=== PATIENT | female | born 1970 | race Two or more races ===

== ENCOUNTER 2020-10-01 15:54 | Outpatient (REF) | payer OTHER, SELFPAY ==
--- NOTE | 2020-10-01 15:59 | MM_ITS ---
EXAMINATION: MM SCREENING DIGITAL BREAST TOMOSYNTHESIS, BILATERAL CLINICAL INFORMATION: Screening. Asymptomatic. The lifetime risk of breast cancer based on the Tyrer-Cuzick Model is 5.9%. COMPARISON: Mammography: September 26, 2019 and studies dating back to August 09, 2014 TECHNIQUE: Digital breast tomosynthesis is performed in both the craniocaudal and mediolateral oblique views along with computer-aided detection (CAD). Synthesized 2D images are generated from the tomosynthesis. FINDINGS: The breasts are heterogeneously dense, which may obscure small masses (ACR BI-RADS breast composition Category c). There are no significant masses, abnormal calcifications, or other abnormalities. MM/MM tomosynthesis screening BI IMPRESSION: There are no significant changes from prior study. ASSESSMENT: BI-RADS 1: Negative RECOMMENDATION: Routine annual mammography screening. This patient's information was entered into a reminder system with a target due date for their next mammogram.
== END 2020-10-01 15:55 | disposition home or self-care (01) ==
LOC: HO.MAMMO 15:54
PROVIDERS: PCP Internal Medicine; Visit Provider Internal Medicine
DX: Z12.31 Encounter for screening mammogram for malignant neoplasm of breast (principal)
CPT/HCPCS: 77063; 77067

== ENCOUNTER 2020-11-06 14:21 | Outpatient (REF) | payer OTHER, SELFPAY ==
--- NOTE | 2020-11-06 14:25 | XR_ITS ---
EXAMINATION: XR HIP, RIGHT CLINICAL INFORMATION: Pain right hip COMPARISON: Radiographs right hip 12/25/2018; CT abdomen and pelvis 12/15/2016 TECHNIQUE: Two views of the right hip. FINDINGS: There is no fracture dislocation or destructive process. No hip joint narrowing or erosive change. Soft tissue planes are unremarkable. There is small bridging ossification at the superior pubis again seen. Visualized SI joints unremarkable. There is incidental mesenteric node calcification again seen right lower quadrant abdomen overlying the iliac wing. XR/XR hip RT min 2V IMPRESSION: Unremarkable right hip.
== END 2020-11-06 14:22 | disposition home or self-care (01) ==
LOC: HO.XRAY 14:21
PROVIDERS: PCP Internal Medicine; Visit Provider Internal Medicine
DX: M25.551 Pain in right hip (principal)
CPT/HCPCS: 73502

== ENCOUNTER 2020-12-11 10:02 | Outpatient (REF) | payer OTHER, SELFPAY | END 2020-12-11 10:03 | disposition home or self-care (01) | LOC: HO.LAB 10:02 | PROVIDERS: Visit Provider Internal Medicine | DX: Z20.822 Contact with and (suspected) exposure to COVID-19 (principal) | CPT/HCPCS: 36415; C9803; U0003; U0005 ==

== ENCOUNTER 2020-12-26 15:42 | Outpatient (REF) | payer OTHER, SELFPAY ==
--- NOTE | ~2020-12-26 | XR_ITS ---
EXAMINATION: XR KNEE, LEFT CLINICAL INFORMATION: Pain left knee COMPARISON: None TECHNIQUE: Three views of the left knee. FINDINGS: There is no fracture or dislocation or suprapatellar effusion. Hoffa's fat pad appears normal. There is no joint narrowing or erosive change or chondrocalcinosis. Axial view patella may suggest mild lateral tilting. There is some spurring at the quadriceps insertion patella. XR/XR knee LT 3V IMPRESSION: 1. Probable mild lateral tilting patella. Small spur at quadriceps insertion. 2. No joint narrowing or erosive change.
== END 2020-12-26 15:43 | disposition home or self-care (01) ==
LOC: HO.XRAY 15:42
PROVIDERS: PCP Internal Medicine; Visit Provider Family Medicine
DX: M25.562 Pain in left knee (principal)
CPT/HCPCS: 73562

== ENCOUNTER 2021-01-13 07:33 | Outpatient (REF) | payer OTHER, SELFPAY ==
--- NOTE | ~2021-01-13 | XR_ITS ---
EXAMINATION: XR KNEE AP STANDING, BILATERAL CLINICAL INFORMATION: Right knee pain. COMPARISON: 12/26/2020 TECHNIQUE: AP bilateral standing view of the knees was obtained. FINDINGS: AP standing views of both knees demonstrate maintenance of the medial and lateral joint space compartments bilaterally. There is mild spurring about the right medial joint space. No destructive bony lesions identified. XR/XR knee standing BI IMPRESSION: No significant bony abnormality identified on AP standing views of both knees.
== END 2021-01-13 07:34 | disposition home or self-care (01) ==
LOC: HO.HOSX 07:33
PROVIDERS: Visit Provider Orthopaedic Surgery
DX: M25.561 Pain in right knee (principal); M25.562 Pain in left knee; M23.92 Unspecified internal derangement of left knee; S83.242A Other tear of medial meniscus, current injury, left knee, initial encounter
CPT/HCPCS: 73565; 99202

== ENCOUNTER 2021-01-20 09:03 | Outpatient (REF) | payer OTHER, SELFPAY ==
[2021-01-20 09:25] LABS: COVID-19 Test Negative (Negative); IDNOW Serial# 55D5AD1C
== END 2021-01-20 09:04 | disposition home or self-care (01) ==
LOC: HO.LAB 09:03
PROVIDERS: Visit Provider Internal Medicine
DX: Z20.822 Contact with and (suspected) exposure to COVID-19 (principal)
CPT/HCPCS: 36415; 87635; C9803

== ENCOUNTER 2021-02-11 08:05 | Emergency (ER) | payer OTHER, SELFPAY ==
--- NOTE | 2021-02-11 08:27 | ED_ITS ---
HPI - Extremity Problem General Chief complaint: Extremity Injury, Upper Stated complaint: rt arm pain Time Seen by Provider: 02/11/21 08:27 Source: patient Mode of arrival: ambulatory Limitations: no limitations History of Present Illness HPI Narrative: fell asleep on arm a few days ago and then pinched her arm in the car with the seat. now here with pain MD Complaint: extremity pain Onset (ago): day(s) Pain Consistency: constant Location: right and upper extremity Quality: stabbing Radiation: none Associated symptoms: denies other symptoms Context: recent travel Related Data Home Medications Medication Instructions Recorded Confirmed fluticasone propionate 50 1 spray INTRANASAL DAILY 08/12/20 02/09/21 mcg/actuation nasal spray,suspension gabapentin 300 mg capsule 600 mg PO BEDTIME 08/12/20 02/09/21 Previous Rx's Medication Instructions Recorded omeprazole 20 mg capsule,delayed 20 mg PO DAILY #90 cap 11/03/20 release cholecalciferol (vitamin D3) 25 25 mcg PO DAILY #30 tab 11/04/20 mcg (1,000 unit) tablet ibuprofen 800 mg tablet 800 mg PO TID PRN #90 tab 11/05/20 clotrimazole 1 % topical cream 1 appl TOPICAL BID 14 Days #30 g 12/26/20 leg brace #1 ea 01/05/21 doxycycline hyclate 100 mg tablet 100 mg PO BID 90 Days #180 tab 02/09/21 naproxen 500 mg tablet 500 mg PO BID 14 Days #28 tab 02/09/21 nitrofurantoin macrocrystal 100 mg 100 mg PO BEDTIME 30 Days #30 cap 02/09/21 capsule naproxen [Naprosyn] 500 mg PO BID #20 tab 02/11/21 Allergies Allergy/AdvReac Type Severity Reaction Status Date / Time metronidazole [Metrogel] Allergy Intermediate facial rash Verified 02/09/21 09:22 morphine [Morphine] Allergy Intermediate SEVERE Verified 02/09/21 09:22 VOMITING, nausea and vomiting hydromorphone [From Dilaudid] AdvReac Mild makes pt Verified 02/09/21 09:22 feel ill Review of Systems Constitutional: Constitutional: Reports no additional constitutional complaints Eyes: Eyes: Reports no additional eye complaints ENT: Denies dizziness Cardiovascular: Cardiovascular: Reports no additional cardiovascular complaints Respiratory: Respiratory: Reports as per HPI Gastrointestinal: Gastrointestinal: Reports no additional gastrointestinal complaints Genitourinary: Genitourinary: Reports no additional female genitourinary complaints Musculoskeletal: Musculoskeletal: Reports no additional musculoskeletal complaints Integumentary/Breasts: Skin/Breast: Denies rash Neurologic: Reports system reviewed and no additional complaints, except as documented, Denies dizziness and Denies Sensory deficit (Neuro) Psychiatric: Psychiatric: Denies anxiety [facility] Past Medical History Medical History Acne rosacea GERD (gastroesophageal reflux disease) Hypovitaminosis D Leg numbness Mixed hyperlipidemia Obesity Right hip pain Surgical History History of abdominoplasty History of total abdominal hysterectomy and bilateral salpingo-oophorectomy Perforation of colon Family History Family History Father Hypertension Cancer Mother Hypertension Diabetes Brother No problems noted. 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 Physical Exam Vital Signs: Vital Signs: Last Vital Signs Temp 98.7 F 02/11/21 08:29 Pulse 82 02/11/21 08:29 Resp 18 02/11/21 08:29 BP 155/72 H 02/11/21 08:29 Pulse Ox 98 02/11/21 08:29 Body Mass Index 29.2 Const: Other: patient with pain out of proportion to physical findings General: healthy appearing Nutritional Appearance: average body habitus Orientation/consciousness: oriented to person and patient oriented x3 Limitations: no limitations HENMT: Head: Yes normal to inspection Ears: external ears normal General nose exam: Normal external nose present Mouth: Normal oral and palatal mucosa present and oropharynx normal Throat: Yes posterior oropharynx normal Eyes: General: appearance normal, both eyes and all related structures Neck: Other: supple Neck: Yes normal visual inspection Chest: Chest palpation & inspection: normal inspection of the chest Resp: Auscultation: clear to auscultation bilaterally Cardio: Jugular venous distension: no JVD Rate: regular rate Rhythm: regular rhythm Heart sounds: S1 normal heart sound present and S2 normal heart sound present GI: Inspection: Yes normal to inspection Palpation (GI): Soft to palpation, nontender and No hepatosplenomegaly present Auscultation: normal bowel sounds : General: Yes no CVA tenderness Back/Spine/Pelvis: Back: no CVA tenderness Skin: General skin exam: no rashes or lesions noted Neuro: General: oriented to person and patient oriented x3 Cranial nerves: Yes CN's II-XII intact bilaterally Motor exam (neuro): 5/5 motor strength present throughout Sensory Exam: No Sensory deficit (Neuro) Extrem: Other: wrist and elbow with FROM, no swelling or erythema, shoulder with pain to palpation and decreased range of motion, consistent with bursitis of shoulder Psych: Appearance: grossly normal Course Course Course Narrative: will start NSAIDS for shoulder bursitis Discharge Plan Discharge Clinical Impression: Bursitis and tendinitis of shoulder region Patient Disposition: Home, Self-Care Instructions: Shoulder Bursitis (ED) Prescriptions: New naproxen [Naprosyn] 500 mg tablet 500 mg PO BID Qty: 20 RF: 0 No Action omeprazole 20 mg capsule,delayed release(DR/EC) 20 mg PO DAILY Qty: 90 RF: 6 cholecalciferol (vitamin D3) 25 mcg (1,000 unit) tablet 25 mcg PO DAILY Qty: 30 RF: 1 (DME) Knee Support Brace Misc See Rx Instructions .ROUTE .MEDSUPPLY Qty: 1 RF: 0 clotrimazole [Clotrimazole AF] 1 % cream 1 appl topical BID 14 Days Qty: 30 RF: 0 gabapentin 300 mg capsule 600 mg PO BEDTIME RF: 0 fluticasone propionate 50 mcg/actuation spray,suspension 1 spray intranasal DAILY RF: 0 ibuprofen 800 mg tablet 800 mg PO TID PRN (Reason: fever or pain) Qty: 90 RF: 1 naproxen 500 mg tablet 500 mg PO BID 14 Days Qty: 28 RF: 1 doxycycline hyclate 100 mg tablet 100 mg PO BID 90 Days Qty: 180 RF: 0 nitrofurantoin macrocrystal 100 mg capsule 100 mg PO BEDTIME 30 Days Qty: 30 RF: 1 Referrals: Shasha Lott MD [Primary Care Provider] - 2 days Stand Alone Forms: Work/School Release
[2021-02-11 08:29] VITALS: BP 155/72; PULSE 82; RESP 18; TEMP 37.1; O2SAT 98; BMI 29.2
[2021-02-11] MEDS: Ketorolac Tromethamine 60 MG/2 ML VIAL IM (08:53)
== END 2021-02-11 09:04 | disposition home or self-care (01) ==
PROVIDERS: Emergency Provider Emergency Medicine; PCP Internal Medicine
DX: M75.51 Bursitis of right shoulder (principal); Z79.899 Other long term (current) drug therapy
CPT/HCPCS: 96372; 99283; 99284; J1885

== ENCOUNTER 2021-02-12 12:49 | Outpatient (REF) | payer OTHER, SELFPAY ==
[2021-02-12 13:20] LABS: MANUAL DIFF FLAG NO
[2021-02-12 13:36] LABS: Basophils Percent Auto 0.5 % (0-2); Eosinophils Absolute Auto 0.1 X10*3/uL (0.0-0.4); Eosinophils Percent Auto 0.8 % (0-4); Hematocrit 40.5 % (37-47); Hemoglobin 12.5 g/dl (12.0-16.0); Imm Gran Abs Auto 0.04 X10*3/uL (0.00-0.03); Imm Gran Pct Auto 0.5 % (0.0-0.4); Lymphocytes Absolute Auto 2.4 X10*3/uL (1.2-4.9); Lymphocytes Percent Auto 31.4 % (20-40); Mean Corpuscular HGB Conc 30.9 g/dl (31.0-35.0); Mean Corpuscular Hemoglobin 27.7 pg (27.0-33.0); Mean Corpuscular Volume 89.6 fL (80-98); Mean Platelet Volume 9.3 fL (9.4-12.3); Monocytes Absolute Auto 0.7 X10*3/uL (0.1-1.2); Monocytes Percent Auto 8.6 % (2-11); Neutrophils Absolute Auto 4.4 X10*3/uL (2.0-8.3); Neutrophils Percent Auto 58.2 % (45-73); Platelet Count 282 X10*3/uL (160-400); Red Blood Count 4.52 X10*6/uL (4.20-5.50); Red Cell Distribution Width 13.2 % (11.0-16.0); White Blood Count 7.5 X10*3/uL (4.8-10.8)
[2021-02-12 14:01] LABS: Alanine Aminotransferase 15 U/L (0-31); Albumin Level 4.1 g/dL (3.5-5.0); Alkaline Phosphatase 89 U/L (39-117); Anion Gap 11 (12-20); Aspartate Amino Transferase 16 U/L (5-31); Bilirubin Total 0.8 mg/dL (0.0-1.0); Blood Urea Nitrogen 12 mg/dL (9-16); Calcium 9.5 mg/dL (8.4-10.2); Carbon Dioxide 30 mmol/L (22-29); Chloride 105 mmol/L (96-108); Cholesterol 203 mg/dL; Estimated Glomerular Filt Rate > 60; Glucose Fasting 89 mg/dL (60-99); HDL Cholesterol 45 mg/dL; LDL Cholesterol Calculated 108 mg/dl; Potassium 4.3 mmol/L (3.3-5.1); Sodium 142 mmol/L (135-145); Total Protein 6.9 g/dL (6.5-8.0); Triglycerides 254 mg/dL
[2021-02-12 14:23] LABS: Thyroid Stimulating Hormone 0.47 uIU/mL (0.32-4.0)
[2021-02-17 12:56] LABS: Vitamin D 25-OH, D2 <4 ng/mL; Vitamin D 25-OH, D3 49 ng/mL; Vitamin D 25-OH, Total 49 ng/mL (30-100)
== END 2021-02-12 12:50 | disposition home or self-care (01) ==
LOC: HO.LAB 12:49
PROVIDERS: PCP Internal Medicine; Visit Provider Internal Medicine
DX: E78.2 Mixed hyperlipidemia (principal); E66.09 Other obesity due to excess calories; E55.9 Vitamin D deficiency, unspecified; K21.9 Gastro-esophageal reflux disease without esophagitis; Z68.30 Body mass index [BMI] 30.0-30.9, adult
CPT/HCPCS: 36415; 80053; 80061; 82306; 84443; 85025

== ENCOUNTER 2021-02-27 09:06 | Outpatient (REF) | payer OTHER, SELFPAY ==
--- NOTE | ~2021-02-27 | MR_ITS ---
EXAMINATION: MR KNEE WITHOUT CONTRAST, LEFT CLINICAL INFORMATION: Left knee pain and swelling. Injury on 12/15/2020. COMPARISON: Bilateral knee radiographs dated 01/13/2021. TECHNIQUE: MRI of the knee without contrast was performed using routine sequences on a high-field scanner. FINDINGS: MENISCI: Medial Meniscus: Probable focal radial inner margin tear of the posterior horn (sagittal image 18/24). Lateral Meniscus: Intact LIGAMENTS: Cruciate: Intact Collateral: Thickening of the medial collateral ligament with mild adjacent edema, which could represent an acute on chronic grade 1 sprain. Intact fibular collateral ligament. EXTENSOR MECHANISM: Intact. ARTICULAR CARTILAGE/BONE: Patellofemoral Compartment: Normal. Medial Compartment: Normal. Lateral Compartment: Lateral tibial plateau articular cartilage fissuring with minimal underlying subchondral cystic change. JOINT FLUID AND BURSAE: Small joint effusion and trace Beavers's cyst. MR/MR knee LT wo con IMPRESSION: 1. Probable nondisplaced inner margin radial tear of the medial meniscus posterior horn. 2. Thickening of the medial collateral ligament with mild adjacent edema, which could represent an acute on chronic grade 1 sprain. 3. Minimal lateral compartment arthrosis. Small joint effusion and trace Beavers's cyst.
== END 2021-02-27 09:07 | disposition home or self-care (01) ==
LOC: HO.MRI 09:06
PROVIDERS: Visit Provider Orthopaedic Surgery
DX: S83.242A Other tear of medial meniscus, current injury, left knee, initial encounter (principal); M23.92 Unspecified internal derangement of left knee
CPT/HCPCS: 73721

== ENCOUNTER → 2021-03-17 09:03 | Outpatient (BNVA) | payer OTHER, SELFPAY | PROVIDERS: PCP Internal Medicine; Visit Provider Orthopaedic Surgery | DX: S83.412D Sprain of medial collateral ligament of left knee, subsequent encounter (principal) | CPT/HCPCS: 99212 ==

== ENCOUNTER → 2021-03-19 14:41 | Outpatient (BNVA) | payer OTHER, SELFPAY | PROVIDERS: PCP Internal Medicine; Visit Provider Surgery | DX: Z09 Encounter for follow-up examination after completed treatment for conditions other than malignant neoplasm (principal); Z87.2 Personal history of diseases of the skin and subcutaneous tissue | CPT/HCPCS: 99202 ==

== ENCOUNTER 2021-05-05 08:41 | Outpatient (REF) | payer OTHER, SELFPAY | END 2021-05-05 08:42 | disposition home or self-care (01) | LOC: HO.LAB 08:41 | PROVIDERS: PCP Internal Medicine; Visit Provider Internal Medicine | DX: Z20.822 Contact with and (suspected) exposure to COVID-19 (principal) | CPT/HCPCS: C9803; U0003; U0005 ==

== ENCOUNTER 2021-05-18 11:00 | Outpatient (RCR) | payer OTHER, SELFPAY ==
--- NOTE | 2021-04-16 15:33 | MHC.PT.EP ---
[facility] [place] Office [place] Office [place] Office [address] Alvin Davis [address] [phone] F: [phone] F: [phone] F: [phone] F: [phone] Physical Therapy Plan of Care Date of Evaluation: Date of Surgery: N/A Diagnosis: sprain of medial collateral ligament of left knee Assessment: 51 y/o F presents to PT with s/sx consistent with L medial collateral ligament sprain. Pt initially injured L knee on 12/15/20 at work while stepping into rear of bus with hip flexion/IR moment. Pt complains of pain and discomfort with prolonged walking, ascending/descending stairs, and sitting with L LE crossed over R. Examination shows minimal swelling of L medial knee along joint line, TTP medial joint line, (+) L valgus stress test, limited knee flexion ROM, decreased hip/knee strength L>R, and impaired gait mechanics with B Trendelenberg and L hip IR/in-toeing. Recommend PT 2x/week for 6 weeks to address impairments, implement HEP, and optimize functional mobility. Frequency and Duration: The patient will be seen 2x/week for 6 weeks Short Term Goals: 3 weeks: 1. I with HEP 2. Pt will increase knee flexion by >15 degrees Drawer Maker Goals: 6 weeks: 1. I with HEP and self-management of sx 2. Pt will ascend/descend 10 step with <3/10 pain 3. Pt will be able to squat to at least 90* with proper body mechanics with <3/10 pain Treatment Plan: Modalities to reduce pain, spasms and effusion. Manual therapy to restore motion and function. Therapeutic exercise to improve strength and flexibility. Neuromuscular re-education for posture and balance. Therapeutic activities to return to functional activities of daily living. Electronically signed by: Amy Schneider PT Please sign and return to therapist. Thank you for your referral.
--- NOTE | 2021-06-04 15:45 | MHC.PT.DC ---
[facility] [place] Office [place] Office [place] Office [address] Alvin Davis [address] [phone] F: [phone] F: [phone] F: [phone] F: [phone] Physical Therapy Discharge Report Diagnosis: sprain of medial collateral ligament of left knee Date of Surgery: N/A Date of Evaluation: 04/16/21 Date of Discharge: 06/04/21 Treatments to Date: 5 Cancellations to Date: 5 No Shows to Date: 2 Discharge Status: Visit Non-compliance Discharge Summary: pt requested early leave due to sick stomach. I had to cancel my last appt. Electronically signed by: Amy little PT Please sign and return to therapist. Thank you for your referral.
== END 2021-06-04 15:45 | disposition home or self-care (01) ==
LOC: HO.PT 11:00
PROVIDERS: PCP Internal Medicine; Visit Provider Orthopaedic Surgery
DX: S83.412D Sprain of medial collateral ligament of left knee, subsequent encounter (principal)
CPT/HCPCS: 97110; 97161; 97530

== ENCOUNTER 2021-06-10 06:19 | Outpatient (REF) | payer OTHER, SELFPAY ==
[2021-06-10 07:38] LABS: MANUAL DIFF FLAG NO
[2021-06-10 07:43] LABS: Basophils Percent Auto 0.5 % (0-2); Eosinophils Absolute Auto 0.1 X10*3/uL (0.0-0.4); Eosinophils Percent Auto 2.1 % (0-4); Hematocrit 40.3 % (37-47); Hemoglobin 12.8 g/dl (12.0-16.0); Imm Gran Abs Auto 0.03 X10*3/uL (0.00-0.03); Imm Gran Pct Auto 0.5 % (0.0-0.4); Lymphocytes Percent Auto 32.1 % (20-40); Mean Corpuscular HGB Conc 31.8 g/dl (31.0-35.0); Mean Corpuscular Hemoglobin 27.9 pg (27.0-33.0); Mean Corpuscular Volume 87.8 fL (80-98); Monocytes Absolute Auto 0.5 X10*3/uL (0.1-1.2); Monocytes Percent Auto 8.5 % (2-11); Neutrophils Absolute Auto 3.6 X10*3/uL (2.0-8.3); Neutrophils Percent Auto 56.3 % (45-73); Platelet Count 273 X10*3/uL (160-400); Red Blood Count 4.59 X10*6/uL (4.20-5.50); Red Cell Distribution Width 12.8 % (11.0-16.0); White Blood Count 6.3 X10*3/uL (4.8-10.8)
[2021-06-10 07:59] LABS: Alanine Aminotransferase 16 U/L (0-31); Albumin Level 4.2 g/dL (3.5-5.0); Alkaline Phosphatase 89 U/L (39-117); Anion Gap 11 (12-20); Aspartate Amino Transferase 19 U/L (5-31); Bilirubin Total 0.6 mg/dL (0.0-1.0); Blood Urea Nitrogen 12 mg/dL (9-16); Calcium 9.3 mg/dL (8.4-10.2); Carbon Dioxide 27 mmol/L (22-29); Chloride 107 mmol/L (96-108); Cholesterol 167 mg/dL; Estimated Glomerular Filt Rate > 60; Glucose Fasting 102 mg/dL (60-99); HDL Cholesterol 38 mg/dL; LDL Cholesterol Calculated 92 mg/dl; Sodium 141 mmol/L (135-145); Total Protein 6.8 g/dL (6.5-8.0); Triglycerides 188 mg/dL
[2021-06-18 14:07] LABS: Vitamin D 25-OH, D2 <4 ng/mL; Vitamin D 25-OH, D3 45 ng/mL; Vitamin D 25-OH, Total 45 ng/mL (30-100)
== END 2021-06-10 06:20 | disposition home or self-care (01) ==
LOC: HO.LAB 06:19
PROVIDERS: PCP Internal Medicine; Visit Provider Internal Medicine
DX: E78.5 Hyperlipidemia, unspecified (principal); E78.2 Mixed hyperlipidemia; E55.9 Vitamin D deficiency, unspecified; E66.09 Other obesity due to excess calories; Z68.30 Body mass index [BMI] 30.0-30.9, adult
CPT/HCPCS: 36415; 80053; 80061; 82306; 85025

== ENCOUNTER 2021-07-22 09:39 | Outpatient (REF) | payer OTHER, SELFPAY ==
--- NOTE | ~2021-07-22 | XR_ITS ---
EXAMINATION: CR X-RAY RIGHT HIP AND FEMUR CLINICAL INFORMATION: Right hip and leg pain. COMPARISON: Right hip radiographs dated 10/29/2020. TECHNIQUE: 2 views each of the right hip and femur were obtained. FINDINGS: There is no acute fracture or dislocation. The joint spaces are unremarkable. The soft tissues are unremarkable. XR/XR knee RT 3V IMPRESSION: Unremarkable right hip and femur.
--- NOTE | ~2021-07-22 | XR_ITS ---
EXAMINATION: CR X-RAY RIGHT HIP AND FEMUR CLINICAL INFORMATION: Right hip and leg pain. COMPARISON: Right hip radiographs dated 10/29/2020. TECHNIQUE: 2 views each of the right hip and femur were obtained. FINDINGS: There is no acute fracture or dislocation. The joint spaces are unremarkable. The soft tissues are unremarkable. XR/XR femur RT 2V IMPRESSION: Unremarkable right hip and femur.
== END 2021-07-22 09:40 | disposition home or self-care (01) ==
LOC: HO.XRAY 09:39
PROVIDERS: PCP Internal Medicine; Visit Provider Psychiatry & Neurology Neurology
DX: M12.9 Arthropathy, unspecified (principal)
CPT/HCPCS: 73552; 73562

== ENCOUNTER 2021-08-27 18:51 | Outpatient (REF) | payer OTHER, SELFPAY ==
--- NOTE | ~2021-08-27 | MR_ITS ---
EXAMINATION: MR KNEE WITHOUT CONTRAST, RIGHT CLINICAL INFORMATION: Pain in the right knee. Rule out torn meniscus and ACL tear. COMPARISON: 07/22/2021 TECHNIQUE: MRI of the knee without contrast was performed using routine sequences on a high-field scanner. FINDINGS: MENISCI: Medial Meniscus: A small focal tear of the posterior horn along the undersurface most likely corresponds to a horizontal tear. There is associated meniscal fraying at the free edge in this region. Lateral Meniscus: Intact. LIGAMENTS: Cruciate: ACL is thickened and expanded with increased intrasubstance signal and ligamentous laxity, consistent with marked mucoid degeneration. PCL is normal. Collateral: Intact. EXTENSOR MECHANISM: Intact. ARTICULAR CARTILAGE/BONE: Patellofemoral Compartment: Transverse chondral fissures are present at the lateral patellar facet and median ridge. Tiny marginal osteophytes. Additional mild chondral thinning and small chondral fissures are present in the central trochlea and medial trochlear facet. Medial Compartment: Tiny marginal osteophytes. Minimal chondral surface irregularity in the medial compartment. Lateral Compartment: There is partial-thickness cartilage loss and chondral delamination at the lateral tibial plateau posteriorly over an area measuring 1.2 x 0.9 cm. Full-thickness chondral fissuring is present in this region. There are tiny marginal osteophytes. Mild chondral thinning is present at the lateral femoral condyle. JOINT FLUID AND BURSAE: Moderate-sized joint effusion. No Beavers's cyst. MR/MR knee RT wo con IMPRESSION: 1. Marked mucoid degeneration of the ACL with associated ligamentous laxity. 2. Small focal horizontal tear at the posterior horn of the medial meniscus. 3. Mild patellofemoral and lateral compartment osteoarthritis. 4. Moderate-sized joint effusion.
== END 2021-08-27 18:52 | disposition home or self-care (01) ==
LOC: HO.MRI 18:51
PROVIDERS: Visit Provider Psychiatry & Neurology Neurology
DX: M25.561 Pain in right knee (principal)
CPT/HCPCS: 73721

== ENCOUNTER → 2021-09-14 13:07 | Outpatient (BNVA) | payer OTHER, SELFPAY | PROVIDERS: PCP Internal Medicine; Referring Provider Internal Medicine; Visit Provider Internal Medicine Gastroenterology | DX: R19.4 Change in bowel habit (principal); R15.9 Full incontinence of feces | CPT/HCPCS: 99212 ==

== ENCOUNTER 2021-09-30 12:03 | Outpatient (REF) | payer OTHER, SELFPAY | END 2021-09-30 12:04 | disposition home or self-care (01) | LOC: HO.LAB 12:03 | PROVIDERS: Visit Provider Internal Medicine | DX: Z20.822 Contact with and (suspected) exposure to COVID-19 (principal) | CPT/HCPCS: C9803; U0003; U0005 ==

== ENCOUNTER 2021-10-22 05:55 | Outpatient (REF) | payer OTHER, SELFPAY ==
--- NOTE | ~2021-10-22 | XR_ITS ---
EXAMINATION: XR KNEE AP STANDING CLINICAL INFORMATION: Right knee pain. COMPARISON: 08/27/2021 and 01/13/2021. TECHNIQUE: AP bilateral standing view of the knees was obtained. FINDINGS: AP standing view of both knees do not demonstrate acute fracture or dislocation on this single view. There is minimal spurring seen about the medial joint space compartment of the right knee. Visualized joint spaces appear maintained. No destructive bony lesions appreciated. XR/XR knee standing BI IMPRESSION: No significant abnormality of the knees on AP standing view appreciated.
== END 2021-10-22 05:56 | disposition home or self-care (01) ==
LOC: HO.HOSX 05:55
PROVIDERS: Visit Provider Physician Assistant
DX: M17.11 Unilateral primary osteoarthritis, right knee (principal); M25.562 Pain in left knee; M23.206 Derangement of unspecified meniscus due to old tear or injury, right knee
CPT/HCPCS: 20610; 73565; 99202; J1040

== ENCOUNTER 2022-07-14 10:13 | Outpatient (REF) | payer OTHER, SELFPAY ==
--- NOTE | ~2022-07-14 | MM_ITS ---
EXAMINATION: MM SCREENING DIGITAL BREAST TOMOSYNTHESIS, BILATERAL CLINICAL INFORMATION: Screening. Asymptomatic. The lifetime risk of breast cancer based on the Tyrer-Cuzick Model is 6%. COMPARISON: Mammography: 10/01/2020, 09/26/2019, 09/26/2018, 09/20/2018 TECHNIQUE: Digital breast tomosynthesis is performed in both the craniocaudal and mediolateral oblique views along with computer-aided detection (CAD). Synthesized 2D images are generated from the tomosynthesis. FINDINGS: There are scattered areas of fibroglandular density (ACR BI-RADS breast composition Category b). There are no significant masses, abnormal calcifications, or other abnormalities. Parenchymal pattern is similar to prior studies. There is no developing density or architectural abnormality. The axilla and skin contours are unremarkable. No significant changes. MM/MM tomosynthesis screening BI IMPRESSION: No mammographic evidence of malignancy. ASSESSMENT: BI-RADS 1: Negative RECOMMENDATION: Routine annual mammography screening. This patient's information was entered into a reminder system with a target due date for their next mammogram.
== END 2022-07-14 10:14 | disposition home or self-care (01) ==
LOC: HO.MAMMO 10:13
PROVIDERS: PCP Internal Medicine; Visit Provider Internal Medicine
DX: Z12.31 Encounter for screening mammogram for malignant neoplasm of breast (principal)
CPT/HCPCS: 77063; 77067

== ENCOUNTER → 2022-07-16 09:58 | Outpatient (BNVA) | payer OTHER, SELFPAY | PROVIDERS: PCP Internal Medicine; Referring Provider Internal Medicine; Visit Provider Internal Medicine Gastroenterology | DX: R15.9 Full incontinence of feces (principal); R32 Unspecified urinary incontinence; M79.18 Myalgia, other site | CPT/HCPCS: 99212 ==

== ENCOUNTER 2022-07-26 | Outpatient (REF) | payer OTHER, SELFPAY ==
--- NOTE | ~2022-07-26 | XR_ITS ---
EXAMINATION: XR knee standing BI, XR knee LT 2V CLINICAL INFORMATION: Reason for Exam M25.569 - Pain in unspecified knee COMPARISON: Pain TECHNIQUE: Standing AP view both knees and a lateral and sunrise view of the left knee FINDINGS: No acute fracture or dislocation. Bilateral medial lateral tibiofemoral compartment joint spaces are preserved on the standing view. Small marginal osteophytes about the right medial tibiofemoral compartment. Lateral view of the left knee shows no significant knee joint effusion. No erosive changes. Soft tissues unremarkable. XR/XR knee LT 2V IMPRESSION: No acute findings. No significant joint space narrowing. Small marginal osteophytes along the right medial tibiofemoral compartment.
--- NOTE | ~2022-07-26 | XR_ITS ---
EXAMINATION: XR knee standing BI, XR knee LT 2V CLINICAL INFORMATION: Reason for Exam M25.569 - Pain in unspecified knee COMPARISON: Pain TECHNIQUE: Standing AP view both knees and a lateral and sunrise view of the left knee FINDINGS: No acute fracture or dislocation. Bilateral medial lateral tibiofemoral compartment joint spaces are preserved on the standing view. Small marginal osteophytes about the right medial tibiofemoral compartment. Lateral view of the left knee shows no significant knee joint effusion. No erosive changes. Soft tissues unremarkable. XR/XR knee standing BI IMPRESSION: No acute findings. No significant joint space narrowing. Small marginal osteophytes along the right medial tibiofemoral compartment.
== END 2022-07-26 00:01 | disposition home or self-care (01) ==
LOC: HO.HOSX
PROVIDERS: Visit Provider Physician Assistant
DX: S83.412A Sprain of medial collateral ligament of left knee, initial encounter (principal)
CPT/HCPCS: 73560; 73565; 99212

== ENCOUNTER 2022-08-25 15:26 | Outpatient (REF) | payer OTHER, SELFPAY ==
[2022-08-25 15:41] LABS: MANUAL DIFF FLAG NO
[2022-08-25 17:27] LABS: Basophils Percent Auto 0.4 % (0-2); Eosinophils Absolute Auto 0.1 X10*3/uL (0.0-0.4); Eosinophils Percent Auto 0.7 % (0-4); Hemoglobin 12.5 g/dl (12.0-16.0); Imm Gran Abs Auto 0.02 X10*3/uL (0.00-0.03); Imm Gran Pct Auto 0.2 % (0.0-0.4); Lymphocytes Absolute Auto 2.5 X10*3/uL (1.2-4.9); Lymphocytes Percent Auto 25.7 % (20-40); Mean Corpuscular HGB Conc 31.3 g/dl (31.0-35.0); Mean Corpuscular Hemoglobin 27.8 pg (27.0-33.0); Mean Corpuscular Volume 89.1 fL (80.0-98.0); Mean Platelet Volume 10.6 fL (9.4-12.3); Monocytes Absolute Auto 0.8 X10*3/uL (0.1-1.2); Monocytes Percent Auto 8.5 % (2-11); Neutrophils Absolute Auto 6.2 x10*3/uL (2.0-8.3); Neutrophils Percent Auto 64.5 % (45-73); Platelet Count 289 X10*3/uL (160-400); Red Blood Count 4.49 X10*6/uL (4.20-5.50); Red Cell Distribution Width 12.9 % (11.0-16.0); White Blood Count 9.5 X10*3/uL (4.8-10.8)
[2022-08-25 18:00] LABS: Alanine Aminotransferase 7 U/L (0-31); Albumin Level 4.4 g/dL (3.5-5.0); Alkaline Phosphatase 87 U/L (39-117); Anion Gap 14 (12-20); Aspartate Amino Transferase 14 U/L (5-31); Bilirubin Total 0.4 mg/dL (0.0-1.0); Blood Urea Nitrogen 18 mg/dL (9-16); Calcium 9.4 mg/dL (8.4-10.2); Carbon Dioxide 27 mmol/L (22-29); Chloride 107 mmol/L (96-108); Estimated Glomerular Filt Rate > 60; Glucose Random 82 mg/dL (60-115); Potassium 4.1 mmol/L (3.3-5.1); Sodium 144 mmol/L (135-145); Total Protein 7.1 g/dL (6.5-8.0)
== END 2022-08-25 15:27 | disposition home or self-care (01) ==
LOC: HO.LAB 15:26
PROVIDERS: PCP Internal Medicine; Visit Provider Internal Medicine
DX: R10.9 Unspecified abdominal pain (principal); E55.9 Vitamin D deficiency, unspecified
CPT/HCPCS: 36415; 80053; 82306; 85025

== ENCOUNTER 2022-09-03 07:58 | Outpatient (REF) | payer OTHER, SELFPAY ==
--- NOTE | ~2022-09-03 | US_ITS ---
EXAMINATION: US ABDOMEN COMPLETE CLINICAL INFORMATION: Abdominal pain. COMPARISON: Abdomen ultrasound from 09/27/2019. Abdomen CT from 08/17/2017. TECHNIQUE: Real-time imaging of the abdominal viscera. FINDINGS: PANCREAS: Normal. ABDOMINAL AORTA: The proximal, mid, and distal segments are normal in caliber. INFERIOR VENA CAVA: Visualized portions are normal. LIVER: Liver has normal size and contour. The parenchyma remains diffusely hyperechoic, consistent with steatosis. No focal lesion or intrahepatic bile duct dilatation. GALLBLADDER: Normal. The gallbladder is physiologically distended without evidence of stones, sludge, polyps, wall thickening or pericholecystic fluid. COMMON DUCT: The visualized common duct is 0.2 cm in diameter. No dilated ducts. RIGHT KIDNEY: Normal. No hydronephrosis. No renal calculi or focal parenchymal lesions. The kidney measures 10.4 cm in maximum dimension. LEFT KIDNEY: The left kidney is 11.9 cm in length. No focal parenchymal lesion or hydronephrosis. A stone of the upper pole measures approximately 0.5 cm. The atrophy of the upper pole cortex is better depicted on the abdomen CT of 08/17/2017. SPLEEN: Normal. The spleen measures 11.1 cm in maximum dimension. FREE FLUID: None. US/US abdomen complete IMPRESSION: * No acute sonographic abnormalities in the visualized abdomen. * Diffuse hepatic steatosis. * A calyceal stone is present in the upper pole of the left kidney. No hydronephrosis.
[2022-09-03 10:03] LABS: Alanine Aminotransferase 13 U/L (0-31); Albumin Level 4.2 g/dL (3.5-5.0); Alkaline Phosphatase 96 U/L (39-117); Anion Gap 13 (12-20); Aspartate Amino Transferase 18 U/L (5-31); Bilirubin Total 0.5 mg/dL (0.0-1.0); Blood Urea Nitrogen 13 mg/dL (9-16); Calcium 9.6 mg/dL (8.4-10.2); Carbon Dioxide 27 mmol/L (22-29); Chloride 107 mmol/L (96-108); Cholesterol 188 mg/dL; Estimated Glomerular Filt Rate > 60; Glucose Fasting 99 mg/dL (60-99); HDL Cholesterol 39 mg/dL; LDL Cholesterol Calculated 100 mg/dl; Potassium 4.6 mmol/L (3.3-5.1); Sodium 142 mmol/L (135-145); Total Protein 6.7 g/dL (6.5-8.0); Triglycerides 246 mg/dL
[2022-09-03 10:26] LABS: Vitamin D 25-OH Total 29.5 ng/mL (>30)
== END 2022-09-03 07:59 | disposition home or self-care (01) ==
LOC: HO.US 07:58
PROVIDERS: PCP Internal Medicine; Visit Provider Internal Medicine
DX: Z00.00 Encounter for general adult medical examination without abnormal findings (principal); R10.9 Unspecified abdominal pain; E55.9 Vitamin D deficiency, unspecified
CPT/HCPCS: 36415; 76700; 80053; 80061; 82306

== ENCOUNTER 2022-09-04 06:27 | Emergency (ER) | payer OTHER, SELFPAY ==
--- NOTE | ~2022-09-04 | CT_ITS ---
EXAMINATION: CT ABDOMEN AND PELVIS WITHOUT CONTRAST CLINICAL INFORMATION: Right lower quadrant pain COMPARISON: Abdominal ultrasound September 03, [address] abdomen pelvis August 17, 2017 TECHNIQUE: Multidetector volumetric imaging was performed from the superior aspect of the liver through the pubic symphysis. Sagittal and coronal reformatted images were obtained on the technologist's workstation. Today's examination is mildly limited secondary to motion artifact. This CT examination was performed using dose optimization techniques as appropriate, variously including the following: *Automated exposure control *Adjustment of mA and/or kV according to patient size (this includes techniques or standardized protocols for targeted exams where dose is matched to indication/reason for exam; i.e. extremities or head) *Use of iterative reconstruction technique DLP: 586 mGy-cm FINDINGS: Visualized lung bases are well aerated. 4 mm nodular density abutting the left minor fissure is most suggestive of an intrafissural node. The liver demonstrates normal size, contour and attenuation. A punctate calcification is again noted along the wall the gallbladder. The gallbladder is otherwise unremarkable in appearance. The pancreas, spleen and adrenal glands are unremarkable. Symmetrically sized kidneys. No renal calculi or hydronephrosis of either kidney. Similar subtle scarring and calcifications involving the upper pole the left kidney. Normal caliber loops of small and large bowel. Normal appendix. Mild colonic stool burden. Mild colonic diverticulosis without CT evidence to suggest active diverticulitis. Small fat-containing umbilical hernia. Also noted is a subcentimeter fat-containing supraumbilical hernia. Suspected postoperative changes of the lower ventral abdominal wall. Normal caliber abdominal aorta demonstrating only mild atherosclerotic disease. No retroperitoneal lymphadenopathy. The bladder is decompressed and therefore not accurately evaluated. Uterus is surgically absent. No gross free pelvic fluid. No inguinal lymphadenopathy. Mild diffuse degenerative changes of the spine. CT/CT abdomen pelvis wo IV con IMPRESSION: 1. No CT evidence for acute abnormality within the abdomen or pelvis. 2. Mild colonic diverticulosis without CT evidence to suggest active diverticulitis. 3. Small fat-containing umbilical hernia. Also noted is a subcentimeter fat-containing supraumbilical hernia. Fleischner guidelines were followed.
[2022-09-04 06:44] VITALS: BMI 27.1
[2022-09-04 07:04] VITALS: BP 139/81; PULSE 75; RESP 16; TEMP 37.1; O2SAT 97
--- NOTE | 2022-09-04 07:17 | ED_ITS ---
HPI - Abdominal Pain General Chief Complaint: Abdominal Pain Stated Complaint: Abd pain Time Seen by Provider: 09/04/22 06:46 Source: patient Mode of arrival: ambulatory Limitations: no limitations History of Present Illness HPI narrative: 52-year-old female came in for evaluation of right lower quadrant abdominal pain. Patient's symptoms started a week ago as intermittent mild right lower quadrant abdominal pain then progressively pain becoming constant and more localized to the right lower quadrant area, no radiation, patient declined any dysuria or frequency urination, no vaginal discharge, no vomiting or diarrhea patient complaining of mild nausea, no anorexia or loss of appetite. Past surgical history significant for total hysterectomy due to endometriosis. Related Data Home Medications Medication Instructions Recorded Confirmed gabapentin 300 mg capsule 600 mg PO BEDTIME 08/12/20 08/25/22 cholecalciferol (vitamin D3) 25 25 mcg PO DAILY 07/16/22 08/25/22 mcg (1,000 unit) capsule (Vitamin D3) mirabegron 50 mg tablet,extended 50 mg PO DAILY 07/16/22 08/25/22 release 24 hr (Myrbetriq) Previous Rx's Medication Instructions Recorded leg brace (Knee Support Brace) #1 ea 01/05/21 ibuprofen 800 mg tablet 800 mg PO TID PRN for pain #90 tabs 02/06/22 omeprazole 20 mg capsule,delayed 20 mg PO DAILY #90 caps 07/21/22 release naproxen 500 mg tablet 500 mg PO BID 30 days #60 tabs 08/02/22 nitrofurantoin 100 mg PO BID #14 caps 09/04/22 monohydrate/macrocrystals 100 mg capsule (Macrobid) Allergies Allergy/AdvReac Type Severity Reaction Status Date / Time metronidazole [Metrogel] Allergy Intermediate facial rash Verified 08/25/22 15:06 morphine [Morphine] Allergy Intermediate SEVERE Verified 08/25/22 15:06 VOMITING, nausea and vomiting hydromorphone [From Dilaudid] AdvReac Mild makes pt Verified 08/25/22 15:06 feel ill Review of Systems Review of Systems All other systems are reviewed and are negative Constitutional: Reports as per HPI and Reports no additional constitutional complaints Eyes: Reports as per HPI and Reports no additional eye complaints Reports system reviewed and no additional complaints, except as documented Cardiovascular: Reports as per HPI and Reports no additional cardiovascular complaints Respiratory: Reports as per HPI and Reports no additional respiratory complaints Gastrointestinal: Reports as per HPI and Reports no additional gastrointestinal complaints Genitourinary: Reports no additional female genitourinary complaints Musculoskeletal: Reports no additional musculoskeletal complaints Skin/Breast: Reports system reviewed and no additional complaints, except as docu Psychiatric: Reports no additional psychiatric complaints Endocrine: Reports no additional endocrine complaints Hematologic/Lymphatic: Reports no additional hematologic/lymphatic complaints Allergic/Immunologic: Reports no additional allergic/immunologic complaints Reports system reviewed and no additional complaints, except as documented and Reports Abnormal speech present [facility] Past Medical History Medical History Acne rosacea Change in bowel habits Foreign body granuloma of skin GERD (gastroesophageal reflux disease) Hypovitaminosis D Leg numbness Mixed hyperlipidemia Obesity Right hip pain Urge urinary incontinence Surgical History History of abdominoplasty History of total abdominal hysterectomy and bilateral salpingo-oophorectomy Perforation of colon Family History Family History Father Hypertension Cancer Mother Hypertension Diabetes Brother No problems noted. 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 Blood pressure normal. Heart rate normal. Respiration rate normal. Temperature normal. Oxygen saturation normal. Appearance: Alert. Oriented X3. No acute distress. Head: Normal external exam. Normocephalic. Atraumatic. No Moses signs noted. No raccoon eyes noted Eyes: PERRLA. EOMI. Conjunctiva and sclera normal. Eyelids normal. ENT: TM's Normal. Pharynx normal. Uvula midline. Moist mucous membranes. No trismus noted. No drooling noted. No muffled voice noted. Neck: Normal inspection. Neck supple. FROM. No adenopathy. Thyroid Normal. No meningeal signs. No neck mass noted. CVS: Normal heart rate and rhythm. Heart sound normal. No murmurs noted. Pulses normal throughout. Respiratory: No respiratory distress. Painless inspiration. Breath sounds normal. No wheezes/rales/rhonchi noted. Chest nontender. No accessory muscle usage noted or decreased air movement noted. Abdomen: Soft, right lower quadrant tenderness, no rebound tenderness, no guarding.. Bowel sounds normal in all 4 quadrants. No distention noted. No organomegaly noted. No visible injury noted. Back: No CVA tenderness. Full range of motion noted. Skin: Skin warm and dry. Normal skin color. Normal skin turgor. No rashes/lesions/lacerations noted. Extremities: No lower extremity edema. Extremities exhibit normal range of motion. Extremities nontender. Neuro: Oriented X 3. Cranial nerve exam: II-XII are grossly intact No motor deficit. No sensory deficit. Reflexes normal. Course Course Course Narrative: [age] year female presented with right lower quadrant pain for 1 week pain started as intermittent becoming constant which is not likely to be appendicitis CT of the abdomen pelvis showed normal appendix patient has unremarkable labs, UA showing UTI will start the patient on Macrobid and encouraged to drink plenty of fluids. Medications Administered Discontinued Medications Generic Name Dose Route Start Last Admin Trade Name Freq PRN Reason Stop Dose Admin Sodium Chloride 1,000 mls @ 999 mls/hr 09/04/22 07:16 09/04/22 08:03 Ns IV 09/04/22 08:16 999 mls/hr .Q1H1M ONE Administration MDM - Abdominal Pain Medical Records Attestation: I reviewed the patient's medical records. Lab Data Attestation: I reviewed the patient's lab results. Result diagrams: 09/04/22 08:01 09/04/22 08:02 Labs: Lab Results 09/04/22 09/04/22 09/04/22 Range/Units 08:01 08:01 08:02 WBC 9.5 (4.8-10.8) X10*3/uL RBC 4.47 (4.20-5.50) X10*6/uL Hgb 12.3 (12.0-16.0) g/dl Hct 38.9 (37.0-47.0) % MCV 87.0 (80.0-98.0) fL MCH 27.5 (27.0-33.0) pg MCHC 31.6 (31.0-35.0) g/dl RDW 13.2 (11.0-16.0) % Plt Count 211 D (160-400) X10*3/uL MPV 9.2 L (9.4-12.3) fL Immature Gran % (Auto) 0.3 (0.0-0.4) % Neut % (Auto) 72.4 (45-73) % Lymph % (Auto) 17.5 L (20-40) % Travis % (Auto) 8.8 (2-11) % Eos % (Auto) 0.7 (0-4) % Baso % (Auto) 0.3 (0-2) % Lymph # (Auto) 1.7 (1.2-4.9) X10*3/uL Travis # (Auto) 0.8 (0.1-1.2) X10*3/uL Eos # (Auto) 0.1 (0.0-0.4) X10*3/uL Baso # (Auto) 0.0 (0.0-0.2) X10*3/uL Abs Immat Gran (auto) 0.03 (0.00-0.03) X10*3/uL Absolute Neuts (auto) 6.9 (2.0-8.3) x10*3/uL Absolute Nucleated RBC 0.000 (0.0-0.012) X10*3/uL Nucleated RBC % (auto) 0.0 (0.0-0.2) /100WBC Sodium 140 (135-145) mmol/L Potassium 4.1 (3.3-5.1) mmol/L Chloride 105 (96-108) mmol/L Carbon Dioxide 26 (22-29) mmol/L Anion Gap 13 (12-20) BUN 11 (9-16) mg/dL Creatinine 0.63 (0.5-1.4) mg/dL Estim Creat Clear Calc 94.9 Estimated GFR > 60 Random Glucose 97 (60-115) mg/dL Calcium 9.5 (8.4-10.2) mg/dL Total Bilirubin 0.7 (0.0-1.0) mg/dL Direct Bilirubin 0.2 (0.0-0.5) mg/dL AST 16 (5-31) U/L ALT 12 (0-31) U/L Alkaline Phosphatase 87 (39-117) U/L Total Protein 6.8 (6.5-8.0) g/dL Albumin 4.2 (3.5-5.0) g/dL Lipase 34 (8-78) U/L Urine Color Yellow Urine Appearance Clear Urine pH 5.5 (5.0-9.0) Ur Specific [place] 1.025 (1.005-1.025) Urine Protein Negative (Neg-Trace) mg/dL Urine Glucose (UA) Negative (Negative) mg/dL Urine Ketones Negative (Negative) mg/dL Urine Blood Negative (Negative) Urine Nitrite Negative (Negative) Ur Leukocyte Esterase Trace H (Negative) Urine RBC 0-2 (0-2) /HPF Urine WBC 6-10 H (0-5) /HPF Ur Squamous Epith Cells 3-5 (0-2) /HPF Urine Bacteria 2+ (None Seen) Hyaline Casts 0-2 (0-2) /LPF Imaging Data CT scan - abdomen: Attestation: I personally reviewed and interpreted this imaging study as follows: Radiologist's impression: 1.? No CT evidence for acute abnormality within the abdomen or pelvis. 2.? Mild colonic diverticulosis without CT evidence to suggest active diverticulitis. 3.? Small fat-containing umbilical hernia. Also noted is a subcentimeter fat-containing supraumbilical hernia. ? Discharge Plan Discharge Clinical Impression: Abdominal pain, UTI (urinary tract infection) Patient Disposition: Home, Self-Care Instructions: Urinary Tract Infection in Women (ED), Abdominal Pain (ED) Prescriptions: New nitrofurantoin monohyd/m-cryst [Macrobid] 100 mg capsule 100 mg PO BID Qty: 14 0RF Rx Instructions: must administer with a meal/food No Action (DME) Knee Support Brace Misc See Rx Instructions .ROUTE .MEDSUPPLY Qty: 1 0RF Rx Instructions: As directed x 6 weeks ibuprofen 800 mg tablet 800 mg PO TID PRN (Reason: for pain) Qty: 90 1RF naproxen 500 mg tablet 500 mg PO BID 30 Days Qty: 60 1RF gabapentin 300 mg capsule 600 mg PO BEDTIME omeprazole 20 mg capsule,delayed release(DR/EC) 20 mg PO DAILY Qty: 90 0RF Myrbetriq 50 mg tablet extended release 24 hr 50 mg PO DAILY cholecalciferol (vitamin D3) [Vitamin D3] 25 mcg (1,000 unit) capsule 25 mcg PO DAILY Referrals: Shasha Lott MD [Primary Care Provider] -
[2022-09-04] MEDS: 0.9 % Sodium Chloride 1,000 ML 999 ML IV (08:03)
[2022-09-04 08:08] LABS: MANUAL DIFF FLAG NO
[2022-09-04 08:09] LABS: Basophils Percent Auto 0.3 % (0-2); Eosinophils Absolute Auto 0.1 X10*3/uL (0.0-0.4); Eosinophils Percent Auto 0.7 % (0-4); Hematocrit 38.9 % (37.0-47.0); Hemoglobin 12.3 g/dl (12.0-16.0); Imm Gran Abs Auto 0.03 X10*3/uL (0.00-0.03); Imm Gran Pct Auto 0.3 % (0.0-0.4); Lymphocytes Absolute Auto 1.7 X10*3/uL (1.2-4.9); Lymphocytes Percent Auto 17.5 % (20-40); Mean Corpuscular HGB Conc 31.6 g/dl (31.0-35.0); Mean Corpuscular Hemoglobin 27.5 pg (27.0-33.0); Mean Platelet Volume 9.2 fL (9.4-12.3); Monocytes Absolute Auto 0.8 X10*3/uL (0.1-1.2); Monocytes Percent Auto 8.8 % (2-11); Neutrophils Absolute Auto 6.9 x10*3/uL (2.0-8.3); Neutrophils Percent Auto 72.4 % (45-73); Platelet Count 211 X10*3/uL (160-400); Red Blood Count 4.47 X10*6/uL (4.20-5.50); Red Cell Distribution Width 13.2 % (11.0-16.0); White Blood Count 9.5 X10*3/uL (4.8-10.8)
[2022-09-04 08:11] LABS: Appearance Urine Clear; Color Urine Yellow; Glucose Urine UA Negative (Negative); Leukocyte Esterase Urine Trace (Negative); Nitrite Urine Negative (Negative); PH 5.5 (5.0-9.0); Specific Gravity - Urine 1.025 (1.005-1.025); UMIC TRIGGER UACC YES; Urine Blood Negative (Negative); Urine Ketones Negative (Negative); Urine Protein Negative (Neg-Trace)
[2022-09-04 08:15] LABS: Bacteria Urine 2+ (None Seen); Hyaline Casts Urine 0-2 /LPF (0-2); RBC Urine 0-2 /HPF (0-2); UACC Culture Trigger YES
[2022-09-04 08:39] LABS: Alanine Aminotransferase 12 U/L (0-31); Albumin Level 4.2 g/dL (3.5-5.0); Alkaline Phosphatase 87 U/L (39-117); Anion Gap 13 (12-20); Aspartate Amino Transferase 16 U/L (5-31); Bilirubin Direct 0.2 mg/dL (0.0-0.5); Bilirubin Total 0.7 mg/dL (0.0-1.0); Blood Urea Nitrogen 11 mg/dL (9-16); Calcium 9.5 mg/dL (8.4-10.2); Carbon Dioxide 26 mmol/L (22-29); Chloride 105 mmol/L (96-108); Creatinine Clr Calc Pharmacy 94.9; Estimated Glomerular Filt Rate > 60; Glucose Random 97 mg/dL (60-115); Lipase 34 U/L (8-78); Potassium 4.1 mmol/L (3.3-5.1); Sodium 140 mmol/L (135-145); Total Protein 6.8 g/dL (6.5-8.0)
[2022-09-04 08:55] LABS: Troponin-I High Sensitivity < 3.5 ng/L (<3.5-17.0)
[2022-09-04] MEDS: Acetaminophen 325 MG TABLET 650 MG PO (09:21)
[2022-09-04] MEDS: ondansetron HCL 4 MG/2 ML VIAL IVPUSH (09:21)
[2022-09-04 09:22] VITALS: BP 129/70; PULSE 74; O2SAT 99
== END 2022-09-04 09:29 | disposition home or self-care (01) ==
PROVIDERS: Emergency Provider Emergency Medicine; PCP Internal Medicine
DX: N39.0 Urinary tract infection, site not specified (principal); B96.20 Unspecified Escherichia coli [E. coli] as the cause of diseases classified elsewhere; R10.31 Right lower quadrant pain
CPT/HCPCS: 36415; 74176; 80048; 80076; 81001; 83690; 84484; 85025; 87086; 87088; 87186; 96361; 96374; 99284; 99285; J2405

== ENCOUNTER 2022-09-20 12:04 | Outpatient (REF) | payer OTHER, SELFPAY ==
[2022-09-20 13:14] LABS: Influenza A PCR NEGATIVE (Negative); Influenza B PCR NEGATIVE (Negative); Resp Syncy Virus RNA Qual PCR POSITIVE (Negative); SARS COV2 PCR INHOUSE NEGATIVE (Negative)
== END 2022-09-20 12:05 | disposition home or self-care (01) ==
LOC: HO.LAB 12:04
PROVIDERS: Visit Provider Internal Medicine
DX: Z20.822 Contact with and (suspected) exposure to COVID-19 (principal); R09.89 Other specified symptoms and signs involving the circulatory and respiratory systems
CPT/HCPCS: 0241U

== ENCOUNTER → 2022-09-27 09:26 | Outpatient (BNVA) | payer OTHER, SELFPAY | PROVIDERS: PCP Internal Medicine; Visit Provider Surgery | DX: K42.9 Umbilical hernia without obstruction or gangrene (principal) | CPT/HCPCS: 99202 ==

== ENCOUNTER 2022-10-14 13:13 | Outpatient (REF) | payer OTHER, SELFPAY ==
[2022-10-14 13:58] LABS: COVID-19 Test Negative (Negative); IDNOW Serial# 16C4AD1C
== END 2022-10-14 13:14 | disposition home or self-care (01) ==
LOC: HO.LAB 13:13
PROVIDERS: Visit Provider Internal Medicine
DX: Z20.822 Contact with and (suspected) exposure to COVID-19 (principal)
CPT/HCPCS: 87635; C9803

== ENCOUNTER 2022-10-23 14:39 | Outpatient (REF) | payer OTHER, SELFPAY ==
--- NOTE | ~2022-10-23 | XR_ITS ---
EXAMINATION: XR CHEST CLINICAL INFORMATION: Cough. COMPARISON: None TECHNIQUE: 2 views of the chest were obtained. FINDINGS: The lungs are well-expanded and clear of acute process. The heart size and pulmonary vascularity is normal. There is mild dextroscoliosis with spondylosis of dorsal spine. XR/XR chest 2V IMPRESSION: Unremarkable chest examination.
== END 2022-10-23 14:40 | disposition home or self-care (01) ==
LOC: HO.HMGCX 14:39
PROVIDERS: PCP Internal Medicine; Visit Provider Physician Assistant Medical
DX: R05.9 Cough, unspecified (principal)
CPT/HCPCS: 71046

== ENCOUNTER 2022-10-25 10:56 | Outpatient (REF) | payer OTHER, SELFPAY | END 2022-10-25 10:57 | disposition home or self-care (01) | LOC: HO.LAB 10:56 | PROVIDERS: PCP Internal Medicine; Visit Provider Nurse Practitioner Family | DX: N39.0 Urinary tract infection, site not specified (principal); N39.46 Mixed incontinence; N20.0 Calculus of kidney | CPT/HCPCS: 51798; 87086; 87088; 87186; 99202 ==

== ENCOUNTER 2023-01-04 09:51 | Outpatient (REF) | payer OTHER, SELFPAY ==
--- NOTE | ~2023-01-04 | US_ITS ---
EXAMINATION: US RETROPERITONEAL LIMITED (RENAL ONLY) CLINICAL INFORMATION: Urinary tract infection, site not specified. COMPARISON: CT abdomen and pelvis 09/04/2022. Ultrasound abdomen complete 09/03/2022. Ultrasound abdomen limited 10/24/2019. X-ray KUB 05/30/2014. TECHNIQUE: Real-time imaging of the kidneys. FINDINGS: RIGHT KIDNEY: 10.2 x 5.8 x 4.6 cm (SAG x AP x TRV). The kidney is normal in size, contour, and echogenicity. Renal cortical thickness is normal. No calculi or focal parenchymal lesions. No hydronephrosis. LEFT KIDNEY: 11.2 x 5.4 x 5.4 cm (SAG x AP x TRV). The kidney is normal in size, contour, and echogenicity. Renal cortical thickness is normal. No focal parenchymal lesions or hydronephrosis. Nonobstructing stones measuring up to 3 mm. US/US renal BI IMPRESSION: Nonobstructing left renal nephrolithiasis. No hydronephrosis.
== END 2023-01-04 09:52 | disposition home or self-care (01) ==
LOC: HO.US 09:51
PROVIDERS: PCP Internal Medicine; Visit Provider Nurse Practitioner Family
DX: N39.0 Urinary tract infection, site not specified (principal); N39.46 Mixed incontinence
CPT/HCPCS: 76775

== ENCOUNTER 2023-01-13 16:15 | Outpatient (REF) | payer OTHER, SELFPAY ==
--- NOTE | ~2023-01-13 | US_ITS ---
EXAMINATION: US PELVIS LIMITED (BLADDER) CLINICAL INFORMATION: Poor urinary stream. COMPARISON: CT abdomen and pelvis 08/31/2022. TECHNIQUE: Real-time imaging of the bladder. FINDINGS: BLADDER: Well distended and normal. Bilateral ureteral jets are demonstrated. Prevoid bladder volume is 176 mL. Postvoid bladder volume is 10.4 mL. US/US bladder IMPRESSION: Small postvoid residual volume. There is no bladder wall thickening.
== END 2023-01-13 16:16 | disposition home or self-care (01) ==
LOC: HO.US 16:15
PROVIDERS: PCP Internal Medicine; Visit Provider Nurse Practitioner Family
DX: N39.0 Urinary tract infection, site not specified (principal); R39.12 Poor urinary stream; N39.46 Mixed incontinence
CPT/HCPCS: 76857

== ENCOUNTER 2023-02-01 15:17 | Outpatient (REF) | payer OTHER, SELFPAY ==
--- NOTE | ~2023-02-01 | XR_ITS ---
EXAMINATION: XR HIP, RIGHT CLINICAL INFORMATION: Pain in right hip COMPARISON: None available. TECHNIQUE: Two views of the right hip. FINDINGS: Bones and soft tissues are normal. No fracture. Alignment is anatomic. Hip joint space is maintained. XR/XR hip RT min 2V IMPRESSION: Unremarkable right hip.
== END 2023-02-01 15:18 | disposition home or self-care (01) ==
LOC: HO.US 15:17
PROVIDERS: Visit Provider Nurse Practitioner Family
DX: M25.551 Pain in right hip (principal)
CPT/HCPCS: 73502

== ENCOUNTER → 2023-02-02 09:20 | Outpatient (BNVA) | payer OTHER, SELFPAY | PROVIDERS: PCP Internal Medicine; Visit Provider Nurse Practitioner Family | DX: N39.46 Mixed incontinence (principal); N39.0 Urinary tract infection, site not specified; N20.0 Calculus of kidney; N81.10 Cystocele, unspecified; N81.6 Rectocele | CPT/HCPCS: 51798; 99212 ==

== ENCOUNTER 2023-05-02 09:17 | Outpatient (AMB) | payer OTHER, SELFPAY ==
--- NOTE | 2023-05-02 09:18 | A.OFFVIS_ITS ---
Intake Intake Visit Reasons: 3m/PVR Intake Note: Patient is present for follow up incontinence/recurrent uti/kidney stone Urology Medications: estrace, myrbetriq, vesicare Blood Thinner: none PVR: 0ml's Treasury Director Required: Yes Accompanied by: Self / Same As Patient Allergies metronidazole [Metrogel] Allergy (Intermediate, Verified 05/02/23 11:49) facial rash morphine [Morphine] Allergy (Intermediate, Verified 05/02/23 11:49) SEVERE VOMITING, nausea and vomiting hydromorphone [From Dilaudid] Adverse Reaction (Mild, Verified 05/02/23 11:49) makes pt feel ill Medication List - Last Reconciled 05/02/23 by CARIE Ferrara cholecalciferol (vitamin D3) (Vitamin D3) 25 mcg PO DAILY cyclobenzaprine 10 mg PO TID PRN 7 days doxycycline hyclate 100 mg PO BID 30 days estradiol 0.01%(0.1mg/gram) vaginally daily; pea sized amount to urethra daily 30 days gabapentin 300 mg PO BEDTIME 90 days ibuprofen 800 mg PO TID PRN leg brace (Knee Support Brace) As directed x 6 weeks mirabegron ER (Myrbetriq) 50 mg PO DAILY naproxen 500 mg PO BID 30 days nitrofurantoin macrocrystal 100 mg PO BID 14 days pantoprazole 40 mg PO DAILY 90 days solifenacin (Vesicare) 5 mg PO DAILY 90 days HPI HPI Comments History of Present Illness Details Malathi is a pleasant 53-year-old female patient of Dr. Berg. Patient presents to the office today for a follow up of her urinary issues. She has a past medical history of GERD, mixed hyperlipidemia, mixed incontinence urge and stress, recurrent UTIs, and right hip pain. Of note, patient was seen approximately 3 months ago. When asked patient reports to be doing and feeling well. She discusses her upcoming trip to [facility] next week. She reports having followed up with urogynocology last month at which time recommendations were made for surgical intervention however in discussion regarding procedure and postop instructions of not submerging in water patient deferred surgical intervention until the fall time. She reports being offered Botox in the meantime. However, has not received a call back to undergo this treatment option. Patient does report significant improvement in urinary urgency, frequency, and episodes of incontinence if not near a bathroom on Myrbetriq 50 mg daily and VESIcare 5 mg. Patient with previous MRI noting 3 compartment pelvic floor descent on evacuation images with large cystocele and notable inferior descent of the vaginal vault and and erectile junction. A small to moderate anterior rectocele suggested on evacuation images. Given results of MRI patient was referred to Urogynecolgy as noted above. Discussed at length potential causes/reasons for urinary issues. Discussed possible near future appointment with Dr. Charles if uro-gynocology unable to assist with cystocele interventions. In office urinalysis negative leukocytes positive nitrates. When asked patient does report noting foul-smelling urine. However, she denies yadira turia, dysuria, changes to urinary stream, flank pain, fever, and or chills. PVR 0ml's. [facility] Medical History Acne rosacea Change in bowel habits Foreign body granuloma of skin GERD (gastroesophageal reflux disease) Hypovitaminosis D Leg numbness Mixed hyperlipidemia Mixed incontinence urge and stress Obesity Recurrent UTI Right hip pain Urge urinary incontinence Surgical History History of abdominoplasty History of total abdominal hysterectomy and bilateral salpingo-oophorectomy Perforation of colon Family History Father Hypertension Cancer Mother Hypertension Diabetes Brother No problems noted. 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 Current occupational exposures/hazards: No Cognitive needs: No Hearing needs: No Vision needs: Yes Review of Systems Const Reports as per HPI Eyes Reports no additional complaints ENT Reports no additional complaints Card Reports no additional complaints Resp Reports no additional complaints GI Reports as per HPI Reports as per HPI Musc Reports as per HPI Neuro Reports no additional complaints Psych Reports no additional complaints Endo Reports no additional complaints Physical Exam Const General: cooperative, healthy appearing, comfortable, no acute distress, well developed, alert and awake Orientation/consciousness: patient oriented x3 Limitations: no limitations HEENT Head: Yes normal to inspection, Yes normocephalic and Yes atraumatic Ears: hearing grossly normal bilaterally Eyes General: appearance normal, both eyes and all related structures Neck Neck: Yes normal visual inspection and Yes trachea midline Chest Chest palpation & inspection: normal inspection of the chest Resp Effort & Inspection: normal respiratory effort and able to speak in complete sentences Cardio Rate: regular rate GI Inspection: Yes normal to inspection General: Yes no CVA tenderness Back/Spine/Pelvis Back: no CVA tenderness Cervical Spine: normal cervical lordosis Neuro General: patient oriented x3 Extrem General: Yes normal to inspection Psych Appearance: grossly normal and well kempt Mental Status: mental status grossly normal Speech and movement: Normal speech and movement present and Clear speech present Affect: normal affect Attitude: cooperative Thought process: Normal thought process present Thought content: Normal thought content present Insight: Fair insight present (Psych) Judgement: Fair judgement present (Psych) Office Procedures Post Void Residual Post Residual Void Post Void Residual (PVR): 0 34115-Ddbu Void Residual by ultrasound Results AMB Urinalysis, Automated UA Leukoctes 0 Suhail/uL Last Edit by [employer] on 05/02/23 09:34 UA Nitrite Last Edit by [employer] on 05/02/23 09:34 UA Urobilinogen 0.2 mg/dL Last Edit by [employer] on 05/02/23 09:34 UA Protein 0 mg/dL Last Edit by [employer] on 05/02/23 09:34 UA pH 7.0 Last Edit by [employer] on 05/02/23 09:34 UA Blood 0 Alejandro/uL Last Edit by [employer] on 05/02/23 09:34 UA Specific [place] 1.015 Last Edit by [employer] on 05/02/23 09:34 UA Ketone Last Edit by [employer] on 05/02/23 09:34 UA Bilirubin 0 mg/dL Last Edit by [employer] on 05/02/23 09:34 UA Glucose 0 mg/dL Last Edit by [employer] on 05/02/23 09:34 Results Reviewed Results Reviewed: Laboratory Last Values Urine pH (Auto) 7.0 05/02/23 09:25 Specific [place] (Auto) 1.015 05/02/23 09:25 Urine Protein (Auto) 0 mg/dL 05/02/23 09:25 Glucose (UA)(Auto) 0 mg/dL 05/02/23 09:25 Urine Blood (Auto) 0 Alejandro/uL 05/02/23 09:25 Urine Bilirubin (Auto) 0 mg/dL 05/02/23 09:25 Urine Urobilinogen (Auto) 0.2 mg/dL 05/02/23 09:25 Leukocyte Esterase (Auto) 0 Suhail/uL 05/02/23 09:25 Assessment & Plan Assessment & Plan (1) Foul smelling urine: Code(s): R82.90 - Unspecified abnormal findings in urine (2) Cystocele with rectocele: Code(s): N81.10 - Cystocele, unspecified; N81.6 - Rectocele (3) Mixed incontinence urge and stress: Code(s): N39.46 - Mixed incontinence (4) Recurrent UTI: Code(s): N39.0 - Urinary tract infection, site not specified Plan In office urinalysis results reviewed with the patient today; will send for microgen testing Continue to follow with urogynecology as planned in discussed. Continue Myrbetriq and VESIcare as patient reports significant improvement in urinary symptoms on these medications Discussed UTI prevention with D mannose supplement, vitamin-C, increasing fluid intake, behavioral therapy with timed voiding, perineal hygiene and postcoital voiding, and management of constipation with stool softeners and increased fiber intake. Start Macrobid as discussed and prescribed. Will attempt to obtain urogynecology office notes for continuity of care. Follow-up in 1 month if not sooner with any issues, concerns, and or questions. Orders: Orders AMB Urinalysis Automated Today Z13.9 - Encounter for screening, unspecified AMB Post Void Residual by ultrasound Today N39.0 - Urinary tract infection, site not specified Medications: Changed 2 From nitrofurantoin macrocrystal must administer with a meal/food 100 mg PO BEDTIME 90 days 90 caps 1RF To nitrofurantoin macrocrystal must administer with a meal/food 100 mg PO BID 14 days 28 caps 0RF Patient Instructions: The patient had an opportunity to ask questions regarding the treatment plan. All questions were answered. Physical exam, labs, and imaging were discussed and reviewed in detail. As well as risks, benefits, and discussion of treatment choices. No major barriers to understanding were identified. The patient expressed understanding and agreement with the above treatment plan. The patient was made aware they should contact our office by phone for worsening of their current condition, the appearance of new symptoms, or with any questions or concerns. Compliance is encouraged with any medications and follow up testing that is ordered. It is a privilege to be allowed the opportunity to participate in? your urological care.? Again, if you have any questions or concerns If you have any questions or concerns please do not hesitate to contact me. The office is [phone]. This note is constructed using voice recognition software. While every effort has been made to ensure accuracy claims auditor errors may have been included. Yours sincerely, CARIE Ferrara Coding Level of Care Code Est Pt Level 4 (87613) Diagnoses Foul smelling urine R82.90 Cystocele with rectocele N81.10; N81.6 Mixed incontinence urge and stress N39.46 Recurrent UTI N39.0 CPT Codes Post Residual Void - PVR CPT Code: 43645-Btyi Void Residual by ultrasound ([id number])
== END 2023-05-02 10:14 | disposition home or self-care (01) ==
PROVIDERS: Visit Provider Nurse Practitioner Family
DX: R82.90 Unspecified abnormal findings in urine (principal); N81.10 Cystocele, unspecified; N81.6 Rectocele; N39.46 Mixed incontinence; N39.0 Urinary tract infection, site not specified
CPT/HCPCS: 99214

== ENCOUNTER → 2023-05-02 09:17 | Outpatient (BNVA) | payer OTHER, SELFPAY | PROVIDERS: Visit Provider Nurse Practitioner Family | DX: N81.10 Cystocele, unspecified (principal); N81.6 Rectocele; N39.46 Mixed incontinence; N39.0 Urinary tract infection, site not specified; R82.90 Unspecified abnormal findings in urine | CPT/HCPCS: 51798; 99212 ==

== ENCOUNTER 2023-06-01 09:48 | Outpatient (AMB) | payer OTHER, SELFPAY ==
--- NOTE | 2023-06-01 10:08 | MHC.OFFVIS ---
Intake Intake Visit Reasons: 1m follow up Intake Note: Patient is present for follow up incontinence/recurrent uti/cystocele and rectocele Urology Medications: estrace, myrbetriq, vesicare, macrobid Blood Thinner: none PVR: 0ml's House Shorer Required: No Accompanied by: Self / Same As Patient Allergies metronidazole [Metrogel] Allergy (Intermediate, Verified 06/01/23 17:23) facial rash morphine [Morphine] Allergy (Intermediate, Verified 06/01/23 17:23) SEVERE VOMITING, nausea and vomiting hydromorphone [From Dilaudid] Adverse Reaction (Mild, Verified 06/01/23 17:23) makes pt feel ill Medication List - Last Reconciled 06/01/23 by ABIDA Ferrara- cholecalciferol (vitamin D3) (Vitamin D3) 25 mcg PO DAILY cyclobenzaprine 10 mg PO TID PRN 7 days doxycycline hyclate 100 mg PO BID 30 days estradiol 0.01%(0.1mg/gram) vaginally daily; pea sized amount to urethra daily 30 days gabapentin 300 mg PO BEDTIME 90 days ibuprofen 800 mg PO TID PRN leg brace (Knee Support Brace) As directed x 6 weeks mirabegron ER (Myrbetriq) 50 mg PO DAILY naproxen 500 mg PO BID 30 days nitrofurantoin macrocrystal 100 mg PO BID 14 days pantoprazole 40 mg PO DAILY 90 days solifenacin (Vesicare) 5 mg PO DAILY 90 days HPI HPI Comments History of Present Illness Details Malathi is a pleasant 53-year-old female patient of Dr. Berg. Patient presents to the office today for a follow up of her urinary issues. She has a past medical history of GERD, mixed hyperlipidemia, mixed incontinence urge and stress, recurrent UTIs, and right hip pain. Of note, patient was seen approximately 1 month ago at which time her urine was sent for Microgen testing as patient with recurrent UTI's. These results were reviewed with the patient and she is status post antibiotic therapy. She reports feeling urinary symptoms have improved however she does continue with urinary urge incontinence as well as fecal incontinence. She discusses having a follow-up with Dr. Aguiar and is planning to undergo bladder Botox 08/03. Call to Dr. Rodriguez to discuss plan of care as patient was reporting frustration at today's office visit regarding ongoing symptoms of urinary incontinence as well as fecal incontinence. Dr. Aguiar discusses patient has undergone urodynamic testing and recommendations were made for bladder Botox versus cystocele repair. She discusses at length today that although patient's MRI has noted 3 compartment pelvic floor descent on evacuation with large cystocele and notable inferior descent of the vaginal vault during physical assessment of the patient patient with no bladder/vaginal bulging and urodynamics noting detrusor overactivity thus plan is to trial bladder botox at this time given patient has failed multiple oral therapies. Patient does endorse mild/some improvement in urinary symptoms with Myrbetriq and VESIcare however continues with urinary incontinence. She otherwise denies nocturia, hematuria, dysuria, foul smelling urine, changes to urinary stream, flank pain, fever, and or chills. In office urinalysis results reviewed with the patient today. PVR 0 mL. After today's visit call back to patient to discuss discussion that was had with urogynecology. Discussed importance of following up with Gastroenterology regarding fecal incontinence as urogynecology does not believe this is related to patient urological/vaginal issues. Discussed following up with Dr. Lake for further evaluation and to discuss possible pessary placement if symptoms continue. Patient agreeable to plan of care. [facility] Medical History Acne rosacea Change in bowel habits Foreign body granuloma of skin GERD (gastroesophageal reflux disease) Hypovitaminosis D Leg numbness Mixed hyperlipidemia Mixed incontinence urge and stress Obesity Recurrent UTI Right hip pain Urge urinary incontinence Surgical History History of abdominoplasty History of total abdominal hysterectomy and bilateral salpingo-oophorectomy Perforation of colon Family History Father Hypertension Cancer Mother Hypertension Diabetes Brother No problems noted. 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 Current occupational exposures/hazards: No Cognitive needs: No Hearing needs: No Vision needs: Yes Review of Systems Const Reports as per HPI Eyes Reports no additional complaints ENT Reports no additional complaints Card Reports no additional complaints Resp Reports no additional complaints GI Reports as per HPI Reports as per HPI Musc Reports as per HPI Neuro Reports no additional complaints Psych Reports no additional complaints Endo Reports no additional complaints Physical Exam Const General: cooperative, healthy appearing, comfortable, no acute distress, well developed, alert and awake Orientation/consciousness: patient oriented x3 Limitations: no limitations HEENT Head: Yes normal to inspection, Yes normocephalic and Yes atraumatic Ears: hearing grossly normal bilaterally Eyes General: appearance normal, both eyes and all related structures Neck Neck: Yes normal visual inspection and Yes trachea midline Chest Chest palpation & inspection: normal inspection of the chest Resp Effort & Inspection: normal respiratory effort and able to speak in complete sentences Cardio Rate: regular rate GI Inspection: Yes normal to inspection General: Yes no CVA tenderness Back/Spine/Pelvis Back: no CVA tenderness Cervical Spine: normal cervical lordosis Neuro General: patient oriented x3 Extrem General: Yes normal to inspection Psych Appearance: grossly normal and well kempt Mental Status: mental status grossly normal Speech and movement: Normal speech and movement present and Clear speech present Affect: normal affect Attitude: cooperative Thought process: Normal thought process present Thought content: Normal thought content present Insight: Fair insight present (Psych) Judgement: Fair judgement present (Psych) Office Procedures Post Void Residual Post Residual Void Post Void Residual (PVR): 0 15011-Ohyy Void Residual by ultrasound Results AMB Urinalysis, Automated UA Leukoctes 0 Suhail/uL Last Edit by [facility] on 06/01/23 10:38 UA Nitrite Last Edit by [employer] on 06/01/23 10:38 UA Urobilinogen 0.2 mg/dL Last Edit by [employer] on 06/01/23 10:38 UA Protein 0 mg/dL Last Edit by [facility] on 06/01/23 10:38 UA pH 6.0 Last Edit by [employer] on 06/01/23 10:38 UA Blood 0 Alejandro/uL Last Edit by Raúl Maradiagahoney on 06/01/23 10:38 UA Specific [place] 1.025 Last Edit by Chavalucila Ashwinihoney on 06/01/23 10:38 UA Ketone Negative Last Edit by Raúl Maradiagahoney on 06/01/23 10:38 UA Bilirubin 0 mg/dL Last Edit by Chavajose armandosalud Maradiagahoney on 06/01/23 10:38 UA Glucose 0 mg/dL Last Edit by Raúl Ashwinihoney on 06/01/23 10:38 Results Reviewed Results Reviewed: Laboratory Last Values Urine pH (Auto) 6.0 06/01/23 10:09 Specific [place] (Auto) 1.025 06/01/23 10:09 Urine Protein (Auto) 0 mg/dL 06/01/23 10:09 Glucose (UA)(Auto) 0 mg/dL 06/01/23 10:09 Urine Ketones (Auto) Negative 06/01/23 10:09 Urine Blood (Auto) 0 Alejandro/uL 06/01/23 10:09 Urine Bilirubin (Auto) 0 mg/dL 06/01/23 10:09 Urine Urobilinogen (Auto) 0.2 mg/dL 06/01/23 10:09 Leukocyte Esterase (Auto) 0 Suhail/uL 06/01/23 10:09 Assessment & Plan Assessment & Plan (1) Cystocele with rectocele: Code(s): N81.10 - Cystocele, unspecified; N81.6 - Rectocele (2) Mixed incontinence urge and stress: Code(s): N39.46 - Mixed incontinence (3) Recurrent UTI: Code(s): N39.0 - Urinary tract infection, site not specified (4) Urge urinary incontinence: Code(s): N39.41 - Urge incontinence Plan In office urinalysis results reviewed with the patient today; as noted above. PVR-0ml Continue Myrbetriq and VESIcare. Call to Urogynecology to discuss plan of care; as noted above Patient denies any UTI like symptoms at this time. Discussed, educated, encouraged to continue drinking plenty of water daily. Follow-up with urogynecology as planned. Follow-up with Gastroenterology as discussed. Will obtain office notes from Urogynecology for continuity of care Follow-up in 4-[address] Lake as discussed; or sooner with any issues, concerns, or questions. Orders: Orders AMB Urinalysis Automated Today Z13.9 - Encounter for screening, unspecified AMB Post Void Residual by ultrasound Today N39.46 - Mixed incontinence Patient Instructions: The patient had an opportunity to ask questions regarding the treatment plan. All questions were answered. Physical exam, labs, and imaging were discussed and reviewed in detail. As well as risks, benefits, and discussion of treatment choices. No major barriers to understanding were identified. The patient expressed understanding and agreement with the above treatment plan. The patient was made aware they should contact our office by phone for worsening of their current condition, the appearance of new symptoms, or with any questions or concerns. Compliance is encouraged with any medications and follow up testing that is ordered. It is a privilege to be allowed the opportunity to participate in? your urological care.? Again, if you have any questions or concerns If you have any questions or concerns please do not hesitate to contact me. The office is [phone]. This note is constructed using voice recognition software. While every effort has been made to ensure accuracy youtuber errors may have been included. Yours sincerely, CARIE Ferrara Coding Level of Care Code Est Pt Level 4 (55642) Diagnoses Cystocele with rectocele N81.10; N81.6 Mixed incontinence urge and stress N39.46 Recurrent UTI N39.0 Urge urinary incontinence N39.41 CPT Codes Post Residual Void - PVR CPT Code: 24149-Ahwn Void Residual by ultrasound ([id number]) Time Spent (min) 45
== END 2023-06-01 11:29 | disposition home or self-care (01) ==
PROVIDERS: PCP Internal Medicine; Visit Provider Nurse Practitioner Family
DX: N81.10 Cystocele, unspecified (principal); N81.6 Rectocele; N39.46 Mixed incontinence; N39.0 Urinary tract infection, site not specified; N39.41 Urge incontinence
CPT/HCPCS: 99214

== ENCOUNTER → 2023-06-01 09:48 | Outpatient (BNVA) | payer OTHER, SELFPAY | PROVIDERS: PCP Internal Medicine; Visit Provider Nurse Practitioner Family | DX: N81.10 Cystocele, unspecified (principal); N81.6 Rectocele; N39.46 Mixed incontinence; Z79.899 Other long term (current) drug therapy | CPT/HCPCS: 51798; 81003 ==

== ENCOUNTER 2023-06-01 17:15 | Outpatient (AMB) | payer OTHER, SELFPAY ==
[2023-06-01 17:18] VITALS: BP 120/82; BMI 28.0
--- NOTE | 2023-06-01 17:18 | MHC.PC.OV ---
Vital Signs 06/01/23 17:18 Height 5 ft 2 in Weight 153 lb BMI 28.0 BP 120/82 Blood Pressure Location Lt brachial Position Sitting Intake Visit Reasons: side pain on left foot Intake Note: Patient here c/o left side foot pain [employer] Required: No Accompanied by: Self / Same As Patient Allergies metronidazole [Metrogel] Allergy (Intermediate, Verified 06/01/23 17:23) facial rash morphine [Morphine] Allergy (Intermediate, Verified 06/01/23 17:23) SEVERE VOMITING, nausea and vomiting hydromorphone [From Dilaudid] Adverse Reaction (Mild, Verified 06/01/23 17:23) makes pt feel ill Medication List - Last Reconciled 06/01/23 by Shasha Juarez MD cholecalciferol (vitamin D3) (Vitamin D3) 25 mcg PO DAILY cyclobenzaprine 10 mg PO TID PRN 7 days doxycycline hyclate 100 mg PO BID 30 days estradiol 0.01%(0.1mg/gram) vaginally daily; pea sized amount to urethra daily 30 days gabapentin 300 mg PO BEDTIME 90 days ibuprofen 800 mg PO TID PRN leg brace (Knee Support Brace) As directed x 6 weeks mirabegron ER (Myrbetriq) 50 mg PO DAILY naproxen 500 mg PO BID 30 days nitrofurantoin macrocrystal 100 mg PO BID 14 days pantoprazole 40 mg PO DAILY 90 days solifenacin (Vesicare) 5 mg PO DAILY 90 days Tobacco use date assessed: 12/02/22 Dental Screening Dental Screen Date: 06/01/23 Did you have a dental visit in the last 12 months?: Yes Did you have a dental problem in the last 6 months where you did not have access to dental care?: No Was dental information given to patient?: Patient has dentist HPI HPI Comments History of Present Illness Details This is a 53-year-old female that complains left foot pain that started about few weeks ago. The pain is aggravated by walking. It is on the lateral side of left foot and tender to palpation. I can feel a lump were is tender. [facility] Medical History Acne rosacea Change in bowel habits Foreign body granuloma of skin GERD (gastroesophageal reflux disease) Hypovitaminosis D Leg numbness Mixed hyperlipidemia Mixed incontinence urge and stress Obesity Recurrent UTI Right hip pain Urge urinary incontinence Surgical History History of abdominoplasty History of total abdominal hysterectomy and bilateral salpingo-oophorectomy Perforation of colon Family History Father Hypertension Cancer Mother Hypertension Diabetes Brother No problems noted. 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 Jhoan Humphries, Karla Garcia, Guicho Rodriges and colleagues, with an educational marla from [employer]. Review of Systems Const All systems reviewed & are unremarkable except as noted in HPI and below Eyes Reports no additional complaints, Denies change in vision and Denies other visual disturbances Card Denies chest pain at rest, Denies chest pain with activity, Denies edema, Denies irregular heart rhythm, Denies claudication, Denies dyspnea, Denies dyspnea on exertion, Denies orthopnea, Denies paroxysmal nocturnal dyspnea and Denies slow heart rate Resp Denies cough, Denies dyspnea and Denies dyspnea on exertion GI Denies abdominal pain, Denies change in bowel habits, Denies excessive flatus, Denies nausea and Denies vomiting Denies urinary incontinence, Denies urinary hesitancy and Denies urinary urgency Musc Denies abnormal gait, Denies atrophy, Denies deformity and Denies limited range of motion Skin/Breast Denies bleeding lesions, Denies changing lesions and Denies rash Neuro Denies abnormal gait and Denies lack of coordination Physical exam (Primary Care) Vital Signs: Last Vital Signs BP 120/82 06/01/23 17:18 BMI result Body Mass Index 28.0 Tobacco/Smoking Status: Tobacco use Status Tobacco use date assessed 12/02/22 06/01/23 17:21 Patient Tobacco Use Status Never used Tobacco 06/01/23 17:21 e-Cigarette/Vaping Use Never Used 06/01/23 17:21 Thrive Assessment: Date of Thrive Assessment Date Thrive assessed 12/02/22 06/01/23 17:21 Eyes General: appearance normal, both eyes and all related structures Eyelids: Yes eyelids normal Conjunctivae: conjunctivae normal Neck Neck: Yes normal visual inspection and Yes supple Resp Effort & Inspection: normal respiratory effort Auscultation: clear to auscultation bilaterally Cardio Jugular venous distension: no JVD Rate: regular rate Rhythm: regular rhythm Heart sounds: S1 normal heart sound present and S2 normal heart sound present Extrem General: Yes full ROM Results AMB Urinalysis, Automated UA Leukoctes 0 Suhail/uL Last Edit by [employer] on 06/01/23 10:38 UA Nitrite Last Edit by [employer] on 06/01/23 10:38 UA Urobilinogen 0.2 mg/dL Last Edit by [employer] on 06/01/23 10:38 UA Protein 0 mg/dL Last Edit by [employer] on 06/01/23 10:38 UA pH 6.0 Last Edit by [employer] on 06/01/23 10:38 UA Blood 0 Alejandro/uL Last Edit by [employer] on 06/01/23 10:38 UA Specific [place] 1.025 Last Edit by [employer] on 06/01/23 10:38 UA Ketone Negative Last Edit by [employer] on 06/01/23 10:38 UA Bilirubin 0 mg/dL Last Edit by [employer] on 06/01/23 10:38 UA Glucose 0 mg/dL Last Edit by [employer] on 06/01/23 10:38 Assessment and Plan Assessment & Plan (1) Left foot pain: Code(s): M79.672 - Pain in left foot Plan: X-ray ordered. Referred to Podiatry. Orders: Orders XR foot LT 2V Today M79.672 - Pain in left foot Referrals Podiatry Referral M79.672 - Pain in left foot Coding Level of Care Code Est Pt Level 3 (67272) Diagnoses Left foot pain M79.672 Time Spent (min) 19
== END 2023-06-01 17:30 | disposition home or self-care (01) ==
PROVIDERS: PCP Internal Medicine; Visit Provider Internal Medicine
DX: M79.672 Pain in left foot (principal)
CPT/HCPCS: 99213

== ENCOUNTER 2023-06-02 11:33 | Outpatient (REF) | payer OTHER, SELFPAY ==
--- NOTE | ~2023-06-02 | XR_ITS ---
EXAMINATION: XR FOOT, LEFT CLINICAL INFORMATION: Pain left foot lateral aspect COMPARISON: None available. TECHNIQUE: AP, lateral, and oblique views of the left foot. FINDINGS: Mild dorsal and plantar calcaneal spurring. Alignment preserved. No displaced fracture. Minimal degenerative changes first metatarsophalangeal joint. XR/XR foot LT 2V IMPRESSION: Mild dorsal and plantar calcaneal spurring. No displaced fracture. Recommend follow-up imaging in 10-14 days if fracture is suspected.
== END 2023-06-02 11:34 | disposition home or self-care (01) ==
LOC: HO.XRAY 11:33
PROVIDERS: PCP Internal Medicine; Visit Provider Internal Medicine
DX: M79.672 Pain in left foot (principal)
CPT/HCPCS: 73620

== ENCOUNTER 2023-07-20 09:13 | Outpatient (REF) | payer OTHER, SELFPAY ==
--- NOTE | ~2023-07-20 | MM_ITS ---
EXAMINATION: MM SCREENING DIGITAL BREAST TOMOSYNTHESIS, BILATERAL CLINICAL INFORMATION: Screening. Asymptomatic. COMPARISON: Mammography: This study is compared with prior exams dating back to 2018. TECHNIQUE: Digital breast tomosynthesis is performed in both the craniocaudal and mediolateral oblique views along with computer-aided detection (CAD). Synthesized 2D images are generated from the tomosynthesis. FINDINGS: There are scattered areas of fibroglandular density (ACR BI-RADS breast composition Category b). In the lower outer quadrant of the left breast, there is an asymmetry which warrants additional mammographic evaluation. Sonography is at the discretion of the diagnostic radiologist. In the right breast, there are no significant masses, abnormal calcifications, or other abnormalities. MM/MM tomosynthesis screening BI IMPRESSION: Left breast asymmetry warrants additional mammographic imaging. Sonography is the discretion of the diagnostic radiologist. No mammographic signs of malignancy right breast. ASSESSMENT: BI-RADS BI-RADS 0 - Incomplete: Needs additional Imaging. RECOMMENDATION: 1. Additional views of the left breast 2. Targeted ultrasound if warranted after review of the additional views. 3. Radiology department staff will contact the patient for additional imaging. Additional Imaging required This examination should not preclude the clinical evaluation of a suspicious palpable abnormality. This patient's information was entered into a reminder system with a target due date for their next mammogram.
== END 2023-07-20 09:14 | disposition home or self-care (01) ==
LOC: HO.MAMMO 09:13
PROVIDERS: Visit Provider Internal Medicine
DX: Z12.31 Encounter for screening mammogram for malignant neoplasm of breast (principal)
CPT/HCPCS: 77063; 77067

== ENCOUNTER → 2023-07-20 09:30 | Outpatient (BNV) | payer OTHER, SELFPAY | PROVIDERS: Visit Provider Radiology Diagnostic Radiology | DX: Z12.31 Encounter for screening mammogram for malignant neoplasm of breast (principal) | CPT/HCPCS: 77063; 77067 ==

== ENCOUNTER 2023-07-23 09:13 | Outpatient (AMB) | payer OTHER, SELFPAY ==
[2023-07-23 09:54] VITALS: BP 122/70; PULSE 77; O2SAT 97; BMI 28.2
--- NOTE | 2023-07-23 09:54 | AM.OFFWIN_ITS ---
Intake Vital Signs 07/23/23 09:54 Height 5 ft 2 in Weight 154 lb 4 oz BMI 28.2 BP 122/70 Blood Pressure Location Lt brachial Pulse 77 Pulse Source Pulse Oximeter Pulse Oximetry (%) 97 Oxygen Delivery Method Room Air Intake Visit Reasons: EP-Back of Rt knee pain Intake Note: Patient is here with right knee and back of right knee pain for about a week, has tried Naprosen with no relief. Patient Tobacco Use Status: Never used Tobacco Allergies metronidazole [Metrogel] Allergy (Intermediate, Verified 07/23/23 09:56) facial rash morphine [Morphine] Allergy (Intermediate, Verified 07/23/23 09:56) SEVERE VOMITING, nausea and vomiting hydromorphone [From Dilaudid] Adverse Reaction (Mild, Verified 07/23/23 09:56) makes pt feel ill Do you need a note to return to daycare/school/sports/work: No HPI HPI Comments History of Present Illness Details This is a 53-year-old female who presents to the office today for sick visit. Patient complaining of right posterior knee pain x1 week. Patient states she twisted her knee and felt a crack about 1 week ago. She has been having pain since in difficulty with knee flexion. She denies any numbness/weaknes s/paresthesias into her right lower extremity. She has been utilizing naproxen without much relief. [facility] Medical History (Reviewed 06/01/23 @ 20:25 by Daxa Castanon [facility]) Acne rosacea Change in bowel habits Foreign body granuloma of skin GERD (gastroesophageal reflux disease) Hypovitaminosis D Leg numbness Mixed hyperlipidemia Mixed incontinence urge and stress Obesity Recurrent UTI Right hip pain Urge urinary incontinence Surgical History History of abdominoplasty History of total abdominal hysterectomy and bilateral salpingo-oophorectomy Perforation of colon Family History Father Hypertension Cancer Mother Hypertension Diabetes Brother No problems noted. 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 Current occupational exposures/hazards: No Cognitive needs: No Hearing needs: No Vision needs: Yes Review of Systems Const All systems reviewed & are unremarkable except as noted in HPI and below Reports no additional complaints Eyes Reports no additional complaints ENT Reports no additional complaints Card Reports no additional complaints Resp Reports no additional complaints GI Reports no additional complaints Reports no additional complaints Musc Reports no additional complaints Skin/Breast Reports system reviewed and no additional complaints, except as documented Neuro Reports no additional complaints Psych Reports no additional complaints Endo Reports no additional complaints Orlin/Lymph Reports no additional complaints Aller/Immun Reports no additional complaints Physical Exam Vital Signs: Last Vital Signs Pulse 77 07/23/23 09:54 BP 122/70 07/23/23 09:54 Pulse Ox 97 07/23/23 09:54 Oxygen Delivery Method Room Air 07/23/23 09:54 BMI result Body Mass Index 28.2 Const Other: Vital signs reviewed. Constitutional: Non-toxic appearing. No acute distress. Well-developed and well-nourished. HEENT: Normocephalic and atraumatic. Skin: Warm and dry. No rashes or lesions noted. Neck: Full and painless range of motion. No cervical lymphadenopathy. Cardio: Regular rate. No lower extremity edema. No JVD. Pulmonary: No respiratory distress. No accessory muscle usage. Gastrointestinal: Soft, nontender, and nondistended in all 4 quadrants. Musculoskeletal: Tenderness to palpation of the posterior right knee as well as the distal tendon of the biceps femoris. Decreased flexion of the right knee. No erythema or warmth or swelling of the right knee. No tenderness to palpation of the medial or lateral joint line. No calf swelling or tenderness to palpation. Neuro: Alert and oriented x4. Cranial nerves 2-12 grossly intact. No focal deficits appreciated. Psych: Normal mood and affect. Assessment & Plan Assessment & Plan (1) Posterior right knee pain: Code(s): M25.561 - Pain in right knee Plan: This is a 53-year-old female presenting to the office complaining of right knee pain x1 week following a twisting motion of the right knee. On physical examination, there is tenderness to palpation of the posterior right knee as well as the distal biceps femoris tendon. Differential diagnosis includes tendinitis versus sprain/strain versus avulsion fracture versus meniscal injury. Check an x-ray of the right knee in the office today. Offered orthopedic surgery referral but patient would like to wait until the x-ray results returned prior to orthopedic surgery evaluation. Recommend rest/activity modification, ice to the area, elevation of the extremity, and continue with acetaminophen/ibuprofen for pain management as long as patient has no medical contraindications. Patient sent home on 5% lidocaine patches. Patient advised to follow-up here or proceed directly to the emergency room if he were to devel op persistent/worsening symptoms. Orders: Orders XR knee RT 2V Today M25.561 - Pain in right knee Medications: New lidocaine 5% leave on most painful area for up to 12 hrs 1 patch topical DAILY 30 ea 0RF Coding Level of Care Code Est Pt Level 3 (79963) Diagnoses Posterior right knee pain M25.561
== END 2023-07-23 10:14 | disposition home or self-care (01) ==
PROVIDERS: PCP Internal Medicine; Visit Provider Physician Assistant Medical
DX: M25.561 Pain in right knee (principal)
CPT/HCPCS: 99051; 99213

== ENCOUNTER 2023-07-23 10:08 | Outpatient (REF) | payer OTHER, SELFPAY ==
--- NOTE | ~2023-07-23 | XR_ITS ---
EXAMINATION: XR knee RT 2V CLINICAL INFORMATION: Reason for Exam M25.561 - Pain in right knee COMPARISON: None available at the time of this dictation. TECHNIQUE: frontal, lateral, tunnel and patella sunrise views 4 views. FINDINGS: BONES: No fracture or dislocation is present. JOINTS: Narrowing of joint spaces and developed osteophytes from the edges of articular surfaces suggest degenerative osteoarthritis. SOFT TISSUE: Normal XR/XR knee RT 2V IMPRESSION: Mild tricompartment degenerative osteoarthritis. Especially involving medial compartments.
== END 2023-07-23 10:09 | disposition home or self-care (01) ==
LOC: HO.HMGCX 10:08
PROVIDERS: PCP Internal Medicine; Visit Provider Physician Assistant Medical
DX: M25.561 Pain in right knee (principal)
CPT/HCPCS: 73560

== ENCOUNTER 2023-07-27 16:09 | Outpatient (REF) | payer OTHER, SELFPAY ==
[2023-07-27 18:15] LABS: Appearance Urine Clear; Color Urine Yellow; Glucose Urine UA Negative (Negative); Leukocyte Esterase Urine Small (1+) (Negative); Nitrite Urine Negative (Negative); UMIC TRIGGER UA YES; Urine Blood Negative (Negative); Urine Ketones Negative (Negative); Urine Protein Negative (Neg-Trace)
[2023-07-27 18:21] LABS: Bacteria Urine 4+ (None Seen); Hyaline Casts Urine 0-2 /LPF (0-2); RBC Urine 0-2 /HPF (0-2); WBC Urine 21-50 /HPF (0-5)
== END 2023-07-27 16:10 | disposition home or self-care (01) ==
LOC: HO.LAB 16:09
PROVIDERS: PCP Internal Medicine; Visit Provider Nurse Practitioner Family
DX: N39.0 Urinary tract infection, site not specified (principal)
CPT/HCPCS: 81001; 87086; 87088; 87186

== ENCOUNTER 2023-08-09 09:11 | Outpatient (AMB) | payer OTHER, SELFPAY ==
[2023-08-09 09:13] VITALS: BMI 28.2
--- NOTE | 2023-08-09 09:13 | MHC.OFFVIS ---
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 Patient reports that she twisted her knee and felt a crack about a week prior to [facility] walk-in visit on 07/23/23. Currently she has constant pain and is unable to bend her knee. Hx of right knee injection on 10/22/21 which provided her relief until recently. States pain is getting worse by day. Finds minimal relief with ibuprofen. She states that she has had cortisone injections in the past. She 1st injured her knee approximately 3 years ago. She twisted her knee and had acute onset of pain. Since that time her symptoms have gotten worse in spite of continued non operative treatments. She has done physical therapy for 12 weeks over the last 6 months which aggravated her pain. She has also tried Tylenol and ibuprofen which gave her minimal relief. The patient states that her right knee will give out several times per day. Allergies metronidazole [Metrogel] Allergy (Intermediate, Verified 08/09/23 09:23) facial rash morphine [Morphine] Allergy (Intermediate, Verified 08/09/23 09:23) SEVERE VOMITING, nausea and vomiting hydromorphone [From Dilaudid] Adverse Reaction (Mild, Verified 08/09/23 09:23) makes pt feel ill Medication List - Last Reconciled 08/09/23 by Cholo Tsang MD cholecalciferol (vitamin D3) (Vitamin D3) 25 mcg PO DAILY cyclobenzaprine 10 mg PO TID PRN 7 days doxycycline hyclate 100 mg PO BID 30 days estradiol 0.01%(0.1mg/gram) vaginally daily; pea sized amount to urethra daily 30 days fosfomycin tromethamine 1 packet PO Q3D 9 days gabapentin 300 mg PO BEDTIME 90 days ibuprofen 800 mg PO TID PRN leg brace (Knee Support Brace) As directed x 6 weeks lidocaine 5% 1 patch topical DAILY mirabegron ER (Myrbetriq) 50 mg PO DAILY naproxen 500 mg PO BID 30 days nitrofurantoin macrocrystal 100 mg PO BID 14 days pantoprazole 40 mg PO DAILY 90 days solifenacin (Vesicare) 5 mg PO DAILY 90 days [facility] Medical History Acne rosacea Change in bowel habits Foreign body granuloma of skin GERD (gastroesophageal reflux disease) Hypovitaminosis D Leg numbness Mixed hyperlipidemia Mixed incontinence urge and stress Obesity Recurrent UTI Right hip pain Urge urinary incontinence Surgical History History of abdominoplasty Perforation of colon History of total abdominal hysterectomy and bilateral salpingo-oophorectomy Family History Father Hypertension Cancer Mother Hypertension Diabetes Brother No problems noted. 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 Current occupational exposures/hazards: No Cognitive needs: No Hearing needs: No Vision needs: Yes Physical Exam Vital Signs: BMI result Body Mass Index 28.2 Const Other: Well-nourished well-developed very friendly female awake alert and oriented x3 in no acute distress Extrem Other: Bilateral lower extremity examination shows good capillary refill, no skin lesions noted, normal sensation light touch Right knee examination shows a minimal effusion, minimal crepitus with range of motion, tenderness along her medial joint line, positive Camden's test, no instability Office Procedures Joint Injection/Drain Joint Injection/Drain Primary Site: right knee Prep: site was prepped using aseptic technique Injected: 40 mg of, Kenalog and 1% plain lidocaine Procedure: The patient tolerated the procedure well Coding 65415 - Large joint Procedure code (CPT) selection complete Results Reviewed Results Reviewed: 08/09/23 09:24 Lidocaine HCl 2 % MPF [Xylocaine 2 % MPF] 5 ml .ROUTE .STK-MED ONE 08/09/23 09:25 Triamcinolone Acetonide [Kenalog-40] 40 mg .ROUTE .STK-MED ONE Standing full weight-bearing x-rays of the patient's right knee show minimal grade 1 diffuse joint space narrowing, no acute bony abnormalities Assessment & Plan Assessment & Plan (1) Right knee pain: Code(s): M25.561 - Pain in right knee Plan: Ms. Townsend presents with progressively worsening right knee pain and mechanical symptoms most likely due to a tear of her medial meniscus. I had a lengthy discussion with the patient regarding the treatment options. The risks and benefits of a cortisone injection were discussed at length with the patient. The patient wished to proceed. She tolerated the injection well. I will also send her for an MRI of her right knee for further evaluation of her medial meniscus. I will see her back once the MRI is completed to discuss the findings and treatment options. Feel free to call me at any time should questions regarding her orthopedic management arise. Very much for asking me to see this very friendly patient. I spent 22 minutes in reviewing the patient's records and imaging studies, seeing the patient and documenting in the medical record. Orders: Orders AMB Joint Injection/Aspiration Today M25.561 - Pain in right knee Coding Level of Care Code Est Pt Level 2 (82316) Diagnoses Right knee pain M25.561 CPT Codes Coding - 43295 Large joint: 20203 - Large joint ([id number])
== END 2023-08-09 09:40 | disposition home or self-care (01) ==
PROVIDERS: PCP Internal Medicine; Visit Provider Orthopaedic Surgery
DX: M25.561 Pain in right knee (principal)
CPT/HCPCS: 20610; 99214

== ENCOUNTER → 2023-08-09 09:11 | Outpatient (BNVA) | payer OTHER, SELFPAY | PROVIDERS: PCP Internal Medicine; Visit Provider Orthopaedic Surgery | DX: M25.561 Pain in right knee (principal) | CPT/HCPCS: 20610; 99212; J3301 ==

== ENCOUNTER 2023-08-23 09:51 | Outpatient (REF) | payer OTHER, SELFPAY ==
--- NOTE | ~2023-08-23 | MM_ITS ---
EXAMINATION: MM DIAGNOSTIC DIGITAL BREAST TOMOSYNTHESIS, LEFT CLINICAL INFORMATION: Patient presents for further evaluation of a laterally located left breast asymmetry is noted on screening mammography from 07/20/2023. COMPARISON: Mammography: The patient presents for further evaluation of an asymmetry of the left breast is noted on screening mammography from 07/20/2023. TECHNIQUE: Digital breast tomosynthesis is performed. 2D images are generated from the tomosynthesis. The following views are obtained: CC spot compression of the left breast at a full lateral view of the left breast. FINDINGS: There are scattered areas of fibroglandular density (ACR BI-RADS breast composition Category b). Additional views of the laterally located asymmetry reveal no underlying abnormality. There are no mammographic signs of malignancy in the left breast. MM/MM tomosynthesis added views L IMPRESSION: No mammographic evidence of malignancy. ASSESSMENT: BI-RADS BI-RADS 1 - Negative RECOMMENDATION: 1 year F/U Results were provided to the patient at time of visit by the technologist. This patient's information was entered into a reminder system with a target due date for their next mammogram.
== END 2023-08-23 09:52 | disposition home or self-care (01) ==
LOC: HO.MAMMO 09:51
PROVIDERS: PCP Internal Medicine; Visit Provider Internal Medicine
DX: N64.89 Other specified disorders of breast (principal)
CPT/HCPCS: 77061; 77065

== ENCOUNTER → 2023-08-23 10:00 | Outpatient (BNV) | payer OTHER, SELFPAY | PROVIDERS: PCP Internal Medicine; Visit Provider Radiology Diagnostic Radiology | DX: R92.322 Mammographic fibroglandular density, left breast (principal) | CPT/HCPCS: 77061; 77065 ==

== ENCOUNTER 2023-08-28 02:34 | Emergency (ER) | payer OTHER, SELFPAY ==
--- NOTE | ~2023-08-28 | CT_ITS ---
EXAMINATION: CT ABDOMEN AND PELVIS WITH CONTRAST CLINICAL INFORMATION: Right lower quadrant pain. COMPARISON: 09/04/2022 TECHNIQUE: Multidetector volumetric images were obtained from the superior aspect of the liver through the pubic symphysis following administration 85 mL of Omnipaque 350 intravenous contrast. Sagittal and coronal reformatted images were obtained on the technologist's workstation. Oral contrast: No This CT examination was performed using dose optimization techniques as appropriate, variously including the following: *Automated exposure control *Adjustment of mA and/or kV according to patient size (this includes techniques or standardized protocols for targeted exams where dose is matched to indication/reason for exam; i.e. extremities or head) *Use of iterative reconstruction technique DLP: 580 mGy-cm FINDINGS: LUNG BASES: The visualized lung bases are unremarkable. LIVER, GALLBLADDER, AND BILIARY TREE: The liver is normal in size, shape, and attenuation. No focal hepatic lesion or biliary ductal dilatation is present. The gallbladder is unremarkable with no evidence of radiopaque gallstones, gallbladder wall thickening, or obvious pericholecystic inflammatory changes. PANCREAS: Unremarkable. SPLEEN: Unremarkable. ADRENAL GLANDS: Unremarkable. KIDNEYS AND URETERS: The kidneys are normal in size, and attenuation. There is left upper pole scarring. There is a 3.5 mm calculus upper pole right kidney. There is no hydronephrosis. BLADDER: Unremarkable. GASTROINTESTINAL TRACT: There are diverticula of the transverse descending and sigmoid colon without diverticulitis. The appendix is visualized and is within normal limits. ABDOMINAL WALL: There are small umbilical and supraumbilical hernias containing fat. LYMPH NODES: Normal. VASCULAR: Unremarkable. PELVIC VISCERA: Unremarkable. OSSEOUS STRUCTURES: Unremarkable. CT/CT abdomen pelvis w IV con IMPRESSION: Nonobstructing renal calculi. The appendix is visualized and is within normal limits. Diverticula of the transverse, descending and the sigmoid colon without diverticulitis. Small umbilical and supraumbilical hernias containing fat. Fleischner guidelines were followed.
[2023-08-28 02:38] VITALS: BP 127/73; PULSE 81; RESP 18; TEMP 36.5; O2SAT 98; BMI 27.4
[2023-08-28 04:09] LABS: MANUAL DIFF FLAG NO
[2023-08-28 04:17] LABS: Basophils Absolute Auto 0.1 X10*3/uL (0.0-0.2); Basophils Percent Auto 0.7 % (0-2); Eosinophils Absolute Auto 0.1 X10*3/uL (0.0-0.4); Hematocrit 39.6 % (37.0-47.0); Hemoglobin 12.1 g/dl (12.0-16.0); Imm Gran Abs Auto 0.01 X10*3/uL (0.00-0.03); Imm Gran Pct Auto 0.1 % (0.0-0.4); Lymphocytes Absolute Auto 2.4 X10*3/uL (1.2-4.9); Lymphocytes Percent Auto 34.9 % (20-40); Mean Corpuscular HGB Conc 30.6 g/dl (31.0-35.0); Mean Corpuscular Hemoglobin 26.9 pg (27.0-33.0); Mean Platelet Volume 9.1 fL (9.4-12.3); Monocytes Absolute Auto 0.7 X10*3/uL (0.1-1.2); Monocytes Percent Auto 10.5 % (2-11); Neutrophils Absolute Auto 3.6 x10*3/uL (2.0-8.3); Neutrophils Percent Auto 52.8 % (45-73); Platelet Count 239 X10*3/uL (160-400); Red Cell Distribution Width 13.2 % (11.0-16.0); White Blood Count 6.9 X10*3/uL (4.8-10.8)
[2023-08-28 04:27] LABS: Alanine Aminotransferase 15 U/L (0-31); Albumin Level 3.9 g/dL (3.5-5.0); Alkaline Phosphatase 67 U/L (39-117); Anion Gap 11 (12-20); Aspartate Amino Transferase 22 U/L (5-31); Bilirubin Total 0.4 mg/dL (0.0-1.0); Blood Urea Nitrogen 17 mg/dL (9-16); Calcium 9.5 mg/dL (8.4-10.2); Carbon Dioxide 27 mmol/L (22-29); Chloride 109 mmol/L (96-108); Creatinine Clr Calc Pharmacy 90.1; Estimated Glomerular Filt Rate > 60; Glucose Random 100 mg/dL (60-115); Potassium 4.3 mmol/L (3.3-5.1); Sodium 143 mmol/L (135-145); Total Protein 6.8 g/dL (6.5-8.0)
--- NOTE | 2023-08-28 04:38 | PC.NURSE ---
Assumed care of pt. Pt lying on stretcher, watching television, no acute distress noted at this time. Pending repeat urine sample.
[2023-08-28 04:44] VITALS: BP 148/84; PULSE 69; RESP 18; TEMP 36.6; O2SAT 98
--- NOTE | 2023-08-28 04:45 | ED_ITS ---
HPI - Abdominal Pain General Chief Complaint: Abdominal Pain Stated Complaint: right sided pain, nausea Time Seen by Provider: 08/28/23 04:34 Source: patient Mode of arrival: ambulatory Limitations: no limitations History of Present Illness HPI narrative: Patient comes to the emergency room complaining of 3 days of nausea, no vomiting or diarrhea, mild dysuria, foul-smelling urine and right-sided flank pain. Patient states that she is prone to having UTIs. About a month ago she started treatment with Botox injections in the bladder for urge incontinence. About a month ago, patient had another UTI. Patient denies fever chills. Patient denies vomiting, denies diarrhea. Related Data Home Medications Medication Instructions Recorded Confirmed cholecalciferol (vitamin D3) 25 25 mcg PO DAILY 07/16/22 08/09/23 mcg (1,000 unit) capsule (Vitamin D3) mirabegron 50 mg tablet,extended 50 mg PO DAILY 07/16/22 08/09/23 release 24 hr (Myrbetriq) Previous Rx's Medication Instructions Recorded leg brace (Knee Support Brace) #1 ea 01/05/21 naproxen 500 mg tablet 500 mg PO BID 30 days #60 tabs 09/30/22 cyclobenzaprine 10 mg tablet 10 mg PO TID PRN muscle spasm 7 10/23/22 days #14 tabs estradiol 0.01% (0.1 mg/gram) See Rx Instructions vaginal DAILY 10/25/22 vaginal cream 30 days #42.5 grams gabapentin 300 mg capsule 300 mg PO BEDTIME 90 days #90 caps 01/12/23 pantoprazole 40 mg tablet,delayed 40 mg PO DAILY 90 days #90 tabs 03/31/23 release solifenacin 5 mg tablet (Vesicare) 5 mg PO DAILY 90 days #90 tabs 04/01/23 nitrofurantoin macrocrystal 100 mg 100 mg PO BID 14 days #28 caps 05/02/23 capsule doxycycline hyclate 100 mg tablet 100 mg PO BID 30 days #60 tabs 06/22/23 lidocaine 5 % topical patch 1 patch topical DAILY #30 ea 07/23/23 fosfomycin tromethamine 3 gram 1 packet PO Q3D 9 days #3 ea 08/01/23 oral packet ibuprofen 800 mg tablet 800 mg PO TID PRN for pain #90 tabs 08/08/23 cyclobenzaprine 10 mg tablet 10 mg PO BEDTIME PRN muscle spasm 08/28/23 #10 tabs ibuprofen 600 mg tablet 600 mg PO TID PRN fever or pain 08/28/23 #20 tabs Allergies Allergy/AdvReac Type Severity Reaction Status Date / Time metronidazole [Metrogel] Allergy Intermediate facial rash Verified 08/09/23 09:23 morphine [Morphine] Allergy Intermediate SEVERE Verified 08/09/23 09:23 VOMITING, nausea and vomiting hydromorphone [From Dilaudid] AdvReac Mild makes pt Verified 08/09/23 09:23 feel ill Review of Systems Review of Systems Constitutional : No Weight loss, No Fever, No Chills, No Night Sweats, No Fatigue, No Malaise ENT/Mouth : No Hearing loss, No Ear Pain, No Nasal Congestion, No Sinus Pain, No Hoarseness, No sore throat, No Rhinorrhea, No Swallowing Difficulty Eyes: No Eye Pain, No Swelling, No Redness, No Foreign Body, No Discharge, No Vision Changes Cardiovascular : No Chest Pain, No SOB, No Dyspnea on Exertion, No Orthopnea, No Edema, No Palpitations Respiratory : No Cough, No Sputum, No Wheezing, No Smoke Exposure, No Dyspnea Gastrointestinal : Complaining of Nausea, No Vomiting, No Diarrhea, No Constipation, No abdominal Pain, No Hematochezia, No Melena Genitourinary : no irregular bleeding, complaining of Dysuria and foul-smelling urine, complaining of Urinary Frequency, No Hematuria, No Urinary Incontinence, No Urgency, complaining of right-sided Flank Pain, No Urinary Flow Changes, No Hesitancy Musculoskeletal : No joint pain, No Myalgias, No Joint Swelling Skin : No Skin Lesions, No rash Neuro : No Weakness, No Numbness, No Paresthesias, No Loss of Consciousness, No Dizziness, No Headache Psych : No Anxiety/Panic, No Depression, No SI/HI/AH/VH, No Social Issues, Heme/Lymph: No Bruising, No Bleeding,No Lymphadenopathy Endocrine : No Polyuria, No Polydipsia, No Temperature Intolerance [facility] Past Medical History Medical History Mixed incontinence urge and stress Recurrent UTI Urge urinary incontinence Change in bowel habits Foreign body granuloma of skin Acne rosacea Right hip pain Leg numbness Obesity Mixed hyperlipidemia GERD (gastroesophageal reflux disease) Hypovitaminosis D Surgical History History of abdominoplasty Perforation of colon History of total abdominal hysterectomy and bilateral salpingo-oophorectomy Family History Family History Father Hypertension Cancer Mother Hypertension Diabetes Brother No problems noted. 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 Oriented X3. No acute distress. Eyes: Pupils equal, round and reactive to light. ENT: Pharynx normal. Neck: Normal inspection. Neck supple. No lymph nodes noted. No crepitus CVS: Normal heart rate and rhythm. Pulses normal. Normal S1 and S2 Respiratory: No respiratory distress. Breath sounds normal. No Wheezing. No rales Abdomen: Soft and nontender. No rigidity. No distention. No significant CVA tenderness Skin: Skin warm and dry. Normal skin color. Normal skin turgor. Extremities: No lower extremity edema. No Lacerations. No Rash Neuro: Oriented X 3. No motor deficit. No sensory deficit. Moving all extremities. No slurred speech. CN 2 through 12 grossly intact Psych: calm, cooperative, normal affect Medical Decision Making Medical Decision Making MDM Narrative: -my interpretation of labs: White blood cell count within normal limits, chemistry within normal limits -urinalysis negative. -patient complaining of right lower quadrant pain, we will go ahead and order a CT scan to rule out appendicitis -mentor petitioned CT scan obvious abnormality. -radiology report of CT scan: No appendicitis -patient's urinalysis negative, white blood cell count normal. No fever chills. Patient does not have a UTI, patient does not have pyelonephritis. CT scan negative for appendicitis or obvious pelvic abnormality is. Source of pain likely musculoskeletal Differential Diagnosis Differential Diagnoses: The differential diagnosis associated with the presentation includes (Appendicitis, ovarian cyst, pyelonephritis, UTI, musculoskeletal pain) Admission/Observation Consideration of admission/observation: Escalation of care including admission/observation considered (Given patient's presentation, admission was considered) Lab Data MDM Lab Attestation statement: I reviewed the patient's lab results. 08/28/23 04:03 08/28/23 04:03 Labs: Lab Results 08/28/23 08/28/23 Range/Units 04:03 04:44 WBC 6.9 (4.8-10.8) X10*3/uL RBC 4.50 (4.20-5.50) X10*6/uL Hgb 12.1 (12.0-16.0) g/dl Hct 39.6 (37.0-47.0) % MCV 88.0 (80.0-98.0) fL MCH 26.9 L (27.0-33.0) pg MCHC 30.6 L (31.0-35.0) g/dl RDW 13.2 (11.0-16.0) % Plt Count 239 (160-400) X10*3/uL MPV 9.1 L (9.4-12.3) fL Immature Gran % (Auto) 0.1 (0.0-0.4) % Neut % (Auto) 52.8 (45-73) % Lymph % (Auto) 34.9 (20-40) % [place] % (Auto) 10.5 (2-11) % Eos % (Auto) 1.0 (0-4) % Baso % (Auto) 0.7 (0-2) % Lymph # (Auto) 2.4 (1.2-4.9) X10*3/uL [place] # (Auto) 0.7 (0.1-1.2) X10*3/uL Eos # (Auto) 0.1 (0.0-0.4) X10*3/uL Baso # (Auto) 0.1 (0.0-0.2) X10*3/uL Abs Immat Gran (auto) 0.01 (0.00-0.03) X10*3/uL Absolute Neuts (auto) 3.6 (2.0-8.3) x10*3/uL Absolute Nucleated RBC 0.000 (0.0-0.012) X10*3/uL Nucleated RBC % (auto) 0.0 (0.0-0.2) /100WBC Sodium 143 (135-145) mmol/L Potassium 4.3 (3.3-5.1) mmol/L Chloride 109 H (96-108) mmol/L Carbon Dioxide 27 (22-29) mmol/L Anion Gap 11 L (12-20) BUN 17 H (9-16) mg/dL Creatinine 0.66 (0.5-1.4) mg/dL Estim Creat Clear Calc 90.1 Estimated GFR > 60 Random Glucose 100 (60-115) mg/dL Calcium 9.5 (8.4-10.2) mg/dL Total Bilirubin 0.4 (0.0-1.0) mg/dL AST 22 (5-31) U/L ALT 15 (0-31) U/L Alkaline Phosphatase 67 (39-117) U/L Total Protein 6.8 (6.5-8.0) g/dL Albumin 3.9 (3.5-5.0) g/dL Urine Color Yellow Urine Appearance Clear Urine pH 6.5 (5.0-9.0) Ur Specific [place] 1.020 (1.005-1.025) Urine Protein Negative (Neg-Trace) mg/dL Urine Glucose (UA) Negative (Negative) mg/dL Urine Ketones Negative (Negative) mg/dL Urine Blood Negative (Negative) Urine Nitrite Negative (Negative) Ur Leukocyte Esterase Negative (Negative) Independent Interpretation I performed an independent interpretation of an: CT Scan Radiology Impression Discussion of test interpretation with radiology: I have reviewed the radiologist's reading. Radiologist Impression: FINDINGS: LUNG BASES: The visualized lung bases are unremarkable. LIVER, GALLBLADDER, AND BILIARY TREE: The liver is normal in size, shape, and attenuation. No focal hepatic lesion or biliary ductal dilatation is present. The gallbladder is unremarkable with no evidence of radiopaque gallstones, gallbladder wall thickening, or obvious pericholecystic inflammatory changes. PANCREAS: Unremarkable. SPLEEN: Unremarkable. ADRENAL GLANDS: Unremarkable. KIDNEYS AND URETERS: The kidneys are normal in size, and attenuation. There is left upper pole scarring. There is a 3.5 mm calculus upper pole right kidney. There is no hydronephrosis. BLADDER: Unremarkable. GASTROINTESTINAL TRACT: There are diverticula of the transverse descending and sigmoid colon without diverticulitis. The appendix is visualized and is within normal limits. ABDOMINAL WALL: There are small umbilical and supraumbilical hernias containing fat. LYMPH NODES: Normal. VASCULAR: Unremarkable. PELVIC VISCERA: Unremarkable. OSSEOUS STRUCTURES: Unremarkable. CT/CT abdomen pelvis w IV con IMPRESSION: Nonobstructing renal calculi. The appendix is visualized and is within normal limits. Diverticula of the transverse, descending and the sigmoid colon without diverticulitis. Small umbilical and supraumbilical hernias containing fat. Fleischner guidelines were followed. Medications Administered Discontinued Medications Generic Name Dose Route Start Last Admin Trade Name Freq PRN Reason Stop Dose Admin Iohexol 85 ml 08/28/23 05:27 08/28/23 05:29 Iohexol 350 Mg/Ml 100 Ml Infus..Btl IV 08/28/23 05:28 85 ml ONCE ONE Administration Critical Care Time Critical Care Time Critical Care Time: Yes Total Critical Care Time: 60 Attestation: I have personally provided critical care time. Time includes review of lab data, radiology results, discussion with consultants, and monitoring for potential decompensation. Intervention performed as documented. Discharge Plan Discharge Clinical Impression: Acute flank pain Patient Disposition: Home, Self-Care Instructions: Flank Pain (ED) Additional Instructions: Please follow-up with your primary care physician tomorrow. If you have any worsening or new symptoms, please return to the emergency room or call 911 Prescriptions: New ibuprofen 600 mg tablet 600 mg PO TID PRN (Reason: fever or pain) Qty: 20 0RF cyclobenzaprine 10 mg tablet 10 mg PO BEDTIME PRN (Reason: muscle spasm) Qty: 10 0RF No Action (DME) Knee Support Brace Misc See Rx Instructions .ROUTE .MEDSUPPLY Qty: 1 0RF Rx Instructions: As directed x 6 weeks naproxen 500 mg tablet 500 mg PO BID 30 Days Qty: 60 1RF pantoprazole 40 mg tablet,delayed release (DR/EC) 40 mg PO DAILY 90 Days Qty: 90 3RF solifenacin [Vesicare] 5 mg tablet 5 mg PO DAILY 90 Days Qty: 90 1RF doxycycline hyclate 100 mg tablet 100 mg PO BID 30 Days Qty: 60 0RF fosfomycin tromethamine 3 gram packet 1 packet PO Q3D 9 Days Qty: 3 0RF ibuprofen 800 mg tablet 800 mg PO TID PRN (Reason: for pain) Qty: 90 1RF cyclobenzaprine 10 mg tablet 10 mg PO TID PRN (Reason: muscle spasm) 7 Days Qty: 14 0RF gabapentin 300 mg capsule 300 mg PO BEDTIME 90 Days Qty: 90 1RF lidocaine 5 % adhesive patch,medicated 1 patch topical DAILY Qty: 30 0RF Rx Instructions: leave on most painful area for up to 12 hrs Myrbetriq 50 mg tablet extended release 24 hr 50 mg PO DAILY cholecalciferol (vitamin D3) [Vitamin D3] 25 mcg (1,000 unit) capsule 25 mcg PO DAILY estradiol 0.01 % (0.1 mg/gram) cream See Rx Instructions vaginal DAILY 30 Days Qty: 42.5 0RF Rx Instructions: vaginally daily; pea sized amount to urethra daily nitrofurantoin macrocrystal 100 mg capsule 100 mg PO BID 14 Days Qty: 28 0RF Rx Instructions: must administer with a meal/food
--- NOTE | 2023-08-28 04:48 | MHC.EDTECH ---
Hourly rounds and vitals completed, Urine collected and sent to lab
[2023-08-28 04:53] LABS: Appearance Urine Clear; Color Urine Yellow; Glucose Urine UA Negative (Negative); Leukocyte Esterase Urine Negative (Negative); Nitrite Urine Negative (Negative); PH 6.5 (5.0-9.0); Urine Blood Negative (Negative); Urine Ketones Negative (Negative); Urine Protein Negative (Neg-Trace)
[2023-08-28] MEDS: iohexoL 350 MG/ML 100 ML INFUS..BTL 85 ML IV (05:29)
[2023-08-28 06:18] VITALS: BP 150/85; PULSE 73; RESP 18; TEMP 36.5; O2SAT 99
--- NOTE | 2023-08-28 06:35 | MHC.EDTECH ---
Hourly rounds and vitals completed.
== END 2023-08-28 06:56 | disposition home or self-care (01) ==
PROVIDERS: Emergency Provider Emergency Medicine; PCP Internal Medicine
DX: R11.2 Nausea with vomiting, unspecified (principal); R10.9 Unspecified abdominal pain; R19.7 Diarrhea, unspecified; R30.0 Dysuria; Z79.899 Other long term (current) drug therapy
CPT/HCPCS: 36415; 74177; 80053; 81003; 85025; 99283; Q9967

== ENCOUNTER 2023-09-16 09:04 | Outpatient (AMB) | payer OTHER, SELFPAY ==
--- NOTE | 2023-09-16 09:08 | MHC.OFFVIS ---
Intake Vital Signs 09/16/23 09:26 Height 5 ft 2 in Weight 152 lb 1.903 oz BMI 27.8 BP 179/81 H Blood Pressure Location Lt brachial Position Sitting Pulse 98 Intake Visit Reasons: follow up MRI Intake Note: Malathi presents in the office as a follow up mri. CC: She states she is having concerns. The past 2 months she is unable to hold her bowels in. She is having incontinence and she would like to know if she can have Rx for depends. 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 Sometime she feels like she gets the urge but other times it just happens. The feeling comes out of nowhere. She has been trying to watch what she eats. 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 from index visit: ?she had 4 weeks of constipation ? she had to do manual? disimpaction ? she feels a problem is in rectum ? she gives a? good strong push but still has issues, was crying as well ? she noted? some blood on wiping ? she did have LLQ pain, can be helped with? passing stool ? she also has nausea for few weeks ? appetite? has been fair ? weight up and down ? she had reflux and takes? ppi which helps ? no dysphagia ? she does have overactive? blaader and takes oxybutynin ? she is not taking narcotics ? she has beent aking nsaids reg for last several days for kidney? stones ? not had colonoscopy. ? I then arranged colonoscopy? 01/2018: morgan diverticular disease, hemerrhoids ?normal anal tone, no? paradoxical anal contraction on push ?normal random bx ?labs? were unremarkable ? Since colonoscopy her bowel were moving well, may? too well ?she had post prandial urgency 15 mins after? eating ?she also gets bloating, no abdominal pain ?no nausea? or vomiting ?overall she had felt better, not required any laxatives?she had d/c and pain around site of prior colostomy, given bactrim? and had u with blind ending sinus seen ?INTERIM: she has been having ongoing incontinence some times?for urine and stool urine incont has been better with botox but still having fecal issues and leakage, urogyn said they cant fix her rectocele taking fiber but no thelping EXAM: GENERAL: The patient is well developed and nontoxic. VITAL SIGNS:see workflow HEENT: Nonicteric sclerae, PERRLA, EOMI. Oropharynx clear. Moist mucous membranes. Conjunctivae appear well perfused. No thyroid mass. CHEST: Chest wall is nontender. HEART: Regular rate and rhythm without murmurs. LUNGS: Clear to auscultation bilaterally. ABDOMEN: Soft, positive bowel sounds, tender AROUND THE colostomy scar, no organomegaly.no flank tenderness SKIN: No rash, no excessive bruising, petechiae, or purpura. NEUROLOGIC: Cranial nerves II-XII intact without motor/sensory deficit. a/P: 1/ urine and fecal incontinence possibly from pelvic floor weakness or prolapse, weak sphincter, equivocal anal rectal manometry, Mr defecography with lax pelvix muscles and cystocele, rectocele PLAN: 1/ get urogyn notes, refer Dr Luna she might beneift from inter stim trial 2/ increase fiber 3/ letter for work and script for briefs FOR[facility] Medical History Mixed incontinence urge and stress Recurrent UTI Urge urinary incontinence Change in bowel habits Foreign body granuloma of skin Acne rosacea Right hip pain Leg numbness Obesity Mixed hyperlipidemia GERD (gastroesophageal reflux disease) Hypovitaminosis D Surgical History History of abdominoplasty Perforation of colon History of total abdominal hysterectomy and bilateral salpingo-oophorectomy Family History Father Hypertension Cancer Mother Hypertension Diabetes Brother No problems noted. 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 Current occupational exposures/hazards: No Cognitive needs: No Hearing needs: No Vision needs: Yes Physical Exam Vital Signs: Last Vital Signs Pulse 98 09/16/23 09:26 BP 179/81 H 09/16/23 09:26 BMI result Body Mass Index 27.8 Assessment & Plan Assessment & Plan (1) Urge urinary incontinence: Code(s): N39.41 - Urge incontinence Plan: PLAN: 1/ get urogyn notes, refer Dr Luna she might beneift from inter stim trial 2/ increase fiber 3/ letter for work and script for brief (2) Change in bowel habits: Code(s): R19.4 - Change in bowel habit Plan: PLAN: 1/ get urogyn notes, refer Dr Luna she might beneift from inter stim trial 2/ increase fiber 3/ letter for work and script for brief Orders: Referrals Urology Referral N39.41 - Urge incontinence, R19.4 - Change in bowel habit Medications: New diaper,brief,adult,disposable (Day and Night Brief,Medium) As directed 22 ea 3RF Coding Level of Care Code Est Pt Level 4 (31129) Diagnoses Urge urinary incontinence N39.41 Change in bowel habits R19.4
[2023-09-16 09:26] VITALS: BP 179/81; PULSE 98; BMI 27.8
== END 2023-09-16 10:42 | disposition home or self-care (01) ==
PROVIDERS: PCP Internal Medicine; Visit Provider Internal Medicine Gastroenterology
DX: N39.41 Urge incontinence (principal); R19.4 Change in bowel habit
CPT/HCPCS: 99214

== ENCOUNTER → 2023-09-16 09:04 | Outpatient (BNVA) | payer OTHER, SELFPAY | PROVIDERS: PCP Internal Medicine; Visit Provider Internal Medicine Gastroenterology ==

== ENCOUNTER 2023-09-16 11:24 | Outpatient (AMB) | payer OTHER, SELFPAY ==
[2023-09-16 11:26] VITALS: BP 120/82; PULSE 85; O2SAT 98; BMI 28.2
--- NOTE | 2023-09-16 11:26 | A.OFFPC_ITS ---
Vital Signs 09/16/23 11:26 Height 5 ft 2 in Weight 154 lb BMI 28.2 BP 120/82 Blood Pressure Location Lt brachial Position Sitting Pulse 85 Pulse Source Pulse Oximeter Pulse Oximetry (%) 98 Oxygen Delivery Method Room Air Intake Visit Reasons: physical exam Intake Note: pt is here for physical Editor Trade Journal Required: No Accompanied by: Self / Same As Patient Allergies metronidazole [Metrogel] Allergy (Intermediate, Verified 09/16/23 11:40) facial rash morphine [Morphine] Allergy (Intermediate, Verified 09/16/23 11:40) SEVERE VOMITING, nausea and vomiting hydromorphone [From Dilaudid] Adverse Reaction (Mild, Verified 09/16/23 11:40) makes pt feel ill Medication List - Last Reconciled 09/16/23 by ABIDA Ta cholecalciferol (vitamin D3) 25 mcg PO DAILY cyclobenzaprine 10 mg PO BEDTIME PRN diaper,brief,adult,disposable (Day and Night Brief,Medium) As directed doxycycline hyclate 100 mg PO BID 30 days estradiol 0.01%(0.1mg/gram) vaginally daily; pea sized amount to urethra daily 30 days fosfomycin tromethamine 1 packet PO Q3D gabapentin 300 mg PO BEDTIME 90 days ibuprofen 600 mg PO TID PRN leg brace (Knee Support Brace) As directed x 6 weeks mirabegron ER (Myrbetriq) 50 mg PO DAILY naproxen 500 mg PO BID 30 days nitrofurantoin monohyd/m-cryst 100 mg 100 mg PO BID pantoprazole 40 mg PO DAILY 90 days solifenacin (Vesicare) 5 mg PO DAILY 90 days Tobacco use date assessed: 12/02/22 Dental Screening Dental Screen Date: 09/16/23 Did you have a dental visit in the last 12 months?: Yes Did you have a dental problem in the last 6 months where you did not have access to dental care?: No Was dental information given to patient?: Patient has dentist HPI HPI Comments History of Present Illness Details 53-year-old female past medical history significant for mixed urinary incontinence, cystocele with rectocele, urinary and fecal incontinence, mixed hyperlipidemia, GERD, vitamin-D. Patient of Dr. Berg presents today for physical exam. Eye exam:last year Mammogram completed August 2023 Pap smear:Complete hysterectomy Colonoscopy completed 2018; showed morgan diverticulitis. Patient currently following with gastroenterology for fecal incontinence last seen today, referred to Dr. Luna for inter stim trial. Encouraged increase fiber intake, briefs sent by GI. Estrella current. Flu shot declined [facility] Medical History Mixed incontinence urge and stress Recurrent UTI Urge urinary incontinence Change in bowel habits Foreign body granuloma of skin Acne rosacea Right hip pain Leg numbness Obesity Mixed hyperlipidemia GERD (gastroesophageal reflux disease) Hypovitaminosis D Surgical History History of abdominoplasty Perforation of colon History of total abdominal hysterectomy and bilateral salpingo-oophorectomy Family History Father Hypertension Cancer Mother Hypertension Diabetes Brother No problems noted. 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 Jhoan Humphries, Karla Garcia, Guicho Rodriges and colleagues, with an educational marla from [employer]. Review of Systems Const Denies chills, Denies fatigue, Denies fever(s) and Denies poor appetite Eyes Denies no additional complaints ENT Reports Normal hearing present Card Denies chest pain, Denies syncope, Denies rapid heart rate and Denies dyspnea Resp Denies cough and Denies dyspnea GI Denies change in stool character, Denies constipation, Denies diarrhea, Denies nausea and Denies vomiting Denies urinary frequency, Denies dysuria and Denies urinary urgency Neuro Reports Normal hearing present, Denies confusion and Denies syncope Psych Denies confusion Endo Denies fatigue Physical exam (Primary Care) Vital Signs: Last Vital Signs Pulse 85 09/16/23 11:26 BP 120/82 09/16/23 11:26 Pulse Ox 98 09/16/23 11:26 Oxygen Delivery Method Room Air 09/16/23 11:26 BMI result Body Mass Index 28.2 Tobacco/Smoking Status: Tobacco use Status Tobacco use date assessed 12/02/22 09/16/23 11:35 Patient Tobacco Use Status Never used Tobacco 09/16/23 11:35 e-Cigarette/Vaping Use Never Used 09/16/23 11:35 Thrive Assessment: Date of Thrive Assessment Date Thrive assessed 12/02/22 09/16/23 11:35 Const General: No confusion Orientation/consciousness: No confusion HENMT Head: Yes normocephalic and Yes atraumatic Ears: external ears normal and TM's normal bilaterally General nose exam: Normal external nose present and Normal nasal mucous me mbranes and turbinates present Face and sinus: Yes normal facial exam and Yes sinuses nontender Mouth: moist mucous membranes Throat: Yes tonsils normal Eyes Conjunctivae: conjunctivae normal Sclerae: sclerae normal Pupils: Equal, round and reactive pupils present and Pupils normal by confrontation EOM: EOMs intact bilaterally Direct Ophthalmoscopy: normal light reflex Neck Neck: Yes no lymphadenopathy and Yes supple Thyroid: Thyroid normal Chest Chest palpation & inspection: normal inspection of the chest Resp Effort & Inspection: normal respiratory effort Auscultation: clear to auscultation bilaterally, no crackles, no rhonchi and no wheezes Cardio Rate: regular rate Rhythm: regular rhythm Peripheral pulses: radial pulses present and dorsalis pedis present GI Inspection: Yes normal to inspection Palpation (GI): Soft to palpation, nontender and No hepatosplenomegaly present Auscultation: normoactive bowel sounds Skin General skin exam: no rashes or lesions noted Neuro General: No confusion Cranial nerves: Yes Equal, round and reactive pupils present and Yes Normal hearing present Cognition (Neuro): normal cognition Gait exam (Neuro): Normal gait present Motor exam (neuro): 5/5 motor strength present throughout Deep tendon reflexes (DTR's): Right brachioradialis reflex intensity grade: 2+, Left brachioradialis reflex intensity grade: 2+, Right patellar reflex intensity grade: 2+ and Left patellar reflex intensity grade: 2+ Extrem General: No edema Assessment and Plan Assessment & Plan (1) Mixed hyperlipidemia: Code(s): E78.2 - Mixed hyperlipidemia Plan: Fasting labs ordered. Follow low-cholesterol diet. (2) Mixed incontinence urge and stress: Code(s): N39.46 - Mixed incontinence Plan: Patient currently following with urogynecology receiving Botox in her bladder. Patient also reports was referred to Dr. Luna by masking machine operator. (3) Right knee pain: Code(s): M25.561 - Pain in right knee Plan: Patient states has upcoming MRI to further evaluate. Her knee pain (4) Physical exam, annual: Code(s): Z00.00 - Encounter for general adult medical examination without abnormal findings Plan: Follow-up in 1 year for physical exam Plan Follow-up in 4 months or sooner if needed. Orders: Orders Complete Blood Count Auto Diff Today Z13.0 - Encounter for screening for diseases of the blood and blood-forming organs and certain disorders involving the immune mechanism TSH reflex Free T4 Today Z13.29 - Encounter for screening for other suspected endocrine disorder Comprehensive [place]. Panel Fast Today E78.2 - Mixed hyperlipidemia Lipid Panel Today Z13.220 - Encounter for screening for lipoid disorders Coding Level of Care Code Est Pt Prev Care 40-64y(11717) Diagnoses Mixed hyperlipidemia E78.2 Mixed incontinence urge and stress N39.46 Right knee pain M25.561 Physical exam, annual Z00.00
== END 2023-09-16 12:02 | disposition home or self-care (01) ==
PROVIDERS: PCP Internal Medicine; Visit Provider Nurse Practitioner Family
DX: E78.2 Mixed hyperlipidemia (principal); N39.46 Mixed incontinence; M25.561 Pain in right knee; Z00.00 Encounter for general adult medical examination without abnormal findings
CPT/HCPCS: 99396

== ENCOUNTER 2023-09-26 18:53 | Outpatient (REF) | payer OTHER, SELFPAY ==
--- NOTE | ~2023-09-26 | MR_ITS ---
EXAMINATION: MR KNEE WITHOUT CONTRAST, RIGHT CLINICAL INFORMATION: Right knee pain. Locking. COMPARISON: Right knee radiographs dated 07/23/2023 and MRI dated 08/27/2021. TECHNIQUE: MRI of the knee without contrast was performed using routine sequences on a high-field scanner. FINDINGS: MENISCI: Medial Meniscus: Redemonstration of a horizontal tibial articular surface tear at the inner third of the posterior horn with adjacent inner margin fraying extending to the posterior root, unchanged when compared to the prior examination. No new medial meniscal tear. Lateral Meniscus: Intact LIGAMENTS: Cruciate: Redemonstration of increased T2 signal throughout the anterior cruciate ligament which appears slightly less prominent when compared to the prior examination, consistent with mucoid degeneration. Intact posterior cruciate ligament. Collateral: Intact EXTENSOR MECHANISM: Superior patellar enthesophytes. Intact quadriceps and patellar tendons. Normal patellofemoral alignment. ARTICULAR CARTILAGE/BONE: Patellofemoral Compartment: Mild lateral patellar facet and patellar median ridge articular cartilage signal heterogeneity with resolution of previously seen underlying subchondral cystic change. Central and medial trochlea signal heterogeneity and surface irregularity. Tiny marginal osteophytes. Overall, no significant progression when compared to the prior examination. Medial Compartment: Mild articular cartilage signal heterogeneity and surface irregularity with tiny marginal osteophytes, slightly progressed. Lateral Compartment: Posterior lateral tibial plateau articular cartilage fissuring with tiny marginal osteophytes, slightly progressed. JOINT FLUID AND BURSAE: Small joint effusion. MUSCLES/TENDONS: Increased T2 signal associated with the soleus and lateral gastrocnemius muscles, consistent with mild strains. MR/MR knee RT wo con IMPRESSION: 1. Redemonstration of a horizontal tibial articular surface tear at the anterior third of the medial meniscus posterior horn with adjacent inner margin fraying extending to the posterior root, unchanged when compared to the prior examination. No new meniscal tear. 2. Mucoid degeneration of the anterior cruciate ligament, slightly less prominent when compared to the prior examination. No evidence of acute ligament injury. 3. Mild tricompartmental osteoarthritis, slightly progressed. Small joint effusion. 4. Mild strains of the soleus and lateral gastrocnemius muscles.
== END 2023-09-26 18:54 | disposition home or self-care (01) ==
LOC: HO.MRI 18:53
PROVIDERS: PCP Internal Medicine; Visit Provider Orthopaedic Surgery
DX: M25.561 Pain in right knee (principal)
CPT/HCPCS: 73721

== ENCOUNTER 2023-10-13 10:04 | Outpatient (AMB) | payer OTHER, SELFPAY ==
--- NOTE | 2023-10-13 10:34 | A.OFFVIS_ITS ---
Intake Intake Visit Reasons: Pessary versus other alternative therapies Intake Note: Patient is present for to discuss Pessary versus other alternative therapies, Patient of [place]: Urology Medications: estrace, myrbetriq, vesicare, macrobid Blood Thinner: none Civil Engineering Specialist Required: No Accompanied by: Self / Same As Patient Allergies metronidazole [Metrogel] Allergy (Intermediate, Verified 11/15/23 09:52) facial rash morphine [Morphine] Allergy (Intermediate, Verified 11/15/23 09:52) SEVERE VOMITING, nausea and vomiting hydromorphone [From Dilaudid] Adverse Reaction (Mild, Verified 11/15/23 09:52) makes pt feel ill Medication List - Last Reconciled 10/13/23 by Leandra Lake MD cholecalciferol (vitamin D3) 25 mcg PO DAILY ciprofloxacin HCl 500 mg PO BID cyclobenzaprine 10 mg PO BEDTIME PRN diaper,brief,adult,disposable (Day and Night Brief,Medium) As directed estradiol 0.01%(0.1mg/gram) vaginally daily; pea sized amount to urethra daily 30 days gabapentin 300 mg PO BEDTIME 90 days ibuprofen 600 mg PO TID PRN leg brace (Knee Support Brace) As directed x 6 weeks mirabegron ER (Myrbetriq) 50 mg PO DAILY naproxen 500 mg PO BID 30 days nitrofurantoin monohyd/m-cryst 100 mg 100 mg PO BID pantoprazole 40 mg PO DAILY 90 days HPI HPI Comments History of Present Illness Details 53-year-old female past medical history significant for hyperlipidemia, GERD, and symptoms of fecal incontinence. History of Complete hysterectomy. She has had history of kidney stones, recurrent UTIs and symptoms of urinary incontinence. She has complains of urinary urgency and fecal incontinence. She feels that she has a vaginal bulge. She states that she had Botox done by a provider at [facility]. Since the Botox procedure, she has less urinary leakage but still has urgency every hour. I have discussed further evaluation with pelvic exam, the patient wants to reschedule visit for exam as she is running late for work. I discussed UA is nitrite positive and I will empiracally start Cipro pending uine c/s results. [facility] Medical History Mixed incontinence urge and stress Recurrent UTI Urge urinary incontinence Change in bowel habits Foreign body granuloma of skin Acne rosacea Right hip pain Leg numbness Obesity Mixed hyperlipidemia GERD (gastroesophageal reflux disease) Hypovitaminosis D Surgical History History of abdominoplasty Perforation of colon History of total abdominal hysterectomy and bilateral salpingo-oophorectomy Family History Father Hypertension Cancer Mother Hypertension Diabetes Brother No problems noted. 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 Current occupational exposures/hazards: No Cognitive needs: No Hearing needs: No Vision needs: Yes Review of Systems Const All systems reviewed & are unremarkable except as noted in HPI and below Reports no additional complaints Eyes Reports no additional complaints ENT Reports no additional complaints Card Denies dyspnea Resp Denies cough and Denies dyspnea GI Reports no additional complaints Reports no additional complaints Musc Reports no additional complaints Skin/Breast Denies rash and Denies unusual bruising Neuro Reports no additional complaints Psych Reports no additional complaints Endo Reports no additional complaints Orlin/Lymph Reports no additional complaints Aller/Immun Reports no additional complaints Results AMB Urinalysis, Automated UA Leukoctes 70 Suhail/uL Last Edit by MATIAS Abebe on 10/13/23 10:50 UA Nitrite Positive Last Edit by MATIAS Abebe on 10/13/23 10:50 UA Urobilinogen 0.2 mg/dL Last Edit by MATIAS Abebe on 10/13/23 10:5 0 UA Protein 15 mg/dL Last Edit by ORLANDO AbebeA on 10/13/23 10:50 UA pH 6.0 Last Edit by Carrie Olivo, ORLANDOA on 10/13/23 10:50 UA Blood 25 Alejandro/uL Last Edit by Carrie Olivo, OR[place]OA on 10/13/23 10:50 UA Specific [place] 1.030 Last Edit by ORLANDO AbebeA on 10/13/23 10: 50 UA Ketone Negative Last Edit by ORLANDO AbebeA on 10/13/23 10:50 UA Bilirubin 0 mg/dL Last Edit by ORLANDO AbebeA on 10/13/23 10:50 UA Glucose 0 mg/dL Last Edit by MATIAS Abebe on 10/13/23 10:50 Results Reviewed Results Reviewed: Laboratory Last Values Urine pH (Auto) 6.0 10/13/23 10:44 Specific [place] (Auto) 1.030 10/13/23 10:44 Urine Protein (Auto) 15 mg/dL 10/13/23 10:44 Glucose (UA)(Auto) 0 mg/dL 10/13/23 10:44 Urine Ketones (Auto) Negative 10/13/23 10:44 Urine Blood (Auto) 25 Alejandro/uL 10/13/23 10:44 Urine Nitrite (Auto) Positive 10/13/23 10:44 Urine Bilirubin (Auto) 0 mg/dL 10/13/23 10:44 Urine Urobilinogen (Auto) 0.2 mg/dL 10/13/23 10:44 Leukocyte Esterase (Auto) 70 Suhail/uL 10/13/23 10:44 Assessment & Plan Assessment & Plan (1) Acute UTI: Code(s): N39.0 - Urinary tract infection, site not specified (2) Urinary incontinence: Code(s): R32 - Unspecified urinary incontinence (3) Urinary urgency: Code(s): R39.15 - Urgency of urination Plan Cipro 500mg bid x 10 days, pending urine c/s Orders: Orders AMB Urinalysis Automated 10/13/23 Z13.9 - Encounter for screening, unspecified Medications: New ciprofloxacin HCl 500 mg PO BID 20 tabs 0RF Patient Instructions: The patient had an opportunity to ask questions regarding treatment plan. All questions were answered. Laboratory results were discussed and reviewed in detail. No major barriers to understanding were identified. The patient expressed understanding and agreement with the above treatment plan. The patient is aware they should contact our office by phone for worsening of their current condition or the appearance of new symptoms. Compliance is encouraged with any medications and followup testing that is ordered. It is a privilege to be allowed the opportunity to participate in the urologic care of your patient. If you have any questions or concerns regarding treatment for the above conditions please do not hesitate to contact me. The office telephone contact is [phone]. This note is constructed in part using voice recognition software. While every effort has been made to ensure accuracy legal transcriptionist errors may have been included. Yours sincerely, Leandra Lake MD Coding Level of Care Code Est Pt Level 3 (92357) Diagnoses Acute UTI N39.0 Urinary incontinence R32 Urinary urgency R39.15
== END 2023-10-13 11:09 | disposition home or self-care (01) ==
PROVIDERS: PCP Internal Medicine; Visit Provider Urology
DX: N39.0 Urinary tract infection, site not specified (principal); R32 Unspecified urinary incontinence; R39.15 Urgency of urination
CPT/HCPCS: 99213

== ENCOUNTER → 2023-10-13 10:04 | Outpatient (BNVA) | payer OTHER, SELFPAY | PROVIDERS: PCP Internal Medicine; Visit Provider Urology | DX: N39.0 Urinary tract infection, site not specified (principal); R32 Unspecified urinary incontinence; R39.15 Urgency of urination | CPT/HCPCS: 81003 ==

== ENCOUNTER 2023-10-19 15:45 | Outpatient (AMB) | payer OTHER, SELFPAY ==
--- NOTE | 2023-10-19 15:52 | A.OFFVIS_ITS ---
Intake Intake Visit Reasons: 1 week follow-up, pelvic exam. 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 Operator Required: No Accompanied by: Self / Same As Patient Allergies metronidazole [Metrogel] Allergy (Intermediate, Verified 10/19/23 15:53) facial rash morphine [Morphine] Allergy (Intermediate, Verified 10/19/23 15:53) SEVERE VOMITING, nausea and vomiting hydromorphone [From Dilaudid] Adverse Reaction (Mild, Verified 10/19/23 15:53) makes pt feel ill Medication List - Last Reconciled 10/19/23 by Leandra Lake MD cholecalciferol (vitamin D3) 25 mcg PO DAILY ciprofloxacin HCl 500 mg PO BID cyclobenzaprine 10 mg PO BEDTIME PRN diaper,brief,adult,disposable (Day and Night Brief,Medium) As directed estradiol 0.01%(0.1mg/gram) vaginally daily; pea sized amount to urethra daily 30 days gabapentin 300 mg PO BEDTIME 90 days ibuprofen 600 mg PO TID PRN leg brace (Knee Support Brace) As directed x 6 weeks mirabegron ER (Myrbetriq) 50 mg PO DAILY naproxen 500 mg PO BID 30 days nitrofurantoin monohyd/m-cryst 100 mg 100 mg PO BID pantoprazole 40 mg PO DAILY 90 days HPI HPI Comments History of Present Illness Details Malathi is here for follow-up. She has had history of kidney stones, recurrent UTIs and symptoms of urinary incontinence. She has complains of urinary urgency and fecal incontinence. She states that she had Botox done by a provider at [facility] Since the Botox procedure, she has less urinary leakage but still has urgency every hour. Pelvic exam: Grade 2 3 cystocele, no significant posterior floor relaxation noted. Pessary fitting: Size 3 w/o support Plan: Neuromodulation. stage I lead testing as an outpatient, for symptoms of urinary urgency and fecal incontinence. [facility] Medical History Mixed incontinence urge and stress Recurrent UTI Urge urinary incontinence Change in bowel habits Foreign body granuloma of skin Acne rosacea Right hip pain Leg numbness Obesity Mixed hyperlipidemia GERD (gastroesophageal reflux disease) Hypovitaminosis D Surgical History History of abdominoplasty Perforation of colon History of total abdominal hysterectomy and bilateral salpingo-oophorectomy Family History Father Hypertension Cancer Mother Hypertension Diabetes Brother No problems noted. 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 Current occupational exposures/hazards: No Cognitive needs: No Hearing needs: No Vision needs: Yes Review of Systems Const All systems reviewed & are unremarkable except as noted in HPI and below Reports no additional complaints Eyes Reports no additional complaints ENT Reports no additional complaints Card Denies dyspnea Resp Denies cough and Denies dyspnea GI Reports no additional complaints Reports no additional complaints Musc Reports no additional complaints Skin/Breast Denies rash and Denies unusual bruising Neuro Reports no additional complaints Psych Reports no additional complaints Endo Reports no additional complaints Orlin/Lymph Reports no additional complaints Aller/Immun Reports no additional complaints Physical Exam Const General: cooperative, healthy appearing and no acute distress Orientation/consciousness: patient oriented x3 HEENT Head: Yes normal to inspection, Yes normocephalic and Yes atraumatic Eyes Conjunctivae: conjunctivae normal Neck Neck: Yes normal visual inspection and Yes trachea midline Chest Chest palpation & inspection: normal inspection of the chest Resp Effort & Inspection: normal respiratory effort Cardio Rate: regular rate GI Inspection: Yes normal to inspection Palpation (GI): Soft to palpation Other: Grade 2 3 cystocele, no significant posterior floor relaxation noted. General: No no CVA tenderness External Female Exam: normal external appearance Back/Spine/Pelvis Back: No no CVA tenderness Skin General skin exam: no rashes or lesions noted Neuro General: patient oriented x3 Extrem General: No edema Psych Appearance: grossly normal Assessment & Plan Assessment & Plan (1) Female cystocele: Code(s): N81.10 - Cystocele, unspecified (2) Pelvic floor weakness: Code(s): N81.89 - Other female genital prolapse (3) Fecal incontinence: Code(s): R15.9 - Full incontinence of feces (4) Recurrent UTI: Code(s): N39.0 - Urinary tract infection, site not specified (5) Renal calculi: Code(s): N20.0 - Calculus of kidney Plan Plan: Neuromodulation. stage I lead testing as an outpatient, for symptoms of urinary urgency and fecal incontinence. Patient Instructions: The patient had an opportunity to ask questions regarding treatment plan. All questions were answered. Laboratory studies and physical exam results were discussed and reviewed in detail. No major barriers to understanding were identified. The patient expressed understanding and agreement with the above silvia atment plan. The patient is aware they should contact our office by phone for worsening of their current condition or the appearance of new symptoms. Compliance is encouraged with any medications and followup testing that is ordered. It is a privilege to be allowed the opportunity to participate in the urologic care of your patient. If you have any questions or concerns regarding treatment for the above conditions please do not hesitate to contact me. The office telephone contact is [phone]. This note is constructed in part using voice recognition software. While every effort has been made to ensure accuracy superintendent of generation errors may have been included. Yours sincerely, Leandra Lake MD Coding Level of Care Code Est Pt Level 4 (72498) Diagnoses Female cystocele N81.10 Pelvic floor weakness N81.89 Fecal incontinence R15.9 Recurrent UTI N39.0 Renal calculi N20.0 Comment Please add pessary code
== END 2023-10-19 17:03 | disposition home or self-care (01) ==
PROVIDERS: PCP Internal Medicine; Visit Provider Urology
DX: N81.10 Cystocele, unspecified (principal); N81.89 Other female genital prolapse; R15.9 Full incontinence of feces; N39.0 Urinary tract infection, site not specified; N20.0 Calculus of kidney
CPT/HCPCS: 99214

== ENCOUNTER → 2023-10-19 15:45 | Outpatient (BNVA) | payer OTHER, SELFPAY | PROVIDERS: PCP Internal Medicine; Visit Provider Urology ==

== ENCOUNTER 2023-10-20 13:09 | Outpatient (AMB) | payer OTHER, SELFPAY ==
--- NOTE | 2023-10-20 14:01 | A.OFFVIS_ITS ---
Intake Intake Visit Reasons: Pessary Removal Intake Note: Patient presents today, a pessary was placed yesterday, patient has some discomfort and request to remove the pessary: Urology Medications: estrace, myrbetriq, vesicare, macrobid Blood Thinner: none Furniture Associate Required: No Accompanied by: Self / Same As Patient Allergies metronidazole [Metrogel] Allergy (Intermediate, Verified 10/19/23 15:53) facial rash morphine [Morphine] Allergy (Intermediate, Verified 10/19/23 15:53) SEVERE VOMITING, nausea and vomiting hydromorphone [From Dilaudid] Adverse Reaction (Mild, Verified 10/19/23 15:53) makes pt feel ill Medication List - Last Reconciled 10/20/23 by Leandra Lake MD cholecalciferol (vitamin D3) 25 mcg PO DAILY cyclobenzaprine 10 mg PO BEDTIME PRN diaper,brief,adult,disposable (Day and Night Brief,Medium) As directed estradiol 0.01%(0.1mg/gram) vaginally daily; pea sized amount to urethra daily 30 days fosfomycin tromethamine 3 grams PO Q OTHER DAY 3 doses gabapentin 300 mg PO BEDTIME 90 days ibuprofen 600 mg PO TID PRN leg brace (Knee Support Brace) As directed x 6 weeks mirabegron ER (Myrbetriq) 50 mg PO DAILY naproxen 500 mg PO BID 30 days pantoprazole 40 mg PO DAILY 90 days HPI HPI Comments History of Present Illness Details Malathi was present yesterday and had a pessary size 3 w/o support inserted for cystocele. She called today with complaints of pelvic pain. UA checked today is nitrite positive Exam- pessary in good position - no vaginal bleeding. The pessary was removed Plan - Fosfomycin Pending scheding for Neuromodulation for LUTS of urgency and symptoms of fecal incontinence [facility] Medical History Mixed incontinence urge and stress Recurrent UTI Urge urinary incontinence Change in bowel habits Foreign body granuloma of skin Acne rosacea Right hip pain Leg numbness Obesity Mixed hyperlipidemia GERD (gastroesophageal reflux disease) Hypovitaminosis D Surgical History History of abdominoplasty Perforation of colon History of total abdominal hysterectomy and bilateral salpingo-oophorectomy Family History Father Hypertension Cancer Mother Hypertension Diabetes Brother No problems noted. 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 Current occupational exposures/hazards: No Cognitive needs: No Hearing needs: No Vision needs: Yes Review of Systems Const All systems reviewed & are unremarkable except as noted in HPI and below Reports no additional complaints Eyes Reports no additional complaints ENT Reports no additional complaints Card Denies dyspnea Resp Denies cough and Denies dyspnea GI Reports no additional complaints Reports no additional complaints Musc Reports no additional complaints Skin/Breast Denies rash and Denies unusual bruising Neuro Reports no additional complaints Psych Reports no additional complaints Endo Reports no additional complaints Orlin/Lymph Reports no additional complaints Aller/Immun Reports no additional complaints Physical Exam Const General: cooperative, healthy appearing and no acute distress Orientation/consciousness: patient oriented x3 HEENT Head: Yes normal to inspection, Yes normocephalic and Yes atraumatic Eyes Conjunctivae: conjunctivae normal Neck Neck: Yes normal visual inspection and Yes trachea midline Chest Chest palpation & inspection: normal inspection of the chest Resp Effort & Inspection: normal respiratory effort Cardio Rate: regular rate GI Inspection: Yes normal to inspection Palpation (GI): Soft to palpation Other: pessary removed General: No no CVA tenderness External Female Exam: normal external appearance Speculum Exam - Vagina: vagina atrophic Back/Spine/Pelvis Back: No no CVA tenderness Skin General skin exam: no rashes or lesions noted Neuro General: patient oriented x3 Extrem General: No edema Psych Appearance: grossly normal Results AMB Urinalysis, Automated UA Leukoctes 15 Suhail/uL Last Edit by MATIAS Abebe on 10/20/23 14:04 UA Nitrite Positive Last Edit by MATIAS Abebe on 10/20/23 14:04 UA Urobilinogen 0.2 mg/dL Last Edit by MATIAS Abebe on 10/20/23 14:0 4 UA Protein 0 mg/dL Last Edit by MATIAS Abebe on 10/20/23 14:04 UA pH 6.0 Last Edit by MATIAS Abebe on 10/20/23 14:04 UA Blood 0 Alejandro/uL Last Edit by MATIAS Abebe on 10/20/23 14:04 UA Specific [place] 1.020 Last Edit by MATIAS Abebe on 10/20/23 14: 04 UA Ketone Negative Last Edit by MATIAS Abebe on 10/20/23 14:04 UA Bilirubin 0 mg/dL Last Edit by MATIAS Abebe on 10/20/23 14:04 UA Glucose 0 mg/dL Last Edit by MATIAS Abebe on 10/20/23 14:04 Results Reviewed Results Reviewed: Laboratory Last Values Urine pH (Auto) 6.0 10/20/23 14:03 Specific [place] (Auto) 1.020 10/20/23 14:03 Urine Protein (Auto) 0 mg/dL 10/20/23 14:03 Glucose (UA)(Auto) 0 mg/dL 10/20/23 14:03 Urine Ketones (Auto) Negative 10/20/23 14:03 Urine Blood (Auto) 0 Alejandro/uL 10/20/23 14:03 Urine Nitrite (Auto) Positive 10/20/23 14:03 Urine Bilirubin (Auto) 0 mg/dL 10/20/23 14:03 Urine Urobilinogen (Auto) 0.2 mg/dL 10/20/23 14:03 Leukocyte Esterase (Auto) 15 Suhail/uL 10/20/23 14:03 Assessment & Plan Assessment & Plan (1) Female cystocele: Code(s): N81.10 - Cystocele, unspecified (2) Pelvic floor weakness: Code(s): N81.89 - Other female genital prolapse (3) Fecal incontinence: Code(s): R15.9 - Full incontinence of feces (4) Renal calculi: Code(s): N20.0 - Calculus of kidney (5) Acute UTI: Code(s): N39.0 - Urinary tract infection, site not specified Plan Fosfomycin Pending scheding for Neuromodulation for LUTS of urgency and symptoms of fecal incontinence Orders: Orders Urine Culture Today N39.0 - Urinary tract infection, site not specified AMB Urinalysis Automated Today Z13.9 - Encounter for screening, unspecified Medications: New fosfomycin tromethamine 3 grams PO Q OTHER DAY 1 ea 0RF Discontinued ciprofloxacin HCl Discontinued Reason: Doctor's Order 500 mg PO BID 20 tabs 0RF Coding Level of Care Code Est Pt Level 4 (42879) Diagnoses Female cystocele N81.10 Pelvic floor weakness N81.89 Fecal incontinence R15.9 Renal calculi N20.0 Acute UTI N39.0
== END 2023-10-20 13:29 | disposition home or self-care (01) ==
PROVIDERS: PCP Internal Medicine; Visit Provider Urology
DX: N81.10 Cystocele, unspecified (principal); N81.89 Other female genital prolapse; R15.9 Full incontinence of feces; N20.0 Calculus of kidney; N39.0 Urinary tract infection, site not specified; Z13.9 Encounter for screening, unspecified
CPT/HCPCS: 99214

== ENCOUNTER 2023-10-20 13:09 | Outpatient (REF) | payer OTHER, SELFPAY | END 2023-10-20 13:10 | disposition home or self-care (01) | LOC: HO.LAB 13:09 | PROVIDERS: PCP Internal Medicine; Visit Provider Urology | DX: N39.0 Urinary tract infection, site not specified (principal); R10.2 Pelvic and perineal pain; N81.10 Cystocele, unspecified; N81.89 Other female genital prolapse; R15.9 Full incontinence of feces; N20.0 Calculus of kidney; Z79.899 Other long term (current) drug therapy | CPT/HCPCS: 81003; 87086; 87088; 87186 ==

== ENCOUNTER 2023-11-01 08:56 | Inpatient (IN) | payer OTHER, SELFPAY ==
--- NOTE | ~2023-11-01 | CT_ITS ---
EXAMINATION: CT ABDOMEN AND PELVIS WITH CONTRAST CLINICAL INFORMATION: Left flank and lower abdominal pain. COMPARISON: CT abdomen pelvis August 28, 2023 TECHNIQUE: Multidetector volumetric images were obtained from the superior aspect of the liver through the pubic symphysis following administration 85 mL of Omnipaque 350 intravenous contrast. Sagittal and coronal reformatted images were obtained on the technologist's workstation. This CT examination was performed using dose optimization techniques as appropriate, variously including the following: *Automated exposure control *Adjustment of mA and/or kV according to patient size (this includes techniques or standardized protocols for targeted exams where dose is matched to indication/reason for exam; i.e. extremities or head) *Use of iterative reconstruction technique DLP: 471 mGy-cm FINDINGS: Visualized lung bases demonstrate mild dependent atelectasis. The liver is normal in size. The gallbladder is normal in appearance. Similar punctate calcification along the gallbladder wall. The pancreas, spleen and adrenal glands are unremarkable. Symmetrically enhancing kidneys. There are a few tiny nonobstructing renal calculi bilaterally, largest is located within the midpole the right kidney measures 4 mm. There is no hydronephrosis of either kidney. A few subcentimeter hypodense foci are again noted in both kidneys which are too small to accurately characterize but statistically cysts. Normal caliber loops of small and large bowel. Normal appendix. Colonic diverticulosis. Localized area of circumferential mucosal thickening of the proximal sigmoid colon with adjacent pericolonic stranding. No well organized collection identified. Normal caliber abdominal aorta. No retroperitoneal lymphadenopathy. Small fat-containing umbilical and supraumbilical hernia are stable. The bladder is normal in appearance. The uterus is surgically absent. No gross free pelvic fluid. No inguinal lymphadenopathy. Mild diffuse degenerative changes of the spine. CT/CT abdomen pelvis w IV con IMPRESSION: 1. Acute diverticulitis of the sigmoid colon. No complicating abscess. 2. Tiny bilateral nonobstructing renal calculi. No hydronephrosis. Fleischner guidelines were followed.
[2023-11-01 08:59] VITALS: BP 140/85; PULSE 104; RESP 17; TEMP 36.6; O2SAT 97; BMI 27.8
[2023-11-01 09:19] LABS: Basophils Absolute Auto 0.1 X10*3/uL (0.0-0.2); Basophils Percent Auto 0.4 % (0-2); Eosinophils Percent Auto 0.3 % (0-4); Hematocrit 40.3 % (37.0-47.0); Hemoglobin 12.6 g/dl (12.0-16.0); Imm Gran Abs Auto 0.06 X10*3/uL (0.00-0.03); Imm Gran Pct Auto 0.5 % (0.0-0.4); Lymphocytes Absolute Auto 1.7 X10*3/uL (1.2-4.9); Lymphocytes Percent Auto 14.5 % (20-40); MANUAL DIFF FLAG NO; Mean Corpuscular HGB Conc 31.3 g/dl (31.0-35.0); Mean Corpuscular Hemoglobin 28.1 pg (27.0-33.0); Mean Corpuscular Volume 89.8 fL (80.0-98.0); Mean Platelet Volume 9.4 fL (9.4-12.3); Monocytes Absolute Auto 0.9 X10*3/uL (0.1-1.2); Monocytes Percent Auto 7.5 % (2-11); Neutrophils Absolute Auto 8.8 x10*3/uL (2.0-8.3); Neutrophils Percent Auto 76.8 % (45-73); Platelet Count 266 X10*3/uL (160-400); Red Blood Count 4.49 X10*6/uL (4.20-5.50); Red Cell Distribution Width 12.7 % (11.0-16.0); White Blood Count 11.4 X10*3/uL (4.8-10.8)
[2023-11-01 09:34] LABS: Alanine Aminotransferase 9 U/L (0-31); Albumin Level 4.3 g/dL (3.5-5.0); Alkaline Phosphatase 73 U/L (39-117); Anion Gap 9 (12-20); Aspartate Amino Transferase 15 U/L (5-31); Bilirubin Direct 0.2 mg/dL (0.0-0.5); Bilirubin Total 0.8 mg/dL (0.0-1.0); Blood Urea Nitrogen 11 mg/dL (9-16); Calcium 9.7 mg/dL (8.4-10.2); Carbon Dioxide 30 mmol/L (22-29); Chloride 109 mmol/L (96-108); Estimated Glomerular Filt Rate > 60; Glucose Random 106 mg/dL (60-115); Lipase 28 U/L (8-78); Sodium 144 mmol/L (135-145); Total Protein 7.4 g/dL (6.5-8.0)
[2023-11-01 10:12] VITALS: BP 121/74; PULSE 92; RESP 19; TEMP 37.1; O2SAT 98
--- NOTE | 2023-11-01 10:17 | PC.NURSE ---
Pt awake, alert and oriented. Airway patent, breathing even and unlabored. Skin warm and dry. Pt reports LLQ ABD pain since 3AM this morning, worsens with movement. Pt describes pain as tightness and squeezing, rates it 10/10. Pt reports diarrhea Tuesday, none since. Pt also reports chills and nausea, no vomiting. Last PO intake this morning. Pt reports recent UTI 1 week ago, finished the ABX tuesday (took full course). Pt reports no issues with urination. ABD soft, non-distended but tender to the touch.
--- NOTE | 2023-11-01 10:41 | ED_ITS ---
HPI - Abdominal Pain General Chief Complaint: Abdominal Pain Stated Complaint: Abdominal Pain Time Seen by Provider: 11/01/23 10:25 Source: patient Mode of arrival: ambulatory Limitations: no limitations History of Present Illness HPI narrative: 53-year-old female with a history of GERD, diverticulitis who presents emergency department for evaluation of abdominal pain. She states the pain began suddenly at 03:00 hours. She points to her left lower abdomen when asked to localize the pain. She describes the pain is a constant, pressure-like pain. The pain is 10/10 at its worst. Patient states that she has a history of right-sided diverticulitis. She also had a perforated rectum in 2003 requiring colostomy and then takedown. She states the perforation was caused by a procedure by their trying to remove a cyst. She denied fever but has had shaking chills. She had nausea with no vomiting. She states that on Tuesday (2 days prior) she had 5-6 loose brown stools. She states her stools have been black but not bloody. Related Data Previous Rx's Medication Instructions Recorded leg brace (Knee Support Brace) #1 ea 01/05/21 pantoprazole 40 mg tablet,delayed 40 mg PO DAILY 90 days #90 tabs 03/31/23 release ibuprofen 600 mg tablet 600 mg PO TID PRN fever or pain 08/28/23 #20 tabs diaper,brief,adult,disposable (Day #22 ea 09/16/23 and Night Brief,Medium) Allergies Allergy/AdvReac Type Severity Reaction Status Date / Time metronidazole [Metrogel] Allergy Intermediate facial rash Verified 11/01/23 08:59 morphine [Morphine] Allergy Intermediate SEVERE Verified 11/01/23 08:59 VOMITING, nausea and vomiting hydromorphone [From Dilaudid] AdvReac Mild makes pt Verified 11/01/23 08:59 feel ill Review of Systems Review of Systems Yes all other systems are reviewed and are negative [facility] Past Medical History [facility] Narrative: Social history: Patient denies tobacco use. She occasionally drinks alcohol. She denies drug use. Medical History Mixed incontinence urge and stress Recurrent UTI Urge urinary incontinence Change in bowel habits Foreign body granuloma of skin Acne rosacea Right hip pain Leg numbness Obesity Mixed hyperlipidemia GERD (gastroesophageal reflux disease) Hypovitaminosis D Surgical History History of abdominoplasty Perforation of colon History of total abdominal hysterectomy and bilateral salpingo-oophorectomy Family History Family History Father Hypertension Cancer Mother Hypertension Diabetes Brother No problems noted. 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 Current occupational exposures/hazards: No Cognitive needs: No Hearing needs: No Vision needs: Yes Physical Exam ED Vital Signs: Vital Signs - 24 hr 11/01/23 08:59 11/01/23 10:12 Temperature 98 F 98.8 F Pulse Rate 104 H 92 Respiratory Rate 17 19 Blood Pressure 140/85 H 121/74 Pulse Oximetry 97 98 Oxygen Delivery Method Room Air Room Air BMI result Body Mass Index 27.8 Vital signs revealed an elevated heart rate of 104 Exam: General: Awake, alert in no distress Head: Normocephalic, atraumatic EENT: PERRL, Lids normal, sclera normal, conjunctiva normal, nose normal , ears normal, throat without erythema or exudates Neck: Supple, no adenopathy, no trachea midline or C-spine tenderness Lung: breath sounds symmetric, no wheezing, rales or rhonchi Chest: symmetric movement, nontender Heart: regular rate and rhythm, normal S1, S2 no murmurs or rubs Abdomen: soft, moderate left lower quadrant tenderness with no rebound, no voluntary or involuntary guarding, normoactive bowel sounds Back: no vertebral tenderness, no CVAT Extremities: no deformities, moves all extremities symmetrically Neuro: Awake, alert, oriented, normal speech, cranial nerves intact, moves all extremities symmetrically Psych: Pleasant, cooperative Medical Decision Making Medical Decision Making MDM Narrative: 53-year-old female with a history of GERD, diverticulitis who presents emergency department for evaluation of abdominal pain which came on suddenly at 03:00 hours, pain is located in the left lower quadrant abdomen, constant is 10/10, she would associated nausea, chills but no fever. She did have diarrhea 2 days prior but this resolved. Vital signs revealed an elevated heart rate otherwise unremarkable. Examination did reveal left lower quadrant tenderness. 14:30 My independent interpretation patient's laboratory evaluation is as follows WBC elevated 11,400. LFTs normal. Lipase normal. Bicarb elevated 30. CT scan of the abdomen pelvis with IV contrast is consistent with acute diverticulitis of the sigmoid colon. Differential Diagnosis Differential Diagnoses: The differential diagnosis associated with the presentation includes Differential diagnosis includes was not limited to diverticulitis, pancreatitis, renal colic, ureteral colic Admission/Observation Consideration of admission/observation: Escalation of care including admission/observation considered Lab Data 11/01/23 09:13 11/01/23 09:13 Labs: Lab Results 11/01/23 11/01/23 11/01/23 Range/Units 09:13 11:01 15:20 WBC 11.4 H (4.8-10.8) X10*3/uL RBC 4.49 (4.20-5.50) X10*6/uL Hgb 12.6 (12.0-16.0) g/dl Hct 40.3 (37.0-47.0) % MCV 89.8 (80.0-98.0) fL MCH 28.1 (27.0-33.0) pg MCHC 31.3 (31.0-35.0) g/dl RDW 12.7 (11.0-16.0) % Plt Count 266 (160-400) X10*3/uL MPV 9.4 (9.4-12.3) fL Immature Gran % (Auto) 0.5 H (0.0-0.4) % Neut % (Auto) 76.8 H (45-73) % Lymph % (Auto) 14.5 L (20-40) % [place] % (Auto) 7.5 (2-11) % Eos % (Auto) 0.3 (0-4) % Baso % (Auto) 0.4 (0-2) % Lymph # (Auto) 1.7 (1.2-4.9) X10*3/uL [place] # (Auto) 0.9 (0.1-1.2) X10*3/uL Eos # (Auto) 0.0 (0.0-0.4) X10*3/uL Baso # (Auto) 0.1 (0.0-0.2) X10*3/uL Abs Immat Gran (auto) 0.06 H (0.00-0.03) X10*3/uL Absolute Neuts (auto) 8.8 H (2.0-8.3) x10*3/uL Absolute Nucleated RBC 0.000 (0.0-0.012) X10*3/uL Nucleated RBC % (auto) 0.0 (0.0-0.2) /100WBC Sodium 144 (135-145) mmol/L Potassium 4.0 (3.3-5.1) mmol/L Chloride 109 H (96-108) mmol/L Carbon Dioxide 30 H (22-29) mmol/L Anion Gap 9 L (12-20) BUN 11 (9-16) mg/dL Creatinine 0.63 (0.5-1.4) mg/dL Estim Creat Clear Calc 95.0 Estimated GFR > 60 Random Glucose 106 (60-115) mg/dL Lactic Acid 0.9 (0.5-2.0) mmol/L Calcium 9.7 (8.4-10.2) mg/dL Total Bilirubin 0.8 (0.0-1.0) mg/dL Direct Bilirubin 0.2 (0.0-0.5) mg/dL AST 15 (5-31) U/L ALT 9 (0-31) U/L Alkaline Phosphatase 73 (39-117) U/L Total Protein 7.4 (6.5-8.0) g/dL Albumin 4.3 (3.5-5.0) g/dL Lipase 28 (8-78) U/L Urine Color Yellow Urine Appearance Clear Urine pH 6.0 (5.0-9.0) Ur Specific [place] 1.020 (1.005-1.025) Urine Protein Negative (Neg-Trace) mg/dL Urine Glucose (UA) Negative (Negative) mg/dL Urine Ketones Negative (Negative) mg/dL Urine Blood Negative (Negative) Urine Nitrite Negative (Negative) Ur Leukocyte Esterase Negative (Negative) Urine Test NEGATIVE (NEGATIVE) Radiology Impression Discussion of test interpretation with radiology: I have reviewed the radiologist's reading. Radiologist Impression: CT abdomen pelvis w IV con IMPRESSION: 1. Acute diverticulitis of the sigmoid colon. No complicating abscess. 2. Tiny bilateral nonobstructing renal calculi. No hydronephrosis. Fleischner guidelines were followed. Dictated By: Demetri Rinaldi MD Medications Administered Generic Name Dose Route Start Last Admin Trade Name Freq PRN Reason Stop Dose Admin Enoxaparin Sodium 40 mg 11/02/23 09:00 11/02/23 08:28 Enoxaparin Sodium 40 Mg/0.4 Ml Syringe SUBCUT 40 mg DAILY PALOMO Administration Dextrose/Sodium Chloride 1,000 mls @ 80 mls/hr 11/01/23 17:30 11/02/23 17:30 D5ns IVCONT 80 mls/hr .[id number] PALOMO Administration Piperacillin Sod/Tazobactam 50 mls @ 100 mls/hr 11/01/23 22:00 11/02/23 22:44 Sod 3.375 gm/ Sodium Chloride IV Infused Q6H PALOMO Infusion Ketorolac Tromethamine 15 mg 11/01/23 17:28 11/02/23 22:02 Ketorolac Tromethamine 15 Mg/Ml Vial IVPUSH 15 mg Q6H PRN Administration Pain, Mild (Pain Scale 1-3) Pantoprazole Sodium 40 mg 11/01/23 17:30 11/02/23 08:28 Pantoprazole Sodium 40 Mg/10 Ml Vial IVPUSH 40 mg DAILY PALOMO Administration Sodium Chloride 3 ml 11/02/23 00:00 11/03/23 00:01 0.9 % Sodium Chloride Flush 3 Ml Syringe IVFLUSH Not Given QSHIFT PALOMO Discontinued Medications Generic Name Dose Route Start Last Admin Trade Name Freq PRN Reason Stop Dose Admin Fentanyl 50 mcg 11/01/23 14:37 11/01/23 15:02 Fentanyl Citrate/Pf 100 Mcg/2 Ml Vial IVPUSH 11/01/23 14:38 50 mcg ONCE ONE Administration Protocol Sodium Chloride 1,000 mls @ 999 mls/hr 11/01/23 11:04 11/01/23 15:05 Ns IV 11/01/23 12:04 Infused .Q1H1M STA Infusion Piperacillin Sod/Tazobactam 100 mls @ 200 mls/hr 11/01/23 14:36 11/01/23 17:04 Sod 4.5 gm/ Sodium Chloride IV 11/01/23 15:05 Infused ONCE ONE Infusion Promethazine HCl 12.5 mg/ 50.5 mls @ 202 mls/hr 11/01/23 14:36 11/01/23 17:04 Sodium Chloride IV 11/01/23 14:37 Infused ONCE ONE Infusion Iohexol 100 ml 11/01/23 13:23 11/01/23 13:24 Iohexol 350 Mg/Ml 100 Ml Infus..Btl IV 11/01/23 13:24 85 ml ONCE ONE Administration Ketorolac Tromethamine 15 mg 11/01/23 11:04 11/01/23 11:42 Ketorolac Tromethamine 15 Mg/Ml Vial IVPUSH 11/01/23 11:05 15 mg ONCE STA Administration Ondansetron HCl 4 mg 11/01/23 11:04 11/01/23 11:43 Ondansetron Hcl 4 Mg/2 Ml Vial IVPUSH 11/01/23 11:05 4 mg ONCE ONE Administration Discharge Plan Discharge Clinical Impression: Diverticulitis Patient Disposition: Admitted As Inpatient Interventions: Admission Worksheet (ED) Last Done: 11/01/23 20:10 Discharge Date/Time: 11/01/23 22:13
[2023-11-01 11:13] LABS: Appearance Urine Clear; Color Urine Yellow; Glucose Urine UA Negative (Negative); Leukocyte Esterase Urine Negative (Negative); Nitrite Urine Negative (Negative); UPreg QC Valid YES; Urine Blood Negative (Negative); Urine Ketones Negative (Negative); Urine Pregnancy NEGATIVE (NEGATIVE); Urine Protein Negative (Neg-Trace)
[2023-11-01] MEDS: Ketorolac Tromethamine 15 MG/ML VIAL IVPUSH ×2 (11:42→22:33)
[2023-11-01] MEDS: ondansetron HCL 4 MG/2 ML VIAL IVPUSH (11:43)
[2023-11-01] MEDS: 0.9 % Sodium Chloride 1,000 ML 999 ML IV (11:47)
[2023-11-01] MEDS: iohexoL 350 MG/ML 100 ML INFUS..BTL IV (13:24)
[2023-11-01 15:02] VITALS: RESP 18
[2023-11-01] MEDS: fentaNYL citrate/PF 100 MCG/2 ML VIAL 50 MCG IVPUSH (15:02)
[2023-11-01 15:07] VITALS: BP 128/72; PULSE 86; RESP 18; O2SAT 95
[2023-11-01 15:39] LABS: Lactic Acid 0.9 mmol/L (0.5-2.0)
[2023-11-01] MEDS: Piperacillin Sodium/Tazobactam 4.5 GM in 0.9 % Sodium Chloride 100 ML IV (15:53)
[2023-11-01 17:04] VITALS: BP 123/63; PULSE 84; RESP 16; TEMP 36.9; O2SAT 98
--- NOTE | 2023-11-01 17:32 | P.HPHOSP_ITS ---
History of Present Illness Date of Service: 11/01/23 Attending physician on admission: Mohini Jacobo Chief Complaint: abd pain 53-year-old female with a history of GERD, History of total abdominal hysterectomy and bilateral salpingo-oophorectomy,diverticulitis came for abdominal pain 1 day duration ,sharp ,constant ,llq , intailly nonradiating ,unable to eat due to pain/nausea ,also had yellowish stool 3-4 times,nonbloody, no fever . Patient states that she has a history of right-sided diverticulitis. She also had a perforated rectum in 2003 requiring colostomy and then takedown. She states the perforation was caused by a procedure by their trying to remove a cyst. Lab imaging reviewed: WBC: 11.4 BMP and LFTs seems fine. CT abdomen showed: Acute diverticulitis of sigmoid colon. In ED: Received antiemetics, IV pain medication, IV Zosyn and requested admission for acute diverticulitis. Review of Systems 2 Review of Systems: Yes all other systems are reviewed and are negative [facility] Medical History Mixed incontinence urge and stress Recurrent UTI Urge urinary incontinence Change in bowel habits Foreign body granuloma of skin Acne rosacea Right hip pain Leg numbness Obesity Mixed hyperlipidemia GERD (gastroesophageal reflux disease) Hypovitaminosis D Family History Father Hypertension Cancer Mother Hypertension Diabetes Brother No problems noted. 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 Current occupational exposures/hazards: No Cognitive needs: No Hearing needs: No Vision needs: Yes Meds Allergies Allergy/AdvReac Type Severity Reaction Status Date / Time metronidazole [Metrogel] Allergy Intermediate facial rash Verified 11/01/23 08:59 morphine [Morphine] Allergy Intermediate SEVERE Verified 11/01/23 08:59 VOMITING, nausea and vomiting hydromorphone [From Dilaudid] AdvReac Mild makes pt Verified 11/01/23 08:59 feel ill Active Medications: Current Medications Dextrose/Sodium Chloride (D5ns) 1,000 mls @ 80 mls/hr IVCONT .[id number] [facility] Piperacillin Sod/Tazobactam (Sod 3.375 gm/ Sodium Chloride) 50 mls @ 100 mls/hr IV Q6H PALOMO Promethazine HCl 6.25 mg/ (Sodium Chloride) 50.25 mls @ 201 mls/hr IV Q6H PRN PRN Reason: Nausea and Vomiting Ketorolac Tromethamine (Ketorolac Tromethamine 15 Mg/Ml Vial) 15 mg IVPUSH Q6H PRN PRN Reason: Pain, Mild (Pain Scale 1-3) Pantoprazole Sodium (Pantoprazole Sodium 40 Mg/10 Ml Vial) 40 mg IVPUSH DAILY [facility] Sodium Chloride (0.9 % Sodium Chloride Flush 3 Ml Syringe) 3 ml IVFLUSH QSHIFT [facility] Physical Exam 2 Vital Signs and Narrative: Vital Signs: Last Vital Signs Temp 98.5 F 11/01/23 17:04 Pulse 84 11/01/23 17:04 Resp 16 11/01/23 17:04 BP 123/63 11/01/23 17:04 Pulse Ox 98 11/01/23 17:04 O2 Del Method Room Air 11/01/23 17:04 BMI result Body Mass Index 27.8 Appearance: Alert.? Oriented X3.? not in distress.? Eyes: Pupils equal, round and reactive to light.? Sclera nonicteric.? ENT: Pharynx normal.? Moist mucous membranes. cvs: rrr, [id number] , no murmur res: clear to auscultation ,no rhonchii or wheezing abd: no rebound or guarding ,nt, bs present. ext pulses present , no cyanosis ,Gait well balanced well coordinated. neuro: axo3 , nonfocal. Results Labs 11/01/23 09:13 11/01/23 09:13 Labs: Laboratory Results - last 24 hr 11/01/23 11/01/23 11/01/23 09:13 11:01 15:20 MCV 89.8 MCH 28.1 MCHC 31.3 RDW 12.7 Plt Count 266 MPV 9.4 Immature Gran % (Auto) 0.5 H Neut % (Auto) 76.8 H Lymph % (Auto) 14.5 L [place] % (Auto) 7.5 Eos % (Auto) 0.3 Baso % (Auto) 0.4 Lymph # (Auto) 1.7 [place] # (Auto) 0.9 Eos # (Auto) 0.0 Baso # (Auto) 0.1 Abs Immat Gran (auto) 0.06 H Absolute Neuts (auto) 8.8 H Absolute Nucleated RBC 0.000 Nucleated RBC % (auto) 0.0 Anion Gap 9 L Estim Creat Clear Calc 95.0 Estimated GFR > 60 Random Glucose 106 Lactic Acid 0.9 Calcium 9.7 Total Bilirubin 0.8 Direct Bilirubin 0.2 AST 15 ALT 9 Alkaline Phosphatase 73 Total Protein 7.4 Albumin 4.3 Lipase 28 Urine Color Yellow Urine Appearance Clear Urine pH 6.0 Ur Specific [place] 1.020 Urine Protein Negative Urine Glucose (UA) Negative Urine Ketones Negative Urine Blood Negative Urine Nitrite Negative Ur Leukocyte Esterase Negative Urine Test NEGATIVE Imaging Radiologist's Impressions: Impressions Abdomen/Pelvis CT 11/01/23 13:22 IMPRESSION: 1. Acute diverticulitis of the sigmoid colon. No complicating abscess. 2. Tiny bilateral nonobstructing renal calculi. No hydronephrosis. Fleischner guidelines were followed. Assessment and Plan (1) Diverticulitis: Status: Acute Plan 53-year-old female with a history of GERD, History of total abdominal hysterectomy and bilateral salpingo-oophorectomy,diverticulitis: acute diverticulitis: mild leukocytosis, no fever Normal lactic acid Blood cultures sent Bowel rest, antiemetics, IV fluid, IV pain medication ketrolac, IV Zosyn. GERD: Switched to Protonix while NPO. Ongoing hospitalization need: Patient has recurrent diverticulitis-need IV antibiotics, pain management and unable to eat yet so need IV hydration also, expert surgical eval for recurrent diverticulitis. Quality Stroke Does the patient have a stroke diagnosis?: No VTE Prior VTE?: No VTE Risk Level:: Medical - moderate - high VTE Device Contraindication: N/A - Device Ordered VTE Drug Contraindication: N/A - Med Ordered
--- NOTE | 2023-11-01 17:40 | PHA.MEDREC ---
Pharmacy Consult ? Medication Reconciliation Pharmacy has completed the medication reconciliation. Confirmed medication with patient. States she is ONLY taking Pantoprazole 40mg daily (but hasn't taken since 10/28/2023 and Ibupprofen 600mg prn. Iman Toro CPhT
[2023-11-01] MEDS: Pantoprazole Sodium 40 MG/10 ML VIAL IVPUSH (18:29)
[2023-11-01] MEDS: Dextrose 5 % and 0.9 % NaCl 1,000 ML 80 ML IVCONT (18:30)
--- NOTE | 2023-11-01 21:49 | PM.CNGS ---
History of Present Illness Consult details Consult date: 11/01/23 Reason for consult: abdominal pain Narrative: The patient is a 53-year-old female who is coming in with left-sided lower abdominal pain consistent with diverticulitis. Her white count is slightly elevated and CT scan shows some thickening of the colon in the distal sigmoid colon consistent with diverticulitis. She has had issues with combination of constipation and incontinence for a long time. She has IBS issues. She has had complications in the past where she said she had a colostomy due to rectal perforation when she was going in for some laparoscopic ovarian cyst surgery and there was a complication which was treated with colostomy for awhile and then reversed. She is seen GI and other docs in the past for her IBS issues and incontinence. But this is different from that. She said she once had a similar issue with right-sided diverticulitis and she last had a colonoscopy with Dr. Donald in 2018 without any worrisome findings. [facility] Past Medical History Medical History Mixed incontinence urge and stress Recurrent UTI Urge urinary incontinence Change in bowel habits Foreign body granuloma of skin Acne rosacea Right hip pain Leg numbness Obesity Mixed hyperlipidemia GERD (gastroesophageal reflux disease) Hypovitaminosis D Family History Family History Father Hypertension Cancer Mother Hypertension Diabetes Brother No problems noted. Sister In good health Daughter In good health Surgical History Surgical History History of abdominoplasty Perforation of colon History of total abdominal hysterectomy and bilateral salpingo-oophorectomy Social History Social History Housing: Apartment Alcohol intake: current Alcohol intake frequency: holidays/special occasions only Patient Tobacco Use Status: Never used Tobacco Smoked in Last 30 Days: No e-Cigarette/Vaping Use: Never Used Second Hand Smoke Exposure: No Use of substances other than those prescribed or required for medical reasons: No Advance Directives: No Advance Directives Information Provided: No service: No Current occupational status: employed 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 Current occupational exposures/hazards: No Cognitive needs: No Hearing needs: No Vision needs: Yes Meds Allergies Allergy/AdvReac Type Severity Reaction Status Date / Time metronidazole [Metrogel] Allergy Intermediate facial rash Verified 11/01/23 08:59 morphine [Morphine] Allergy Intermediate SEVERE Verified 11/01/23 08:59 VOMITING, nausea and vomiting hydromorphone [From Dilaudid] AdvReac Mild makes pt Verified 11/01/23 08:59 feel ill Active Medications: Current Medications Enoxaparin Sodium (Enoxaparin Sodium 40 Mg/0.4 Ml Syringe) 40 mg SUBCUT DAILY [facility] Dextrose/Sodium Chloride (D5ns) 1,000 mls @ 80 mls/hr IVCONT .[id number] [facility] Last Admin: 11/01/23 18:30 Dose: 80 mls/hr Piperacillin Sod/Tazobactam (Sod 3.375 gm/ Sodium Chloride) 50 mls @ 100 mls/hr IV Q6H [facility] Promethazine HCl 6.25 mg/ (Sodium Chloride) 50.25 mls @ 201 mls/hr IV Q6H PRN PRN Reason: Nausea and Vomiting Ketorolac Tromethamine (Ketorolac Tromethamine 15 Mg/Ml Vial) 15 mg IVPUSH Q6H PRN PRN Reason: Pain, Mild (Pain Scale 1-3) Pantoprazole Sodium (Pantoprazole Sodium 40 Mg/10 Ml Vial) 40 mg IVPUSH DAILY [facility] Last Admin: 11/01/23 18:29 Dose: 40 mg Sodium Chloride (0.9 % Sodium Chloride Flush 3 Ml Syringe) 3 ml IVFLUSH QSHIFT [facility] Physical Exam Vital Signs: Vital Signs: Last Vital Signs Temp 98.5 F 11/01/23 17:04 Pulse 84 11/01/23 17:04 Resp 16 11/01/23 17:04 BP 123/63 11/01/23 17:04 Pulse Ox 98 11/01/23 17:04 O2 Del Method Room Air 11/01/23 17:04 BMI result Body Mass Index 27.8 Const: General: cooperative, healthy appearing, comfortable and no acute distress Orientation/consciousness: patient oriented x3 Eyes: General: appearance normal, both eyes and all related structures Resp: Effort & Inspection: normal respiratory effort and able to speak in complete sentences Auscultation: clear to auscultation bilaterally Cardio: Rate: regular rate Rhythm: regular rhythm GI: Other: Her abdomen is soft nondistended she is tender in the left lower quadrant with some localized guarding Neuro: General: patient oriented x3 Extrem: General: Yes normal to inspection Psych: Appearance: grossly normal Mental Status: mental status grossly normal Speech and movement: Normal speech and movement present Affect: normal affect Results Labs 11/01/23 09:13 11/01/23 09:13 Labs: Abnormal lab results 11/01/23 Range/Units 09:13 WBC 11.4 H (4.8-10.8) X10*3/uL Immature Gran % (Auto) 0.5 H (0.0-0.4) % Neut % (Auto) 76.8 H (45-73) % Lymph % (Auto) 14.5 L (20-40) % Abs Immat Gran (auto) 0.06 H (0.00-0.03) X10*3/uL Absolute Neuts (auto) 8.8 H (2.0-8.3) x10*3/uL Chloride 109 H (96-108) mmol/L Carbon Dioxide 30 H (22-29) mmol/L Anion Gap 9 L (12-20) Short CBC 11/01/23 Range/Units 09:13 WBC 11.4 H (4.8-10.8) X10*3/uL Hgb 12.6 (12.0-16.0) g/dl Hct 40.3 (37.0-47.0) % Plt Count 266 (160-400) X10*3/uL BMP 11/01/23 09:13 Sodium 144 Potassium 4.0 Chloride 109 H Carbon Dioxide 30 H BUN 11 Creatinine 0.63 Calcium 9.7 Liver Function 11/01/23 Range/Units 09:13 Total Bilirubin 0.8 (0.0-1.0) mg/dL Direct Bilirubin 0.2 (0.0-0.5) mg/dL AST 15 (5-31) U/L ALT 9 (0-31) U/L Alkaline Phosphatase 73 (39-117) U/L Albumin 4.3 (3.5-5.0) g/dL Urine 11/01/23 Range/Units 11:01 Urine Color Yellow Urine Appearance Clear Urine pH 6.0 (5.0-9.0) Ur Specific [place] 1.020 (1.005-1.025) Urine Protein Negative (Neg-Trace) mg/dL Urine Glucose (UA) Negative (Negative) mg/dL Urine Test NEGATIVE (NEGATIVE) All other labs normal. Imaging Abdomen CT scan report/results: report reviewed and image reviewed CT scan - pelvis: report reviewed and image reviewed Assessment and Plan (1) Diverticulitis: Status: Acute Plan 53-year-old female with left lower quadrant pain consistent with diverticulitis. Diverticulitis is uncomplicated and should do well with some bowel rest IV antibiotics converted to p.o. antibiotics. Even though this is her 2nd attack she says that the other attack was on her right side. I think at this point she does have issues with IBS and working on her bowel habits and dietary controls would be the best way to treat her diverticulitis for now. Most likely she will get better from this episode without requiring any surgery. We can get nutrition to see her while she is here at the hospital recommending a low residue diet Procedures Date of Service Date of Service: 11/01/23
[2023-11-01 22:22] VITALS: BP 145/70; PULSE 86; RESP 18; TEMP 37.2; O2SAT 98
[2023-11-01] MEDS: Piperacillin Sodium/Tazobactam 3.375 GM in 0.9 % Sodium Chloride 50 ML IV (22:32)
[2023-11-02 03:14] VITALS: BP 105/59; PULSE 80; RESP 16; TEMP 36.4; O2SAT 95
[2023-11-02] MEDS: Dextrose 5 % and 0.9 % NaCl 1,000 ML 80 ML IVCONT ×2 (04:36→17:30)
[2023-11-02] MEDS: Piperacillin Sodium/Tazobactam 3.375 GM in 0.9 % Sodium Chloride 50 ML IV ×4 (04:37→22:12)
[2023-11-02] MEDS: Ketorolac Tromethamine 15 MG/ML VIAL IVPUSH ×3 (06:45→22:02)
[2023-11-02 07:13] VITALS: BP 116/69; PULSE 86; RESP 18; TEMP 36.6; O2SAT 98
[2023-11-02] MEDS: Enoxaparin Sodium 40 MG/0.4 ML SYRINGE SUBCUT (08:28)
[2023-11-02] MEDS: 0.9 % Sodium Chloride Flush 3 ML SYRINGE IVFLUSH (08:28)
[2023-11-02] MEDS: Pantoprazole Sodium 40 MG/10 ML VIAL IVPUSH (08:28)
--- NOTE | 2023-11-02 10:34 | P.PNGS_ITS ---
Subjective Subjective Date of Service: 11/02/23 Interval history: Patient reports some flatus this morning. Continues to have left lower quadrant abdominal pain. Denies fever. Physical Exam 2 Vital Signs: Vital Signs: Last Vital Signs Temp 97.8 F 11/02/23 07:13 Pulse 86 11/02/23 07:13 Resp 18 11/02/23 07:13 BP 116/69 11/02/23 07:13 Pulse Ox 98 11/02/23 07:13 O2 Del Method Room Air 11/02/23 07:13 BMI result Body Mass Index 27.8 Const: General: no acute distress Nutritional Appearance: well nourished Orientation/consciousness: patient oriented x3 Limitations: no limitations Resp: Effort & Inspection: normal respiratory effort GI: Other: Tender to light palpation in the left lower quadrant. No palpable mass. Skin: General skin exam: no rashes or lesions noted Neuro: General: patient oriented x3 Objective Data Active Medications Enoxaparin Sodium (Enoxaparin Sodium 40 Mg/0.4 Ml Syringe) 40 mg SUBCUT DAILY [facility] Last Admin: 11/02/23 08:28 Dose: 40 mg Documented By: DANE Hydromorphone HCl (Hydromorphone Hcl 0.5 Mg/0.5 Ml Syringe) 0.5 mg IVPUSH Q4H PRN; Protocol PRN Reason: Pain, Mild (Pain Scale 1-3) Dextrose/Sodium Chloride (D5ns) 1,000 mls @ 80 mls/hr IVCONT .[id number] [facility] Last Admin: 11/02/23 04:36 Dose: 80 mls/hr Documented By: DAMIAN Piperacillin Sod/Tazobactam (Sod 3.375 gm/ Sodium Chloride) 50 mls @ 100 mls/hr IV Q6H [facility] Last Infusion: 11/02/23 05:10 Dose: Infused Documented By: DAMIAN Promethazine HCl 6.25 mg/ (Sodium Chloride) 50.25 mls @ 201 mls/hr IV Q6H PRN PRN Reason: Nausea and Vomiting Ketorolac Tromethamine (Ketorolac Tromethamine 15 Mg/Ml Vial) 15 mg IVPUSH Q6H PRN PRN Reason: Pain, Mild (Pain Scale 1-3) Last Admin: 11/02/23 06:45 Dose: 15 mg Documented By: DAMIAN Ondansetron HCl (Ondansetron Hcl 4 Mg/2 Ml Vial) 4 mg IVPUSH Q6H PRN PRN Reason: Nausea and Vomiting Pantoprazole Sodium (Pantoprazole Sodium 40 Mg/10 Ml Vial) 40 mg IVPUSH DAILY [facility] Last Admin: 11/02/23 08:28 Dose: 40 mg Documented By: DANE Sodium Chloride (0.9 % Sodium Chloride Flush 3 Ml Syringe) 3 ml IVFLUSH QSHIFT [facility] Last Admin: 11/02/23 08:28 Dose: 3 ml Documented By: DANE Labs 11/01/23 09:13 11/01/23 09:13 Labs: Laboratory Results - last 24 hr 11/01/23 11/01/23 11:01 15:20 Lactic Acid 0.9 Urine Color Yellow Urine Appearance Clear Urine pH 6.0 Ur Specific [place] 1.020 Urine Protein Negative Urine Glucose (UA) Negative Urine Ketones Negative Urine Blood Negative Urine Nitrite Negative Ur Leukocyte Esterase Negative Urine Test NEGATIVE Procedures Date of Service Date of Service: 11/02/23 Progress Note: A&P Assessment and plan (1) Diverticulitis: Status: Acute Plan 53-year-old female patient with new onset sigmoid colon diverticulitis without perforation or abscess. I reviewed the CT findings and indications for surgery. No surgical intervention is recommended at this time. Will continue to follow during his hospitalization and as an outpatient upon discharge. Time Spent With Patient Time: Total time managing care of this patient today ____ minutes. Quality Stroke Does the patient have a stroke diagnosis?: No VTE Prior VTE?: No VTE Risk Level:: Medical - moderate - high VTE Device Contraindication: N/A - Device Ordered VTE Drug Contraindication: N/A - Med Ordered
--- NOTE | 2023-11-02 12:52 | MHC.CM.PN ---
Female 53 DX Diverticulitis She lives with family members. She is independent with all functional mobility. A new HCP has been documented and scanned into EMR. DP home self care. Patients dtr will provide transportation home.
[2023-11-02 14:58] VITALS: BP 131/63; PULSE 80; RESP 16; TEMP 36.9; O2SAT 95
--- NOTE | 2023-11-02 16:04 | P.PNIM_ITS ---
Subjective Subjective Date of Service: 11/02/23 Interval History: Acute diverticulitis Review of Systems Patient still has significant abdominal pain, also hesitant to eat due to pain. Feel nauseated Physical Exam 2 Vital Signs: Vital Signs: Last Vital Signs Temp 98.5 F 11/02/23 14:58 Pulse 80 11/02/23 14:58 Resp 16 11/02/23 14:58 BP 131/63 11/02/23 14:58 Pulse Ox 95 11/02/23 14:58 O2 Del Method Room Air 11/02/23 14:58 BMI result Body Mass Index 27.8 Appearance: Alert.? Oriented X3.? . cvs: [id number], [id number] , no murmur res: clear to auscultation ,no rhonchii or wheezing abd: no rebound or guarding ,LLQ pain, bs present. ext pulses present , no cyanosis . neuro: axo3 , nonfocal. Objective Data Active Medications Enoxaparin Sodium (Enoxaparin Sodium 40 Mg/0.4 Ml Syringe) 40 mg SUBCUT DAILY [facility] Last Admin: 11/02/23 08:28 Dose: 40 mg Documented By: DANE Hydromorphone HCl (Hydromorphone Hcl 0.5 Mg/0.5 Ml Syringe) 0.5 mg IVPUSH Q4H PRN; Protocol PRN Reason: Pain, Mild (Pain Scale 1-3) Dextrose/Sodium Chloride (D5ns) 1,000 mls @ 80 mls/hr IVCONT .[id number] [facility] Last Admin: 11/02/23 04:36 Dose: 80 mls/hr Documented By: DAMIAN Piperacillin Sod/Tazobactam (Sod 3.375 gm/ Sodium Chloride) 50 mls @ 100 mls/hr IV Q6H [facility] Last Admin: 11/02/23 15:52 Dose: 100 mls/hr Documented By: TRAM Promethazine HCl 6.25 mg/ (Sodium Chloride) 50.25 mls @ 201 mls/hr IV Q6H PRN PRN Reason: Nausea and Vomiting Ketorolac Tromethamine (Ketorolac Tromethamine 15 Mg/Ml Vial) 15 mg IVPUSH Q6H PRN PRN Reason: Pain, Mild (Pain Scale 1-3) Last Admin: 11/02/23 15:52 Dose: 15 mg Documented By: TRAM Ondansetron HCl (Ondansetron Hcl 4 Mg/2 Ml Vial) 4 mg IVPUSH Q6H PRN PRN Reason: Nausea and Vomiting Pantoprazole Sodium (Pantoprazole Sodium 40 Mg/10 Ml Vial) 40 mg IVPUSH DAILY [facility] Last Admin: 11/02/23 08:28 Dose: 40 mg Documented By: DANE Sodium Chloride (0.9 % Sodium Chloride Flush 3 Ml Syringe) 3 ml IVFLUSH QSHIFT [facility] Last Admin: 11/02/23 15:36 Dose: Not Given Documented By: TRAM Non-Admin Reason: IV Running Labs 11/01/23 09:13 11/01/23 09:13 Assessment and Plan (1) Diverticulitis: Status: Acute Plan 53-year-old female with a history of GERD, History of total abdominal hysterectomy and bilateral salpingo-oophorectomy,diverticulitis: acute diverticulitis: mild leukocytosis, no fever Normal lactic acid Blood cultures sent Bowel rest, antiemetics, IV fluid, IV pain medication ketrolac, IV Zosyn. GERD: Switched to Protonix while NPO. Ongoing hospitalization need: Patient has recurrent diverticulitis-need IV antibiotics, pain management and unable to eat yet so need IV hydration also, expert surgical eval for recurrent diverticulitis. Quality Stroke Does the patient have a stroke diagnosis?: No VTE Prior VTE?: No VTE Risk Level:: Medical - moderate - high VTE Device Contraindication: N/A - Device Ordered VTE Drug Contraindication: N/A - Med Ordered
[2023-11-02 19:21] VITALS: BP 131/71; PULSE 78; RESP 18; TEMP 36.8; O2SAT 98
[2023-11-03 03:25] VITALS: BP 116/65; PULSE 73; RESP 18; TEMP 36.4; O2SAT 98
[2023-11-03] MEDS: Ketorolac Tromethamine 15 MG/ML VIAL IVPUSH ×3 (04:01→22:18)
[2023-11-03] MEDS: Piperacillin Sodium/Tazobactam 3.375 GM in 0.9 % Sodium Chloride 50 ML IV ×4 (04:06→22:25)
[2023-11-03] MEDS: Dextrose 5 % and 0.9 % NaCl 1,000 ML 80 ML IVCONT ×2 (05:55→17:47)
--- NOTE | 2023-11-03 07:33 | PM.PNGS ---
Subjective Subjective Date of Service: 11/03/23 Interval history: Reports having a bad night with upper abdominal gas pain; left lower quadrant abdominal pain still present. Passing some flatus but no BM Physical Exam Vital Signs: Vital Signs: Last Vital Signs Temp 97.6 F 11/03/23 03:25 Pulse 73 11/03/23 03:25 Resp 18 11/03/23 03:25 BP 116/65 11/03/23 03:25 Pulse Ox 98 11/03/23 03:25 O2 Del Method Room Air 11/03/23 03:25 BMI result Body Mass Index 27.8 Const: General: no acute distress Nutritional Appearance: well nourished Orientation/consciousness: patient oriented x3 Limitations: no limitations Resp: Effort & Inspection: normal respiratory effort GI: Other: Tender to light palpation in the left lower quadrant. No palpable mass. Skin: General skin exam: no rashes or lesions noted Neuro: General: patient oriented x3 Objective Data Active Medications Enoxaparin Sodium (Enoxaparin Sodium 40 Mg/0.4 Ml Syringe) 40 mg SUBCUT DAILY [facility] Last Admin: 11/02/23 08:28 Dose: 40 mg Documented By: DANE Hydromorphone HCl (Hydromorphone Hcl 0.5 Mg/0.5 Ml Syringe) 0.5 mg IVPUSH Q4H PRN; Protocol PRN Reason: Pain, Mild (Pain Scale 1-3) Dextrose/Sodium Chloride (D5ns) 1,000 mls @ 80 mls/hr IVCONT .[id number] [facility] Last Admin: 11/03/23 07:26 Dose: Not Given Documented By: COTEMA Non-Admin Reason: IV Running Piperacillin Sod/Tazobactam (Sod 3.375 gm/ Sodium Chloride) 50 mls @ 100 mls/hr IV Q6H [facility] Last Infusion: 11/03/23 04:42 Dose: Infused Documented By: MILDRED Promethazine HCl 6.25 mg/ (Sodium Chloride) 50.25 mls @ 201 mls/hr IV Q6H PRN PRN Reason: Nausea and Vomiting Ketorolac Tromethamine (Ketorolac Tromethamine 15 Mg/Ml Vial) 15 mg IVPUSH Q6H PRN PRN Reason: Pain, Mild (Pain Scale 1-3) Last Admin: 11/03/23 04:01 Dose: 15 mg Documented By: MILDRED Ondansetron HCl (Ondansetron Hcl 4 Mg/2 Ml Vial) 4 mg IVPUSH Q6H PRN PRN Reason: Nausea and Vomiting Pantoprazole Sodium (Pantoprazole Sodium 40 Mg/10 Ml Vial) 40 mg IVPUSH DAILY [facility] Last Admin: 11/02/23 08:28 Dose: 40 mg Documented By: DANE Sodium Chloride (0.9 % Sodium Chloride Flush 3 Ml Syringe) 3 ml IVFLUSH QSHIFT [facility] Last Admin: 11/03/23 07:26 Dose: Not Given Documented By: COTEMA Non-Admin Reason: IV Running Labs 11/01/23 09:13 11/01/23 09:13 Microbiology Microbiology Results: Microbiology 11/01/23 15:40 Blood Culture - Preliminary Blood - Venous No growth after 24 hours. 11/01/23 15:20 Blood Culture - Preliminary Blood - Venous No growth after 24 hours. Procedures Date of Service Date of Service: 11/03/23 Progress Note: A&P Assessment and plan (1) Diverticulitis: Status: Acute Plan 53-year-old female patient with new onset sigmoid colon diverticulitis without perforation or abscess. She reports colicky gas pain today; passing some flatus. Continue IV antibiotics Clear liquid diet Check CBC today Time Spent With Patient Time: Total time managing care of this patient today ____ minutes. Quality Stroke Does the patient have a stroke diagnosis?: No VTE Prior VTE?: No VTE Risk Level:: Medical - moderate - high VTE Device Contraindication: N/A - Device Ordered VTE Drug Contraindication: N/A - Med Ordered
[2023-11-03 07:36] VITALS: BP 119/56; PULSE 71; RESP 16; TEMP 36.5; O2SAT 97
--- NOTE | 2023-11-03 08:17 | P.PNIM_ITS ---
Subjective Subjective Date of Service: 11/03/23 Interval History: diverticulitis Review of Systems has abd pain ,could able to take some clear liquid today Physical Exam 2 Vital Signs: Vital Signs: Last Vital Signs Temp 97.7 F 11/03/23 07:36 Pulse 71 11/03/23 07:36 Resp 16 11/03/23 07:36 BP 119/56 L 11/03/23 07:36 Pulse Ox 97 11/03/23 07:36 O2 Del Method Room Air 11/03/23 07:36 BMI result Body Mass Index 27.8 Appearance: Alert.? Oriented X3.? . cvs: rrr, [id number] , no murmur res: clear to auscultation ,no rhonchii or wheezing abd: no rebound or guarding ,LLQ pain, bs present. ext pulses present , no cyanosis . neuro: axo3 , nonfocal. Objective Data Active Medications Enoxaparin Sodium (Enoxaparin Sodium 40 Mg/0.4 Ml Syringe) 40 mg SUBCUT DAILY [facility] Last Admin: 11/02/23 08:28 Dose: 40 mg Documented By: DANE Hydromorphone HCl (Hydromorphone Hcl 0.5 Mg/0.5 Ml Syringe) 0.5 mg IVPUSH Q4H PRN; Protocol PRN Reason: Pain, Mild (Pain Scale 1-3) Dextrose/Sodium Chloride (D5ns) 1,000 mls @ 80 mls/hr IVCONT .[id number] [facility] Last Admin: 11/03/23 07:26 Dose: Not Given Documented By: COTEMA Non-Admin Reason: IV Running Piperacillin Sod/Tazobactam (Sod 3.375 gm/ Sodium Chloride) 50 mls @ 100 mls/hr IV Q6H [facility] Last Infusion: 11/03/23 04:42 Dose: Infused Documented By: MILDRED Promethazine HCl 6.25 mg/ (Sodium Chloride) 50.25 mls @ 201 mls/hr IV Q6H PRN PRN Reason: Nausea and Vomiting Ketorolac Tromethamine (Ketorolac Tromethamine 15 Mg/Ml Vial) 15 mg IVPUSH Q6H PRN PRN Reason: Pain, Mild (Pain Scale 1-3) Last Admin: 11/03/23 04:01 Dose: 15 mg Documented By: MILDRED Ondansetron HCl (Ondansetron Hcl 4 Mg/2 Ml Vial) 4 mg IVPUSH Q6H PRN PRN Reason: Nausea and Vomiting Pantoprazole Sodium (Pantoprazole Sodium 40 Mg/10 Ml Vial) 40 mg IVPUSH DAILY [facility] Last Admin: 11/02/23 08:28 Dose: 40 mg Documented By: DANE Sodium Chloride (0.9 % Sodium Chloride Flush 3 Ml Syringe) 3 ml IVFLUSH QSHIFT [facility] Last Admin: 11/03/23 07:26 Dose: Not Given Documented By: COTEMA Non-Admin Reason: IV Running Labs 11/03/23 08:51 11/01/23 09:13 Microbiology Microbiology Results: Microbiology 11/01/23 15:40 Blood Culture - Preliminary Blood - Venous No growth after 24 hours. 11/01/23 15:20 Blood Culture - Preliminary Blood - Venous No growth after 24 hours. Assessment and Plan (1) Diverticulitis: Status: Acute Plan 53-year-old female with a history of GERD, History of total abdominal hysterectomy and bilateral salpingo-oophorectomy,diverticulitis: acute diverticulitis: mild leukocytosis, no fever Normal lactic acid Blood cultures sent Bowel rest, antiemetics, IV fluid, IV pain medication ketrolac, IV Zosyn. GERD: Switched to Protonix while NPO. Ongoing hospitalization need: Patient has recurrent diverticulitis-need IV antibiotics, pain management and unable to eat yet so need IV hydration also, expert surgical eval for recurrent diverticulitis. Quality Stroke Does the patient have a stroke diagnosis?: No VTE Prior VTE?: No VTE Risk Level:: Medical - moderate - high VTE Device Contraindication: N/A - Device Ordered VTE Drug Contraindication: N/A - Med Ordered
[2023-11-03 09:02] LABS: MANUAL DIFF FLAG NO
[2023-11-03 09:10] LABS: Basophils Percent Auto 0.5 % (0-2); Eosinophils Absolute Auto 0.1 X10*3/uL (0.0-0.4); Eosinophils Percent Auto 1.6 % (0-4); Hematocrit 30.3 % (37.0-47.0); Hemoglobin 9.5 g/dl (12.0-16.0); Imm Gran Abs Auto 0.02 X10*3/uL (0.00-0.03); Imm Gran Pct Auto 0.3 % (0.0-0.4); Lymphocytes Absolute Auto 1.5 X10*3/uL (1.2-4.9); Lymphocytes Percent Auto 23.8 % (20-40); Mean Corpuscular HGB Conc 31.4 g/dl (31.0-35.0); Mean Corpuscular Hemoglobin 27.5 pg (27.0-33.0); Mean Corpuscular Volume 87.8 fL (80.0-98.0); Mean Platelet Volume 9.5 fL (9.4-12.3); Monocytes Absolute Auto 0.6 X10*3/uL (0.1-1.2); Monocytes Percent Auto 8.9 % (2-11); Neutrophils Absolute Auto 4.2 x10*3/uL (2.0-8.3); Neutrophils Percent Auto 64.9 % (45-73); Platelet Count 210 X10*3/uL (160-400); Red Blood Count 3.45 X10*6/uL (4.20-5.50); Red Cell Distribution Width 12.3 % (11.0-16.0); White Blood Count 6.4 X10*3/uL (4.8-10.8)
[2023-11-03] MEDS: Enoxaparin Sodium 40 MG/0.4 ML SYRINGE SUBCUT (09:12)
[2023-11-03] MEDS: Pantoprazole Sodium 40 MG/10 ML VIAL IVPUSH (09:12)
--- NOTE | 2023-11-03 13:50 | P.CDIM_ITS ---
PROVIDER RESPONSE TEXT: To clarify, the appropriate diagnosis supported by the clinical indicators: Other (explain): anemia,no acute blood loss ,unclear etiology QUERY TEXT: PHYSICIAN'S DOCUMENTATION REQUEST Date of Query: 11/03/2023 11:37 AM EST Patient Name: Malathi Townsend Admit Date: 11/01/2023 Dear Mohini Jacobo, A review of the medical record indicates additional documentation may be needed. Please review below and update the documentation accordingly. Clinical Indicators: H&H on 11/01/23: 12.6/40.3 H&H on 11/03/23: 39.5/30.3 Admitted with Acute Diverticulitis/abdominal pain Based on the above, could you clarify which of the following is the most likely type of anemia you ar e evaluating, treating, and/or monitoring? Acute blood loss anemia Anemia of chronic disease indicate if neoplastic disease, CKD, or other Chronic iron deficiency anemia due to blood loss Vitamin B12 deficiency anemia indicate etiology, such as intrinsic factor deficiency, malabsorption, transcobalamin II deficiency, dietary, etc Folate deficiency anemia indicate etiology, such as dietary, drug-induced, etc Protein deficiency anemia Other (explain) Clinically unable to determine (explain) Thank you, Jailyn Portillo RN Use of terms such as suspected, likely, concern for, or probable (associated with a specific diagnosi s that is being evaluated, monitored, or treated as if it exists) are acceptable and can be coded in the inpatient se tting, when documented at the time of discharge. Please use your independent medical judgment in providing your response. THIS QUERY IS PART OF THE PERMANENT MEDICAL RECORD
[2023-11-03 15:19] VITALS: BP 131/88; PULSE 73; RESP 18; TEMP 36.4; O2SAT 99
[2023-11-03] MEDS: 0.9 % Sodium Chloride Flush 3 ML SYRINGE IVFLUSH (16:11)
[2023-11-03 19:20] VITALS: BP 162/79; PULSE 69; RESP 18; TEMP 36.7; O2SAT 98
[2023-11-04 03:21] VITALS: BP 111/56; PULSE 67; RESP 18; TEMP 36.9; O2SAT 97
[2023-11-04] MEDS: Piperacillin Sodium/Tazobactam 3.375 GM in 0.9 % Sodium Chloride 50 ML IV ×2 (04:19→09:47)
[2023-11-04 07:30] VITALS: BP 130/58; PULSE 72; RESP 16; TEMP 36.3; O2SAT 98
[2023-11-04] MEDS: Ketorolac Tromethamine 15 MG/ML VIAL IVPUSH (08:01)
[2023-11-04] MEDS: 0.9 % Sodium Chloride Flush 3 ML SYRINGE IVFLUSH (08:34)
--- NOTE | 2023-11-04 08:56 | PM.PNGS ---
Subjective Subjective Date of Service: 11/04/23 Interval history: Patient feels much improved today with decreased abdominal pain in the right lower quadrant. She is passing a small amount of stool and flatus. WBC yesterday is improved although H&Hs lower as well. Physical Exam Vital Signs: Vital Signs: Last Vital Signs Temp 97.3 F 11/04/23 07:30 Pulse 72 11/04/23 07:30 Resp 16 11/04/23 07:30 BP 130/58 L 11/04/23 07:30 Pulse Ox 98 11/04/23 07:30 O2 Del Method Room Air 11/04/23 07:30 BMI result Body Mass Index 27.8 Const: General: no acute distress Nutritional Appearance: well nourished Orientation/consciousness: patient oriented x3 Limitations: no limitations Resp: Effort & Inspection: normal respiratory effort GI: Inspection: Yes normal to inspection Palpation (GI): Soft to palpation, Tenderness to palpation present (GI) in the LLQ, no guarding and not rigid Skin: General skin exam: no rashes or lesions noted Neuro: General: patient oriented x3 Objective Data Active Medications Enoxaparin Sodium (Enoxaparin Sodium 40 Mg/0.4 Ml Syringe) 40 mg SUBCUT DAILY [facility] Last Admin: 11/03/23 09:12 Dose: 40 mg Documented By: COTEMA Hydromorphone HCl (Hydromorphone Hcl 0.5 Mg/0.5 Ml Syringe) 1 mg IVPUSH Q4H PRN; Protocol PRN Reason: Pain, Mild (Pain Scale 1-3) Dextrose/Sodium Chloride (D5ns) 1,000 mls @ 80 mls/hr IVCONT .[id number] [facility] Last Infusion: 11/04/23 08:35 Dose: Infused Documented By: MIGUELITO Piperacillin Sod/Tazobactam (Sod 3.375 gm/ Sodium Chloride) 50 mls @ 100 mls/hr IV Q6H [facility] Last Infusion: 11/04/23 04:57 Dose: Infused Documented By: MILDRED Promethazine HCl 6.25 mg/ (Sodium Chloride) 50.25 mls @ 201 mls/hr IV Q6H PRN PRN Reason: Nausea and Vomiting Ketorolac Tromethamine (Ketorolac Tromethamine 15 Mg/Ml Vial) 15 mg IVPUSH Q6H PRN PRN Reason: Pain, Mild (Pain Scale 1-3) Last Admin: 11/04/23 08:01 Dose: 15 mg Documented By: MIGUELITO Ondansetron HCl (Ondansetron Hcl 4 Mg/2 Ml Vial) 4 mg IVPUSH Q6H PRN PRN Reason: Nausea and Vomiting Pantoprazole Sodium (Pantoprazole Sodium 40 Mg/10 Ml Vial) 40 mg IVPUSH DAILY [facility] Last Admin: 11/03/23 09:12 Dose: 40 mg Documented By: COTEMA Sodium Chloride (0.9 % Sodium Chloride Flush 3 Ml Syringe) 3 ml IVFLUSH QSHIFT [facility] Last Admin: 11/04/23 08:34 Dose: 3 ml Documented By: MIGUELITO Labs 11/03/23 08:51 11/01/23 09:13 Labs: Laboratory Results - last 24 hr 11/03/23 08:51 MCV 87.8 MCH 27.5 MCHC 31.4 RDW 12.3 Plt Count 210 MPV 9.5 Immature Gran % (Auto) 0.3 Neut % (Auto) 64.9 Lymph % (Auto) 23.8 [place] % (Auto) 8.9 Eos % (Auto) 1.6 Baso % (Auto) 0.5 Lymph # (Auto) 1.5 [place] # (Auto) 0.6 Eos # (Auto) 0.1 Baso # (Auto) 0.0 Abs Immat Gran (auto) 0.02 Absolute Neuts (auto) 4.2 Absolute Nucleated RBC 0.000 Nucleated RBC % (auto) 0.0 Hold Yellow Top See Note Microbiology Microbiology Results: Microbiology 11/01/23 15:40 Blood Culture - Preliminary Blood - Venous No growth after 48 hours. 11/01/23 15:20 Blood Culture - Preliminary Blood - Venous No growth after 48 hours. Procedures Date of Service Date of Service: 11/04/23 Progress Note: A&P Assessment and plan (1) Diverticulitis: Status: Acute Plan 53-year-old female patient with new onset sigmoid colon diverticulitis without perforation or abscess. Pain improved today; positive BM and flatus. Continue IV antibiotics Advance diet as tolerated Time Spent With Patient Time: Total time managing care of this patient today ____ minutes. Quality Stroke Does the patient have a stroke diagnosis?: No VTE Prior VTE?: No VTE Risk Level:: Medical - moderate - high VTE Device Contraindication: N/A - Device Ordered VTE Drug Contraindication: N/A - Med Ordered
[2023-11-04] MEDS: Enoxaparin Sodium 40 MG/0.4 ML SYRINGE SUBCUT (09:46)
--- NOTE | 2023-11-04 11:26 | MHC.CM.PN ---
Per Lakhwinder no discharge today. The plan is to advance diet. DP home self care. Patients dtr will provide transport home.
--- NOTE | 2023-11-04 12:48 | PM.DS ---
DS: Providers Provider Date of Service: 11/04/23 Date of admission: 11/01/23 17:24 Date of discharge: 11/04/23 Primary care physician: Shasha Juarez MD Consults: 11/01/23 17:59 Consult to General Surgery Routine Consulting Provider: [facility] [place] General Surgeons Reason for consultation: acute diverticulitis Has provider been notified: No Attending physician on discharge: Mohini Jacobo Discharging clinician: Mohini Jacobo DS: Diagnosis Discharge Diagnosis (1) Diverticulitis: Status: Acute DS: Summary Hospital Course Hospital Course: 53-year-old female with a history of GERD, History of total abdominal hysterectomy and bilateral salpingo-oophorectomy,diverticulitis came for abdominal pain 1 day duration ,sharp ,constant ,llq , intailly nonradiating ,unable to eat due to pain/nausea ,also had yellowish stool 3-4 times,nonbloody, no fever . Patient states that she has a history of right-sided diverticulitis. She also had a perforated rectum in 2003 requiring colostomy and then takedown. She states the perforation was caused by a procedure by their trying to remove a cyst. Lab imaging reviewed: WBC: 11.4 BMP and LFTs seems fine. CT abdomen showed: Acute diverticulitis of sigmoid colon. In ED: Received antiemetics, IV pain medication, IV Zosyn and requested admission for acute diverticulitis. hopsital course: Patient came to the hospital because of left-sided abdominal pain,, leukocytosis, CT scan showed sigmoid diverticulitis: Patient was started on IV antibiotic, bowel rest, IV fluid, blood cultures sent. Patient seems to be improved with supportive care, tolerating diet, leukocytosis resolved, no fever, blood culture negative at 48 hours. Patient was seen by surgery: No acute intervention. Patient will be going home with p.o. antibiotics-Augmentin 875 mg p.o. b.i.d. for 7 days. Follow-up with PCP out patiently. Consider outpatient surgery evaluation if needed. plan: continue Augmentin 875 mg p.o. b.i.d. for 7 days. Assessment and plan coordination time spent 50 minute. Time Attestation Discharge coordination time: Greater than 30 minutes Quality: Safe Use of Opioids Does Pt have an Active Cancer Diagnosis on the Problem List?: No Quality: Stroke Does the patient have a stroke diagnosis?: No Physical Exam Vital Signs: Vital Signs: Last Vital Signs Temp 97.3 F 11/04/23 07:30 Pulse 72 11/04/23 07:30 Resp 16 11/04/23 07:30 BP 130/58 L 11/04/23 07:30 Pulse Ox 98 11/04/23 07:30 O2 Del Method Room Air 11/04/23 07:30 BMI result Body Mass Index 27.8 Appearance: Alert.? Oriented X3.? . cvs: rrr, [id number] , no murmur res: clear to auscultation ,no rhonchii or wheezing abd: no rebound or guarding ,nt, bs present. ext pulses present , no cyanosis . neuro: axo3 , nonfocal. DS: Data Data Completed and Pending Labs on day of discharge: Preliminary micro results at discharge 11/01/23 15:40 Blood Culture - Preliminary Blood - Venous No growth after 48 hours. 11/01/23 15:20 Blood Culture - Preliminary Blood - Venous No growth after 48 hours. Imaging Chest x-ray: Radiologist's impression: ITS Impressions Abdomen/Pelvis CT 11/01/23 13:22 IMPRESSION: 1. Acute diverticulitis of the sigmoid colon. No complicating abscess. 2. Tiny bilateral nonobstructing renal calculi. No hydronephrosis. Fleischner guidelines were followed. Discharge Plan Discharge Anticipated Discharge Date/Time: 11/04/23 12:43 Patient Disposition: Home, Self-Care Discharge Diagnosis: Acute sigmoid diverticulitis. Referrals: Shasha Lott MD [Primary Care Provider] - 1 Week Discharge Medications: New amoxicillin-pot clavulanate 875-125 mg tablet 1 tab PO Q12H Qty: 14 0RF Continued (DME) Knee Support Brace Misc See Rx Instructions .ROUTE .MEDSUPPLY Qty: 1 0RF Rx Instructions: As directed x 6 weeks pantoprazole 40 mg tablet,delayed release (DR/EC) 40 mg PO DAILY 90 Days Qty: 90 3RF ibuprofen 600 mg tablet 600 mg PO TID PRN (Reason: fever or pain) Qty: 20 0RF (DME) Day and Night Brief,Medium Misc See Rx Instructions .Route Qty: 22 3RF Rx Instructions: As directed Discharge Orders: Discharge Order (Routine); Ordered 11/04/23 Ordered By: Mohini Jacobo Diet: Advance to usual diet Activity on Discharge: As tolerated Stand Alone Forms: Patient Portal Discharge page Care Plan Goals: Patient came to the hospital because of left-sided abdominal pain,, leukocytosis, CT scan showed sigmoid diverticulitis: Patient was started on IV antibiotic, bowel rest, IV fluid, blood cultures sent. Patient seems to be improved with supportive care, tolerating diet, leukocytosis resolved, no fever, blood culture negative at 48 hours. Patient was seen by surgery: No acute intervention. Patient will be going home with p.o. antibiotics-Augmentin 875 mg p.o. b.i.d. for 7 days. Follow-up with PCP out patiently. Consider outpatient surgery evaluation if needed. Health Concerns: As above. Plan of Treatment: As above. Assessment: As above.
[2023-11-04] MEDS: Amoxicillin/Potassium Clav 875 MG TABLET PO (13:18)
== END 2023-11-04 13:57 | disposition home or self-care (01) | DRG 244 ==
LOC: HO.ED 10:25 → HO.EDOVER 19:17 → HO.S3 19:26
PROVIDERS: Surgery; Admitting Provider Internal Medicine; Emergency Provider Emergency Medicine Emergency Medical Services; PCP Internal Medicine; Visit Provider Internal Medicine
DX: K57.32 Diverticulitis of large intestine without perforation or abscess without bleeding (principal); D64.9 Anemia, unspecified; E78.2 Mixed hyperlipidemia; K21.9 Gastro-esophageal reflux disease without esophagitis
CPT/HCPCS: 36415; 74177; 80048; 80076; 81003; 81025; 83605; 83690; 85025; 87040; 99285; C9113; J1650; J1885; J2405; J2543; J2550; J3010; Q9967

== ENCOUNTER → 2023-11-01 09:55 | Outpatient (BNV) | payer OTHER, SELFPAY | PROVIDERS: Emergency Provider Emergency Medicine Emergency Medical Services; PCP Internal Medicine; Visit Provider Internal Medicine | DX: K57.92 Diverticulitis of intestine, part unspecified, without perforation or abscess without bleeding (principal) | CPT/HCPCS: 99222; 99232; 99239 ==

== ENCOUNTER → 2023-11-01 17:24 | Outpatient (BNV) | payer OTHER, SELFPAY | PROVIDERS: Admitting Provider Internal Medicine; Emergency Provider Emergency Medicine Emergency Medical Services; PCP Internal Medicine; Visit Provider Surgery | DX: K57.92 Diverticulitis of intestine, part unspecified, without perforation or abscess without bleeding (principal) | CPT/HCPCS: 99222; 99232 ==

== ENCOUNTER 2023-11-07 15:08 | Outpatient (REF) | payer OTHER, SELFPAY ==
[2023-11-07 16:13] LABS: MANUAL DIFF FLAG NO
[2023-11-07 16:46] LABS: Basophils Absolute Auto 0.1 X10*3/uL (0.0-0.2); Basophils Percent Auto 0.7 % (0-2); Eosinophils Absolute Auto 0.1 X10*3/uL (0.0-0.4); Eosinophils Percent Auto 1.8 % (0-4); Hematocrit 37.2 % (37.0-47.0); Hemoglobin 11.6 g/dl (12.0-16.0); Imm Gran Abs Auto 0.02 X10*3/uL (0.00-0.03); Imm Gran Pct Auto 0.3 % (0.0-0.4); Lymphocytes Absolute Auto 2.2 X10*3/uL (1.2-4.9); Lymphocytes Percent Auto 29.7 % (20-40); Mean Corpuscular HGB Conc 31.2 g/dl (31.0-35.0); Mean Corpuscular Hemoglobin 27.8 pg (27.0-33.0); Mean Platelet Volume 9.7 fL (9.4-12.3); Monocytes Absolute Auto 0.6 X10*3/uL (0.1-1.2); Monocytes Percent Auto 8.8 % (2-11); Neutrophils Absolute Auto 4.3 x10*3/uL (2.0-8.3); Neutrophils Percent Auto 58.7 % (45-73); Platelet Count 292 X10*3/uL (160-400); Red Blood Count 4.18 X10*6/uL (4.20-5.50); Red Cell Distribution Width 12.4 % (11.0-16.0); White Blood Count 7.3 X10*3/uL (4.8-10.8)
[2023-11-07 18:07] LABS: Alanine Aminotransferase 25 U/L (0-31); Albumin Level 4.2 g/dL (3.5-5.0); Alkaline Phosphatase 64 U/L (39-117); Anion Gap 12 (12-20); Aspartate Amino Transferase 26 U/L (5-31); Bilirubin Total 0.2 mg/dL (0.0-1.0); Blood Urea Nitrogen 11 mg/dL (9-16); Calcium 9.6 mg/dL (8.4-10.2); Carbon Dioxide 29 mmol/L (22-29); Chloride 108 mmol/L (96-108); Estimated Glomerular Filt Rate > 60; Glucose Random 95 mg/dL (60-115); Sodium 146 mmol/L (135-145); Total Protein 7.3 g/dL (6.5-8.0)
== END 2023-11-07 15:09 | disposition home or self-care (01) ==
LOC: HO.LAB 15:08
PROVIDERS: PCP Internal Medicine; Visit Provider Internal Medicine Gastroenterology
DX: K57.92 Diverticulitis of intestine, part unspecified, without perforation or abscess without bleeding (principal); K75.81 Nonalcoholic steatohepatitis (NASH); R10.32 Left lower quadrant pain
CPT/HCPCS: 36415; 80053; 85025; 99212

== ENCOUNTER 2023-11-07 15:08 | Outpatient (AMB) | payer OTHER, SELFPAY ==
--- NOTE | 2023-11-07 15:20 | A.OFFVIS_ITS ---
Intake Vital Signs 11/07/23 15:22 Height 5 ft 2 in Weight 152 lb 1.903 oz BMI 27.8 BP 158/100 H Blood Pressure Location Lt brachial Position Sitting Pulse 91 Intake Visit Reasons: Seen in ED Intake Note: Malathi presents in the office as a follow up for being in the ED. CC: as having pain in the left side and she was told that she has an infection and she was there for 4 days and was given antibiotics. LLQ pains when she coughs or goes to the bathroom. Shes weak and has to have soft stools all the time. She states that she is having pain in her rectum when she has a BM. Insurance denied her for the pampers Rx. She went through [facility] and that would have to talk to the insurance. She wants to know where and what kind of infection. She states she has pains even when she bends down. The pain in the LLQ is what bothers her the most all the time. Cyber Security Administrator Required: No Allergies metronidazole [Metrogel] Allergy (Intermediate, Verified 11/07/23 15:23) facial rash morphine [Morphine] Allergy (Intermediate, Verified 11/07/23 15:23) SEVERE VOMITING, nausea and vomiting hydromorphone [From Dilaudid] Adverse Reaction (Mild, Verified 11/07/23 15:23) makes pt feel ill HPI Seen in ED HPI Details 53 yr old f here for f/u from index visit: ?she had 4 weeks of constipation ? she had to do manual? disimpaction ? she feels a problem is in rectum ? she gives a? good strong push but still has issues, was crying as well ? she noted? some blood on wiping ? she did have LLQ pain, can be helped with? passing stool ? she also has nausea for few weeks ? appetite? has been fair ? weight up and down ? she had reflux and takes? ppi which helps ? no dysphagia ? she does have overactive? blaader and takes oxybutynin ? she is not taking narcotics ? she has beent aking nsaids reg for last several days for kidney? stones ? not had colonoscopy. ? I then arranged colonoscopy? 01/2018: morgan diverticular disease, hemerrhoids ?normal anal tone, no? paradoxical anal contraction on push ?normal random bx ?labs? were unremarkable ? Since colonoscopy her bowel were moving well, may? too well ?she had post prandial urgency 15 mins after? eating ?she also gets bloating, no abdominal pain ?no nausea? or vomiting ?overall she had felt better, not required any laxatives?she had d/c and pain around site of prior colostomy, given bactrim? 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 VITAL SIGNS:see workflow HEENT: Nonicteric sclerae, PERRLA, EOMI. Oropharynx clear. Moist mucous membranes. Conjunctivae appear well perfused. No thyroid mass. CHEST: Chest wall is nontender. HEART: Regular rate and rhythm without murmurs. LUNGS: Clear to auscultation bilaterally. ABDOMEN: Soft, positive bowel sounds, tender LLQ, no organomegaly.no flank tenderness--no rigidity or guarding SKIN: No rash, no excessive bruising, petechiae, or purpura. NEUROLOGIC: Cranial nerves II-XII intact without motor/sensory deficit. a/P: 1/ acute diverticulitis, still symptomat ic, but better than admission PLAN: 1/ add levoflox for 7 d 2/ celebrex for pain--refuses short cour se opiates 3/ will call end of week to see how savi lei, advised to go to ED if worsening pain MP, might need reimaging --check labs today [facility] Medical History Mixed incontinence urge and stress Recurrent UTI Urge urinary incontinence Change in bowel habits Foreign body granuloma of skin Acne rosacea Right hip pain Leg numbness Obesity Mixed hyperlipidemia GERD (gastroesophageal reflux disease) Hypovitaminosis D Surgical History History of abdominoplasty Perforation of colon History of total abdominal hysterectomy and bilateral salpingo-oophorectomy Family History Father Hypertension Cancer Mother Hypertension Diabetes Brother No problems noted. 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 Current occupational exposures/hazards: No Cognitive needs: No Hearing needs: No Vision needs: Yes Physical Exam Vital Signs: Last Vital Signs Pulse 91 11/07/23 15:22 BP 158/100 H 11/07/23 15:22 BMI result Body Mass Index 27.8 Assessment & Plan Assessment & Plan (1) Diverticulitis: Code(s): K57.92 - Diverticulitis of intestine, part unspecified, without perforation or abscess without bleeding Plan: a/P: 1/ acute diverticulitis, still symptomatic, but better than admission PLAN: 1/ add levoflox for 7 d 2/ celebrex for pain--refuses short course opiates 3/ will call end of week to see how doing, advised to go to ED if worsening pain MP, might need reimaging --check labs today Orders: Orders Complete Blood Count Auto Diff Today K57.92 - Diverticulitis of intestine, part unspecified, without perforation or abscess without bleeding Comprehensive Met. Panel Today K57.92 - Diverticulitis of intestine, part unspecified, without perforation or abscess without bleeding, K75.81 - Nonalcoholic steatohepatitis (JOSEPH) Medications: New celecoxib (Celebrex) 100 mg PO BID 30 caps 0RF levofloxacin 500 mg PO DAILY 7 tabs 0RF Coding Level of Care Code Est Pt Level 3 (13793) Diagnoses Diverticulitis K57.92
[2023-11-07 15:22] VITALS: BP 158/100; PULSE 91; BMI 27.8
== END 2023-11-07 15:52 | disposition home or self-care (01) ==
PROVIDERS: PCP Internal Medicine; Visit Provider Internal Medicine Gastroenterology
DX: K57.92 Diverticulitis of intestine, part unspecified, without perforation or abscess without bleeding (principal)
CPT/HCPCS: 99213

== ENCOUNTER 2023-11-15 09:26 | Outpatient (AMB) | payer OTHER, SELFPAY ==
[2023-11-15 09:39] VITALS: BMI 27.8
--- NOTE | 2023-11-15 09:39 | A.OFFVIS_ITS ---
Intake Vital Signs 11/15/23 09:39 Height 5 ft 2 in Weight 152 lb BMI 27.8 Intake Visit Reasons: ov- MRI Knee RT review Intake Note: Malathi is a 53 year old female who presents for a MRI review of her Right knee. Patient reports she is still having pain in the Right knee and states that when walking it locks up and using the stairs is painful. She denies any fevers or chills. She has done physical therapy exercises which aggravated her pain. She would like to hold off on surgery for as long as possible. Allergies metronidazole [Metrogel] Allergy (Intermediate, Verified 11/15/23 09:52) facial rash morphine [Morphine] Allergy (Intermediate, Verified 11/15/23 09:52) SEVERE VOMITING, nausea and vomiting hydromorphone [From Dilaudid] Adverse Reaction (Mild, Verified 11/15/23 09:52) makes pt feel ill Medication List - Last Reconciled 11/16/23 by Cholo Tsang MD amoxicillin-pot clavulanate 875-125 mg 1 tab PO Q12H celecoxib (Celebrex) 100 mg PO BID diaper,brief,adult,disposable (Day and Night Brief,Medium) As directed ibuprofen 600 mg PO TID PRN leg brace (Knee Support Brace) As directed x 6 weeks levofloxacin 500 mg PO DAILY pantoprazole 40 mg PO DAILY 90 days [facility] Medical History Mixed incontinence urge and stress Recurrent UTI Urge urinary incontinence Change in bowel habits Foreign body granuloma of skin Acne rosacea Right hip pain Leg numbness Obesity Mixed hyperlipidemia GERD (gastroesophageal reflux disease) Hypovitaminosis D Surgical History History of abdominoplasty Perforation of colon History of total abdominal hysterectomy and bilateral salpingo-oophorectomy Family History Father Hypertension Cancer Mother Hypertension Diabetes Brother No problems noted. 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 Current occupational exposures/hazards: No Cognitive needs: No Hearing needs: No Vision needs: Yes Physical Exam Vital Signs: BMI result Body Mass Index 27.8 Const Other: Well-nourished well-developed very friendly female awake alert and oriented x3 in no acute distress Extrem Other: Bilateral lower extremity examination shows good capillary refill, no skin lesions noted, normal sensation light touch Right knee examination shows a minimal effusion, minimal crepitus with range of motion, negative Camden's test, slightly positive anterior drawer test Assessment & Plan Assessment & Plan (1) Right knee pain: Code(s): M25.561 - Pain in right knee Plan Ms. Townsend presents with intermittent right knee pain due to sprain of her anterior cruciate ligament as well as early degenerative disease. I had a lengthy discussion with the patient regarding the treatment. This point the patient's symptoms are tolerable to her. We did discuss the possibility of anterior cruciate ligament reconstructive surgery in the future. She wishes to hold off on surgery if at all possible. I agree with this plan. She will follow up with Dr. Quinn if she wishes to further discuss her possible surgical treatment options. Otherwise she will follow up on an as-needed basis. Feel free to call me at any time should questions regarding her orthopedic management arise. I spent 22 minutes in reviewing the patient's records and imaging studies, seeing the patient and documenting in the medical record. Coding Level of Care Code Est Pt Level 2 (59050) Diagnoses Right knee pain M25.561
== END 2023-11-15 10:24 | disposition home or self-care (01) ==
PROVIDERS: PCP Internal Medicine; Visit Provider Orthopaedic Surgery
DX: S83.511A Sprain of anterior cruciate ligament of right knee, initial encounter (principal); M17.11 Unilateral primary osteoarthritis, right knee
CPT/HCPCS: 99213

== ENCOUNTER → 2023-11-15 09:26 | Outpatient (BNVA) | payer OTHER, SELFPAY | PROVIDERS: PCP Internal Medicine; Visit Provider Orthopaedic Surgery ==

== ENCOUNTER 2023-11-24 11:03 | Outpatient (AMB) | payer OTHER, SELFPAY ==
--- NOTE | 2023-11-24 11:08 | A.OFFVIS_ITS ---
Intake Intake Visit Reasons: 1m follow up Intake Note: Patient is present for a 1 month follow up incontinence/recurrent uti/cystocele and rectocele Urology Medications: estrace, myrbetriq, vesicare, macrobid Blood Thinner: none National Accounts Sales Required: No Accompanied by: Self / Same As Patient Allergies metronidazole [Metrogel] Allergy (Intermediate, Verified 01/09/24 09:15) facial rash morphine [Morphine] Allergy (Intermediate, Verified 01/09/24 09:15) SEVERE VOMITING, nausea and vomiting hydromorphone [From Dilaudid] Adverse Reaction (Mild, Verified 01/09/24 09:15) makes pt feel ill Medication List - Last Reconciled 11/24/23 by Leandra Lake MD amoxicillin-pot clavulanate 875-125 mg 1 tab PO Q12H celecoxib (Celebrex) 100 mg PO BID diaper,brief,adult,disposable (Day and Night Brief,Medium) As directed ibuprofen 600 mg PO TID PRN leg brace (Knee Support Brace) As directed x 6 weeks levofloxacin 500 mg PO DAILY nitrofurantoin monohyd/m-cryst 100 mg (Macrobid) 100 mg orally take post sexual activity as directed; must administer with a meal/food pantoprazole 40 mg PO DAILY 90 days HPI HPI Comments History of Present Illness Details Malathi is here for follow recurrent UTI's. 11/24/23- She is afraid of trying the int erstim Plan--Nitrofurantoin post intercourse. FU 3 months Review of chart: 10/20/23--Malathi was present yesterday and had a pessary size 3 w/o support inserted for cystocele. She called today with complaints of pelvic pain. UA checked today is nitrite positive Exam- pessary in good position - no vaginal bleeding. The pessary was removed. Plan - Fosfomycin Pending scheding for Neuromodulation for LUTS of urgency and symptoms of fecal incontinence 11/24/23--Nitrofurantoin post intercourse . FU 3 months PFSH Medical History Mixed incontinence urge and stress Recurrent UTI Urge urinary incontinence Change in bowel habits Foreign body granuloma of skin Acne rosacea Right hip pain Leg numbness Obesity Mixed hyperlipidemia GERD (gastroesophageal reflux disease) Hypovitaminosis D Surgical History History of colostomy reversal History of abdominoplasty Perforation of colon History of total abdominal hysterectomy and bilateral salpingo-oophorectomy Family History Father Hypertension Cancer Mother Hypertension Diabetes Brother No problems noted. 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 Current occupational exposures/hazards: No Cognitive needs: No Hearing needs: No Vision needs: Yes Review of Systems Const All systems reviewed & are unremarkable except as noted in HPI and below Reports no additional complaints Eyes Reports no additional complaints ENT Reports no additional complaints Card Denies dyspnea Resp Denies cough and Denies dyspnea GI Reports no additional complaints Reports no additional complaints Musc Reports no additional complaints Skin/Breast Denies rash and Denies unusual bruising Neuro Reports no additional complaints Psych Reports no additional complaints Endo Reports no additional complaints Orlin/Lymph Reports no additional complaints Aller/Immun Reports no additional complaints Results AMB Urinalysis, Automated UA Leukoctes 0 Suhail/uL Last Edit by MATIAS Abebe on 11/24/23 11:31 UA Nitrite Negative Last Edit by MATIAS Abebe on 11/24/23 11:31 UA Urobilinogen 0.2 mg/dL Last Edit by MATIAS Abebe on 11/24/23 11:3 1 UA Protein 15 mg/dL Last Edit by MATIAS Abebe on 11/24/23 11:31 UA pH 6.0 Last Edit by MATIAS Abebe on 11/24/23 11:31 UA Blood 0 Alejandro/uL Last Edit by MATIAS Abebe on 11/24/23 11:31 UA Specific [place] 1.030 Last Edit by MATIAS Abebe on 11/24/23 11: 31 UA Ketone Negative Last Edit by MATIAS Abebe on 11/24/23 11:31 UA Bilirubin 0 mg/dL Last Edit by MATIAS Abebe on 11/24/23 11:31 UA Glucose 0 mg/dL Last Edit by MATIAS Abebe on 11/24/23 11:31 Results Reviewed Results Reviewed: Laboratory Last Values Urine pH (Auto) 6.0 11/24/23 11:29 Specific [place] (Auto) 1.030 11/24/23 11:29 Urine Protein (Auto) 15 mg/dL 11/24/23 11:29 Glucose (UA)(Auto) 0 mg/dL 11/24/23 11:29 Urine Ketones (Auto) Negative 11/24/23 11:29 Urine Blood (Auto) 0 Alejandro/uL 11/24/23 11:29 Urine Nitrite (Auto) Negative 11/24/23 11:29 Urine Bilirubin (Auto) 0 mg/dL 11/24/23 11:29 Urine Urobilinogen (Auto) 0.2 mg/dL 11/24/23 11:29 Leukocyte Esterase (Auto) 0 Suhail/uL 11/24/23 11:29 Assessment & Plan Assessment & Plan (1) Female cystocele: Code(s): N81.10 - Cystocele, unspecified (2) Pelvic floor weakness: Code(s): N81.89 - Other female genital prolapse (3) Fecal incontinence: Code(s): R15.9 - Full incontinence of feces (4) Renal calculi: Code(s): N20.0 - Calculus of kidney (5) Acute UTI: Code(s): N39.0 - Urinary tract infection, site not specified Plan Nitrofurantoin post intercourse. FU 3 months Orders: Orders AMB Urinalysis Automated 11/24/23 Z13.9 - Encounter for screening, unspecified Urine Culture 11/24/23 N39.0 - Urinary tract infection, site not specified Medications: New nitrofurantoin monohyd/m-cryst 100 mg (Macrobid) 100 mg orally take post sexual activity as directed; must administer with a meal/food 30 caps 5RF Patient Instructions: The patient had an opportunity to ask questions regarding treatment plan. All questions were answered. The patient expressed understanding and agreement with the above treatment plan. The patient is aware they should contact our office by phone for worsening of their current condition or the appearance of new symptoms. Compliance is encouraged with any medications and followup testing that is ordered. It is a privilege to be allowed the opportunity to participate in the urologic care of your patient. If you have any questions or concerns regarding treatment for the above conditions please do not hesitate to contact me. The office telephone contact is [phone]. This note is constructed in part using voice recognition software. While every effort has been made to ensure accuracy visitor services representative errors may have been included. Yours sincerely, Leandra Lake MD Coding Level of Care Code Est Pt Level 3 (92446) Diagnoses Female cystocele N81.10 Pelvic floor weakness N81.89 Fecal incontinence R15.9 Renal calculi N20.0 Acute UTI N39.0
== END 2023-11-24 12:13 | disposition home or self-care (01) ==
PROVIDERS: PCP Internal Medicine; Visit Provider Urology
DX: N81.10 Cystocele, unspecified (principal); N81.89 Other female genital prolapse; R15.9 Full incontinence of feces; N20.0 Calculus of kidney; N39.0 Urinary tract infection, site not specified
CPT/HCPCS: 99213

== ENCOUNTER 2023-11-24 11:03 | Outpatient (REF) | payer OTHER, SELFPAY | END 2023-11-24 11:04 | disposition home or self-care (01) | LOC: HO.LAB 11:03 | PROVIDERS: PCP Internal Medicine; Visit Provider Urology | DX: N39.0 Urinary tract infection, site not specified (principal) | CPT/HCPCS: 81003; 87086 ==

== ENCOUNTER 2023-12-09 11:04 | Outpatient (AMB) | payer OTHER, SELFPAY ==
--- NOTE | 2023-12-09 11:05 | MHC.OFFVIS ---
Intake Vital Signs 12/09/23 11:07 Height 5 ft 2 in Weight 152 lb BMI 27.8 BP 170/84 H Blood Pressure Location Lt brachial Position Sitting Pulse 91 Intake Visit Reasons: 4 week follow up Intake Note: Malathi presents in the office as a 4 week follow up. CC: She states that she has been having pains in her stomach but it went away - she has a pain in her groin that feels weird. Almost like a pulled muscle and she is scared to eat and she is scared to have constipation. She is having accidents with her bowels. She wants to do an MRI - she is scared she does not want to have a colostomy bag again. She is having lots of anxiety about it. 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 She eats bland foods and it not sure if she should try to do a gluten free diet and see if that helps her. She is not sure what causes her to e constipation and severe diarrhea. Irrigation System Operator Required: No Allergies metronidazole [Metrogel] Allergy (Intermediate, Verified 12/09/23 11:07) facial rash morphine [Morphine] Allergy (Intermediate, Verified 12/09/23 11:07) SEVERE VOMITING, nausea and vomiting hydromorphone [From Dilaudid] Adverse Reaction (Mild, Verified 12/09/23 11:07) makes pt feel ill HPI 4 week follow up HPI Details 53 yr old f here for f/u \ from index visit: ?she had 4 weeks of constipation ? she had to do manual? disimpaction ? she feels a problem is in rectum ? she gives a? good strong push but still has issues, was crying as well ? she noted? some blood on wiping ? she did have LLQ pain, can be helped with? passing stool ? she also has nausea for few weeks ? appetite? has been fair ? weight up and down ? she had reflux and takes? ppi which helps ? no dysphagia ? she does have overactive? blaader and takes oxybutynin ? she is not taking narcotics ? she has beent aking nsaids reg for last several days for kidney? stones ? not had colonoscopy. ? I then arranged colonoscopy? 01/2018: morgan diverticular disease, hemerrhoids ?normal anal tone, no? paradoxical anal contraction on push ?normal random bx ?labs? were unremarkable ? Since colonoscopy her bowel were moving well, may? too well ?she had post prandial urgency 15 mins after? eating ?she also gets bloating, no abdominal pain ?no nausea? or vomiting ?overall she had felt better, not required any laxatives?she had d/c and pain around site of prior colostomy, given bactrim? 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 VITAL SIGNS:see workflow HEENT: Nonicteric sclerae, PERRLA, EOMI. Oropharynx clear. Moist mucous membranes. Conjunctivae appear well perfused. No thyroid mass. CHEST: Chest wall is nontender. HEART: Regular rate and rhythm without murmurs. LUNGS: Clear to auscultation bilaterally. ABDOMEN: Soft, positive bowel sounds, tender LLQ but no guarding, no organomegaly.no flank tenderness--no rigidity or guarding SKIN: No rash, no excessive bruising, petechiae, or purpura. NEUROLOGIC: Cranial nerves II-XII intact without motor/sensory deficit. a/P: 1/ acute diverticulitis, seems to have recovered , may have post infectious IBS or colonic spasm, PLAN: 1/ trial of bentyl 2/ miralax and colace 3/ has colonoscopy next week. 4/ was sent rectiv [facility] Medical History Mixed incontinence urge and stress Recurrent UTI Urge urinary incontinence Change in bowel habits Foreign body granuloma of skin Acne rosacea Right hip pain Leg numbness Obesity Mixed hyperlipidemia GERD (gastroesophageal reflux disease) Hypovitaminosis D Surgical History History of abdominoplasty Perforation of colon History of total abdominal hysterectomy and bilateral salpingo-oophorectomy Family History Father Hypertension Cancer Mother Hypertension Diabetes Brother No problems noted. 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 Current occupational exposures/hazards: No Cognitive needs: No Hearing needs: No Vision needs: Yes Physical Exam Vital Signs: Last Vital Signs Pulse 91 12/09/23 11:07 BP 170/84 H 12/09/23 11:07 BMI result Body Mass Index 27.8 Assessment & Plan Assessment & Plan (1) Diverticulitis: Code(s): K57.92 - Diverticulitis of intestine, part unspecified, without perforation or abscess without bleeding Plan: see above Medications: New docusate sodium (Colace) 100 mg PO BID 60 caps 0RF dicyclomine 10 mg PO TID 30 caps 0RF polyethylene glycol 3350 (Miralax) 17 grams PO DAILY 510 grams 0RF Coding Level of Care Code Est Pt Level 4 (69365) Diagnoses Diverticulitis K57.92
[2023-12-09 11:07] VITALS: BP 170/84; PULSE 91; BMI 27.8
== END 2023-12-09 11:43 | disposition home or self-care (01) ==
PROVIDERS: PCP Internal Medicine; Visit Provider Internal Medicine Gastroenterology
DX: K57.92 Diverticulitis of intestine, part unspecified, without perforation or abscess without bleeding (principal)
CPT/HCPCS: 99214

== ENCOUNTER → 2023-12-09 11:04 | Outpatient (BNVA) | payer OTHER, SELFPAY | PROVIDERS: PCP Internal Medicine; Visit Provider Internal Medicine Gastroenterology | DX: K57.92 Diverticulitis of intestine, part unspecified, without perforation or abscess without bleeding (principal) | CPT/HCPCS: 99212 ==

== ENCOUNTER 2023-12-14 08:10 | Day surgery (SDC) | payer OTHER, SELFPAY ==
--- NOTE | 2023-12-13 10:36 | P.CONAN_ITS ---
Documented by User: Natali Richards NP 12/13/23 10:40 HPI - Anesthesia Eval Consult details Narrative: 53yo F for Colonoscopy PMFSH Active Problems Active Problems: All Active Problems (Updated 11/16/23 @ 13:17 by Leandra Lake MD) Urinary urgency (Acute) Urinary incontinence (Acute) Diverticulitis (Acute) Acute UTI (Acute) Pelvic floor weakness (Acute) Female cystocele (Acute) Right knee pain (Acute) Bone spur of foot (Acute) Left foot pain (Acute) Foul smelling urine (Acute) Cystocele with rectocele (Acute) Mixed incontinence urge and stress (Acute) Recurrent UTI (Acute) URI (upper respiratory infection) (Acute) Renal calculi (Acute) Umbilical hernia (Acute) Abdominal pain (Acute) MCL sprain of left knee (Acute) Physical exam (Acute) Urge urinary incontinence (Acute) Old tear of meniscus of right knee (Acute) Osteoarthritis of right knee (Acute) Fecal incontinence (Acute) Change in bowel habits (Acute) Foreign body granuloma of skin (Acute) Grade 2 sprain of medial collateral ligament of left knee (Acute) Acne rosacea (Acute) Tear of medial meniscus of left knee (Acute) Locked knee (Acute) Yeast infection of the skin (Acute) Left knee pain (Acute) Strain of left knee (Acute) Right hip pain (Acute) Leg numbness (Acute) Obesity (Acute) Mixed hyperlipidemia (Acute) GERD (gastroesophageal reflux disease) (Acute) Hypovitaminosis D (Acute) Abdominal wall sinus (Acute) Meralgia paraesthetica (Acute) Skin candidiasis (Acute) Past Medical History Medical History Mixed incontinence urge and stress Recurrent UTI Urge urinary incontinence Change in bowel habits Foreign body granuloma of skin Acne rosacea Right hip pain Leg numbness Obesity Mixed hyperlipidemia GERD (gastroesophageal reflux disease) Hypovitaminosis D Family History Family History Father Hypertension Cancer Mother Hypertension Diabetes Brother No problems noted. Sister In good health Daughter In good health Surgical History Surgical History (Updated 12/14/23 @ 09:04 by Lien Padilla RN) History of colostomy reversal History of abdominoplasty Perforation of colon History of total abdominal hysterectomy and bilateral salpingo-oophorectomy Social History Social History Household Members: Children Housing: House Do you presently have visiting nurse or other home services: No Alcohol intake: current Alcohol intake frequency: holidays/special occasions only Patient Tobacco Use Status: Never used Tobacco e-Cigarette/Vaping Use: Never Used Second Hand Smoke Exposure: No Use of substances other than those prescribed or required for medical reasons: No Are you DNR?: No Advance Directives: No Advance Directives Information Provided: Yes service: No Current occupational status: employed 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 Current occupational exposures/hazards: No Cognitive needs: No Hearing needs: No Vision needs: Yes Meds Allergies Allergy/AdvReac Type Severity Reaction Status Date / Time metronidazole [Metrogel] Allergy Intermediate facial rash Verified 12/09/23 11:07 morphine [Morphine] Allergy Intermediate SEVERE Verified 12/09/23 11:07 VOMITING, nausea and vomiting hydromorphone [From Dilaudid] AdvReac Mild makes pt Verified 12/09/23 11:07 feel ill Assessment and Plan Assessment Anesthesia Assessment: Chart Reviewed Documented by User: Charito Braga MD 12/14/23 09:39 [facility] Past Medical History Medical History Mixed incontinence urge and stress Recurrent UTI Urge urinary incontinence Change in bowel habits Foreign body granuloma of skin Acne rosacea Right hip pain Leg numbness Obesity Mixed hyperlipidemia GERD (gastroesophageal reflux disease) Hypovitaminosis D Family History Family History Father Hypertension Cancer Mother Hypertension Diabetes Brother No problems noted. Sister In good health Daughter In good health Family history of problems with anesthesia: No Surgical History Surgical History (Updated 12/14/23 @ 09:04 by Lien Valerie, RN) History of colostomy reversal History of abdominoplasty Perforation of colon History of total abdominal hysterectomy and bilateral salpingo-oophorectomy History of Problems with Anesthesia: No Social History Social History Household Members: Children Housing: House Do you presently have visiting nurse or other home services: No Alcohol intake: current Alcohol intake frequency: holidays/special occasions only Patient Tobacco Use Status: Never used Tobacco e-Cigarette/Vaping Use: Never Used Second Hand Smoke Exposure: No Use of substances other than those prescribed or required for medical reasons: No Are you DNR?: No Advance Directives: No Advance Directives Information Provided: Yes service: No Current occupational status: employed 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 Current occupational exposures/hazards: No Cognitive needs: No Hearing needs: No Vision needs: Yes Meds Allergies Allergy/AdvReac Type Severity Reaction Status Date / Time metronidazole [Metrogel] Allergy Intermediate facial rash Verified 12/09/23 11:07 morphine [Morphine] Allergy Intermediate SEVERE Verified 12/09/23 11:07 VOMITING, nausea and vomiting hydromorphone [From Dilaudid] AdvReac Mild makes pt Verified 12/09/23 11:07 feel ill Exam Airway Mallampati Class: II TM Dist: >3cm Neck ROM: Full Heart: rrr Lungs: cta Assessment and Plan Assessment Anesthesia Assessment: Anesthesia Plan Discussed Final Anesthetic Review Family History of Problems with Anesthesia: No History of Problems with Anesthesia: No NPO: Yes ASA Class: II Final Preanesthetic Review: No Changes in Pt Med Stat, Meds/Allgs Chart Reviewed and Consent Obtained/Reviewed Patient Risk: Low Procedure Risk: Low Anesthetic Plan Anesthetic Plan: MAC: Disposition: Standard PACU
[2023-12-14 08:46] VITALS: BMI 27.6
[2023-12-14 08:51] VITALS: BP 135/83; PULSE 79; RESP 16; TEMP 37.5; O2SAT 97
[2023-12-14] MEDS: Lactated Ringers 1,000 ML 100 ML IVCONT (09:02)
--- NOTE | 2023-12-14 09:35 | MHC.SHP ---
Pre-Procedural Eval Section A - 24 Hr Update-Section A only Date of Service: 12/14/23 The patient is an INPATIENT: No The patient has been examined within 24 hours of the surgical procedure. The History & Physical has been completed within 30 days and I have reviewed it.: Yes Section B - Complete if H&P > 30 days Chief Complaint: Diverticulitis of intestine, part unspecified, wit Allergies: Allergies Allergy/AdvReac Type Severity Reaction Status Date / Time metronidazole [Metrogel] Allergy Intermediate facial rash Verified 12/09/23 11:07 morphine [Morphine] Allergy Intermediate SEVERE Verified 12/09/23 11:07 VOMITING, nausea and vomiting hydromorphone [From Dilaudid] AdvReac Mild makes pt Verified 12/09/23 11:07 feel ill Plan Diagnosis/Plan: Unchanged I have reviewed the history and physical and performed a pertinent physical examination on my patient. No changes have occurred unless specified. Time Spent With Patient Time: Total time managing care of this patient today ____ minutes.
--- NOTE | 2023-12-14 10:29 | W.PM.OPN ---
Operative Note Operative Note Date of Service: 12/14/23 Narrative: Operative Information Procedure Description: Colonoscopy Indication: LLQ pain and hx of diverticulitis Anesthesia: MAC COLONOSCOPY Instrument: Olympus variable stiffness pediatric scope 190L Colonoscopy Monitoring: Vital signs and clinical assessment, continuous EKG monitoring, Pulse oximetry, Carbon Dioxide monitoring and blood pressure monitoring were done throughout the procedure. Colon withdrawal time was 8 minutes. Procedure: The patient was placed in the left lateral decubitis position and pre-procedure medications were administered. After a digital rectal examination of the ano-rectum, the video colonoscope was inserted into the rectum and advanced through the colon to the cecum/TI. The colonoscope was slowly withdrawn in a retrograde panoramic fashion and the colon mucosa was carefully examined including a retroflexed view of the rectum. Findings and interventions are described below. Procedure Difficulty: easy Findings: bx taken from TI, right , left colon and rectum. One area in rectum was bleeding persistently so clip applied Terminal Ileum-normal Cecum: several diverticula noted Ascending Colon: scattered diverticulosis Transverse Colon -normal Descending Colon: moderate diverticulosis Sigmoid Colon: moderate severe diverticulosis Rectum: Retroflexion with medium sized internal hemorrhoids seen, grade I, Anorectum - normal Colon preparation: [place] Bowel Preparation Scale Right colon; 2 Transverse colon: 3 Left colon; 3 (0 = Unprepared colon segment with mucosa not seen due to solid stool that cannot be cleared. 1 = Portion of mucosa of the colon segment seen, but other areas of the colon segment not well seen due to staining, residual stool and/or opaque liquid. 2 = Minor amount of residual staining, small fragments of stool and/or opaque liquid, but mucosa of colon segment seen well. 3 = Entire mucosa of colon segment seen well with no residual staining, small fragments of stool or opaque liquid) Impression and Post Procedure Diagnosis: morgan diverticulosis internal hemorrhoids Plan: High fiber diet leaflet Avoid straining at stool, epsom salts and sitz bath, anusol supps or cream Repeat Colonoscopy in 10 years or earlier if clinically indicated Above findings were reviewed with the patient and relevant handouts were provided if indicated.
[2023-12-14 11:01] VITALS: BP 110/67; PULSE 76; RESP 16; TEMP 36.4; O2SAT 94
[2023-12-14 11:16] VITALS: BP 124/81; PULSE 75; RESP 16; O2SAT 96
[2023-12-14 11:34] VITALS: BP 130/75; PULSE 74; RESP 16; TEMP 36.4; O2SAT 98
== END 2023-12-14 12:00 | disposition home or self-care (01) ==
PROVIDERS: PCP Internal Medicine; Visit Provider Internal Medicine Gastroenterology
PROC: 0DJD8ZZ Inspection of Lower Intestinal Tract, Via Natural or Artificial Opening Endoscopic (ICD-10-PCS; CPT 45378; principal; 2023-12-14 10:10)
DX: K57.30 Diverticulosis of large intestine without perforation or abscess without bleeding (principal); Z87.19 Personal history of other diseases of the digestive system; K64.0 First degree hemorrhoids; R19.4 Change in bowel habit; L71.9 Rosacea, unspecified; E55.9 Vitamin D deficiency, unspecified; E78.2 Mixed hyperlipidemia; E66.9 Obesity, unspecified; Z68.27 Body mass index [BMI] 27.0-27.9, adult; Z88.5 Allergy status to narcotic agent; Z88.8 Allergy status to other drugs, medicaments and biological substances
CPT/HCPCS: 45380; 88305; J2704

== ENCOUNTER → 2023-12-14 08:10 | Outpatient (BNV) | payer OTHER, SELFPAY | PROVIDERS: PCP Internal Medicine; Visit Provider Internal Medicine Gastroenterology | DX: K57.90 Diverticulosis of intestine, part unspecified, without perforation or abscess without bleeding (principal); K64.0 First degree hemorrhoids | CPT/HCPCS: 45380 ==

== ENCOUNTER 2024-01-06 10:00 | Outpatient (AMB) | payer OTHER, SELFPAY ==
--- NOTE | 2024-01-06 10:07 | A.OFFVIS_ITS ---
Intake Vital Signs 01/06/24 10:09 Height 5 ft 2 in Weight 147 lb 11.355 oz BMI 27.0 Blood Pressure Location Lt brachial Position Sitting Intake Visit Reasons: 4 month follow up Intake Note: Malathi presents in the office as a 4 month follow up. CC: She states that she has the same concerns - now she is over constipated - she takes miralax when that happens but when that comes out she has diarrhea. Allergies metronidazole [Metrogel] Allergy (Intermediate, Verified 01/06/24 10:07) facial rash morphine [Morphine] Allergy (Intermediate, Verified 01/06/24 10:07) SEVERE VOMITING, nausea and vomiting hydromorphone [From Dilaudid] Adverse Reaction (Mild, Verified 01/06/24 10:07) makes pt feel ill HPI 4 month follow up HPI Details 53 yr old f here for f/u \ from index visit: she had 4 weeks of constipation she had to do manual disimpaction she feels a problem is in rectum she gives a good strong push but still has issues, was crying as well she noted some blood on wiping she did have LLQ pain, can be helped with passing stool she also has nausea for few weeks appetite has been fair weight up and down she had reflux and takes ppi which helps no dysphagia she does have overactive blaader and takes oxybutynin she is not taking narcotics she has beent aking nsaids reg for last several days for kidney stones not had colonoscopy. 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 VITAL SIGNS:see workflow HEENT: Nonicteric sclerae, PERRLA, EOMI. Oropharynx clear. Moist mucous membranes. Conjunctivae appear well perfused. No thyroid mass. CHEST: Chest wall is nontender. HEART: Regular rate and rhythm without murmurs. LUNGS: Clear to auscultation bilaterally. ABDOMEN: Soft, positive bowel sounds, non tender no organomegaly.no flank tenderness--no rigidity or guarding SKIN: No rash, no excessive bruising, petechiae, or purpura. NEUROLOGIC: Cranial nerves II-XII intact without motor/sensory deficit. a/P: 1/ Diverticulosis, severe, constipation- -might have small anal fissure PLAN: 1/ advised on miralax BID, cont with sto ol softener, add probiotic and fiber, 2/ still not keen on stim for her incont inence, buying her own pads 3/ resent rectiv, but advised that above measures maybe sufficient and more important in the long run [facility] Medical History Mixed incontinence urge and stress Recurrent UTI Urge urinary incontinence Change in bowel habits Foreign body granuloma of skin Acne rosacea Right hip pain Leg numbness Obesity Mixed hyperlipidemia GERD (gastroesophageal reflux disease) Hypovitaminosis D Surgical History (Updated 12/14/23 @ 09:04 by Lien Padilla RN) History of colostomy reversal History of abdominoplasty Perforation of colon History of total abdominal hysterectomy and bilateral salpingo-oophorectomy Family History Father Hypertension Cancer Mother Hypertension Diabetes Brother No problems noted. 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
[2024-01-06 10:09] VITALS: BMI 27.0
== END 2024-01-06 11:42 | disposition home or self-care (01) ==
PROVIDERS: PCP Internal Medicine; Visit Provider Internal Medicine Gastroenterology
DX: K57.92 Diverticulitis of intestine, part unspecified, without perforation or abscess without bleeding (principal)
CPT/HCPCS: 99213

== ENCOUNTER → 2024-01-06 10:00 | Outpatient (BNVA) | payer OTHER, SELFPAY | PROVIDERS: PCP Internal Medicine; Visit Provider Internal Medicine Gastroenterology ==

== ENCOUNTER 2024-01-09 09:04 | Outpatient (AMB) | payer OTHER, SELFPAY ==
[2024-01-09 09:11] VITALS: BP 118/70; PULSE 85; TEMP 36.5; O2SAT 96; BMI 28.2
--- NOTE | 2024-01-09 09:11 | AM.OFFWIN_ITS ---
Intake Vital Signs 01/09/24 09:11 Height 5 ft 2 in Weight 154 lb BMI 28.2 BP 118/70 Blood Pressure Location Lt brachial Position Sitting Pulse 85 Pulse Source Pulse Oximeter Temp 97.7 F Temp Source Temporal Artery Scan Pulse Oximetry (%) 96 Oxygen Delivery Method Room Air Intake Visit Reasons: EP LT Shoulder pain Intake Note: pt is here today for lft shoulder pain started 3 weeks ago Patient Tobacco Use Status: Never used Tobacco Allergies metronidazole [Metrogel] Allergy (Intermediate, Verified 01/09/24 09:15) facial rash morphine [Morphine] Allergy (Intermediate, Verified 01/09/24 09:15) SEVERE VOMITING, nausea and vomiting hydromorphone [From Dilaudid] Adverse Reaction (Mild, Verified 01/09/24 09:15) makes pt feel ill Do you need a note to return to daycare/school/sports/work: No HPI HPI Comments History of Present Illness Details 53 y/o female patient who presents to [facility] in clinic with c/o left shoulder pain x 2-3 weeks now. Denies any injury or trauma to the shoulder. [facility] Medical History Mixed incontinence urge and stress Recurrent UTI Urge urinary incontinence Change in bowel habits Foreign body granuloma of skin Acne rosacea Right hip pain Leg numbness Obesity Mixed hyperlipidemia GERD (gastroesophageal reflux disease) Hypovitaminosis D Surgical History History of colostomy reversal History of abdominoplasty Perforation of colon History of total abdominal hysterectomy and bilateral salpingo-oophorectomy Family History Father Hypertension Cancer Mother Hypertension Diabetes Brother No problems noted. 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 Current occupational exposures/hazards: No Cognitive needs: No Hearing needs: No Vision needs: Yes Review of Systems Const All systems reviewed & are unremarkable except as noted in HPI and below Physical Exam Vital Signs: Last Vital Signs Temp 97.7 F 01/09/24 09:11 Pulse 85 01/09/24 09:11 BP 118/70 01/09/24 09:11 Pulse Ox 96 01/09/24 09:11 Oxygen Delivery Method Room Air 01/09/24 09:11 BMI result Body Mass Index 28.2 Const General: comfortable and no acute distress Orientation/consciousness: patient oriented x3 Neuro General: patient oriented x3, gait normal and moves all extremities Extrem Right upper extremity: shoulder/upper arm Details: normal to inspection, tenderness Location: of the proximal humerus and abnormal ROM Details: pain with active ROM and pain with passive ROM; no swelling, no lacerations, no ecchymosis and no crepitus Left upper extremity: normal to inspection and full ROM Psych Speech and movement: Normal speech and movement present Assessment & Plan Assessment & Plan (1) Osteoarthritis of left shoulder: Code(s): M19.012 - Primary osteoarthritis, left shoulder Qualifiers: Osteoarthritis type: unspecified Qualified Code(s): M19.012 - Primary osteoarthritis, left shoulder Plan: - Acetaminophen or Ibuprofen for pain relief. - Rest joint. - Take medicines as directed. Orders: Referrals Physical Medicine and Rehabilitation Referral M19.012 - Primary osteoarthritis, left shoulder Medications: New lidocaine 5% leave on most painful area for up to 12 hrs 1 patch topical Q24H 15 ea 0RF M19.012 - Primary osteoarthritis, left shoulder Refilled ibuprofen 600 mg PO TID PRN 30 tabs 0RF fever or pain M19.012 - Primary osteoarthritis, left shoulder Coding Level of Care Code Est Pt Level 3 (47482) Diagnoses Osteoarthritis of left shoulder, unspecified osteoarthritis type M19.012 Osteoarthritis type: unspecified Time Spent (min) 15
== END 2024-01-09 10:00 | disposition home or self-care (01) ==
PROVIDERS: PCP Internal Medicine; Visit Provider Nurse Practitioner Family
DX: M19.012 Primary osteoarthritis, left shoulder (principal)
CPT/HCPCS: 99213

== ENCOUNTER 2024-01-13 08:56 | Outpatient (REF) | payer OTHER, SELFPAY ==
[2024-01-13 11:43] LABS: Appearance Urine Clear; Color Urine Yellow; Glucose Urine UA Negative (Negative); Leukocyte Esterase Urine Negative (Negative); Nitrite Urine Negative (Negative); Urine Blood Negative (Negative); Urine Ketones Negative (Negative); Urine Protein Negative (Neg-Trace)
[2024-01-13 11:46] LABS: Bacteria Urine None Seen (None Seen); Hyaline Casts Urine 0-2 /LPF (0-2); RBC Urine 0-2 /HPF (0-2); WBC Urine 0-5 /HPF (0-5)
== END 2024-01-13 08:57 | disposition home or self-care (01) ==
LOC: HO.LAB 08:56
PROVIDERS: PCP Internal Medicine; Visit Provider Urology
DX: R39.15 Urgency of urination (principal); N39.0 Urinary tract infection, site not specified; R32 Unspecified urinary incontinence
CPT/HCPCS: 81001; 87086

== ENCOUNTER 2024-01-31 10:46 | Outpatient (AMB) | payer OTHER, SELFPAY ==
[2024-01-31 10:47] VITALS: BP 120/84; PULSE 83; O2SAT 97; BMI 28.2
--- NOTE | 2024-01-31 10:47 | MHC.PC.OV ---
Vital Signs 01/31/24 10:47 Height 5 ft 2 in Weight 154 lb BMI 28.2 BP 120/84 Blood Pressure Location Lt brachial Position Sitting Pulse 83 Pulse Source Pulse Oximeter Pulse Oximetry (%) 97 Oxygen Delivery Method Room Air Intake Visit Reasons: 4mth f/u Intake Note: Patient is here to follow up on 4 months Cardiology Consultants Required: No Accompanied by: Self / Same As Patient Allergies metronidazole [Metrogel] Allergy (Intermediate, Verified 01/31/24 11:00) facial rash morphine [Morphine] Allergy (Intermediate, Verified 01/31/24 11:00) SEVERE VOMITING, nausea and vomiting hydromorphone [From Dilaudid] Adverse Reaction (Mild, Verified 01/31/24 11:00) makes pt feel ill Medication List - Last Reconciled 01/31/24 by Shasha Juarez MD diaper,brief,adult,disposable (Day and Night Brief,Medium) As directed docusate sodium (Colace) 100 mg PO BID ibuprofen 600 mg PO TID PRN leg brace (Knee Support Brace) As directed x 6 weeks lidocaine 5% 1 patch topical Q24H pantoprazole 40 mg PO DAILY 90 days polyethylene glycol 3350 (Miralax) 17 grams PO DAILY Tobacco use date assessed: 01/31/24 Dental Screening Dental Screen Date: 01/31/24 Did you have a dental visit in the last 12 months?: No Did you have a dental problem in the last 6 months where you did not have access to dental care?: No Was dental information given to patient?: Patient has dentist HPI HPI Comments History of Present Illness Details This is a 53-year-old female with GERD, chronic idiopathic constipation, mixed stress and urge urinary incontinence and venous insufficiency that comes today complaining of diffuse joint pain but she is already being follow by arthritis treatment center which has place recently local steroid injections in few joints. She also complains of meralgia paresthetica of right leg with pain in lateral thigh described as crampy and burning like in quality and has tried gabapentin with no significant relieved. She also has venous insufficiency and will be referred to vascular surgery. GERD stable with medications. Constipation well control with MiraLax. She needs diapers for her urinary incontinence. [facility] Medical History (Updated 01/31/24 @ 11:37 by Shasha Juarez MD) Mixed incontinence urge and stress Recurrent UTI Urge urinary incontinence Change in bowel habits Foreign body granuloma of skin Acne rosacea Right hip pain Leg numbness Obesity Mixed hyperlipidemia GERD (gastroesophageal reflux disease) Hypovitaminosis D Surgical History History of colostomy reversal History of abdominoplasty Perforation of colon History of total abdominal hysterectomy and bilateral salpingo-oophorectomy Family History Father Hypertension Cancer Mother Hypertension Diabetes Brother No problems noted. 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 1. Little interest or pleasure in doing things: not at all 2. Feeling down, depressed, or hopeless: not at all 3. Trouble falling or staying asleep, or sleeping too much: not at all 4. Feeling tired or having little energy: not at all 5. Poor appetite or overeating: not at all 6. Feeling bad about yourself - or that you are a failure or have let yourself or your family down: not at all 7. Trouble concentrating on things, such as reading the newspaper or watching television: not at all 8. Moving or speaking so slowly that other people could have noticed. Or the opposite - being so fidgety or restless that you have been moving around a lot more than usual: not at all 9. Thoughts that you would be better off or of hurting yourself in some way: not at all Total score: 0 Depression Screening Interpretation: Negative Depression Screening Done: Yes 73245 - PHQ-9 Billing: Yes Source: Developed by Drs. Jhoan Humphries, Karla Garcia, Guicho Rodriges and colleagues, with an educational marla from [employer]. Thrive Questionnaire Date Thrive assessed: 11/02/23 I am a: Patient What is your living situation today?: I have a steady place to live Within the past 12 months, did the food you bought not last and you didn't have the money to get more?: Never true Within the past 12 months, did you worry whether your food would run out before you got money to buy more?: Never true Do you have trouble paying for medicines?: No Do you have trouble getting transportation to medical appointments?: No Do you have trouble paying your heating and electricity bill?: No Do you have trouble taking care of your child, family member or friend?: No Do you have trouble with day-to-day activities such as bathing, preparing meals, shopping, managing finances, etc.?: No Are you currently unemployed and looking for a job?: No Are you interested in more education?: No Please select the resources that you would like help with: None Currently or been in a relationship where the following occur: no concerns reported THRIVE Score: 0 AUDIT C Alcohol Use Questionnaire (AUDIT-C) 1. How often do you have a drink containing alcohol?: Monthly or less 2. How many drinks containing alcohol do you have on a typical day when you are drinking?: 1 or 2 3. How often do you have six or more drinks on one occasion?: Never Total Score: 1 TYREE-7 AMB Questionnaire TYREE-7 Date TYREE - 7 assessed: 01/31/24 Source: Developed by Drs. Jhoan Humphries, Karla Garcia, Guicho Rodriges and colleagues, with an educational marla from [employer]. Review of Systems Const All systems reviewed & are unremarkable except as noted in HPI and below Eyes Reports no additional complaints, Denies change in vision and Denies other visual disturbances Card Denies chest pain at rest, Denies chest pain with activity, Denies edema, Denies irregular heart rhythm, Denies claudication, Denies dyspnea, Denies dyspnea on exertion, Denies orthopnea, Denies paroxysmal nocturnal dyspnea and Denies slow heart rate Resp Denies cough, Denies dyspnea and Denies dyspnea on exertion GI Denies abdominal pain, Denies change in bowel habits, Denies excessive flatus, Denies nausea and Denies vomiting Physical exam (Primary Care) Vital Signs: Last Vital Signs Pulse 83 01/31/24 10:47 BP 120/84 01/31/24 10:47 Pulse Ox 97 01/31/24 10:47 Oxygen Delivery Method Room Air 01/31/24 10:47 BMI result Body Mass Index 28.2 Tobacco/Smoking Status: Tobacco use Status Tobacco use date assessed 01/31/24 01/31/24 10:49 Patient Tobacco Use Status Never used Tobacco 01/31/24 10:49 e-Cigarette/Vaping Use Never Used 01/31/24 10:49 PHQ-9: PHQ-9 Score PHQ-9: Total score 0 01/31/24 10:49 Depression Screening Interpretation: Negative Thrive Assessment: Date of Thrive Assessment Date Thrive assessed 11/02/23 01/31/24 10:49 Currently or been in a relationship where the following occur: no concerns reported Resp Effort & Inspection: normal respiratory effort Auscultation: clear to auscultation bilaterally Cardio Jugular venous distension: no JVD Rate: regular rate Rhythm: regular rhythm Heart sounds: S1 normal heart sound present and S2 normal heart sound present Extrem General: Yes full ROM Assessment and Plan Assessment & Plan (1) Mixed incontinence urge and stress: Code(s): N39.46 - Mixed incontinence Plan: Use diapers as needed. Practice time bathroom visits. Practice Kegel exercise. (2) GERD (gastroesophageal reflux disease): Code(s): K21.9 - Gastro-esophageal reflux disease without esophagitis Qualifiers: Esophagitis presence: esophagitis presence not specified Qualified Code(s): K21.9 - Gastro-esophageal reflux disease without esophagitis Plan: Continue PPIs. (3) Venous insufficiency: Code(s): I87.2 - Venous insufficiency (chronic) (peripheral) Plan: Referred to vascular surgery. (4) Chronic idiopathic constipation: Code(s): K59.04 - Chronic idiopathic constipation Plan: Continue MiraLax and docusate. Orders: Orders Complete Blood Count Auto Diff Today D64.9 - Anemia, unspecified IRON PROFILE Today D64.9 - Anemia, unspecified XR DEXA axial skeleton Today N95.9 - Unspecified menopausal and perimenopausal disorder Potassium Today E87.6 - Hypokalemia Referrals Vascular Surgery Referral I87.2 - Venous insufficiency (chronic) (peripheral) Coding Level of Care Code Est Pt Level 4 (52312) Diagnoses Mixed incontinence urge and stress N39.46 Gastroesophageal reflux disease, unspecified whether esophagitis present K21.9 Esophagitis presence: esophagitis presence not specified Venous insufficiency I87.2 Chronic idiopathic constipation K59.04 Time Spent (min) 23
== END 2024-01-31 11:11 | disposition home or self-care (01) ==
PROVIDERS: PCP Internal Medicine; Visit Provider Internal Medicine
DX: N39.46 Mixed incontinence (principal); K21.9 Gastro-esophageal reflux disease without esophagitis; I87.2 Venous insufficiency (chronic) (peripheral); K59.04 Chronic idiopathic constipation
CPT/HCPCS: 99214

== ENCOUNTER 2024-01-31 11:16 | Outpatient (REF) | payer OTHER, SELFPAY ==
[2024-01-31 11:30] LABS: MANUAL DIFF FLAG NO
[2024-01-31 12:46] LABS: Basophils Percent Auto 0.5 % (0-2); Eosinophils Absolute Auto 0.1 X10*3/uL (0.0-0.4); Eosinophils Percent Auto 0.7 % (0-4); Hematocrit 42.1 % (37.0-47.0); Imm Gran Abs Auto 0.04 X10*3/uL (0.00-0.03); Imm Gran Pct Auto 0.5 % (0.0-0.4); Lymphocytes Absolute Auto 1.9 X10*3/uL (1.2-4.9); Lymphocytes Percent Auto 22.5 % (20-40); Mean Corpuscular HGB Conc 30.9 g/dl (31.0-35.0); Mean Corpuscular Hemoglobin 27.7 pg (27.0-33.0); Mean Corpuscular Volume 89.6 fL (80.0-98.0); Mean Platelet Volume 9.5 fL (9.4-12.3); Monocytes Absolute Auto 0.7 X10*3/uL (0.1-1.2); Monocytes Percent Auto 7.9 % (2-11); Neutrophils Absolute Auto 5.7 x10*3/uL (2.0-8.3); Neutrophils Percent Auto 67.9 % (45-73); Platelet Count 253 X10*3/uL (160-400); Red Cell Distribution Width 14.6 % (11.0-16.0); White Blood Count 8.5 X10*3/uL (4.8-10.8)
[2024-01-31 13:11] LABS: Iron 54 mcg/dL (30-160); Percent Iron Saturation 15 % (15-50); Potassium 3.6 mmol/L (3.3-5.1); Total Iron Binding Capacity 349 mcg/dL (228-428); Unsaturated Iron Binding 295 ug/dL
== END 2024-01-31 11:17 | disposition home or self-care (01) ==
LOC: HO.LAB 11:16
PROVIDERS: PCP Internal Medicine; Visit Provider Internal Medicine
DX: D64.9 Anemia, unspecified (principal); E87.6 Hypokalemia
CPT/HCPCS: 36415; 83540; 84132; 85025

== ENCOUNTER 2024-02-23 09:00 | Outpatient (AMB) | payer OTHER, SELFPAY ==
--- NOTE | 2024-02-23 09:06 | A.OFFVIS_ITS ---
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 Accompanied by: Self / Same As Patient Allergies metronidazole [Metrogel] Allergy (Intermediate, Verified 02/23/24 09:06) facial rash morphine [Morphine] Allergy (Intermediate, Verified 02/23/24 09:06) SEVERE VOMITING, nausea and vomiting hydromorphone [From Dilaudid] Adverse Reaction (Mild, Verified 02/23/24 09:06) makes pt feel ill Medication List - Last Reconciled 02/23/24 by Leandra Lake MD diaper,brief,adult,disposable (Day and Night Brief,Medium) As directed docusate sodium 100 mg PO BID ibuprofen 600 mg PO TID PRN leg brace (Knee Support Brace) As directed x 6 weeks lidocaine 5% 1 patch topical Q24H nitrofurantoin monohyd/m-cryst 100 mg (Macrobid) 100 mg orally take post sexual activity as directed; must administer with a meal/food pantoprazole 40 mg PO DAILY 90 days polyethylene glycol 3350 (Miralax) 17 grams PO DAILY HPI Comments Details: 02/23/2024--Malathi is a 54-year-old female who has had recurrent UTIs and lower urinary tract symptoms of urgency. She also has complaints of intermittent episodes fecal incontinence. The patient is prescribed nitrofurantoin to use post intercourse. The patient had Botox bladder injection in July,. by [facility] urology. I discussed sacral neuromodulation previously due to her symptoms of urgency and fecal incontinence. The patient initially was interested in then declined. The patient states she feels the Botox was effective. She would like to continue with that therapy for urinary symptoms of urgency frequency. Urinalysis leukocytes 15 Suhail/uL, blood negative. Bladder scan PVR 37 mL. Review of chart: Malathi is here for follow recurrent UTI's. 11/24/23- She is afraid of trying the interstim Plan--Nitrofurantoin post intercourse. FU 3 months 10/20/23--Malathi was present yesterday and had a pessary size 3 w/o support inserted for cystocele. She called today with complaints of pelvic pain. UA checked today is nitrite positive Exam- pessary in good position - no vaginal bleeding. The pessary was removed. Plan - Fosfomycin Pending scheding for Neuromodulation for LUTS of urgency and symptoms of fecal incontinence [facility] Medical History Mixed incontinence urge and stress Recurrent UTI Urge urinary incontinence Change in bowel habits Foreign body granuloma of skin Acne rosacea Right hip pain Leg numbness Obesity Mixed hyperlipidemia GERD (gastroesophageal reflux disease) Hypovitaminosis D Surgical History History of colostomy reversal History of abdominoplasty Perforation of colon History of total abdominal hysterectomy and bilateral salpingo-oophorectomy Family History Father Hypertension Cancer Mother Hypertension Diabetes Brother No problems noted. 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 Current occupational exposures/hazards: No Cognitive needs: No Hearing needs: No Vision needs: Yes Review of Systems Const All systems reviewed & are unremarkable except as noted in HPI and below Reports no additional complaints Eyes Reports no additional complaints ENT Reports no additional complaints Card Reports no additional complaints Resp Reports no additional complaints GI Reports no additional complaints Reports as per HPI Musc Reports no additional complaints Skin/Breast Reports system reviewed and no additional complaints, except as documented Neuro Reports no additional complaints Psych Reports no additional complaints Endo Reports no additional complaints Orlin/Lymph Reports no additional complaints Aller/Immun Reports no additional complaints Office Procedures Post Void Residual Post Residual Void Post Void Residual (PVR): 37 [id number] Void Residual by ultrasound Results AMB Urinalysis, Automated UA Leukoctes 15 Suhail/uL Last Edit by MATIAS Abebe on 02/23/24 09:25 UA Nitrite Negative Last Edit by MATIAS Abebe on 02/23/24 09:25 UA Urobilinogen 0.2 mg/dL Last Edit by MATIAS Abebe on 02/23/24 09:2 5 UA Protein 0 mg/dL Last Edit by MATIAS Abebe on 02/23/24 09:25 UA pH 6.0 Last Edit by MATIAS Abebe on 02/23/24 09:25 UA Blood 0 Alejandro/uL Last Edit by MATIAS Abebe on 02/23/24 09:25 UA Specific Bonita 1.020 Last Edit by MATIAS Abebe on 02/23/24 09: 25 UA Ketone Negative Last Edit by MATIAS Abebe on 02/23/24 09:25 UA Bilirubin 0 mg/dL Last Edit by MATIAS Abebe on 02/23/24 09:25 UA Glucose 0 mg/dL Last Edit by MATIAS Abebe on 02/23/24 09:25 Results Reviewed Results Reviewed: Laboratory Last Values Urine pH (Auto) 6.0 02/23/24 09:11 Specific Bonita (Auto) 1.020 02/23/24 09:11 Urine Protein (Auto) 0 mg/dL 02/23/24 09:11 Glucose (UA)(Auto) 0 mg/dL 02/23/24 09:11 Urine Ketones (Auto) Negative 02/23/24 09:11 Urine Blood (Auto) 0 Alejandro/uL 02/23/24 09:11 Urine Nitrite (Auto) Negative 02/23/24 09:11 Urine Bilirubin (Auto) 0 mg/dL 02/23/24 09:11 Urine Urobilinogen (Auto) 0.2 mg/dL 02/23/24 09:11 Leukocyte Esterase (Auto) 15 Suhail/uL 02/23/24 09:11 Assessment & Plan Assessment & Plan (1) Female cystocele: Code(s): N81.10 - Cystocele, unspecified Category: Medical (2) Pelvic floor weakness: Code(s): N81.89 - Other female genital prolapse Category: Medical (3) Fecal incontinence: Code(s): R15.9 - Full incontinence of feces Category: Medical (4) Renal calculi: Code(s): N20.0 - Calculus of kidney Category: Medical (5) OAB (overactive bladder): Code(s): N32.81 - Overactive bladder Category: Medical Plan Nitrofurantoin post intercourse. Repeat Botox in 3 months Will obtain progress notes from [facility] urology to confirm dose of Botox used. Orders: Orders AMB Urinalysis Automated Today Z13.9 - Encounter for screening, unspecified AMB Post Void Residual by ultrasound Today N39.8 - Other specified disorders of urinary system Medications: Refilled nitrofurantoin monohyd/m-cryst 100 mg (Macrobid) 100 mg orally take post sexual activity as directed; must administer with a meal/food 30 caps 5RF Patient Instructions: The patient had an opportunity to ask questions regarding treatment plan. The patient expressed understanding and agreement with the above treatment plan. The patient is aware they should contact our office by phone for worsening of their current condition or the appearance of new symptoms. Compliance is encouraged with any medications and followup testing that is ordered. It is a privilege to be allowed the opportunity to participate in the urologic care of your patient. If you have any questions or concerns regarding treatment for the above conditions please do not hesitate to contact me. The office telephone contact is [phone]. This note is constructed in part using voice recognition software. While every effort has been made to ensure accuracy early childhood education worker errors may have been included. Yours sincerely, Leandra Lake MD Coding Level of Care Code Est Pt Level 4 (45894) Diagnoses Female cystocele N81.10 Pelvic floor weakness N81.89 Fecal incontinence R15.9 Renal calculi N20.0 OAB (overactive bladder) N32.81 CPT Codes Post Residual Void - PVR CPT Code: 80007-Qrfp Void Residual by ultrasound ([id number])
== END 2024-02-23 09:48 | disposition home or self-care (01) ==
PROVIDERS: PCP Internal Medicine; Visit Provider Urology
DX: N81.10 Cystocele, unspecified (principal); N81.89 Other female genital prolapse; R15.9 Full incontinence of feces; N20.0 Calculus of kidney; N32.81 Overactive bladder; Z13.9 Encounter for screening, unspecified
CPT/HCPCS: 99214

== ENCOUNTER 2024-02-23 10:53 | Outpatient (REF) | payer OTHER, SELFPAY ==
--- NOTE | ~2024-02-23 | MM_ITS ---
EXAMINATION: BONE DENSITOMETRY CLINICAL INDICATION: Menopause. COMPARISON: This is the patient's baseline examination. TECHNIQUE: Using a Kerecis DXA System (software version: 13.1) manufactured by [employer], dual-energy x-ray absorptiometry was performed of the lumbar spine and left hip. The images are of good technical quality. Summary results are attached. FINDINGS: LEFT FEMUR, NECK: BMD 0.822 g/cm2, Z-score -0.7, T-score -1.6, osteopenia. LEFT FEMUR, TOTAL: BMD 0.868 g/cm2, Z-score -0.7, T-score -1.1, osteopenia. AP SPINE L1-L4: BMD 0.981 g/cm2, Z-score -1.2, T-score -1.7, osteopenia. IDENTIFIED RISK FACTORS: Early menopause, hysterectomy, recurrent falls, bilateral oophorectomy, secondary osteoporosis. HISTORY OF FRACTURE: None listed. MEDICATIONS: Calcium, vitamin D. MM/XR DEXA axial skeleton IMPRESSION: 1. DIAGNOSIS: Osteopenia based on the lowest T-score value of -1.7 in the lumbar spine applying World Health Organization criteria. 2. 10-YEAR FRACTURE RISK PREDICTION, FRAX: Major osteoporotic fracture (clinical spine, forearm, hip or shoulder) 3.2%. Hip fracture 0.3%. 3. Treatment Recommendations: NOF guidelines recommend consideration for treatment in postmenopausal women and men age 50 and older presenting with the following: -A hip or vertebral (clinical or morphometric) fracture. -T-score less than or equal to -2.5 at the femoral neck or spine after appropriate evaluation to exclude secondary causes. -Low bone mass at the hip or spine and a 10-year fracture probability by FRAX of greater than or equal to 3% for hip fracture or greater than or equal to 20% for major osteoporotic fracture based on the [place] adapted WHO algorithm. 4. Other Recommendations: All treatment decisions require clinical judgment and consideration of individual patient factors, including patient preferences, comorbidities, previous drug use, risk factors not captured in the FRAX model (e.g. frailty, falls, vitamin D deficiency, increased bone turnover, interval significant decline in bone density) and possible under or overestimation of fracture risk by FRAX. Additional medical evaluation for secondary cause of low bone mineral density may be appropriate. FUTURE SCAN RECOMMENDATION: People with diagnosed cases of osteoporosis or at high risk for fracture should have regular bone mineral density tests. For patients eligible for Medicare, routine testing is allowed once every 2 years. The testing frequency can be increased to one year for patients who have rapidly progressing disease, those who are receiving or discontinuing medical therapy to restore bone mass, or have additional risk factors.
== END 2024-02-23 10:54 | disposition home or self-care (01) ==
LOC: HO.MAMMO 10:53
PROVIDERS: PCP Internal Medicine; Visit Provider Internal Medicine
DX: Z13.820 Encounter for screening for osteoporosis (principal); Z78.0 Asymptomatic menopausal state; N81.10 Cystocele, unspecified; N81.89 Other female genital prolapse; R15.9 Full incontinence of feces; N20.0 Calculus of kidney; N32.81 Overactive bladder
CPT/HCPCS: 51798; 77080; 81003

== ENCOUNTER 2024-03-06 09:19 | Outpatient (AMB) | payer OTHER, SELFPAY ==
--- NOTE | 2024-03-06 09:25 | MHC.OFFVIS ---
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 Patient is not sure why she is here. I asked if she has varicose veins and she states she does not know . I asked if her Doctor mentioned being referred for her legs to which she states she might have one on her right leg. 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 Complaints include pain over varicosities, swelling of lower extremities, cramping, fatigue, and heaviness of the lower extremities. 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 It is noted more so in right leg. Interestingly as a child she had some sort abdominal surgery and she reports that they cut the femoral vein and had episodes of phlebitis after that. Patient no other venous procedures aside from that questionable cut femoral vein which was as a child. Patient denies any history of DVT/ PE. Patient denies any history of phlebitis. Trial of compression includes - [id number] They now present for vascular evaluation regarding their varicose veins. [facility] Medical History Mixed incontinence urge and stress Recurrent UTI Urge urinary incontinence Change in bowel habits Foreign body granuloma of skin Acne rosacea Right hip pain Leg numbness Obesity Mixed hyperlipidemia GERD (gastroesophageal reflux disease) Hypovitaminosis D Surgical History History of colostomy reversal History of abdominoplasty Perforation of colon History of total abdominal hysterectomy and bilateral salpingo-oophorectomy Family History Father Hypertension Cancer Mother Hypertension Diabetes Brother No problems noted. 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 Current occupational exposures/hazards: No Cognitive needs: No Hearing needs: No Vision needs: Yes Review of Systems Const Reports as per HPI ENT Reports no additional complaints Card Denies chest pain, Denies chest pain at rest and Denies chest pain with activity Resp Denies chest congestion and Denies cough GI Reports no additional complaints Musc Details: pain over varicosities, aching of lower extremities, swelling, cramping, heaviness and tiredness, itching Denies abnormal gait Skin/Breast Reports pruritus and Denies wounds Neuro Reports no additional complaints and Denies abnormal gait Psych Denies no additional complaints Physical Exam Const General: cooperative, healthy appearing and comfortable Orientation/consciousness: oriented to person, oriented to place and oriented to time Neck Carotids: no bruits Chest Chest palpation & inspection: normal inspection of the chest and normal palpation of entire chest wall Resp Effort & Inspection: normal respiratory effort and able to speak in complete sentences Cardio Rate: regular rate Heart sounds: S1 normal heart sound present and S2 normal heart sound present Peripheral pulses: Peripheral pulses 2+ throughout GI Inspection: Yes normal to inspection Skin Other: +1 edema, spider telangiectasias General skin exam: dry skin Neuro General: oriented to person, oriented to place and oriented to time Extrem Other: Do note pinpoint musculoskeletal pain Right lower extremity: full ROM, normal capillary refill and edema Left lower extremity: full ROM, normal capillary refill and edema Psych Mental Status: mental status grossly normal Assessment & Plan Assessment & Plan (1) Varicose veins of right lower extremity with inflammation: Code(s): I83.11 - Varicose veins of right lower extremity with inflammation Category: Medical Plan: Unclear etiology of lower extremity pain. She does have palpable pulses. I have taken the liberty of ordering venous insufficiency testing to rule out venous cause as she did have some sort of injury to her venous structures as a child. She will follow up with us after testing. We did discuss routine conservative measures as well including compression, elevation, exercise. She will follow up with us on an as-needed basis. Thank you for allowing us to assist in her care. Orders: Orders US venous duplex LE BI 1 Week I83.11 - Varicose veins of right lower extremity with inflammation Coding Level of Care Code New Pt Level 4 (32649) Diagnoses Varicose veins of right lower extremity with inflammation I83.11
== END 2024-03-06 10:10 | disposition home or self-care (01) ==
PROVIDERS: PCP Internal Medicine; Visit Provider Surgery Vascular Surgery
DX: I83.11 Varicose veins of right lower extremity with inflammation (principal)
CPT/HCPCS: 99203

== ENCOUNTER → 2024-03-06 09:19 | Outpatient (BNVA) | payer OTHER, SELFPAY | PROVIDERS: PCP Internal Medicine; Visit Provider Surgery Vascular Surgery ==

== ENCOUNTER 2024-03-13 10:25 | Outpatient (REF) | payer OTHER, SELFPAY ==
--- NOTE | ~2024-03-13 | US_ITS ---
EXAMINATION: US LOWER EXTREMITY VENOUS (REFLUX EXAM), BILATERAL CLINICAL INDICATION: Chronic venous insufficiency with lower extremity of varicose veins with inflammation COMPARISON: None. TECHNIQUE: Color flow triplex imaging and compression Doppler was performed to evaluate both the deep and the superficial systems bilaterally. To evaluate the superficial system, the examination was performed in the upright position. Color-flow Doppler ultrasound and compression ultrasound were utilized. In addition, maneuvers were utilized to demonstrate reflux. FINDINGS: 1. DEEP VENOUS ULTRASOUND OF THE RIGHT LOWER EXTREMITY: Common Femoral Vein: Compressible, normal respiratory variation and augmented flow. Femoral Vein: Compressible, normal color flow and augmentation. Chronic synechiae seen within the mid to superficial femoral vein Popliteal Vein: Compressible, normal augmentation. Chronic synechiae is seen within the popliteal vein. Deep Reflux: There is no evidence of reflux in the deep system in either the common femoral vein, superficial femoral or the popliteal vein. There is no evidence of a Beavers's cyst. 2. SUPERFICIAL ULTRASOUND WITH DOPPLER OF RIGHT LOWER EXTREMITY: GREAT SAPHENOUS VEIN: Saphenofemoral Junction: 0.5 cm; Reflux: 0 ms Proximal Thigh: 0.3 cm; Reflux: 0 ms Mid Thigh: 0.3 cm; Reflux: 0 ms Above Knee: 0.3 cm; Reflux: 0 ms At Knee: 0.4 cm; Reflux: 0 ms Below Knee: 0.3 cm; Reflux: 0 ms Mid Calf: 0.2 cm; Reflux: 0 ms Ankle: 0.2 cm; Reflux: 0 ms DUPLICATED MEDIAL GREAT SAPHENOUS VEIN: Diameter: None imaged Reflux: NA DUPLICATED LATERAL GREAT SAPHENOUS VEIN: Diameter: 0.3 cm Reflux: None SMALL SAPHENOUS VEIN: Saphenopopliteal Junction: 0.1 cm; Reflux: 0 ms Proximal: 0.1 cm; Reflux: 0 ms Distal: 0.1 cm; Reflux: 0 ms VEIN OF GIACOMINI: Size: NA Reflux: NA PERFORATORS: Location: None significant Size: NA Reflux: NA VARICOSITIES: Location: None significant Size: NA Reflux: NA 3. DEEP VENOUS ULTRASOUND OF THE LEFT LOWER EXTREMITY: Common Femoral Vein: Compressible, normal respiratory variation and augmented flow. Femoral Vein: Compressible, normal color flow and augmentation. Popliteal Vein: Compressible, normal augmentation. Deep Reflux: There is no evidence of reflux in the deep system in either the common femoral vein, superficial femoral or the popliteal vein. There is no evidence of a Beavers's cyst. 4. SUPERFICIAL ULTRASOUND WITH DOPPLER OF LEFT LOWER EXTREMITY: GREAT SAPHENOUS VEIN: Saphenofemoral Junction: 0.6 cm; Reflux: 0 ms Proximal Thigh: 0.3 cm; Reflux: 0 ms Mid Thigh: 0.2 cm; Reflux: 0 ms Above Knee: 0.3 cm; Reflux: 0 ms At Knee: 0.2 cm; Reflux: 0 ms Below Knee: 0.1 cm; Reflux: 0 ms Mid Calf: 0.1 cm; Reflux: 0 ms Ankle: 0.1 cm; Reflux: 0 ms DUPLICATED MEDIAL GREAT SAPHENOUS VEIN: Diameter: None imaged Reflux: NA DUPLICATED LATERAL GREAT SAPHENOUS VEIN: Diameter: 0.4 cm Reflux: None SMALL SAPHENOUS VEIN: Saphenopopliteal Junction: 0.2 cm; Reflux: 0 ms Proximal: 0.1 cm; Reflux: 0 ms Distal: 0.2 cm; Reflux: 0 ms VEIN OF GIACOMINI: Size: NA Reflux: NA PERFORATORS: Location: Mid calf extending into small varicosities Size: 0.4 cm Reflux: None VARICOSITIES: Location: None significant Size: NA Reflux: NA US/US venous duplex LE BI IMPRESSION: Right: No significant venous insufficiency or reflux in the great saphenous vein or small saphenous vein. No significant varicose veins. Chronic synechiae seen in the right superficial femoral vein and popliteal vein consistent with old deep venous thrombosis with recanalized flow Left: No significant venous insufficiency or reflux in the great saphenous vein or small saphenous vein
== END 2024-03-13 10:26 | disposition home or self-care (01) ==
LOC: HO.US 10:25
PROVIDERS: PCP Internal Medicine; Visit Provider Surgery Vascular Surgery
DX: I83.11 Varicose veins of right lower extremity with inflammation (principal)
CPT/HCPCS: 93970

== ENCOUNTER 2024-04-24 07:49 | Day surgery (SDC) | payer OTHER, SELFPAY ==
[2024-04-20 13:39] VITALS: BMI 28.2
--- NOTE | 2024-04-23 09:33 | P.CONAN_ITS ---
HPI - Anesthesia Eval Consult details Narrative: 54yo F for Cystoscopy Botox Injection s/p colo 12/2023 with MAC PMFSH Active Problems Active Problems: All Active Problems Varicose veins of right lower extremity with inflammation (Acute) OAB (overactive bladder) (Acute) Chronic idiopathic constipation (Acute) Venous insufficiency (Acute) Hypokalemia (Acute) Urinary urgency (Acute) Urinary incontinence (Acute) Diverticulitis (Acute) Acute UTI (Acute) Pelvic floor weakness (Acute) Female cystocele (Acute) Right knee pain (Acute) Bone spur of foot (Acute) Left foot pain (Acute) Foul smelling urine (Acute) Cystocele with rectocele (Acute) URI (upper respiratory infection) (Acute) Renal calculi (Acute) Umbilical hernia (Acute) Abdominal pain (Acute) MCL sprain of left knee (Acute) Physical exam (Acute) Old tear of meniscus of right knee (Acute) Osteoarthritis of right knee (Acute) Fecal incontinence (Acute) Grade 2 sprain of medial collateral ligament of left knee (Acute) Tear of medial meniscus of left knee (Acute) Locked knee (Acute) Yeast infection of the skin (Acute) Left knee pain (Acute) Strain of left knee (Acute) Abdominal wall sinus (Acute) Meralgia paraesthetica (Acute) Skin candidiasis (Acute) Mixed incontinence urge and stress (Acute) Recurrent UTI (Acute) Urge urinary incontinence (Acute) Change in bowel habits (Acute) Foreign body granuloma of skin (Acute) Acne rosacea (Acute) Right hip pain (Acute) Leg numbness (Acute) Obesity (Acute) Mixed hyperlipidemia (Acute) GERD (gastroesophageal reflux disease) (Acute) Hypovitaminosis D (Acute) Past Medical History Medical History Mixed incontinence urge and stress Recurrent UTI Urge urinary incontinence Change in bowel habits Foreign body granuloma of skin Acne rosacea Right hip pain Leg numbness Obesity Mixed hyperlipidemia GERD (gastroesophageal reflux disease) Hypovitaminosis D Family History Family History Father Hypertension Cancer Mother Hypertension Diabetes Brother No problems noted. Sister In good health Daughter In good health Family history of problems with anesthesia: No Surgical History Surgical History History of colostomy reversal History of abdominoplasty Perforation of colon History of total abdominal hysterectomy and bilateral salpingo-oophorectomy History of Problems with Anesthesia: No Social History Social History Household Members: Children Housing: House Do you presently have visiting nurse or other home services: No Alcohol intake: current Alcohol intake frequency: holidays/special occasions only Patient Tobacco Use Status: Never used Tobacco e-Cigarette/Vaping Use: Never Used Second Hand Smoke Exposure: No service: No Current occupational status: employed 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 Current occupational exposures/hazards: No Cognitive needs: No Hearing needs: No Vision needs: Yes Meds Allergies Allergy/AdvReac Type Severity Reaction Status Date / Time metronidazole [Metrogel] Allergy Intermediate facial rash Verified 04/26/24 10:27 morphine [Morphine] Allergy Intermediate SEVERE Verified 04/26/24 10:27 VOMITING, nausea and vomiting hydromorphone [From Dilaudid] AdvReac Mild makes pt Verified 04/26/24 10:27 feel ill Exam Height,Weight and Vital Signs: Height 5 ft 2 in Weight 69.853 kg Assessment and Plan Assessment Anesthesia Assessment: Chart Reviewed Final Anesthetic Review Family History of Problems with Anesthesia: No History of Problems with Anesthesia: No
[2024-04-24] VITALS (7 sets, daily range): BP systolic 95–149; BP diastolic 54–76; PULSE 73–84; RESP 12–16; TEMP 36.4–36.7; O2SAT 94–99; BMI 28.3
--- NOTE | 2024-04-24 08:17 | P.CONAN_ITS ---
HPI - Anesthesia Eval Consult details Narrative: for cysto botox PMFSH Active Problems Active Problems: All Active Problems Varicose veins of right lower extremity with inflammation (Acute) OAB (overactive bladder) (Acute) Chronic idiopathic constipation (Acute) Venous insufficiency (Acute) Hypokalemia (Acute) Urinary urgency (Acute) Urinary incontinence (Acute) Diverticulitis (Acute) Acute UTI (Acute) Pelvic floor weakness (Acute) Female cystocele (Acute) Right knee pain (Acute) Bone spur of foot (Acute) Left foot pain (Acute) Foul smelling urine (Acute) Cystocele with rectocele (Acute) URI (upper respiratory infection) (Acute) Renal calculi (Acute) Umbilical hernia (Acute) Abdominal pain (Acute) MCL sprain of left knee (Acute) Physical exam (Acute) Old tear of meniscus of right knee (Acute) Osteoarthritis of right knee (Acute) Fecal incontinence (Acute) Grade 2 sprain of medial collateral ligament of left knee (Acute) Tear of medial meniscus of left knee (Acute) Locked knee (Acute) Yeast infection of the skin (Acute) Left knee pain (Acute) Strain of left knee (Acute) Abdominal wall sinus (Acute) Meralgia paraesthetica (Acute) Skin candidiasis (Acute) Mixed incontinence urge and stress (Acute) Recurrent UTI (Acute) Urge urinary incontinence (Acute) Change in bowel habits (Acute) Foreign body granuloma of skin (Acute) Acne rosacea (Acute) Right hip pain (Acute) Leg numbness (Acute) Obesity (Acute) Mixed hyperlipidemia (Acute) GERD (gastroesophageal reflux disease) (Acute) Hypovitaminosis D (Acute) Past Medical History Medical History Mixed incontinence urge and stress Recurrent UTI Urge urinary incontinence Change in bowel habits Foreign body granuloma of skin Acne rosacea Right hip pain Leg numbness Obesity Mixed hyperlipidemia GERD (gastroesophageal reflux disease) Hypovitaminosis D Family History Family History Father Hypertension Cancer Mother Hypertension Diabetes Brother No problems noted. Sister In good health Daughter In good health Family history of problems with anesthesia: No Surgical History Surgical History History of colostomy reversal History of abdominoplasty Perforation of colon History of total abdominal hysterectomy and bilateral salpingo-oophorectomy History of Problems with Anesthesia: No Social History Social History Household Members: Children Housing: House Do you presently have visiting nurse or other home services: No Alcohol intake: current Alcohol intake frequency: holidays/special occasions only Patient Tobacco Use Status: Never used Tobacco e-Cigarette/Vaping Use: Never Used Second Hand Smoke Exposure: No Advance Directives: No Advance Directives Information Provided: Yes service: No Current occupational status: employed 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 Current occupational exposures/hazards: No Cognitive needs: No Hearing needs: No Vision needs: Yes Meds Allergies Allergy/AdvReac Type Severity Reaction Status Date / Time metronidazole [Metrogel] Allergy Intermediate facial rash Verified 04/24/24 08:02 morphine [Morphine] Allergy Intermediate SEVERE Verified 04/24/24 08:02 VOMITING, nausea and vomiting hydromorphone [From Dilaudid] AdvReac Mild makes pt Verified 04/24/24 08:02 feel ill Active Medications: Current Medications Lactated Ringer's (Lr) 1,000 mls @ 100 mls/hr IVCONT .Q10H PALOMO Exam Height,Weight and Vital Signs: Height 5 ft 2 in Weight 69.853 kg Airway Mallampati Class: II TM Dist: >3cm Neck ROM: Full Heart: rrr Lungs: cta Assessment and Plan Assessment Anesthesia Assessment: Anesthesia Plan Discussed and Chart Reviewed Final Anesthetic Review Family History of Problems with Anesthesia: No History of Problems with Anesthesia: No NPO: Yes ASA Class: II Final Preanesthetic Review: No Changes in Pt Med Stat, Meds/Allgs Chart Reviewed, Consent Obtained/Reviewed and Anes Risks/Benef Reviewed Patient Risk: Low Procedure Risk: Low Anesthetic Plan Anesthetic Plan: GA Disposition: Standard PACU
[2024-04-24] MEDS: Lactated Ringers 1,000 ML 100 ML IVCONT (08:32)
--- NOTE | 2024-04-24 08:32 | MHC.SHP ---
Pre-Procedural Eval Section A - 24 Hr Update-Section A only Date of Service: 04/24/24 The patient is an INPATIENT: No The patient has been examined within 24 hours of the surgical procedure. The History & Physical has been completed within 30 days and I have reviewed it.: Yes Section B - Complete if H&P > 30 days Chief Complaint: Overactive bladder Allergies: Allergies Allergy/AdvReac Type Severity Reaction Status Date / Time metronidazole [Metrogel] Allergy Intermediate facial rash Verified 04/24/24 08:02 morphine [Morphine] Allergy Intermediate SEVERE Verified 04/24/24 08:02 VOMITING, nausea and vomiting hydromorphone [From Dilaudid] AdvReac Mild makes pt Verified 04/24/24 08:02 feel ill Plan Diagnosis/Plan: Unchanged I have reviewed the history and physical and performed a pertinent physical examination on my patient. No changes have occurred unless specified. Cystoscopy, Botox bladder injection. Time Spent With Patient Time: Total time managing care of this patient today ____ minutes.
--- NOTE | 2024-04-24 09:10 | W.PM.OPN ---
Operative Note Operative Note Date of Service: 04/24/24 Narrative: PREOP DIAGNOSIS: OAB POSTOP DIAGNOSIS: OAB PROCEDURE: CYSTOSCOPY, BLADDER BOTOX INJECTION 100 UNITS SURGEON: Leandra Lake MD ANESTHESIA: General Details of procedure: The patient was brought into the operating room placed on the OR table in supine position. Levaquin 500 mg IV. General anesthesia was administered. The patient was repositioned into lithotomy position, prepped and draped in the usual sterile fashion. Time-out was done per protocol. A 22 fr cystoscope was placed transurethrally into the bladder. Urine was sent for culture. The right and left ureteral orifices were visualized. There were mild trabeculations noted. There were no suspicious bladder lesions seen. The Botox 100 units was mixed with 10 cc of normal saline and injected transurethrally 1/2 cc to 1 cc per injection into the posterior bladder wall. The cystoscope was removed. 2% lidocaine urojet was passed transurethrally into the bladder. The patient was brought out of anesthesia and taken to recovery in stable condition. Complications: None Drains: none
[2024-04-24] MEDS: Phenazopyridine HCL 200 MG TABLET PO (09:48)
[2024-04-24] MEDS: ondansetron HCL 4 MG/2 ML VIAL IVPUSH (09:55)
== END 2024-04-24 10:57 | disposition home or self-care (01) ==
PROVIDERS: PCP Internal Medicine; Visit Provider Urology
PROC: 3E0K8GC Introduction of Other Therapeutic Substance into Genitourinary Tract, Via Natural or Artificial Opening Endoscopic (ICD-10-PCS; CPT 52287; principal; 2024-04-24 09:30)
DX: N32.81 Overactive bladder (principal); N39.0 Urinary tract infection, site not specified; N81.10 Cystocele, unspecified; N81.89 Other female genital prolapse; N20.0 Calculus of kidney; R15.9 Full incontinence of feces; E78.2 Mixed hyperlipidemia; Z79.899 Other long term (current) drug therapy; Z88.5 Allergy status to narcotic agent; Z98.890 Other specified postprocedural states
CPT/HCPCS: 52287; 87086; J0585; J1956; J2250; J2405; J2704

== ENCOUNTER → 2024-04-24 07:49 | Outpatient (BNV) | payer OTHER, SELFPAY | PROVIDERS: PCP Internal Medicine; Visit Provider Urology | DX: N32.81 Overactive bladder (principal) | CPT/HCPCS: 52287 ==

== ENCOUNTER 2024-04-26 10:22 | Outpatient (AMB) | payer OTHER, SELFPAY ==
--- NOTE | 2024-04-26 10:25 | A.OFFVIS_ITS ---
Intake Visit Reasons: follow up s/p US 03/13/24 Intake Note: Patient presents for follow up s/p US. States she has pain in her right thigh but does not believe it is due to her veins. She gets cramping but only at night . Allergies metronidazole [Metrogel] Allergy (Intermediate, Verified 04/26/24 10:27) facial rash morphine [Morphine] Allergy (Intermediate, Verified 04/26/24 10:27) SEVERE VOMITING, nausea and vomiting hydromorphone [From Dilaudid] Adverse Reaction (Mild, Verified 04/26/24 10:27) makes pt feel ill HPI HPI follow up s/p US 03/13/24: Details: Very pleasant 54-year-old female presents for routine follow-up regarding venous insufficiency. Upon further discussion with her she describes that the pain is more on the lateral aspect of the right thigh radiating up into the back. It is more of a persistent pain. He does not notice any pain on ambulation. She now presents for follow-up with venous insufficiency testing. 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 [facility] Medical History Mixed incontinence urge and stress Recurrent UTI Urge urinary incontinence Change in bowel habits Foreign body granuloma of skin Acne rosacea Right hip pain Leg numbness Obesity Mixed hyperlipidemia GERD (gastroesophageal reflux disease) Hypovitaminosis D Surgical History History of colostomy reversal History of abdominoplasty Perforation of colon History of total abdominal hysterectomy and bilateral salpingo-oophorectomy Family History Father Hypertension Cancer Mother Hypertension Diabetes Brother No problems noted. 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 Current occupational exposures/hazards: No Cognitive needs: No Hearing needs: No Vision needs: Yes Review of Systems Const All systems reviewed & are unremarkable except as noted in HPI and below Reports no additional complaints ENT Reports Normal hearing present Card Denies chest pain, Denies chest pain at rest, Denies chest pain with activity and Denies pedal edema Resp Denies cough GI Denies abdominal pain Musc Denies abnormal gait, Denies muscle cramps and Denies radiating pain into limb Skin/Breast Denies skin ulcer and Denies wounds Neuro Reports Normal hearing present and Denies abnormal gait Psych Reports no additional complaints Physical Exam Const General: cooperative, healthy appearing and comfortable Orientation/consciousness: oriented to person, oriented to place and oriented to time HEENT Head: Yes normal to inspection Neck Neck: Yes normal visual inspection Carotids: no bruits Chest Chest palpation & inspection: normal inspection of the chest Resp Effort & Inspection: normal respiratory effort and able to speak in complete sentences Auscultation: clear to auscultation bilaterally, no crackles, no rales, no rhonchi and no wheezes Cardio Rate: regular rate Rhythm: regular rhythm Heart sounds: S1 normal heart sound present and S2 normal heart sound present Bruits: no carotid bruits Peripheral pulses: Peripheral pulses 2+ throughout GI Inspection: Yes normal to inspection Skin Wounds: no wounds Hair: normal Neuro General: oriented to person, oriented to place and oriented to time Cranial nerves: Yes CN's II-XII intact bilaterally and Yes Normal hearing present Cognition (Neuro): normal cognition Motor exam (neuro): 5/5 motor strength present throughout Extrem Other: venous exam: No significant superficial varicosities or spider telangiectasias, minimal edema General: No clubbing, No cyanosis and No edema Psych Appearance: grossly normal Mental Status: mental status grossly normal Speech and movement: Normal speech and movement present Results Reviewed Results Reviewed: Brief summary of venous insufficiency testing is as follows: right great saphenous vein: negative right small saphenous vein: negative right accessory vein: none present left great saphenous vein: negative left small saphenous vein: negative left accessory vein: none present Please note there is no evidence of any venous aneurysms or significant tortuosity Assessment & Plan Assessment & Plan (1) Right leg pain: Code(s): M79.604 - Pain in right leg Category: Medical Plan: In short patient has right lower extremity pain. I do believe this may be neurogenic in nature and in addition may be musculoskeletal as she does have hip pain issues as well. From a vascular standpoint she did have palpable arterial pulses and venous insufficiency testing was shown to be negative. She does not appear to have any vascular issues at the current time. She will follow up with us on an as-needed basis. Thank you for allowing us to assist in her care. If there are any questions or concerns please do not hesitate to contact us. Coding Level of Care Code Est Pt Level 3 (29855) Diagnoses Right leg pain M79.604
== END 2024-04-26 10:37 | disposition home or self-care (01) ==
PROVIDERS: PCP Internal Medicine; Visit Provider Surgery Vascular Surgery
DX: M79.604 Pain in right leg (principal)
CPT/HCPCS: 99213

== ENCOUNTER → 2024-04-26 10:22 | Outpatient (BNVA) | payer OTHER, SELFPAY | PROVIDERS: PCP Internal Medicine; Visit Provider Surgery Vascular Surgery ==

== ENCOUNTER 2024-05-09 10:55 | Outpatient (AMB) | payer OTHER, SELFPAY ==
--- NOTE | 2024-05-09 10:56 | AM.OFFVISNUR ---
Intake Visit Reasons: PVR (Botox) Allergies metronidazole [Metrogel] Allergy (Intermediate, Verified 04/26/24 10:27) facial rash morphine [Morphine] Allergy (Intermediate, Verified 04/26/24 10:27) SEVERE VOMITING, nausea and vomiting hydromorphone [From Dilaudid] Adverse Reaction (Mild, Verified 04/26/24 10:27) makes pt feel ill Office Procedures Post Void Residual Post Residual Void Details: patienr presents to office for PVR s/p botox procedure. Patient reporting urgency to use the bathroom has gotten worse since botox injection as well as discomfort when using the bathroom. Patient provided clean catch sample, UA run. UA showed no infection. Patient bladder scanned for 0mls. Patient advised to continue drinking fluids, monitor symptoms and if they change or persist to call office. Patient to keep follow up as scheduled with Dr. Charles. Patient agreeable with plan at this time. Post Void Residual (PVR): 0 [id number] Void Residual by ultrasound Results AMB Urinalysis, Automated UA Leukoctes 0 Suhail/uL Last Edit by Martín Rashid LPN on 05/09/24 11:17 UA Nitrite Negative Last Edit by Martín Rashid LPN on 05/09/24 11:17 UA Urobilinogen 0 mg/dL Last Edit by Martín Rashid LPN on 05/09/24 11:17 UA Protein 0.2 mg/dL Last Edit by Martín Rashid LPN on 05/09/24 11:17 UA pH 6.0 Last Edit by Martín Rashid LPN on 05/09/24 11:17 UA Blood 0 Alejandro/uL Last Edit by Martín Rashid LPN on 05/09/24 11:17 UA Specific [place] 1.020 Last Edit by Martín Rashid LPN on 05/09/24 11:17 UA Ketone Negative Last Edit by Martín Rashid LPN on 05/09/24 11:17 UA Bilirubin 0 mg/dL Last Edit by Martín Rashid LPN on 05/09/24 11:17 UA Glucose 0 mg/dL Last Edit by Martín Rashid LPN on 05/09/24 11:17 Assessment & Plan Assessment & Plan Orders: Orders AMB Post Void Residual by ultrasound Today N32.81 - Overactive bladder AMB Urinalysis Automated Today N32.81 - Overactive bladder, R32 - Unspecified urinary incontinence, R39.15 - Urgency of urination
== END 2024-05-09 11:42 | disposition home or self-care (01) ==
PROVIDERS: PCP Internal Medicine; Visit Provider Urology
DX: N32.81 Overactive bladder (principal); R39.15 Urgency of urination; R32 Unspecified urinary incontinence

== ENCOUNTER → 2024-05-09 10:55 | Outpatient (BNVA) | payer OTHER, SELFPAY | PROVIDERS: PCP Internal Medicine; Visit Provider Urology | DX: N32.81 Overactive bladder (principal); R39.15 Urgency of urination | CPT/HCPCS: 51798; 81003 ==

== ENCOUNTER 2024-07-25 10:25 | Outpatient (REF) | payer OTHER, SELFPAY ==
--- NOTE | ~2024-07-25 | MM_ITS ---
EXAMINATION: MM SCREENING DIGITAL BREAST TOMOSYNTHESIS, BILATERAL CLINICAL INFORMATION: Screening. Asymptomatic. COMPARISON: Mammography: Comparison is made with available priors TECHNIQUE: Digital breast mammography with tomosynthesis is performed in both the craniocaudal and mediolateral oblique views along with computer-aided detection (CAD). FINDINGS: The breasts are heterogeneously dense, which may obscure small masses (ACR BI-RADS breast composition Category c). There are no significant masses, abnormal calcifications, or other abnormalities. MM/MM tomosynthesis screening BI IMPRESSION: No mammographic evidence of malignancy. ASSESSMENT: BI-RADS BI-RADS 1 - Negative RECOMMENDATION: Routine annual mammography screening. 1 year F/U This examination should not preclude the clinical evaluation of a suspicious palpable abnormality. This patient's information was entered into a reminder system with a target due date for their next mammogram. Electronically signed by: Candida Trejo DO 08/06/2024 05:28 PM EDT
== END 2024-07-25 10:26 | disposition home or self-care (01) ==
LOC: HO.MAMMO 10:25
PROVIDERS: PCP Internal Medicine; Visit Provider Internal Medicine
DX: Z12.31 Encounter for screening mammogram for malignant neoplasm of breast (principal)
CPT/HCPCS: 77063; 77067

== ENCOUNTER → 2024-07-25 10:30 | Outpatient (BNV) | payer OTHER, SELFPAY | PROVIDERS: PCP Internal Medicine; Visit Provider Internal Medicine | DX: Z12.31 Encounter for screening mammogram for malignant neoplasm of breast (principal) | CPT/HCPCS: 77063; 77067 ==

== ENCOUNTER 2024-07-26 09:29 | Outpatient (AMB) | payer OTHER, SELFPAY ==
--- NOTE | 2024-07-26 09:31 | A.OFFVIS_ITS ---
Intake Visit Reasons: OAB- 3m follow up (Botox) Intake Note: Patient is present for OBA-3M F/U (BOTOX) Urology Medication:PYRIDIUM, CEFUROXINE Antibiotic Allergy:NONE Blood Thinner:NONE TODAY'S PVR: 0ML'S National Sales Consultant Required: No Allergies metronidazole [Metrogel] Allergy (Intermediate, Verified 07/26/24 09:33) facial rash morphine [Morphine] Allergy (Intermediate, Verified 07/26/24 09:33) SEVERE VOMITING, nausea and vomiting hydromorphone [From Dilaudid] Adverse Reaction (Mild, Verified 07/26/24 09:33) makes pt feel ill HPI Comments Details: 07/26/24--Malathi is a 54-year-old female who has had recurrent UTIs and lower urinary tract symptoms of urgency. She also has complaints of intermittent episodes fecal incontinence. The patient is prescribed nitrofurantoin to use po st intercourse. s/p botox 100 units on 04/24/24. She states she had improvement in the urgency symptoms. Plan will continue management of OAB and urgency LUTS with repeat botox bladder injection. Review of chart: 02/23/2024--Malathi is a 54-year-old female who has had recurrent UTIs and lower urinary tract symptoms of urgency. She also has complaints of intermittent episodes fecal incontinence. The patient is prescribed nitrofurantoin to use post intercourse. The patient had Botox bladder injection in July,. by [facility] urology. I discussed sacral neuromodulation previously due to her symptoms of urgency and fecal incontinence. The patient initially was interested in then declined. The patient states she feels the Botox was effective. She would like to continue with that therapy for urinary symptoms of urgency frequency. Urinalysis leukocytes 15 Suhail/uL, blood negative. Bladder scan PVR 37 mL. 11/24/23- Malathi is here for follow recurrent UTI's. She is afraid of trying the interstim. Plan--Nitrofurantoin post intercourse. FU 3 months 10/20/23--Malathi was present yesterday and had a pessary size 3 w/o support inserted for cystocele. She called today with complaints of pelvic pain. UA checked today is nitrite positive Exam- pessary in good position - no vaginal bleeding. The pessary was removed. Plan - Fosfomycin Pending scheding for Neuromodulation for LUTS of urgency and symptoms of fecal incontinence PFSH Medical History Mixed incontinence urge and stress Recurrent UTI Urge urinary incontinence Change in bowel habits Foreign body granuloma of skin Acne rosacea Right hip pain Leg numbness Obesity Mixed hyperlipidemia GERD (gastroesophageal reflux disease) Hypovitaminosis D Surgical History History of colostomy reversal History of abdominoplasty Perforation of colon History of total abdominal hysterectomy and bilateral salpingo-oophorectomy Family History Father Hypertension Cancer Mother Hypertension Diabetes Brother No problems noted. 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 Current occupational exposures/hazards: No Cognitive needs: No Hearing needs: No Vision needs: Yes Review of Systems Const All systems reviewed & are unremarkable except as noted in HPI and below Reports no additional complaints Eyes Reports no additional complaints ENT Reports no additional complaints Card Reports no additional complaints Resp Reports no additional complaints GI Reports no additional complaints Reports as per HPI Musc Reports no additional complaints Skin/Breast Reports system reviewed and no additional complaints, except as documented Neuro Reports no additional complaints Psych Reports no additional complaints Endo Reports no additional complaints Orlin/Lymph Reports no additional complaints Aller/Immun Reports no additional complaints Office Procedures Post Void Residual Post Residual Void Post Void Residual (PVR): 0 [id number] Void Residual by ultrasound Results AMB Urinalysis, Automated UA Leukoctes 0 Suhail/uL Last Edit by RUSSELL Carter on 07/26/24 09:49 UA Nitrite Negative Last Edit by RUSSELL Carter on 07/26/24 09:49 UA Urobilinogen 0.2 mg/dL Last Edit by RUSSELL Carter on 07/26/24 09:4 9 UA Protein 15 mg/dL Last Edit by RUSSELL Carter on 07/26/24 09:49 UA pH 6.0 Last Edit by RUSSELL Carter on 07/26/24 09:49 UA Blood 0 Alejandro/uL Last Edit by RUSSELL Carter on 07/26/24 09:49 UA Specific [place] 1.025 Last Edit by RUSSELL Carter on 07/26/24 09: 49 UA Ketone Negative Last Edit by RUSSELL Carter on 07/26/24 09:49 UA Bilirubin 0 mg/dL Last Edit by RUSSELL Carter on 07/26/24 09:49 UA Glucose 0 mg/dL Last Edit by RUSSELL Carter on 07/26/24 09:49 Results Reviewed Results Reviewed: Laboratory Last Values Urine pH (Auto) 6.0 07/26/24 09:48 Specific [place] (Auto) 1.025 07/26/24 09:48 Urine Protein (Auto) 15 mg/dL 07/26/24 09:48 Glucose (UA)(Auto) 0 mg/dL 07/26/24 09:48 Urine Ketones (Auto) Negative 07/26/24 09:48 Urine Blood (Auto) 0 Alejandro/uL 07/26/24 09:48 Urine Nitrite (Auto) Negative 07/26/24 09:48 Urine Bilirubin (Auto) 0 mg/dL 07/26/24 09:48 Urine Urobilinogen (Auto) 0.2 mg/dL 07/26/24 09:48 Leukocyte Esterase (Auto) 0 Suhail/uL 07/26/24 09:48 Assessment & Plan Assessment & Plan (1) Female cystocele: Code(s): N81.10 - Cystocele, unspecified Category: Medical (2) Pelvic floor weakness: Code(s): N81.89 - Other female genital prolapse Category: Medical (3) Fecal incontinence: Code(s): R15.9 - Full incontinence of feces Category: Medical (4) Renal calculi: Code(s): N20.0 - Calculus of kidney Category: Medical (5) OAB (overactive bladder): Code(s): N32.81 - Overactive bladder Category: Medical Plan Nitrofurantoin post intercourse. Repeat Botox bladder injection 100 units Orders: Orders AMB Urinalysis Automated 07/26/24 Z13.9 - Encounter for screening, unspecified Patient Instructions: The patient had an opportunity to ask questions regarding treatment plan. The patient expressed understanding and agreement with the above treatment plan. The patient is aware they should contact our office by phone for worsening of their current condition or the appearance of new symptoms. Compliance is encouraged with any medications and followup testing that is ordered. It is a privilege to be allowed the opportunity to participate in the urologic care of your patient. If you have any questions or concerns regarding treatment for the above conditions please do not hesitate to contact me. The office telephone contact is [phone]. This note is constructed in part using voice recognition software. While every effort has been made to ensure accuracy corporate risk analyst errors may have been included. Yours sincerely, Leandra Lake MD Coding Level of Care Code Est Pt Level 4 (25603) Diagnoses Female cystocele N81.10 Pelvic floor weakness N81.89 Fecal incontinence R15.9 Renal calculi N20.0 OAB (overactive bladder) N32.81 CPT Codes Post Residual Void - PVR CPT Code: 67106-Auqv Void Residual by ultrasound ([id number])
== END 2024-07-26 12:44 | disposition home or self-care (01) ==
PROVIDERS: PCP Internal Medicine; Visit Provider Urology
DX: N81.10 Cystocele, unspecified (principal); N81.89 Other female genital prolapse; R15.9 Full incontinence of feces; N20.0 Calculus of kidney; N32.81 Overactive bladder
CPT/HCPCS: 99214

== ENCOUNTER → 2024-07-26 09:29 | Outpatient (BNVA) | payer OTHER, SELFPAY | PROVIDERS: PCP Internal Medicine; Visit Provider Urology | DX: N81.10 Cystocele, unspecified (principal); N81.89 Other female genital prolapse; R15.9 Full incontinence of feces; N20.0 Calculus of kidney; N32.81 Overactive bladder | CPT/HCPCS: 51798; 81003 ==

== ENCOUNTER 2024-09-07 11:56 | Inpatient (IN) | payer OTHER, SELFPAY ==
[2024-09-07] VITALS (9 sets, daily range): BP systolic 106–129; BP diastolic 52–73; PULSE 100–111; RESP 16–22; TEMP 37.4–39.4; O2SAT 95–97; BMI 25.7
--- NOTE | ~2024-09-07 | CT_ITS ---
EXAMINATION: CT ABDOMEN AND PELVIS WITH CONTRAST CLINICAL INFORMATION: Right lower quadrant pain. History of diverticulitis, ilda. COMPARISON: CT scans dating between November 01, 2023 and November 28, 2012. More remote prior studies are not currently available. TECHNIQUE: Multidetector volumetric images were obtained from the superior aspect of the liver through the pubic symphysis following administration 85 mL of Omnipaque 350 intravenous contrast. Sagittal and coronal reformatted images were obtained on the technologist's workstation. Oral contrast: No This CT examination was performed using dose optimization techniques as appropriate, variously including the following: *Automated exposure control *Adjustment of mA and/or kV according to patient size (this includes techniques or standardized protocols for targeted exams where dose is matched to indication/reason for exam; i.e. extremities or head) *Use of iterative reconstruction technique DLP: 629 mGy-cm FINDINGS: LUNG BASES: The lung bases appear clear, with no evidence of inflammation or nodules. LIVER, GALLBLADDER, AND BILIARY TREE: The liver appears unremarkable in size, shape, and attenuation. No focal hepatic lesion or biliary ductal dilatation is appreciated. Unremarkable appearance of the gallbladder. PANCREAS: Unremarkable SPLEEN: Unremarkable ADRENAL GLANDS: Unremarkable KIDNEYS AND URETERS: Multiple left renal cortical scars. Subcentimeter benign bilateral simple renal cysts for which no further dedicated follow-up imaging is indicated. 0.7 cm or less, nonobstructing, bilateral renal collecting system stones. No evidence of hydronephrosis or hydroureter on either side. BLADDER: Unremarkable GASTROINTESTINAL TRACT: Colonic diverticulosis without evidence of diverticulitis. Normal-appearing distal ileum and vermiform appendix. ABDOMINAL WALL: Postsurgical changes of the lower anterior abdominal wall. No significant hernia is appreciated. LYMPH NODES: No evidence of adenopathy by size criteria. VASCULAR: Unremarkable PELVIC VISCERA: Status post hysterectomy. OSSEOUS STRUCTURES: Unremarkable CT/CT abdomen pelvis w IV con IMPRESSION: No acute finding. Electronically signed by: Guy Mustafa MD 09/07/2024 04:54 PM EST
--- NOTE | 2024-09-07 12:27 | ED.NAVMDI ---
HPI - Nausea/Vomiting/Diarrhea General Chief complaint: Abdominal Pain Stated complaint: Fever P Right Side Nausea Time Seen by Provider: 09/07/24 15:15 Source: patient Mode of arrival: ambulatory Limitations: no limitations History of Present Illness ED Provider: Dr. Starr Stewart HPI Narrative: patient comes in the emergency room complaining of periumbilical and right lower quadrant pain since yesterday. The patient states that she has been having nausea vomiting diarrhea. Initially, inferior patient said that she has history of but states it really does not hurt or burn. Patient denies flank pain. patient denies any URI symptoms. Related Data Previous Rx's ?Medication ?Instructions ?Recorded leg brace (Knee Support Brace) #1 ea 01/05/21 diaper,brief,adult,disposable (Day #22 ea 09/16/23 and Night Brief,Medium) nitrofurantoin 100 mg PO .COMPLEX #30 caps 02/23/24 monohydrate/macrocrystals 100 mg capsule (Macrobid) ibuprofen 600 mg tablet 600 mg PO TID PRN fever or pain 04/10/24 #30 tabs cefuroxime axetil 500 mg tablet 500 mg PO BID 7 days #14 tabs 04/24/24 phenazopyridine 200 mg tablet 200 mg PO Q8H PRN urinary burning, 04/24/24 (Pyridium) bladder pain #30 tabs nirmatrelvir 300 mg (150 mg See Rx Instructions PO .COMPLEX 05/18/24 x2)-ritonavir 100 mg tablet,dose #30 ea pack (Paxlovid) pantoprazole 40 mg tablet,delayed 40 mg PO DAILY 90 days #90 tabs 05/26/24 release polyethylene glycol 3350 17 17 g PO DAILY #510 grams 07/18/24 gram/dose oral powder (Gavilax) docusate sodium 100 mg capsule 100 mg PO BID #60 caps 08/27/24 Allergies Allergy/AdvReac Type Severity Reaction Status Date / Time metronidazole [Metrogel] Allergy Intermediate facial rash Verified 09/07/24 12:28 morphine [Morphine] Allergy Intermediate SEVERE Verified 09/07/24 12:28 VOMITING, nausea and vomiting hydromorphone [From Dilaudid] AdvReac Mild makes pt Verified 09/07/24 12:28 feel ill Review of Systems Review of Systems: Constitutional : No Weight loss, No Fever, No Chills, No Night Sweats, No Fatigue, No Malaise ENT/Mouth : No Hearing loss, No Ear Pain, No Nasal Congestion, No Sinus Pain, No Hoarseness, No sore throat, No Rhinorrhea, No Swallowing Difficulty Eyes: No Eye Pain, No Swelling, No Redness, No Foreign Body, No Discharge, No Vision Changes Cardiovascular : No Chest Pain, No SOB, No Dyspnea on Exertion, No Orthopnea, No Edema, No Palpitations Respiratory : No Cough, No Sputum, No Wheezing, No Smoke Exposure, No Dyspnea Gastrointestinal : Complaining of nausea vomiting diarrhea, complaining of right lower quadrant pain Genitourinary : no irregular bleeding, No Dysuria, No Urinary Frequency, No Hematuria, No Urinary Incontinence, No Urgency, No Flank Pain, No Urinary Flow Changes, No Hesitancy Musculoskeletal : No joint pain, No Myalgias, No Joint Swelling Skin : No Skin Lesions, No rash Neuro : No Weakness, No Numbness, No Paresthesias, No Loss of Consciousness, No Dizziness, No Headache Psych : No Anxiety/Panic, No Depression, No SI/HI/AH/VH, No Social Issues, Heme/Lymph: No Bruising, No Bleeding,No Lymphadenopathy Endocrine : No Polyuria, No Polydipsia, No Temperature Intolerance [facility] Past Medical History Medical History Mixed incontinence urge and stress Recurrent UTI Urge urinary incontinence Change in bowel habits Foreign body granuloma of skin Acne rosacea Right hip pain Leg numbness Obesity Mixed hyperlipidemia GERD (gastroesophageal reflux disease) Hypovitaminosis D Surgical History History of colostomy reversal History of abdominoplasty Perforation of colon History of total abdominal hysterectomy and bilateral salpingo-oophorectomy Family History Family History Father Hypertension Cancer Mother Hypertension Diabetes Brother No problems noted. 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 Oriented X3. patient looks uncomfortable Eyes: Pupils equal, round and reactive to light. ENT: Pharynx normal. Neck: Normal inspection. Neck supple. No lymph nodes noted. No crepitus CVS: Normal heart rate and rhythm. Pulses normal. Normal S1 and S2 Respiratory: No respiratory distress. Breath sounds normal. No Wheezing. No rales Abdomen: soft, nondistended, tenderness to palpation in the right lower quadrant, mild rebound and guarding, no CVA tenderness Skin: Skin warm and dry. Normal skin color. Normal skin turgor. Extremities: No lower extremity edema. No Lacerations. No Rash Neuro: Oriented X 3. No motor deficit. No sensory deficit. Moving all extremities. No slurred speech. CN 2 through 12 grossly intact Psych: calm, cooperative, normal affect Course Course Course Narrative: This is an RME: Additional HPI, ROS, PE not included below will be deferred to primary provider. RME assessment and note performed by: Gali Bolivar PA-C This is a [id number]-female who presents to the ER with complaints of right sided abdominal pain, nausea, vomiting and diarrhea since last night. Pt with TTP over Plan: Medications Administered Generic Name Dose Route Start Last Admin Trade Name Freq PRN Reason Stop Dose Admin Sodium Chloride 2,000 mls @ 999 mls/hr 09/07/24 20:36 09/07/24 20:52 Ns IVCONT 09/07/24 22:36 999 mls/hr .Q2H1M ONE Administration Piperacillin Sod/Tazobactam 50 mls @ 100 mls/hr 09/07/24 20:37 09/07/24 20:52 Sod 3.375 gm/ Sodium Chloride IV 09/07/24 21:06 100 mls/hr ONCE ONE Administration Discontinued Medications Generic Name Dose Route Start Last Admin Trade Name Giorgio PRN Reason Stop Dose Admin Acetaminophen 975 mg 09/07/24 12:29 09/07/24 12:32 Acetaminophen 325 Mg Tablet PO 09/07/24 12:30 975 mg ONCE ONE Administration Acetaminophen 975 mg 09/07/24 20:26 09/07/24 20:30 Acetaminophen 325 Mg Tablet PO 09/07/24 20:27 975 mg ONCE ONE Administration Sodium Chloride 2,500 mls @ 999 mls/hr 09/07/24 15:23 09/07/24 18:24 Ns IVCONT 09/07/24 17:53 Infused .Q2H31M ONE Infusion Levofloxacin 500 mg in 100 mls @ 100 mls/hr 09/07/24 15:23 09/07/24 17:09 Levaquin IV 09/07/24 16:22 Infused ONCE ONE Infusion Ibuprofen 600 mg 09/07/24 20:10 09/07/24 20:26 Ibuprofen 600 Mg Tablet PO 09/07/24 20:11 Not Given ONCE ONE Iohexol 100 ml 09/07/24 16:01 09/07/24 16:01 Iohexol 350 Mg/Ml 100 Ml Infus..Btl IV 09/07/24 16:02 85 ml ONCE ONE Administration Ketorolac Tromethamine 30 mg 09/07/24 15:23 09/07/24 15:40 Ketorolac Tromethamine 30 Mg/Ml Vial IVPUSH 09/07/24 15:24 30 mg ONCE ONE Administration Ondansetron HCl 4 mg 09/07/24 15:23 09/07/24 15:40 Ondansetron Hcl 4 Mg/2 Ml Vial IVPUSH 09/07/24 15:24 4 mg ONCE ONE Administration Medical Decision Making Medical Decision Making MDM Narrative: my interpretation of labs: Patient's white blood cell count 15.9, chemistry within normal limits, negative troponin, normal LFTs, normal lipase. COVID and flu negative. Urinalysis pending - patient is empirically being treated with IV fluids, levofloxacin, ketorolac and Zofran - discussed with the patient that she may be having pyelonephritis versus appendicitis, versus kidney stones. - CT scan does not show any acute abnormality. - I discussed the patient with Dr. Quiles. Reviewing patient's past medical records, in October of this year 2023, patient came in complaining of right lower quadrant pain, patient was diagnosed with diverticulitis. On CT scan, the appendix looks normal. - Patient's antibiotics were switched to Zosyn. Initially we were going to add metronidazole but patient is allergic to metronidazole. patient has a fever, tachycardic. Patient has not had any episodes of hypotension, normal lactic acid, sepsis is not suspected - Patient to be admitted for diverticulitis. Surgery will consult in the morning. I discussed the patient with Dr. Castro from the Medicine team Differential Diagnosis Differential Diagnoses: The differential diagnosis associated with the presentation includes ( as above) Admission/Observation Consideration of admission/observation: Escalation of care including admission/observation considered ( given patient's initial presentation, observation/ admission has been considered) Consult Healthcare Provider Management of the patient was discussed with: Hospitalist and Tester [employer] Dis[employer] Leakage Lab Data MDM Lab Attestation statement: I reviewed the patient's lab results. 09/07/24 14:06 09/07/24 14:06 Labs: Lab Results 09/07/24 09/07/24 Range/Units 14:06 17:26 WBC 15.9 H (4.8-10.8) X10*3/uL RBC 4.34 (4.20-5.50) X10*6/uL Hgb 12.1 (12.0-16.0) g/dl Hct 37.2 (37.0-47.0) % MCV 85.7 (80.0-98.0) fL MCH 27.9 (27.0-33.0) pg MCHC 32.5 (31.0-35.0) g/dl RDW 13.2 (11.0-16.0) % Plt Count 201 (160-400) X10*3/uL MPV 9.2 L (9.4-12.3) fL Immature Gran % (Auto) Cancelled Neut % (Auto) Cancelled Lymph % (Auto) Cancelled [place] % (Auto) Cancelled Eos % (Auto) Cancelled Baso % (Auto) Cancelled Lymph # (Auto) Cancelled [place] # (Auto) Cancelled Eos # (Auto) Cancelled Baso # (Auto) Cancelled Abs Immat Gran (auto) Cancelled Absolute Neuts (auto) Cancelled Absolute Nucleated RBC 0.000 (0.0-0.012) X10*3/uL Nucleated RBC % (auto) 0.0 (0.0-0.2) /100WBC Neutrophils % (Manual) 80 H (45-73) % Band Neutrophils % 13 H (3-5) % Lymphocytes % (Manual) 4 L (20-40) % Atypical Lymphs % (Man) 1 (0-6) % Monocytes % (Manual) 1 L (2-11) % Basophils % (Manual) 1 (0-2) % Abs Neuts (Manual) 14.8 H (2.0-8.3) X10*3/uL Lymphocytes # (Manual) 0.6 L (1.2-4.9) X10*3/uL Atyp Lymphs # (Manual) 0.2 x10*3/uL Monocytes # (Manual) 0.2 (0.1-1.2) X10*3/uL Basophils # (Manual) 0.2 (0.0-0.2) X10*3/uL Hypersegmented Neuts PRESENT Smudge Cells PRES Toxic Vacuolation PRESENT Platelet Estimate NORMAL (NORMAL) Plt Morphology Comment NORMAL RBC Morphology NORMAL Sodium 138 (135-145) mmol/L Potassium 3.4 (3.3-5.1) mmol/L Chloride 110 H (96-108) mmol/L Carbon Dioxide 20 L (22-29) mmol/L Anion Gap 11 L (12-20) BUN 9 (9-16) mg/dL Creatinine 0.67 (0.5-1.4) mg/dL Estim Creat Clear Calc 92.0 Estimated GFR > 60 Random Glucose 176 H (60-115) mg/dL Lactic Acid 1.4 (0.5-2.0) mmol/L Calcium 8.6 D (8.4-10.2) mg/dL Magnesium 2.1 (1.6-2.6) mg/dL Total Bilirubin 1.0 (0.0-1.0) mg/dL Direct Bilirubin 0.3 (0.0-0.5) mg/dL AST 22 (5-31) U/L ALT 15 (0-31) U/L Alkaline Phosphatase 71 (39-117) U/L Troponin I High Sens < 2.7 (<3.5-17.0) ng/L Total Protein 6.6 (6.5-8.0) g/dL Albumin 3.9 (3.5-5.0) g/dL Lipase 22 (8-78) U/L Urine Color Yellow Urine Appearance Clear Urine pH 6.5 (5.0-9.0) Ur Specific [place] >= 1.030 H (1.005-1.025) Urine Protein Negative (Neg-Trace) mg/dL Urine Glucose (UA) Negative (Negative) mg/dL Urine Ketones Negative (Negative) mg/dL Urine Blood Negative (Negative) Urine Nitrite Negative (Negative) Ur Leukocyte Esterase Negative (Negative) Influenza Type A (PCR) NEGATIVE (Negative) Influenza Type B (PCR) NEGATIVE (Negative) RSV RNA Qual (PCR) NEGATIVE (Negative) SARS-CoV-2 RNA (RT-PCR) NEGATIVE (Negative) Independent Interpretation I performed an independent interpretation of an: CT Scan Radiology Impression Discussion of test interpretation with radiology: I have reviewed the radiologist's reading. Radiologist Impression: FINDINGS: LUNG BASES: The lung bases appear clear, with no evidence of inflammation or nodules. LIVER, GALLBLADDER, AND BILIARY TREE: The liver appears unremarkable in size, shape, and attenuation. No focal hepatic lesion or biliary ductal dilatation is appreciated. Unremarkable appearance of the gallbladder. PANCREAS: Unremarkable SPLEEN: Unremarkable ADRENAL GLANDS: Unremarkable KIDNEYS AND URETERS: Multiple left renal cortical scars. Subcentimeter benign bilateral simple renal cysts for which no further dedicated follow-up imaging is indicated. 0.7 cm or less, nonobstructing, bilateral renal collecting system stones. No evidence of hydronephrosis or hydroureter on either side. BLADDER: Unremarkable GASTROINTESTINAL TRACT: Colonic diverticulosis without evidence of diverticulitis. Normal-appearing distal ileum and vermiform appendix. ABDOMINAL WALL: Postsurgical changes of the lower anterior abdominal wall. No significant hernia is appreciated. LYMPH NODES: No evidence of adenopathy by size criteria. VASCULAR: Unremarkable PELVIC VISCERA: Status post hysterectomy. OSSEOUS STRUCTURES: Unremarkable CT/CT abdomen pelvis w IV con IMPRESSION: No acute finding. Critical Care Time Critical Care Time Critical Care Time: Yes Total Critical Care Time: 60 Attestation: I have personally provided critical care time. Time includes review of lab data, radiology results, discussion with consultants, and monitoring for potential decompensation. Intervention performed as documented. Discharge Plan Discharge Clinical Impression: Abdominal pain, Fever Patient Disposition: Admitted As Inpatient Prescriptions: No Action (DME) Knee Support Brace Misc See Rx Instructions .ROUTE .MEDSUPPLY Qty: 1 0RF Rx Instructions: As directed x 6 weeks ibuprofen 600 mg tablet 600 mg PO TID PRN (Reason: fever or pain) Qty: 30 1RF Paxlovid 300 mg (150 mg x 2)-100 mg tablets,dose pack See Rx Instructions PO .COMPLEX Qty: 30 0RF Rx Instructions: take TWO 150 mg tablets of nirmatrelvir with ONE 100 mg tablet of ritonavir twice daily for 5 days PO pantoprazole 40 mg tablet,delayed release (DR/EC) 40 mg PO DAILY 90 Days Qty: 90 3RF polyethylene glycol 3350 [Gavilax] 17 gram/dose powder 17 g PO DAILY Qty: 510 0RF docusate sodium 100 mg capsule 100 mg PO BID Qty: 60 0RF cefuroxime axetil 500 mg tablet 500 mg PO BID 7 Days Qty: 14 0RF phenazopyridine [Pyridium] 200 mg tablet 200 mg PO Q8H PRN (Reason: urinary burning, bladder pain) Qty: 30 0RF Rx Instructions: Use pyridium every 8 hrs for 2 days, then use every 8 hrs as needed for persistent urinary burning, must take with a meal nitrofurantoin monohyd/m-cryst [Macrobid] 100 mg capsule 100 mg PO .COMPLEX Qty: 30 5RF Rx Instructions: 100 mg orally take post sexual activity as directed; must administer with a meal/food (DME) Day and Night Brief,Medium Misc See Rx Instructions .Route Qty: 22 3RF Rx Instructions: As directed Print Language: Other
[2024-09-07] MEDS: Acetaminophen 325 MG TABLET 975 MG PO ×2 (12:32→20:30)
--- NOTE | 2024-09-07 12:33 | ECG_ITS ---
Test Reason : ABD PAIN Blood Pressure : / mmHG Vent. Rate : 111 BPM Atrial Rate : 111 BPM P-R Int : 158 ms QRS Dur : 076 ms QT Int : 340 ms P-R-T Axes : 033 -26 -12 degrees QTc Int : 462 ms Sinus tachycardia Anterior infarct , age undetermined Nonspecific ST and T wave abnormality Abnormal ECG When compared with ECG of 26-FEB-2019 16:37, Anterior infarct is now Present Nonspecific T wave abnormality now evident in Anterior leads Referred By: Gali Bolivar Electronically Signed By:BILL CHATTERJEE
[2024-09-07 14:13] LABS: Hematocrit 37.2 % (37.0-47.0); Hemoglobin 12.1 g/dl (12.0-16.0); Mean Corpuscular HGB Conc 32.5 g/dl (31.0-35.0); Mean Corpuscular Hemoglobin 27.9 pg (27.0-33.0); Mean Corpuscular Volume 85.7 fL (80.0-98.0); Mean Platelet Volume 9.2 fL (9.4-12.3); Platelet Count 201 X10*3/uL (160-400); Red Blood Count 4.34 X10*6/uL (4.20-5.50); Red Cell Distribution Width 13.2 % (11.0-16.0); White Blood Count 15.9 X10*3/uL (4.8-10.8)
[2024-09-07 14:34] LABS: Lactic Acid 1.4 mmol/L (0.5-2.0)
[2024-09-07 14:44] LABS: Neutrophils Percent Manual 80 % (45-73)
[2024-09-07 14:45] LABS: Alanine Aminotransferase 15 U/L (0-31); Albumin Level 3.9 g/dL (3.5-5.0); Alkaline Phosphatase 71 U/L (39-117); Anion Gap 11 (12-20); Aspartate Amino Transferase 22 U/L (5-31); Bilirubin Direct 0.3 mg/dL (0.0-0.5); Blood Urea Nitrogen 9 mg/dL (9-16); Calcium 8.6 mg/dL (8.4-10.2); Carbon Dioxide 20 mmol/L (22-29); Chloride 110 mmol/L (96-108); Estimated Glomerular Filt Rate > 60; Glucose Random 176 mg/dL (60-115); Lipase 22 U/L (8-78); Magnesium 2.1 mg/dL (1.6-2.6); Potassium 3.4 mmol/L (3.3-5.1); Sodium 138 mmol/L (135-145); Total Protein 6.6 g/dL (6.5-8.0); Troponin-I High Sensitivity < 2.7 ng/L (<3.5-17.0)
[2024-09-07 14:47] LABS: Atypical Lymph Absolute Manual 0.2 x10*3/uL; Atypical Lymphs Percent Manual 1 % (0-6); Band Neutrophils Percent 13 % (3-5); Basophils Abs Manual 0.2 X10*3/uL (0.0-0.2); Basophils Percent Manual 1 % (0-2); Lymphocytes Absolute Manual 0.6 X10*3/uL (1.2-4.9); Lymphocytes Percent Manual 4 % (20-40); Monocytes Absolute Manual 0.2 X10*3/uL (0.1-1.2); Monocytes Percent Manual 1 % (2-11); Neutrophils Absolute Manual 14.8 X10*3/uL (2.0-8.3); RBC Morphology NORMAL
[2024-09-07 14:48] LABS: Hypersegmented Neutrophils PRESENT; Platelet Estimate NORMAL (NORMAL); Platelet Morphology Comment NORMAL
[2024-09-07 14:49] LABS: Toxic Vacuolation PRESENT
[2024-09-07 14:50] LABS: Smudge Cells PRES
[2024-09-07 14:53] LABS: Influenza A PCR NEGATIVE (Negative); Influenza B PCR NEGATIVE (Negative); Resp Syncy Virus RNA Qual PCR NEGATIVE (Negative); SARS COV2 PCR INHOUSE NEGATIVE (Negative)
[2024-09-07] MEDS: 0.9 % Sodium Chloride 2,500 ML 999 ML IVCONT (15:39)
[2024-09-07] MEDS: Ketorolac Tromethamine 30 MG/ML VIAL IVPUSH (15:40)
[2024-09-07] MEDS: ondansetron HCL 4 MG/2 ML VIAL IVPUSH (15:40)
[2024-09-07] MEDS: levoFLOXacin/D5W 500 MG/100 ML PIGGYBACK 100 MG IV (15:40)
--- NOTE | 2024-09-07 15:49 | PC.NURSE ---
This RN approached Dr. Stewart and asked if patient was going to be a sepsis alert, as the orders reflect it, at this time provider said she was not going to call one. Orders done per MAR at this time.
[2024-09-07] MEDS: iohexoL 350 MG/ML 100 ML INFUS..BTL IV (16:01)
[2024-09-07 17:38] LABS: Appearance Urine Clear; Color Urine Yellow; Glucose Urine UA Negative (Negative); Leukocyte Esterase Urine Negative (Negative); Nitrite Urine Negative (Negative); PH 6.5 (5.0-9.0); Specific Gravity - Urine >= 1.030 (1.005-1.025); Urine Blood Negative (Negative); Urine Ketones Negative (Negative); Urine Protein Negative (Neg-Trace)
--- NOTE | 2024-09-07 18:58 | PC.NURSE ---
MD Stewart made aware of temp, no new orders at this time
--- NOTE | 2024-09-07 20:06 | MHC.EDTECH ---
0200 rounding done ,vitals taken ,Provider Pat and NIXON Hall is aware of Patient high temp of 103.0 ,Patient was hooked up to electrician bus .
--- NOTE | 2024-09-07 20:10 | PC.NURSE ---
aware of increased temp. new orders placed
[2024-09-07] MEDS: Piperacillin Sodium/Tazobactam 3.375 GM in 0.9 % Sodium Chloride 50 ML IV (20:52)
[2024-09-07] MEDS: 0.9 % Sodium Chloride 2,000 ML 999 ML IVCONT (20:52)
--- NOTE | 2024-09-07 21:30 | P.HPHOSP_ITS ---
History of Present Illness Date of Service: 09/07/24 Chief Complaint: Right lower quadrant abdominal pain A 54-year-old female with a history of recurrent UTIs and diverticulitis presented to the emergency department with severe right lower quadrant abdominal pain that had persisted for several days and worsened significantly today. She also experienced loose stools and vomiting today and reported a fever as high as 103?F. She denied dysuria. Emergency department workup revealed a WBC count of 15. A CT scan of the abdomen and pelvis showed a normal appendix, the presence of diverticulosis, but no evidence of diverticulitis. The patient has a history of hysterectomy. Initially, she was treated with Levaquin for a suspected UTI, although the urinalysis findings did not support this diagnosis. Subsequently, Zosyn was initiated for possible diverticulitis despite the lack of radiographic evidence on the CT scan. Surgery advised admission to medicine. Review of Systems 2 Review of Systems: Gen: + fever Resp: no sob, no cough CV: no chest, no MILES, no leg edema GI: nausea but no vomitting, abd pain Neuro: No confusion [facility] Medical History Mixed incontinence urge and stress Recurrent UTI Urge urinary incontinence Change in bowel habits Foreign body granuloma of skin Acne rosacea Right hip pain Leg numbness Obesity Mixed hyperlipidemia GERD (gastroesophageal reflux disease) Hypovitaminosis D Family History Father Hypertension Cancer Mother Hypertension Diabetes Brother No problems noted. Sister In good health Daughter In good health Surgical History History of colostomy reversal History of abdominoplasty Perforation of colon History of total abdominal hysterectomy and bilateral salpingo-oophorectomy Social History Household Members: Children Housing: House Do you presently have visiting nurse or other home services: No Alcohol intake: current Alcohol intake frequency: holidays/special occasions only Patient Tobacco Use Status: Never used Tobacco e-Cigarette/Vaping Use: Never Used Second Hand Smoke Exposure: No Advance Directives: No Advance Directives Information Provided: Yes Do you have a plan to hurt others: No Plan service: No Current occupational status: employed 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 Current occupational exposures/hazards: No Cognitive needs: No Hearing needs: No Vision needs: Yes Meds Allergies Allergy/AdvReac Type Severity Reaction Status Date / Time metronidazole [Metrogel] Allergy Intermediate facial rash Verified 09/07/24 12:28 morphine [Morphine] Allergy Intermediate SEVERE Verified 09/07/24 12:28 VOMITING, nausea and vomiting hydromorphone [From Dilaudid] AdvReac Mild makes pt Verified 09/07/24 12:28 feel ill Active Medications: Current Medications Sodium Chloride (Ns) 2,000 mls @ 999 mls/hr IVCONT .Q2H1M ONE Stop: 09/07/24 22:36 Last Admin: 09/07/24 20:52 Dose: 999 mls/hr Home Medications ?Medication ?Instructions ?Recorded ?Confirmed ?Last Taken ?Type docusate sodium 100 mg capsule 100 mg PO Q2D 09/07/24 09/07/24 09/05/24 History pantoprazole 40 mg tablet,delayed 40 mg PO DAILY@0630 09/07/24 09/07/24 09/05/24 History release polyethylene glycol 3350 17 17 g PO DAILY PRN Constipation 09/07/24 09/07/24 Unknown History gram/dose oral powder (Gavilax) Physical Exam 2 Vital Signs and Narrative: Vital Signs: Last Vital Signs Temp 103.0 F H 09/07/24 19:57 Pulse 111 H 09/07/24 19:57 Resp 20 09/07/24 19:57 BP 129/62 09/07/24 19:57 Pulse Ox 96 09/07/24 19:57 O2 Del Method Room Air 09/07/24 19:57 BMI result Body Mass Index 25.7 Const: Other: General: AO X 3, no acute distress Heent: normal sclera and eye movement Resp: CTA bilateral CVS: S1,S2,RRR GI: +BS, RLQ tenderness, voluntary guarding, no distention : no flank tendnerness Skin: No rash Neuro: motor grossly intact, cn 2 to 12 normal Psych: appropriate affect Results Labs 09/07/24 14:06 09/07/24 14:06 Labs: Laboratory Results - last 24 hr 09/07/24 09/07/24 14:06 17:26 MCV 85.7 MCH 27.9 MCHC 32.5 RDW 13.2 Plt Count 201 MPV 9.2 L Immature Gran % (Auto) Cancelled Neut % (Auto) Cancelled Lymph % (Auto) Cancelled [place] % (Auto) Cancelled Eos % (Auto) Cancelled Baso % (Auto) Cancelled Lymph # (Auto) Cancelled [place] # (Auto) Cancelled Eos # (Auto) Cancelled Baso # (Auto) Cancelled Abs Immat Gran (auto) Cancelled Absolute Neuts (auto) Cancelled Absolute Nucleated RBC 0.000 Nucleated RBC % (auto) 0.0 Neutrophils % (Manual) 80 H Band Neutrophils % 13 H Lymphocytes % (Manual) 4 L Atypical Lymphs % (Man) 1 Monocytes % (Manual) 1 L Basophils % (Manual) 1 Abs Neuts (Manual) 14.8 H Lymphocytes # (Manual) 0.6 L Atyp Lymphs # (Manual) 0.2 Monocytes # (Manual) 0.2 Basophils # (Manual) 0.2 Hypersegmented Neuts PRESENT Smudge Cells PRES Toxic Vacuolation PRESENT Platelet Estimate NORMAL Plt Morphology Comment NORMAL RBC Morphology NORMAL Anion Gap 11 L Estim Creat Clear Calc 92.0 Estimated GFR > 60 Random Glucose 176 H Lactic Acid 1.4 Calcium 8.6 D Magnesium 2.1 Total Bilirubin 1.0 Direct Bilirubin 0.3 AST 22 ALT 15 Alkaline Phosphatase 71 Troponin I High Sens < 2.7 Total Protein 6.6 Albumin 3.9 Lipase 22 Urine Color Yellow Urine Appearance Clear Urine pH 6.5 Ur Specific [place] >= 1.030 H Urine Protein Negative Urine Glucose (UA) Negative Urine Ketones Negative Urine Blood Negative Urine Nitrite Negative Ur Leukocyte Esterase Negative Influenza Type A (PCR) NEGATIVE Influenza Type B (PCR) NEGATIVE RSV RNA Qual (PCR) NEGATIVE SARS-CoV-2 RNA (RT-PCR) NEGATIVE Imaging Radiologist's Impressions: Impressions Abdomen/Pelvis CT 09/07/24 15:58 IMPRESSION: No acute finding. Electronically signed by: Guy Mustafa MD 09/07/2024 04:54 PM [facility] [place] Assessment and Plan (1) Diverticulitis: Status: Acute (2) Abdominal pain: Status: Acute Plan 54-year-old female with a history of recurrent UTIs and diverticulitis, presenting with right lower quadrant pain, fever, and elevated WBC. Clinical presentation is consistent with acute diverticulitis, though not confirmed by CT scan. Abdominal pain due to suspected acute diverticulitis: -Continue Zosyn -Surgery consult -IV fluids, morphine for pain -Clear liquid diet, advance as tolerated Sepsis due to above (fever, tachycardia, and elevated WBC): -Management as above GERD: -PPI DVT prophylaxis: Lovenox Full code Admission for at least 2 midnight for management of acute diverticulitis with IV antibiotics. Quality Stroke Does the patient have a stroke diagnosis?: No VTE Prior VTE?: No VTE Risk Level:: Medical - moderate - high VTE Device Contraindication: Treatment Not Indicated VTE Drug Contraindication: N/A - Med Ordered
--- NOTE | 2024-09-07 21:30 | PHA.MEDREC ---
Addendum entered by Ugo Gonzales RPh 09/07/24 21:41: Med rec was reviewed by [facility]. Original Note: Pharmacy Consult ? Medication Reconciliation Pharmacy has completed the medication reconciliation. Spoke to patent to confirm med list.
--- NOTE | 2024-09-07 22:30 | PC.NURSE ---
pt ambulated to the bathroom, gait even and steady. pt requesting food. pt given ajith claudia and jello per clear liquid diet order
[2024-09-07] MEDS: Ibuprofen 600 MG TABLET PO (23:00)
[2024-09-07] MEDS: Lactated Ringers 1,000 ML 125 ML IVCONT (23:00)
[2024-09-08] VITALS (7 sets, daily range): BP systolic 95–131; BP diastolic 52–68; PULSE 86–93; RESP 14–18; TEMP 36.8–37.6; O2SAT 95–97; BMI 27.8
[2024-09-08] MEDS: Piperacillin Sodium/Tazobactam 3.375 GM in 0.9 % Sodium Chloride 50 ML IV ×2 (02:51→08:20)
[2024-09-08] MEDS: Acetaminophen 325 MG TABLET 650 MG PO ×2 (02:55→09:19)
[2024-09-08] MEDS: ondansetron HCL 4 MG/2 ML VIAL IVPUSH (02:55)
[2024-09-08] MEDS: Omeprazole 20 MG CAPSULE.DR PO (05:19)
[2024-09-08 07:05] LABS: Anion Gap 11 (12-20); Blood Urea Nitrogen 7 mg/dL (9-16); Calcium 8.2 mg/dL (8.4-10.2); Carbon Dioxide 22 mmol/L (22-29); Chloride 114 mmol/L (96-108); Creatinine Clr Calc Pharmacy 101.4; Estimated Glomerular Filt Rate > 60; Glucose Random 108 mg/dL (60-115); Potassium 3.2 mmol/L (3.3-5.1); Sodium 144 mmol/L (135-145)
[2024-09-08] MEDS: Lactated Ringers 1,000 ML 125 ML IVCONT ×2 (08:20→21:17)
[2024-09-08] MEDS: Enoxaparin Sodium 40 MG/0.4 ML SYRINGE SUBCUT (08:20)
[2024-09-08] MEDS: 0.9 % Sodium Chloride Flush 3 ML SYRINGE IVFLUSH ×2 (08:21→17:32)
[2024-09-08 08:31] LABS: Hematocrit 34.9 % (37.0-47.0); Hemoglobin 10.9 g/dl (12.0-16.0); Mean Corpuscular HGB Conc 31.2 g/dl (31.0-35.0); Mean Corpuscular Hemoglobin 27.5 pg (27.0-33.0); Mean Corpuscular Volume 88.1 fL (80.0-98.0); Mean Platelet Volume 9.3 fL (9.4-12.3); Platelet Count 173 X10*3/uL (160-400); Red Blood Count 3.96 X10*6/uL (4.20-5.50); Red Cell Distribution Width 13.6 % (11.0-16.0); White Blood Count 9.4 X10*3/uL (4.8-10.8)
--- NOTE | 2024-09-08 09:42 | MHC.CM.PN ---
PT REPORTS SHE LIVES WITH HER AND DAUGHTER SHE IS INDEPENDENT WITH CARE WITH NO DME OR SERVICES HCP ON FILE PCP: [facility] DCP: HOME NO SERVICES VIA PRIVATE TRANSPORT
[2024-09-08] MEDS: Potassium Chloride ER 20 MEQ TAB.ER.PRT 40 MEQ PO (12:31)
[2024-09-08 12:33] LABS: Leukocytes Stool Qualitative NEGATIVE (NEGATIVE)
[2024-09-08 12:58] LABS: CDiff Gene PCR POSITIVE (Negative)
[2024-09-08 14:20] LABS: CDiff Toxin Negative (Negative)
[2024-09-08 14:21] LABS: CDIFF Internal ctrl Dots and bkg OK (V)
[2024-09-08 14:44] LABS: Adenovirus F 40/41 Not Detected (Not Detect.); Astrovirus Not Detected (Not Detect.); Campylobacter Detected (Not Detect.); Cryptosporidium Not Detected (Not Detect.); Cyclospora cayetanensis Not Detected (Not Detect.); E. coli EAEC Not Detected (Not Detect.); E. coli EPEC Not Detected (Not Detect.); E. coli ETEC Not Detected (Not Detect.); E. coli STEC Not Detected (Not Detect.); Entamoeba histolytica Not Detected (Not Detect.); Giardia lamblia Not Detected (Not Detect.); Norovirus GI/GII Not Detected (Not Detect.); Plesiomonas shigelloides Not Detected (Not Detect.); Rotavirus A Not Detected (Not Detect.); Salmonella Not Detected (Not Detect.); Sapovirus Not Detected (Not Detect.); Shigella sp./EIEC Not Detected (Not Detect.); Vibrio Not Detected (Not Detect.); Vibrio Cholerae Not Detected (Not Detect.); Yersinia enterocolitica Not Detected (Not Detect.)
--- NOTE | 2024-09-08 15:26 | P.PNIM_ITS ---
Subjective Subjective Date of Service: 09/08/24 Interval History: seen and examined this morning follow up for abdominal pain reporting ongoing RLQ abdominal pain with minimal palpation reporting diarrhea Review of Systems Review of Systems: Yes all other systems are reviewed and are negative Constitutional Constitutional: Denies chills and Denies fever(s) Physical Exam 2 Vital Signs: Vital Signs: Last Vital Signs Temp 99.0 F 09/08/24 07:14 Pulse 91 09/08/24 07:14 Resp 14 09/08/24 07:14 BP 95/52 L 09/08/24 07:14 Pulse Ox 96 09/08/24 07:14 O2 Del Method Room Air 09/08/24 07:14 BMI result Body Mass Index 27.8 Const: General: cooperative, comfortable, no acute distress, alert and awake Nutritional Appearance: average body habitus Orientation/consciousness: p atient oriented x3 Resp: Effort & Inspection: normal respiratory effort, able to speak in complete sentences, no respiratory distress and no use of accessory muscles Cardio: Rate: regular rate GI: Other: abdomen soft, non-distended, no rebound or guarding; TTP RLQ Neuro: General: patient oriented x3, moves all extremities and CN's II-XI intact bilaterally Extrem: General: Yes no pedal edema Objective Data Active Medications Acetaminophen (Acetaminophen 325 Mg Tablet) 650 mg PO Q6H PRN PRN Reason: Pain, Mild (Pain Scale 1-3), fever or headache Last Admin: 09/08/24 09:19 Dose: 650 mg Documented By: DENI Calcium Carbonate (Calcium Carbonate 750 Mg Tab.Chew) 750 mg PO Q4H PRN PRN Reason: Heartburn Enoxaparin Sodium (Enoxaparin Sodium 40 Mg/0.4 Ml Syringe) 40 mg SUBCUT DAILY [facility] Last Admin: 09/08/24 08:20 Dose: 40 mg Documented By: DENI Hydromorphone HCl (Hydromorphone Hcl 1 Mg/Ml Syringe) 0.5 mg IVPUSH Q4H PRN; Protocol PRN Reason: Pain, Severe (Pain Scale 7-10) Lactated Ringer's (Lr) 1,000 mls @ 125 mls/hr IVCONT .Q8H [facility] Last Admin: 09/08/24 08:20 Dose: 125 mls/hr Documented By: DENI Azithromycin 500 mg/ Sodium (Chloride) 250 mls @ 125 mls/hr IV Q24H [facility] Ibuprofen (Ibuprofen 600 Mg Tablet) 600 mg PO Q6H PRN PRN Reason: Pain, Mild (Pain Scale 1-3) Last Admin: 09/07/24 23:00 Dose: 600 mg Documented By: TIA Magnesium Hydroxide (Milk Of Magnesia 30 Ml Oral.Susp) 30 ml PO DAILY PRN PRN Reason: Constipation Melatonin (Melatonin 3 Mg Tablet) 6 mg PO BEDTIME PRN PRN Reason: Insomnia Omeprazole (Omeprazole 20 Mg Capsule.Dr) 20 mg PO DAILY@0630 [facility] Last Admin: 09/08/24 05:19 Dose: 20 mg Documented By: RONALD Ondansetron HCl (Ondansetron Hcl 4 Mg/2 Ml Vial) 4 mg IVPUSH Q8H PRN PRN Reason: Nausea and Vomiting Last Admin: 09/08/24 02:55 Dose: 4 mg Documented By: RONALD Polyethylene Glycol (Polyethylene Glycol 3350 17 Gm Powd.Pack) 17 gm PO DAILY PRN PRN Reason: Constipation Sodium Chloride (0.9 % Sodium Chloride Flush 3 Ml Syringe) 3 ml IVFLUSH QSHIFT [facility] Last Admin: 09/08/24 08:21 Dose: 3 ml Documented By: DENI Labs 09/08/24 08:17 09/08/24 05:21 Labs: Laboratory Results - last 24 hr 09/07/24 09/08/24 09/08/24 17:26 05:21 08:17 MCV 88.1 MCH 27.5 MCHC 31.2 RDW 13.6 Plt Count 173 MPV 9.3 L Absolute Nucleated RBC 0.000 Nucleated RBC % (auto) 0.0 Anion Gap 11 L Estim Creat Clear Calc 101.4 Estimated GFR > 60 Random Glucose 108 Calcium 8.2 L Urine Color Yellow Urine Appearance Clear Urine pH 6.5 Ur Specific [place] >= 1.030 H Urine Protein Negative Urine Glucose (UA) Negative Urine Ketones Negative Urine Blood Negative Urine Nitrite Negative Ur Leukocyte Esterase Negative Stool Leukocytes, Qual Stl C. cayetanensis PCR Stool Rotavirus A PCR Stl Adenov F 40/41 PCR Stool Astrovirus (PCR) Stool Campylobacter PCR Stool Cryptosporidium PCR Stl Sh Tox Pr E STEC PCR Stool E coli O157 PCR Stl Enterotoxigenic E PCR Stool EPEC (PCR) Stool EAEC (PCR) Stl E. histolytica PCR Stool Giardia Lamblia PCR Stl P. shigelloides PCR Stool Salmonella PCR Stool Sapovirus (PCR) Stl Shigella/EIEC PCR St Y.enterocolitica PCR Stool Vibrio (PCR) Stl Vibrio cholerae PCR Stl Norovirus GI/GII PCR C. difficile Tox B Gene C. difficile Toxin A&B C. difficile Interpret 09/08/24 11:33 MCV MCH MCHC RDW Plt Count MPV Absolute Nucleated RBC Nucleated RBC % (auto) Anion Gap Estim Creat Clear Calc Estimated GFR Random Glucose Calcium Urine Color Urine Appearance Urine pH Ur Specific [place] Urine Protein Urine Glucose (UA) Urine Ketones Urine Blood Urine Nitrite Ur Leukocyte Esterase Stool Leukocytes, Qual NEGATIVE Stl C. cayetanensis PCR Not Detected Stool Rotavirus A PCR Not Detected Stl Adenov F 40/41 PCR Not Detected Stool Astrovirus (PCR) Not Detected Stool Campylobacter PCR Detected A Stool Cryptosporidium PCR Not Detected Stl Sh Tox Pr E STEC PCR Not Detected Stool E coli O157 PCR Not applicable Stl Enterotoxigenic E PCR Not Detected Stool EPEC (PCR) Not Detected Stool EAEC (PCR) Not Detected Stl E. histolytica PCR Not Detected Stool Giardia Lamblia PCR Not Detected Stl P. shigelloides PCR Not Detected Stool Salmonella PCR Not Detected Stool Sapovirus (PCR) Not Detected Stl Shigella/EIEC PCR Not Detected St Y.enterocolitica PCR Not Detected Stool Vibrio (PCR) Not Detected Stl Vibrio cholerae PCR Not Detected Stl Norovirus GI/GII PCR Not Detected C. difficile Tox B Gene POSITIVE A* C. difficile Toxin A&B Negative C. difficile Interpret SEE NOTE Assessment and Plan (1) Campylobacter diarrhea: Status: Acute Plan 54-year-old female with a history of recurrent UTIs and diverticulitis, presenting with right lower quadrant pain, fever, and elevated WBC. Clinical presentation is consistent with acute diverticulitis, though not confirmed by CT scan. Abdominal pain initially thought to be due to diverticultis or possible appendicitis although CT scan negative stool studies +for campylobacter cdif PCR + but toxin negative, more likely colonization rather then active infection as alternative explanation for diarrhea given fever will start IV azithromycin; stop zosyn official Surgery consult pending continue IV fluids, morphine for pain Clear liquid diet, advance as tolerated Sepsis due to above (fever, tachycardia, and elevated WBC): Fever, tachycardia resolved. no severe features, lactic acid normal blood cultures pending hypokalemia due to GI loss replace and follow BMP normocytic anemia no overt bleeding noted ?hemodilution follow CBC GERD: continue PPI DVT prophylaxis: Lovenox Full code Requires ongoing inpatient stay for management of campylobacter Quality Stroke Does the patient have a stroke diagnosis?: No VTE Prior VTE?: No VTE Risk Level:: Medical - moderate - high VTE Device Contraindication: Treatment Not Indicated VTE Drug Contraindication: N/A - Med Ordered
[2024-09-08] MEDS: Azithromycin 500 MG in 0.9 % Sodium Chloride 250 ML 125 MG IV (15:28)
[2024-09-08] MEDS: Ibuprofen 600 MG TABLET PO (15:28)
[2024-09-08] MEDS: Magnesium Sulfate/H2O 2 GM/50 ML PIGGYBACK IV (17:32)
--- NOTE | 2024-09-08 19:00 | PC.NURSE ---
C-Diff PCR positive. Campylobacter positive. Provider notified. On Contact Precautions. IV antibiotics changed to azthromycin. Encouraging po fluids.
--- NOTE | 2024-09-08 20:09 | PM.HPGS ---
History of Present Illness History of Present Illness Date of Service: 09/08/24 Chief complaint: Acute diverticulitis Narrative: Malathi Townsend is a 54 year old female who is known to the surgical service from early in the year when she came in with the right-sided abdominal pain which turned out maybe to be just some diverticulitis and she did well with conservative care and then underwent colonoscopy with Dr. Donald which revealed right-sided as well as left-sided diverticulitis. Patient now came into the emergency room complaining of right lower quadrant pain some nausea and diarrhea. She is unsure if this is her diverticulitis it does feel a little similar but at the same time different. CT scan done in the emergency room did not reveal any obvious diverticulitis and the appendix was visualized and was normal. Her white count was little elevated. Was a concern that this could still be appendicitis but it did not seem that way. Patient was admitted by the medical team and stool samples carried out. Her initial stool results show that she does have Campylobacter and in retrospect the patient thinks that the giving she was eating some raw meat in her stopping turkey and she was the only 1 who did it and now maybe she got some food poisoning from that. Review of Systems Review of Systems: Yes all other systems are reviewed and are negative PMFSH Past Medical History Medical History Mixed incontinence urge and stress Recurrent UTI Urge urinary incontinence Change in bowel habits Foreign body granuloma of skin Acne rosacea Right hip pain Leg numbness Obesity Mixed hyperlipidemia GERD (gastroesophageal reflux disease) Hypovitaminosis D Family History Family History Father Hypertension Cancer Mother Hypertension Diabetes Brother No problems noted. Sister In good health Daughter In good health Surgical History Surgical History History of colostomy reversal History of abdominoplasty Perforation of colon History of total abdominal hysterectomy and bilateral salpingo-oophorectomy Social History Social History Household Members: Spouse, Family and Children Housing: House Do you presently have visiting nurse or other home services: No Alcohol intake: current Alcohol intake frequency: holidays/special occasions only Patient Tobacco Use Status: Never used Tobacco e-Cigarette/Vaping Use: Never Used Second Hand Smoke Exposure: No service: No Current occupational status: employed 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 Current occupational exposures/hazards: No Cognitive needs: No Hearing needs: No Vision needs: Yes Meds Allergies Allergy/AdvReac Type Severity Reaction Status Date / Time metronidazole [Metrogel] Allergy Intermediate facial rash Verified 09/07/24 12:28 morphine [Morphine] Allergy Intermediate SEVERE Verified 09/07/24 12:28 VOMITING, nausea and vomiting hydromorphone [From Dilaudid] AdvReac Mild makes pt Verified 09/07/24 12:28 feel ill Active Medications: Current Medications Acetaminophen (Acetaminophen 325 Mg Tablet) 650 mg PO Q6H PRN PRN Reason: Pain, Mild (Pain Scale 1-3), fever or headache Last Admin: 09/08/24 09:19 Dose: 650 mg Calcium Carbonate (Calcium Carbonate 750 Mg Tab.Chew) 750 mg PO Q4H PRN PRN Reason: Heartburn Enoxaparin Sodium (Enoxaparin Sodium 40 Mg/0.4 Ml Syringe) 40 mg SUBCUT DAILY [facility] Last Admin: 09/08/24 08:20 Dose: 40 mg Hydromorphone HCl (Hydromorphone Hcl 1 Mg/Ml Syringe) 0.5 mg IVPUSH Q4H PRN; Protocol PRN Reason: Pain, Severe (Pain Scale 7-10) Lactated Ringer's (Lr) 1,000 mls @ 125 mls/hr IVCONT .Q8H [facility] Last Infusion: 09/08/24 19:34 Dose: 125 mls/hr Azithromycin 500 mg/ Sodium (Chloride) 250 mls @ 125 mls/hr IV Q24H [facility] Last Infusion: 09/08/24 18:08 Dose: Infused Ibuprofen (Ibuprofen 600 Mg Tablet) 600 mg PO Q6H PRN PRN Reason: Pain, Mild (Pain Scale 1-3) Last Admin: 09/08/24 15:28 Dose: 600 mg Magnesium Hydroxide (Milk Of Magnesia 30 Ml Oral.Susp) 30 ml PO DAILY PRN PRN Reason: Constipation Melatonin (Melatonin 3 Mg Tablet) 6 mg PO BEDTIME PRN PRN Reason: Insomnia Omeprazole (Omeprazole 20 Mg Capsule.Dr) 20 mg PO DAILY@0630 [facility] Last Admin: 09/08/24 05:19 Dose: 20 mg Ondansetron HCl (Ondansetron Hcl 4 Mg/2 Ml Vial) 4 mg IVPUSH Q8H PRN PRN Reason: Nausea and Vomiting Last Admin: 09/08/24 02:55 Dose: 4 mg Polyethylene Glycol (Polyethylene Glycol 3350 17 Gm Powd.Pack) 17 gm PO DAILY PRN PRN Reason: Constipation Sodium Chloride (0.9 % Sodium Chloride Flush 3 Ml Syringe) 3 ml IVFLUSH QSHIFT [facility] Last Admin: 09/08/24 17:32 Dose: 3 ml Home Medications ?Medication ?Instructions ?Recorded ?Confirmed ?Last Taken ?Type docusate sodium 100 mg capsule 100 mg PO Q2D 09/07/24 09/07/24 09/05/24 History pantoprazole 40 mg tablet,delayed 40 mg PO DAILY@62909/07/24 09/07/24 09/05/24 History release polyethylene glycol 3350 17 17 g PO DAILY PRN Constipation 09/07/24 09/07/24 Unknown History gram/dose oral powder (Gavilax) Physical Exam Vital Signs: Vital Signs: Last Vital Signs Temp 99.7 F 09/08/24 15:25 Pulse 92 09/08/24 15:25 Resp 16 09/08/24 15:25 BP 131/61 09/08/24 15:25 Pulse Ox 96 09/08/24 15:25 O2 Del Method Room Air 09/08/24 15:25 BMI result Body Mass Index 27.8 Const: General: cooperative, healthy appearing, comfortable and no acute distress Resp: Effort & Inspection: normal respiratory effort GI: Other: Abdomen is soft nondistended little tender in the right lower quadrant mild guarding no rebound no peritoneal signs Results Results Labs: Short CBC 09/08/24 Range/Units 08:17 WBC 9.4 (4.8-10.8) X10*3/uL Hgb 10.9 L (12.0-16.0) g/dl Hct 34.9 L (37.0-47.0) % Plt Count 173 (160-400) X10*3/uL BMP 09/08/24 05:21 Sodium 144 Potassium 3.2 L Chloride 114 H Carbon Dioxide 22 BUN 7 L Creatinine 0.63 Calcium 8.2 L Urine 09/07/24 Range/Units 17:26 Urine Color Yellow Urine Appearance Clear Urine pH 6.5 (5.0-9.0) Ur Specific [place] >= 1.030 H (1.005-1.025) Urine Protein Negative (Neg-Trace) mg/dL Urine Glucose (UA) Negative (Negative) mg/dL Abdomen CT scan report/results: report reviewed and image reviewed CT scan - pelvis: report reviewed and image reviewed Assessment and Plan (1) Abdominal pain: Status: Acute Plan 54-year-old female with abdominal pain right lower quadrant probably secondary to the Campylobacter infection. Patient not probably having acute diverticulitis and not having acute appendicitis. There is no surgical issue at this point so will sign off. Agree to continue treating the Campylobacter with antibiotics and see how she does. Quality Stroke Does the patient have a stroke diagnosis?: No VTE Prior VTE?: No VTE Risk Level:: Medical - moderate - high VTE Device Contraindication: Treatment Not Indicated VTE Drug Contraindication: N/A - Med Ordered Procedures Date of Service Date of Service: 09/08/24
[2024-09-09] MEDS: Lactated Ringers 1,000 ML 125 ML IVCONT ×2 (05:46→17:31)
[2024-09-09] MEDS: Omeprazole 20 MG CAPSULE.DR PO (05:47)
[2024-09-09] MEDS: Acetaminophen 325 MG TABLET 650 MG PO (05:51)
[2024-09-09 06:43] LABS: Hematocrit 33.6 % (37.0-47.0); Hemoglobin 10.7 g/dl (12.0-16.0); Mean Corpuscular HGB Conc 31.8 g/dl (31.0-35.0); Mean Corpuscular Hemoglobin 27.9 pg (27.0-33.0); Mean Corpuscular Volume 87.5 fL (80.0-98.0); Mean Platelet Volume 10.1 fL (9.4-12.3); Platelet Count 175 X10*3/uL (160-400); Red Blood Count 3.84 X10*6/uL (4.20-5.50); Red Cell Distribution Width 13.6 % (11.0-16.0); White Blood Count 7.3 X10*3/uL (4.8-10.8)
[2024-09-09 06:57] LABS: Anion Gap 8 (12-20); Blood Urea Nitrogen 3 mg/dL (9-16); Calcium 8.5 mg/dL (8.4-10.2); Carbon Dioxide 24 mmol/L (22-29); Chloride 112 mmol/L (96-108); Estimated Glomerular Filt Rate > 60; Glucose Random 90 mg/dL (60-115); Magnesium 2.2 mg/dL (1.6-2.6); Potassium 3.3 mmol/L (3.3-5.1); Sodium 141 mmol/L (135-145)
[2024-09-09 07:18] VITALS: BP 138/67; PULSE 76; RESP 18; TEMP 37.1; O2SAT 94
[2024-09-09] MEDS: Enoxaparin Sodium 40 MG/0.4 ML SYRINGE SUBCUT (09:09)
[2024-09-09] MEDS: Ibuprofen 600 MG TABLET PO (12:44)
--- NOTE | 2024-09-09 13:54 | P.PNIM_ITS ---
Subjective Subjective Date of Service: 09/09/24 Interval History: seen and examined this morning follow up for abdominal pain/diarrhea GI panel + for Campylobacter still reporting RLQ abdominal pain, but improved somewhat still reporting multiple episodes of diarrhea Review of Systems Review of Systems: Yes all other systems are reviewed and are negative Constitutional Constitutional: Denies chills and Denies fever(s) Cardiovascular Cardiovascular: Denies chest pain and Denies palpitations Respiratory Respiratory: Denies cough Gastrointestinal Gastrointestinal: Reports abdominal pain, Reports diarrhea, Denies nausea and Denies vomiting Endocrine Endocrine: Denies palpitations Physical Exam 2 Vital Signs: Vital Signs: Last Vital Signs Temp 98.8 F 09/09/24 07:18 Pulse 76 09/09/24 07:18 Resp 18 09/09/24 07:18 BP 138/67 09/09/24 07:18 Pulse Ox 94 09/09/24 07:18 O2 Del Method Room Air 09/09/24 07:18 BMI result Body Mass Index 27.8 Const: General: cooperative, comfortable, no acute distress, alert and awake Nutritional Appearance: average body habitus Orientation/consciousness: p atient oriented x3 Resp: Effort & Inspection: normal respiratory effort, able to speak in complete sentences, no respiratory distress and no use of accessory muscles Cardio: Rate: regular rate GI: Other: abdomen soft, non-distended, no rebound or guarding; TTP RLQ Neuro: General: patient oriented x3, moves all extremities and CN's II-XI intact bilaterally Extrem: General: Yes no pedal edema Objective Data Active Medications Acetaminophen (Acetaminophen 325 Mg Tablet) 650 mg PO Q6H PRN PRN Reason: Pain, Mild (Pain Scale 1-3), fever or headache Last Admin: 09/09/24 05:51 Dose: 650 mg Documented By: DELFIN Calcium Carbonate (Calcium Carbonate 750 Mg Tab.Chew) 750 mg PO Q4H PRN PRN Reason: Heartburn Enoxaparin Sodium (Enoxaparin Sodium 40 Mg/0.4 Ml Syringe) 40 mg SUBCUT DAILY [facility] Last Admin: 09/09/24 09:09 Dose: 40 mg Documented By: DENI Hydromorphone HCl (Hydromorphone Hcl 1 Mg/Ml Syringe) 0.5 mg IVPUSH Q4H PRN; Protocol PRN Reason: Pain, Severe (Pain Scale 7-10) Lactated Ringer's (Lr) 1,000 mls @ 125 mls/hr IVCONT .Q8H [facility] Last Infusion: 09/09/24 12:46 Dose: 125 mls/hr Documented By: DENI Azithromycin 500 mg/ Sodium (Chloride) 250 mls @ 125 mls/hr IV Q24H [facility] Last Infusion: 09/08/24 18:08 Dose: Infused Documented By: DENI Ibuprofen (Ibuprofen 600 Mg Tablet) 600 mg PO Q6H PRN PRN Reason: Pain, Mild (Pain Scale 1-3) Last Admin: 09/09/24 12:44 Dose: 600 mg Documented By: DENI Magnesium Hydroxide (Milk Of Magnesia 30 Ml Oral.Susp) 30 ml PO DAILY PRN PRN Reason: Constipation Melatonin (Melatonin 3 Mg Tablet) 6 mg PO BEDTIME PRN PRN Reason: Insomnia Omeprazole (Omeprazole 20 Mg Capsule.Dr) 20 mg PO DAILY@0630 [facility] Last Admin: 09/09/24 05:47 Dose: 20 mg Documented By: DELFIN Ondansetron HCl (Ondansetron Hcl 4 Mg/2 Ml Vial) 4 mg IVPUSH Q8H PRN PRN Reason: Nausea and Vomiting Last Admin: 09/08/24 02:55 Dose: 4 mg Documented By: RONALD Polyethylene Glycol (Polyethylene Glycol 3350 17 Gm Powd.Pack) 17 gm PO DAILY PRN PRN Reason: Constipation Sodium Chloride (0.9 % Sodium Chloride Flush 3 Ml Syringe) 3 ml IVFLUSH QSHIFT [facility] Last Admin: 09/09/24 09:08 Dose: Not Given Documented By: DENI Non-Admin Reason: iv leaking Labs 09/09/24 05:30 09/09/24 05:30 Labs: Laboratory Results - last 24 hr 09/08/24 09/09/24 11:33 05:30 MCV 87.5 MCH 27.9 MCHC 31.8 RDW 13.6 Plt Count 175 MPV 10.1 Absolute Nucleated RBC 0.000 Nucleated RBC % (auto) 0.0 Anion Gap 8 L Estim Creat Clear Calc 103.0 Estimated GFR > 60 Random Glucose 90 Calcium 8.5 Magnesium 2.2 Stl C. cayetanensis PCR Not Detected Stool Rotavirus A PCR Not Detected Stl Adenov F 40/41 PCR Not Detected Stool Astrovirus (PCR) Not Detected Stool Campylobacter PCR Detected A Stool Cryptosporidium PCR Not Detected Stl Sh Tox Pr E STEC PCR Not Detected Stool E coli O157 PCR Not applicable Stl Enterotoxigenic E PCR Not Detected Stool EPEC (PCR) Not Detected Stool EAEC (PCR) Not Detected Stl E. histolytica PCR Not Detected Stool Giardia Lamblia PCR Not Detected Stl P. shigelloides PCR Not Detected Stool Salmonella PCR Not Detected Stool Sapovirus (PCR) Not Detected Stl Shigella/EIEC PCR Not Detected St Y.enterocolitica PCR Not Detected Stool Vibrio (PCR) Not Detected Stl Vibrio cholerae PCR Not Detected Stl Norovirus GI/GII PCR Not Detected C. difficile Toxin A&B Negative C. difficile Interpret SEE NOTE Microbiology Microbiology Results: Microbiology 09/07/24 15:38 Blood Culture - Preliminary Blood - Venous No growth after 24 hours. 09/07/24 14:05 Blood Culture - Preliminary Blood - Venous No growth after 24 hours. Assessment and Plan (1) Campylobacter diarrhea: Status: Acute Plan 54-year-old female with a history of recurrent UTIs and diverticulitis, presenting with right lower quadrant pain, fever, and elevated WBC. Clinical presentation is consistent with acute diverticulitis, though not confirmed by CT scan. Abdominal pain due to campylobacter gastroenteritis initially thought to be due to diverticultis or possible appendicitis although CT scan negative stool studies +for campylobacter cdif PCR + but toxin negative, more likely colonization rather then active infection as alternative explanation for diarrhea given fever will start IV azithromycin; stop zosyn seen by general surgery - no surgical intervention indicated, no appendicitis continue supportive care tolerating full liquid diet, advance as tolerated Sepsis due to above (fever, tachycardia, and elevated WBC): Fever, tachycardia resolved. no severe features, lactic acid normal blood cultures negative to date hypokalemia due to GI loss replace and follow BMP normocytic anemia no overt bleeding noted ?hemodilution H/H has remained stable above transfusion threshold GERD: continue PPI DVT prophylaxis: Lovenox Full code Requires ongoing inpatient stay for management of campylobacter gastroenteritis Quality Stroke Does the patient have a stroke diagnosis?: No VTE Prior VTE?: No VTE Risk Level:: Medical - moderate - high VTE Device Contraindication: Treatment Not Indicated VTE Drug Contraindication: N/A - Med Ordered
[2024-09-09] MEDS: Azithromycin 500 MG in 0.9 % Sodium Chloride 250 ML 125 MG IV (15:22)
[2024-09-09] MEDS: 0.9 % Sodium Chloride Flush 3 ML SYRINGE IVFLUSH (15:23)
[2024-09-09 15:32] VITALS: BP 118/68; PULSE 70; RESP 18; TEMP 36.5; O2SAT 95
[2024-09-09 23:16] VITALS: BP 142/67; PULSE 70; RESP 18; TEMP 36.5; O2SAT 98
[2024-09-10] MEDS: Lactated Ringers 1,000 ML 125 ML IVCONT (00:28)
[2024-09-10] MEDS: Omeprazole 20 MG CAPSULE.DR PO (05:47)
[2024-09-10 07:43] VITALS: BP 118/67; PULSE 68; RESP 17; TEMP 37.2; O2SAT 97
--- NOTE | 2024-09-10 09:08 | P.PNIM_ITS ---
Subjective Subjective Date of Service: 09/10/24 Interval History: seen and examined this morning follow up for abdominal pain/diarrhea GI panel + for Campylobacter still reporting RLQ abdominal pain, but improved somewhat still reporting multiple episodes of diarrhea Review of Systems Review of Systems: Yes all other systems are reviewed and are negative Constitutional Constitutional: Denies chills and Denies fever(s) Cardiovascular Cardiovascular: Denies chest pain and Denies palpitations Respiratory Respiratory: Denies cough Gastrointestinal Gastrointestinal: Reports abdominal pain, Reports diarrhea, Denies nausea and Denies vomiting Endocrine Endocrine: Denies palpitations Physical Exam 2 Vital Signs: Vital Signs: Last Vital Signs Temp 99 F 09/10/24 07:43 Pulse 68 09/10/24 07:43 Resp 17 09/10/24 07:43 BP 118/67 09/10/24 07:43 Pulse Ox 97 09/10/24 07:43 O2 Del Method Room Air 09/10/24 07:43 BMI result Body Mass Index 27.8 Appearing in no acute distress lung sounds are clear to auscultation heart regular rate rhythm, clear S1, S2 positive bowel sounds, abdomen is soft, nontender neuro patient is alert x3, no focal deficits Objective Data Active Medications Acetaminophen (Acetaminophen 325 Mg Tablet) 650 mg PO Q6H PRN PRN Reason: Pain, Mild (Pain Scale 1-3), fever or headache Last Admin: 09/09/24 05:51 Dose: 650 mg Documented By: DELFIN Calcium Carbonate (Calcium Carbonate 750 Mg Tab.Chew) 750 mg PO Q4H PRN PRN Reason: Heartburn Enoxaparin Sodium (Enoxaparin Sodium 40 Mg/0.4 Ml Syringe) 40 mg SUBCUT DAILY [facility] Last Admin: 09/09/24 09:09 Dose: 40 mg Documented By: DENI Hydromorphone HCl (Hydromorphone Hcl 1 Mg/Ml Syringe) 0.5 mg IVPUSH Q4H PRN; Protocol PRN Reason: Pain, Severe (Pain Scale 7-10) Azithromycin 500 mg/ Sodium (Chloride) 250 mls @ 125 mls/hr IV Q24H [facility] Last Infusion: 09/09/24 17:38 Dose: Infused Documented By: DENI Ibuprofen (Ibuprofen 600 Mg Tablet) 600 mg PO Q6H PRN PRN Reason: Pain, Mild (Pain Scale 1-3) Last Admin: 09/09/24 12:44 Dose: 600 mg Documented By: DENI Magnesium Hydroxide (Milk Of Magnesia 30 Ml Oral.Susp) 30 ml PO DAILY PRN PRN Reason: Constipation Melatonin (Melatonin 3 Mg Tablet) 6 mg PO BEDTIME PRN PRN Reason: Insomnia Omeprazole (Omeprazole 20 Mg Capsule.Dr) 20 mg PO DAILY@0630 [facility] Last Admin: 09/10/24 05:47 Dose: 20 mg Documented By: ENOCH Ondansetron HCl (Ondansetron Hcl 4 Mg/2 Ml Vial) 4 mg IVPUSH Q8H PRN PRN Reason: Nausea and Vomiting Last Admin: 09/08/24 02:55 Dose: 4 mg Documented By: RONALD Polyethylene Glycol (Polyethylene Glycol 3350 17 Gm Powd.Pack) 17 gm PO DAILY PRN PRN Reason: Constipation Sodium Chloride (0.9 % Sodium Chloride Flush 3 Ml Syringe) 3 ml IVFLUSH QSHIFT [facility] Last Admin: 09/09/24 20:19 Dose: Not Given Documented By: ENOCH Non-Admin Reason: IV Running Labs 09/09/24 05:30 09/09/24 05:30 Microbiology Microbiology Results: Microbiology 09/07/24 15:38 Blood Culture - Preliminary Blood - Venous No growth after 48 hours. 09/07/24 14:05 Blood Culture - Preliminary Blood - Venous No growth after 48 hours. Assessment and Plan (1) Campylobacter diarrhea: Status: Acute Plan 54-year-old female with a history of recurrent UTIs and diverticulitis, presenting with right lower quadrant pain, fever, and elevated WBC. Clinical presentation is consistent with acute diverticulitis, though not confirmed by CT scan. Abdominal pain due to campylobacter gastroenteritis initially thought to be due to diverticultis or possible appendicitis although CT scan negative stool studies +for campylobacter cdif PCR + but toxin negative, more likely colonization rather then active infection as alternative explanation for diarrhea given fever will start IV azithromycin; stop zosyn seen by general surgery - no surgical intervention indicated, no appendicitis continue supportive care tolerating full liquid diet, advance as tolerated Sepsis due to above (fever, tachycardia, and elevated WBC) Fever, tachycardia resolved. no severe features, lactic acid normal blood cultures negative to date hypokalemia due to GI loss replace and follow BMP normocytic anemia no overt bleeding noted ?hemodilution H/H has remained stable above transfusion threshold GERD continue PPI DVT prophylaxis: Lovenox Attending Dr. Israel Full code Requires ongoing inpatient stay for management of campylobacter gastroenteritis Quality Stroke Does the patient have a stroke diagnosis?: No VTE Prior VTE?: No VTE Risk Level:: Medical - moderate - high VTE Device Contraindication: Treatment Not Indicated VTE Drug Contraindication: N/A - Med Ordered
[2024-09-10] MEDS: Ibuprofen 600 MG TABLET PO (09:14)
[2024-09-10] MEDS: 0.9 % Sodium Chloride Flush 3 ML SYRINGE IVFLUSH (09:14)
[2024-09-10] MEDS: Enoxaparin Sodium 40 MG/0.4 ML SYRINGE SUBCUT (09:14)
[2024-09-10] MEDS: Acetaminophen 325 MG TABLET 650 MG PO (09:15)
--- NOTE | 2024-09-10 10:28 | MHC.CM.PN ---
Patient has been discharged to home self care today. Patient has arranged for private transport home.
--- NOTE | 2024-09-10 11:16 | PM.DS ---
DS: Providers Provider Date of Service: 09/10/24 Date of admission: 09/07/24 21:37 Primary care physician: Shasha Juarez MD Consults: 09/07/24 21:40 Consult to General Surgery Routine Consulting Provider: [facility] Surgeons Reason for consultation: abdominal pain ? diverticulitis and rule out appendicitis Has provider been notified: No DS: Diagnosis Discharge Diagnosis (1) Campylobacter diarrhea: Status: Acute DS: Summary Hospital Course Hospital Course: History and physical as per admitting provider. 54-year-old female with a history of recurrent UTIs and diverticulitis presented to the emergency department with severe right lower quadrant abdominal pain that had persisted for several days and worsened significantly today. She also experienced loose stools and vomiting today and reported a fever as high as 103?F. She denied dysuria. Emergency department workup revealed a WBC count of 15. A CT scan of the abdomen and pelvis showed a normal appendix, the presence of diverticulosis, but no evidence of diverticulitis. The patient has a history of hysterectomy. Initially, she was treated with Levaquin for a suspected UTI, although the urinalysis findings did not support this diagnosis. Subsequently, Zosyn was initiated for possible diverticulitis despite the lack of radiographic evidence on the CT scan. Surgery advised admission to medicine. 54-year-old woman treated for abdominal pain secondary to Campylobacter gastroenteritis. She was noted to have fever secondary to sepsis and was started on Zosyn and then transitioned to IV azithromycin. She was seen evaluated by General surgery who did not think any surgical intervention was indicated as original CT scan showed diverticulitis versus appendicitis, but both negative. She was started on liquid diet then advanced to solids without any issues. Stools are more formed at this time and patient is requesting to be sent home. She has 1 more day of azithromycin to finish. She should drink plenty of fluids, bland diet and wash hands after using the restroom. Hypokalemia. Secondary to GI losses. Resolved Normocytic anemia. No overt bleeding. H&H stable GERD. Continue PPI Time Attestation Discharge Coordination Time (in mins): 38 Quality: Safe Use of Opioids Does Pt have an Active Cancer Diagnosis on the Problem List?: No Quality: Stroke Does the patient have a stroke diagnosis?: No Physical Exam Vital Signs: Vital Signs: Last Vital Signs Temp 99 F 09/10/24 07:43 Pulse 68 09/10/24 07:43 Resp 17 09/10/24 07:43 BP 118/67 09/10/24 07:43 Pulse Ox 97 09/10/24 07:43 O2 Del Method Room Air 09/10/24 07:43 BMI result Body Mass Index 27.8 Appearing in no acute distress head is normocephalic atraumatic eyes pupils are PERRLA sclera is anicteric mouth throat mucous membranes are intact and moist neck is supple no lymphadenopathy, no JVD noted lung sounds are clear to auscultation heart regular rate rhythm, clear S1, S2 positive bowel sounds, abdomen is soft, nontender neuro patient is alert x3, no focal deficits DS: Data Data Completed and Pending Labs on day of discharge: Preliminary micro results at discharge 09/07/24 15:38 Blood Culture - Preliminary Blood - Venous No growth after 48 hours. 09/07/24 14:05 Blood Culture - Preliminary Blood - Venous No growth after 48 hours. Discharge Plan Discharge Anticipated Discharge Date/Time: 09/10/24 11:07 Patient Disposition: Home, Self-Care Discharge Diagnosis: Abdominal pain Campylobacter gastroenteritis Sepsis Hypokalemia Referrals: Shasha Lott MD [Primary Care Provider] - 1 Week Discharge Medications: New azithromycin [Zithromax] 500 mg tablet 500 mg PO DAILY 1 Days Qty: 1 0RF Rx Instructions: start on day 2 of therapy Continued (DME) Knee Support Brace Misc See Rx Instructions .ROUTE .MEDSUPPLY Qty: 1 0RF Rx Instructions: As directed x 6 weeks ibuprofen 600 mg tablet 600 mg PO TID PRN (Reason: fever or pain) Qty: 30 1RF pantoprazole 40 mg tablet,delayed release (DR/EC) 40 mg PO DAILY@0630 docusate sodium 100 mg capsule 100 mg PO Q2D polyethylene glycol 3350 [Gavilax] 17 gram/dose powder 17 g PO DAILY PRN (Reason: Constipation) nitrofurantoin monohyd/m-cryst [Macrobid] 100 mg capsule 100 mg PO .COMPLEX Qty: 30 5RF Rx Instructions: 100 mg orally take post sexual activity as directed; must administer with a meal/food (DME) Day and Night Brief,Medium Misc See Rx Instructions .Route Qty: 22 3RF Rx Instructions: As directed Discharge Orders: Discharge Order (Routine); Ordered 09/10/24 Ordered By: Leatha Baumann Diet: Advance to usual diet Activity on Discharge: As tolerated Stand Alone Forms: Patient Portal Discharge page, Work/School Release Print Language: Other Care Plan Goals: Wash hands thoroughly after using the restroom, if diarrhea worsens contact your primary care provider Drink plenty of fluid Health Concerns: Abdominal pain Campylobacter gastroenteritis Sepsis Hypokalemia Plan of Treatment: Follow-up with primary care provider as needed Take all medications as prescribed Assessment: See discharge summary Patient Instructions: Colitis (ED)
== END 2024-09-10 12:15 | disposition home or self-care (01) | DRG 720 ==
LOC: HO.ED 21:09 → HO.EDOVER 21:47 → HO.S3 09-08 01:16
PROVIDERS: Physician Assistant Medical; Admitting Provider Internal Medicine; Emergency Provider Emergency Medicine; PCP Internal Medicine; Visit Provider Nurse Practitioner Acute Care
DX: A41.9 Sepsis, unspecified organism (principal); A04.5 Campylobacter enteritis; D64.9 Anemia, unspecified; K21.9 Gastro-esophageal reflux disease without esophagitis; E87.6 Hypokalemia; Z20.822 Contact with and (suspected) exposure to COVID-19; Z87.440 Personal history of urinary (tract) infections; Z79.899 Other long term (current) drug therapy
CPT/HCPCS: 0241U; 36415; 74177; 80048; 80076; 81003; 83605; 83690; 83735; 84484; 85007; 85027; 87040; 87324; 87493; 87507; 89055; 93005; 99221; 99285; J0456; J1650; J1885; J1956; J2405; J2543; J3475; J7120; Q9967

== ENCOUNTER → 2024-09-07 12:33 | Outpatient (BNV) | payer OTHER, SELFPAY | PROVIDERS: Admitting Provider Internal Medicine; Emergency Provider Emergency Medicine; PCP Internal Medicine; Visit Provider Internal Medicine | DX: R94.31 Abnormal electrocardiogram [ECG] [EKG] (principal) | CPT/HCPCS: 93010 ==

== ENCOUNTER → 2024-09-07 21:37 | Outpatient (BNV) | payer OTHER, SELFPAY | PROVIDERS: Admitting Provider Internal Medicine; Emergency Provider Emergency Medicine; PCP Internal Medicine; Visit Provider Surgery | DX: R10.9 Unspecified abdominal pain (principal) | CPT/HCPCS: 99222 ==

== ENCOUNTER → 2024-09-07 21:37 | Outpatient (BNV) | payer OTHER, SELFPAY | PROVIDERS: Admitting Provider Internal Medicine; Emergency Provider Emergency Medicine; PCP Internal Medicine; Visit Provider Internal Medicine | DX: A04.5 Campylobacter enteritis (principal) | CPT/HCPCS: 99232; 99239; 99499 ==

== ENCOUNTER 2024-09-19 09:03 | Outpatient (REF) | payer OTHER, SELFPAY ==
[2024-09-19 10:27] LABS: MANUAL DIFF FLAG NO
[2024-09-19 10:58] LABS: Basophils Absolute Auto 0.1 X10*3/uL (0.0-0.2); Eosinophils Absolute Auto 0.1 X10*3/uL (0.0-0.4); Hematocrit 38.9 % (37.0-47.0); Hemoglobin 11.9 g/dl (12.0-16.0); Imm Gran Abs Auto 0.02 X10*3/uL (0.00-0.03); Imm Gran Pct Auto 0.3 % (0.0-0.4); Lymphocytes Absolute Auto 2.2 X10*3/uL (1.2-4.9); Lymphocytes Percent Auto 32.2 % (20-40); Mean Corpuscular HGB Conc 30.6 g/dl (31.0-35.0); Mean Corpuscular Hemoglobin 27.1 pg (27.0-33.0); Mean Corpuscular Volume 88.6 fL (80.0-98.0); Mean Platelet Volume 9.1 fL (9.4-12.3); Monocytes Absolute Auto 0.8 X10*3/uL (0.1-1.2); Monocytes Percent Auto 11.8 % (2-11); Neutrophils Absolute Auto 3.6 x10*3/uL (2.0-8.3); Neutrophils Percent Auto 53.7 % (45-73); Platelet Count 372 X10*3/uL (160-400); Red Blood Count 4.39 X10*6/uL (4.20-5.50); Red Cell Distribution Width 13.4 % (11.0-16.0); White Blood Count 6.7 X10*3/uL (4.8-10.8)
== END 2024-09-19 09:04 | disposition home or self-care (01) ==
LOC: HO.LAB 09:03
PROVIDERS: PCP Internal Medicine; Visit Provider Internal Medicine
DX: A04.5 Campylobacter enteritis (principal); B96.89 Other specified bacterial agents as the cause of diseases classified elsewhere; K59.04 Chronic idiopathic constipation; K21.9 Gastro-esophageal reflux disease without esophagitis; N39.46 Mixed incontinence; Z79.899 Other long term (current) drug therapy; Z91.09 Other allergy status, other than to drugs and biological substances; D64.9 Anemia, unspecified
CPT/HCPCS: 36415; 85025; 96127

== ENCOUNTER 2024-09-19 09:03 | Outpatient (AMB) | payer OTHER, SELFPAY ==
[2024-09-19 09:12] VITALS: BP 136/82; BMI 26.4
--- NOTE | 2024-09-19 09:12 | MHC.PC.OV ---
Vital Signs 09/19/24 09:12 Height 5 ft 4 in Weight 154 lb BMI 26.4 BP 136/82 Blood Pressure Location Lt brachial Position Sitting Intake Visit Reasons: Annual Exam Intake Note: Patient here for an annual physical exam/ TCM Welder Plasma Arc Required: No Accompanied by: Self / Same As Patient Allergies metronidazole [Metrogel] Allergy (Intermediate, Verified 09/19/24 09:43) facial rash morphine [Morphine] Allergy (Intermediate, Verified 09/19/24 09:43) SEVERE VOMITING, nausea and vomiting hydromorphone [From Dilaudid] Adverse Reaction (Mild, Verified 09/19/24 09:43) makes pt feel ill Medication List - Last Reconciled 09/19/24 by Shasha Juarez MD diaper,brief,adult,disposable (Day and Night Brief,Medium) As directed docusate sodium 100 mg PO Q2D ibuprofen 600 mg PO TID PRN leg brace (Knee Support Brace) As directed x 6 weeks pantoprazole 40 mg PO DAILY@0630 polyethylene glycol 3350 (Gavilax) 17 grams PO DAILY PRN Tobacco use date assessed: 01/31/24 Dental Screening Dental Screen Date: 01/31/24 HPI TCM TCM Information Date of Discharge 09/10/24 Discharged From [facility] Interactive Contact Date (Reference documentation from this date) 09/11/24 HPI Comments History of Present Illness Details The patient is a 54-year-old female presenting with a Campylobacter infection and a history of Clostridium difficile, having been admitted to the hospital previously with abdominal pain, fever, vomiting, and diarrhea starting on September 07. The pain was localized in the right upper abdomen and accompanied by symptoms resembling an appendiceal infection, although CT scans of the abdomen showed no acute findings. The patient developed diarrhea and was treated with intravenous antibiotics during hospitalization. Discharge from inpatient care occurred on September 10. Post-discharge, she reports ongoing weakness, mild residual abdominal discomfort, and a change in stool color to reddish-yellow. She seeks reassurance regarding the resolution of the infections and concerns about potential recurrence. She also has constipation well control with docusate as needed and GERD on PPIs. Follows with Gastroenterology for her GERD. [facility] Medical History Mixed incontinence urge and stress Recurrent UTI Urge urinary incontinence Change in bowel habits Foreign body granuloma of skin Acne rosacea Right hip pain Leg numbness Obesity Mixed hyperlipidemia GERD (gastroesophageal reflux disease) Hypovitaminosis D Surgical History History of colostomy reversal History of abdominoplasty Perforation of colon History of total abdominal hysterectomy and bilateral salpingo-oophorectomy Family History Father Hypertension Cancer Mother Hypertension Diabetes Brother No problems noted. 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 1. Little interest or pleasure in doing things: not at all 2. Feeling down, depressed, or hopeless: not at all 3. Trouble falling or staying asleep, or sleeping too much: not at all 4. Feeling tired or having little energy: several days 5. Poor appetite or overeating: several days 6. Feeling bad about yourself - or that you are a failure or have let yourself or your family down: not at all 7. Trouble concentrating on things, such as reading the newspaper or watching television: not at all 8. Moving or speaking so slowly that other people could have noticed. Or the opposite - being so fidgety or restless that you have been moving around a lot more than usual: not at all 9. Thoughts that you would be better off or of hurting yourself in some way: not at all Total score: 2 Depression Screening Interpretation: Negative Depression Screening Done: Yes 70897 - PHQ-9 Billing: Yes Source: Developed by Drs. Jhoan L. KristelKarla allen Kurt Kroenke and colleagues, with an educational marla from [employer]. Thrive Questionnaire Date Thrive assessed: 09/12/24 I am a: Patient What is your living situation today?: I have a steady place to live Within the past 12 months, did the food you bought not last and you didn't have the money to get more?: Never true Within the past 12 months, did you worry whether your food would run out before you got money to buy more?: Never true Do you have trouble paying for medicines?: No Do you have trouble getting transportation to medical appointments?: No Do you have trouble paying your heating and electricity bill?: No Do you have trouble taking care of your child, family member or friend?: No Do you have trouble with day-to-day activities such as bathing, preparing meals, shopping, managing finances, etc.?: No Are you currently unemployed and looking for a job?: No Are you interested in more education?: No Please select the resources that you would like help with: None Currently or been in a relationship where the following occur: No concerns reported THRIVE Score: 0 AUDIT C Alcohol Use Questionnaire (AUDIT-C) 1. How often do you have a drink containing alcohol?: Monthly or less 2. How many drinks containing alcohol do you have on a typical day when you are drinking?: 3 or 4 3. How often do you have six or more drinks on one occasion?: Never Total Score: 2 Score Reviewed/Action Taken: No TYREE-7 AMB Questionnaire TYREE-7 Date TYREE - 7 assessed: 09/19/24 Feeling nervous, anxious, or on edge: 0 = Not at all Not being able to stop or control worryin = Not at all Worrying too much about different things: 0 = Not at all Trouble relaxin = Not at all Being so restless that it is hard to sit still: 0 = Not at all Becoming easily annoyed or irritable: 0 = Not at all Feeling afraid as if something awful might happen: 0 = Not at all Total TYREE-7 score (0-4 normal; 5-9 mild; 10-14 moderate; 15-21 severe): 0 Source: Developed by Karla Dai Kurt Kroenke and colleagues, with an educational marla from [employer]. TYREE-7 Assessment Billing TYREE-7 Assessment Tool: TYREE-7 Assessment 55199 Review of Systems Const Details: - Gastrointestinal: Reports abdominal pain, prior diarrhea, postprandial reddish-yellow stool, and intermittent nausea. - Musculoskeletal: Reports general weakness. - Hematologic: No reports of recent fever. Physical exam (Primary Care) Vital Signs: Last Vital Signs BP 136/82 09/19/24 09:12 BMI result Body Mass Index 26.4 Tobacco/Smoking Status: Tobacco use Status Tobacco use date assessed 01/31/24 09/19/24 09:16 Patient Tobacco Use Status Never used Tobacco 09/19/24 09:16 e-Cigarette/Vaping Use Never Used 09/19/24 09:16 PHQ-9: PHQ-9 Score PHQ-9: Total score 2 09/19/24 10:45 Depression Screening Interpretation: Negative Thrive Assessment: Date of Thrive Assessment Date Thrive assessed 09/12/24 09/19/24 09:16 Currently or been in a relationship where the following occur: No concerns reported Const Other: General: No confusion Respiratory: Normal respiratory effort, clear to auscultation bilaterally Cardiovascular: No jugular venous distension, regular rate, regular rhythm, S1 normal heart sound present and S2 normal heart sound present GI: Normal to inspection, Soft to palpation and nontender, normal bowel sounds Extremities: Full ROM Office Procedures Flu Questionnaire Does the patient have a severe egg allergy?: No Immunizations Fluarix Triv 5575-1320 (PF) 45 mcg (15 mcg x 3)/0.5 mL IM syringe Performing Provider: Shasha Juarez MD [facility] Documented (not given) by: MATIAS Choudhury on 09/19/24 09:18 Reason Not Given: Patient Refused Coding Level of Care Code TCM Mod MDM <= 14 Days Diagnoses Campylobacter diarrhea A04.5 Chronic idiopathic constipation K59.04 Gastroesophageal reflux disease, unspecified whether esophagitis present K21.9 Esophagitis presence: esophagitis presence not specified Mixed incontinence urge and stress N39.46 Additional Codes TYREE-7 Assessment Billing - TYREE-7 Assessment Tool: TYREE-7 Assessment 76615 ([id number]) PHQ-9 - 10150 - PHQ-9 Billing: Yes ([id number]) Time Spent (min) 26 Assessment & Plan Assessment & Plan (1) Campylobacter diarrhea: Code(s): A04.5 - Campylobacter enteritis Category: Medical (2) Chronic idiopathic constipation: Code(s): K59.04 - Chronic idiopathic constipation Category: Medical (3) GERD (gastroesophageal reflux disease): Code(s): K21.9 - Gastro-esophageal reflux disease without esophagitis Category: Medical Qualifiers: Esophagitis presence: esophagitis presence not specified Qualified Code(s): K21.9 - Gastro-esophageal reflux disease without esophagitis (4) Mixed incontinence urge and stress: Code(s): N39.46 - Mixed incontinence Category: Medical Plan - Campylobacter infection: Monitor resolution as symptoms are self-limiting. Provide symptomatic relief as needed. - Clostridium difficile infection: Monitor for resolution. Previous antibiotics should have addressed infection. - Allergy management: Maintain avoidance of Metronidazole, Morphine, and Dilaudid. - Constipation: Continue docusate sodium for symptom management as per patient regimen. - GERD: Maintain use of pantoprazole for control. - Abdominal pain: Evaluate further if symptoms persist or worsen. Continue supportive care. - Order repeat labs to evaluate current white blood cell count. - Refer to Infectious Disease specialist for further assessment regarding infections. Patient was informed and verbally consented to the use of an ambient scribe for clinic note documentation during this visit. I have reviewed the self-limiting nature of the Campylobacter infection with the patient, explaining that symptoms should resolve within 7 to 10 days and advising on preventing dehydration. I reassured her about the Clostridium difficile infection treatment, recommending vigilance for return symptoms. We discussed the nature of her allergies, emphasizing avoidance of triggering medications. I addressed her dietary concerns, advising a cautious return to normal foods while avoiding suspected triggers. I recommended doing lab work today to check her white blood cell count, and a referral to Infectious Disease for further assessment. We discussed that if her symptoms worsen, or if she develops new symptoms like fever or persistent abdominal pain, she should seek immediate medical attention. Orders: Orders Complete Blood Count Auto Diff Today A04.5 - Campylobacter enteritis Influenza [id number] Immunization Today Z23 - Encounter for immunization Complete Blood Count Auto Diff Today D64.9 - Anemia, unspecified Comprehensive Met. Panel Today A04.5 - Campylobacter enteritis Referrals Infectious Disease Referral A04.5 - Campylobacter enteritis Medications: Changed From docusate sodium 100 mg PO Q2D To docusate sodium 100 mg PO BID 30 days 60 caps 3RF Patient Instructions: - Continue taking docusate sodium for constipation management. - Avoid foods that may exacerbate abdominal discomfort, such as heavy or greasy foods. - Monitor stool color and consistency and report any significant changes. - Maintain hydration and eat a bland diet as tolerated. - Avoid triggering allergies by abstaining from Metronidazole, Morphine, and Dilaudid. - Follow up with laboratory tests today for white blood cell count. - Contact the clinic or seek medical attention if symptoms worsen or new symptoms develop. - Attend the referral appointment for Infectious Disease evaluation.
== END 2024-09-19 10:10 | disposition home or self-care (01) ==
PROVIDERS: PCP Internal Medicine; Visit Provider Internal Medicine
DX: A04.5 Campylobacter enteritis (principal); K59.04 Chronic idiopathic constipation; K21.9 Gastro-esophageal reflux disease without esophagitis; N39.46 Mixed incontinence

== ENCOUNTER 2024-09-24 15:16 | Outpatient (AMB) | payer OTHER, SELFPAY ==
--- NOTE | 2024-09-24 15:26 | A.OFFVIS_ITS ---
Vital Signs 09/24/24 15:55 Height 5 ft 4 in Pulse 86 Pulse Source Pulse Oximeter Temp 98.4 F Temp Source Oral Pulse Oximetry (%) 98 Oxygen Delivery Method Room Air Intake Visit Reasons: Dr.Roca gregory Campylobacter enteritis User Experience Lead Required: Yes User Experience Lead Services: User Experience Lead Present User Experience Lead Name: Leonard Baumann CMA Allergies metronidazole [Metrogel] Allergy (Intermediate, Verified 09/24/24 15:55) facial rash morphine [Morphine] Allergy (Intermediate, Verified 09/24/24 15:55) SEVERE VOMITING, nausea and vomiting hydromorphone [From Dilaudid] Adverse Reaction (Mild, Verified 09/24/24 15:55) makes pt feel ill HPI HPI Dr.Roca gregory Campylobacter enteritis: Details: She has had diarrhea and RLQ pain. She had temperature of 103. She took Levaquin and Zosyn. [facility] Medical History Mixed incontinence urge and stress Recurrent UTI Urge urinary incontinence Change in bowel habits Foreign body granuloma of skin Acne rosacea Right hip pain Leg numbness Obesity Mixed hyperlipidemia GERD (gastroesophageal reflux disease) Hypovitaminosis D Surgical History History of colostomy reversal History of abdominoplasty Perforation of colon History of total abdominal hysterectomy and bilateral salpingo-oophorectomy Family History Father Hypertension Cancer Mother Hypertension Diabetes Brother No problems noted. 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 Current occupational exposures/hazards: No Cognitive needs: No Hearing needs: No Vision needs: Yes Review of Systems Const All systems reviewed & are unremarkable except as noted in HPI and below Physical Exam Vital Signs: Last Vital Signs Temp 98.4 F 09/24/24 15:55 Pulse 86 09/24/24 15:55 Pulse Ox 98 09/24/24 15:55 Oxygen Delivery Method Room Air 09/24/24 15:55 Const General: cooperative Orientation/consciousness: patient oriented x3 HEENT Head: Yes normal to inspection Mouth: Normal oral and palatal mucosa present Eyes General: appearance normal, both eyes and all related structures Pupils: Equal, round and reactive pupils present Resp Effort & Inspection: normal respiratory effort Cardio Rate: regular rate Rhythm: regular rhythm GI Palpation (GI): Soft to palpation and nontender General: Yes no CVA tenderness Back/Spine/Pelvis Back: no CVA tenderness Skin General skin exam: no rashes or lesions noted Neuro General: patient oriented x3 Cranial nerves: Yes CN's II-XII intact bilaterally and Yes Equal, round and reactive pupils present Extrem General: Yes normal to inspection Psych Appearance: grossly normal Assessment & Plan Assessment & Plan (1) Campylobacter diarrhea: Comment: She is better. Code(s): A04.5 - Campylobacter enteritis Category: Medical Plan: No further treatment at this time. Coding Level of Care Code New Pt Level 3 (37501) Diagnoses Campylobacter diarrhea A04.5
[2024-09-24 15:55] VITALS: PULSE 86; TEMP 36.9; O2SAT 98
== END 2024-09-24 16:43 | disposition home or self-care (01) ==
PROVIDERS: PCP Internal Medicine; Visit Provider Internal Medicine
DX: A04.5 Campylobacter enteritis (principal)
CPT/HCPCS: 99203

== ENCOUNTER 2024-10-02 08:14 | Day surgery (SDC) | payer OTHER, SELFPAY ==
[2024-09-27 15:22] VITALS: BMI 26.4
--- NOTE | 2024-10-01 10:55 | P.CONAN_ITS ---
Documented by User: Natali Richards NP 10/01/24 11:00 HPI - Anesthesia Eval Consult details Narrative: 54yo F for Cystoscopy Bladder Botox Injection [facility] admit 09/2024 with gastroenteritis sepsis. EKG abnormal, PCP reviewed with referral to Cardiology. T/C to patient reports no CP/SOB with regular activity Case reviewed with Dr Ly. MOON for eval DOS bc tolerated same procedure 04/2024 with GA-LMA PMFSH Active Problems Active Problems: All Active Problems Abnormal EKG (Acute) Campylobacter diarrhea (Acute) Right leg pain (Acute) Varicose veins of right lower extremity with inflammation (Acute) OAB (overactive bladder) (Acute) Chronic idiopathic constipation (Acute) Venous insufficiency (Acute) Hypokalemia (Acute) Urinary urgency (Acute) Urinary incontinence (Acute) Acute UTI (Acute) Pelvic floor weakness (Acute) Female cystocele (Acute) Right knee pain (Acute) Bone spur of foot (Acute) Left foot pain (Acute) Foul smelling urine (Acute) Cystocele with rectocele (Acute) URI (upper respiratory infection) (Acute) Renal calculi (Acute) Umbilical hernia (Acute) Abdominal pain (Acute) MCL sprain of left knee (Acute) Physical exam (Acute) Old tear of meniscus of right knee (Acute) Osteoarthritis of right knee (Acute) Fecal incontinence (Acute) Grade 2 sprain of medial collateral ligament of left knee (Acute) Tear of medial meniscus of left knee (Acute) Locked knee (Acute) Yeast infection of the skin (Acute) Left knee pain (Acute) Strain of left knee (Acute) Abdominal wall sinus (Acute) Meralgia paraesthetica (Acute) Skin candidiasis (Acute) Mixed incontinence urge and stress (Acute) Recurrent UTI (Acute) Urge urinary incontinence (Acute) Change in bowel habits (Acute) Foreign body granuloma of skin (Acute) Acne rosacea (Acute) Right hip pain (Acute) Leg numbness (Acute) Obesity (Acute) Mixed hyperlipidemia (Acute) GERD (gastroesophageal reflux disease) (Acute) Hypovitaminosis D (Acute) Past Medical History Medical History Mixed incontinence urge and stress Recurrent UTI Urge urinary incontinence Change in bowel habits Foreign body granuloma of skin Acne rosacea Right hip pain Leg numbness Obesity Mixed hyperlipidemia GERD (gastroesophageal reflux disease) Hypovitaminosis D Family History Family History Father Hypertension Cancer Mother Hypertension Diabetes Brother No problems noted. Sister In good health Daughter In good health Family history of problems with anesthesia: No Surgical History Surgical History History of colostomy reversal History of abdominoplasty Perforation of colon History of total abdominal hysterectomy and bilateral salpingo-oophorectomy History of Problems with Anesthesia: No Social History Social History Household Members: Spouse, Family and Children Housing: House Are you a primary critical care technician to a significant other at home: No Do you presently have visiting nurse or other home services: No Alcohol intake: current Alcohol intake frequency: holidays/special occasions only Patient Tobacco Use Status: Never used Tobacco e-Cigarette/Vaping Use: Never Used Second Hand Smoke Exposure: No Use of substances other than those prescribed or required for medical reasons: No Have you been hit, kicked, punched, or otherwise hurt by someone within the past year? 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 Current occupational exposures/hazards: No Cognitive needs: No Hearing needs: No Vision needs: Yes Meds Allergies Allergy/AdvReac Type Severity Reaction Status Date / Time metronidazole [Metrogel] Allergy Intermediate facial rash Verified 10/02/24 09:16 morphine [Morphine] Allergy Intermediate SEVERE Verified 10/02/24 09:16 VOMITING, nausea and vomiting hydromorphone [From Dilaudid] AdvReac Mild makes pt Verified 10/02/24 09:16 feel ill Home Medications ?Medication ?Instructions ?Recorded ?Confirmed ?Last Taken ?Type pantoprazole 40 mg tablet,delayed 40 mg PO DAILY@0630 09/07/24 10/02/24 09/05/24 History release polyethylene glycol 3350 17 17 g PO DAILY PRN Constipation 09/07/24 10/02/24 Unknown History gram/dose oral powder (Gavilax) Exam Height,Weight and Vital Signs: Height 5 ft 4 in Weight 69.853 kg Pertinent Lab Results Pertinent Lab Results: Laboratory Tests 09/09/24 09/19/24 05:30 10:25 WBC 6.7 Hgb 11.9 L Hct 38.9 Plt Count 372 D Sodium 141 Potassium 3.3 Chloride 112 H Carbon Dioxide 24 BUN 3 L Creatinine 0.62 Narrative Narrative: EKG 08/2024 Vent. Rate : 111 BPM Atrial Rate : 111 BPM P-R Int : 158 ms QRS Dur : 076 ms QT Int : 340 ms P-R-T Axes : 033 -26 -12 degrees QTc Int : 462 ms Sinus tachycardia Anterior infarct , age undetermined Nonspecific ST and T wave abnormality Abnormal ECG When compared with ECG of 26-FEB-2019 16:37, Anterior infarct is now Present Nonspecific T wave abnormality now evident in Anterior leads Assessment and Plan Assessment Anesthesia Assessment: Chart Reviewed Final Anesthetic Review Family History of Problems with Anesthesia: No History of Problems with Anesthesia: No Documented by User: Nga Tamayo MD 10/02/24 09:55 REPLACED BY [facility] Past Medical History Medical History Mixed incontinence urge and stress Recurrent UTI Urge urinary incontinence Change in bowel habits Foreign body granuloma of skin Acne rosacea Right hip pain Leg numbness Obesity Mixed hyperlipidemia GERD (gastroesophageal reflux disease) Hypovitaminosis D Family History Family History Father Hypertension Cancer Mother Hypertension Diabetes Brother No problems noted. Sister In good health Daughter In good health Surgical History Surgical History History of colostomy reversal History of abdominoplasty Perforation of colon History of total abdominal hysterectomy and bilateral salpingo-oophorectomy Social History Social History Household Members: Spouse, Family and Children Housing: House Are you a primary critical care technician to a significant other at home: No Do you presently have visiting nurse or other home services: No Alcohol intake: current Alcohol intake frequency: holidays/special occasions only Patient Tobacco Use Status: Never used Tobacco e-Cigarette/Vaping Use: Never Used Second Hand Smoke Exposure: No Use of substances other than those prescribed or required for medical reasons: No Have you been hit, kicked, punched, or otherwise hurt by someone within the past year? 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 Current occupational exposures/hazards: No Cognitive needs: No Hearing needs: No Vision needs: Yes Meds Allergies Allergy/AdvReac Type Severity Reaction Status Date / Time metronidazole [Metrogel] Allergy Intermediate facial rash Verified 10/02/24 09:16 morphine [Morphine] Allergy Intermediate SEVERE Verified 10/02/24 09:16 VOMITING, nausea and vomiting hydromorphone [From Dilaudid] AdvReac Mild makes pt Verified 10/02/24 09:16 feel ill Home Medications ?Medication ?Instructions ?Recorded ?Confirmed ?Last Taken ?Type pantoprazole 40 mg tablet,delayed 40 mg PO DAILY@0630 09/07/24 10/02/24 09/05/24 History release polyethylene glycol 3350 17 17 g PO DAILY PRN Constipation 09/07/24 10/02/24 Unknown History gram/dose oral powder (Gavilax) Exam Airway Mallampati Class: II TM Dist: >3cm Neck ROM: Full Assessment and Plan Assessment Anesthesia Assessment: Anesthesia Plan Discussed Final Anesthetic Review NPO: Yes ASA Class: II Final Preanesthetic Review: No Changes in Pt Med Stat, Meds/Allgs Chart Reviewed, Consent Obtained/Reviewed and Anes Risks/Benef Reviewed Patient Risk: Low Procedure Risk: Low Anesthetic Plan Anesthetic Plan: GA Disposition: Standard PACU
[2024-10-02] VITALS (9 sets, daily range): BP systolic 101–145; BP diastolic 63–84; PULSE 65–87; RESP 14–18; TEMP 36.5–36.9; O2SAT 94–98; BMI 26.4
--- NOTE | 2024-10-02 09:33 | MHC.SHP ---
Pre-Procedural Eval Section A - 24 Hr Update-Section A only Date of Service: 10/02/24 The patient is an INPATIENT: No The patient has been examined within 24 hours of the surgical procedure. The History & Physical has been completed within 30 days and I have reviewed it.: Yes Section B - Complete if H&P > 30 days Chief Complaint: Overactive bladder Allergies: Allergies Allergy/AdvReac Type Severity Reaction Status Date / Time metronidazole [Metrogel] Allergy Intermediate facial rash Verified 10/02/24 09:16 morphine [Morphine] Allergy Intermediate SEVERE Verified 10/02/24 09:16 VOMITING, nausea and vomiting hydromorphone [From Dilaudid] AdvReac Mild makes pt Verified 10/02/24 09:16 feel ill Plan Diagnosis/Plan: Unchanged I have reviewed the history and physical and performed a pertinent physical examination on my patient. No changes have occurred unless specified. Cystoscopy. Botox bladder injection. I have discussed risks to include hematuria, UTI, urinary retention, need to repeat procedure for sustained efficacy. Time Spent With Patient Time: Total time managing care of this patient today ____ minutes.
[2024-10-02] MEDS: Lactated Ringers 1,000 ML 100 ML IVCONT (09:37)
--- NOTE | 2024-10-02 10:53 | W.PM.OPN ---
Operative Note Operative Note Date of Service: 10/02/24 Narrative: PREOP DIAGNOSIS: OAB POSTOP DIAGNOSIS: OAB PROCEDURE: CYSTOSCOPY, BLADDER BOTOX INJECTION 100 UNITS SURGEON: Leandra Lake MD ANESTHESIA: General Details of procedure: The patient was brought into the operating room placed on the OR table in supine position. Antibiotics confirmed. General anesthesia was administered. The patient was repositioned into lithotomy position, prepped and draped in the usual sterile fashion. Time-out was done per protocol. A 22 fr cystoscope was placed transurethrally into the bladder. Urine was sent for culture. The right and left ureteral orifices were visualized. There were mild trabeculations noted. There were no suspicious bladder lesions seen. The Botox 100 units was mixed with 10 cc of normal saline and transurethral injections were placed into the posterior wall of the bladder. 0.5cc placed at each injection site. Injections were placed in a grid 5 across and 4 longitudinally. Injections were placed from the inferior to superior position. 2% lidocaine urojet was passed transurethrally into the bladder. The patient was brought out of anesthesia and taken to recovery in stable condition. Complications: None Drains: none
[2024-10-02] MEDS: Phenazopyridine HCL 200 MG TABLET PO (11:06)
[2024-10-02] MEDS: ondansetron HCL 4 MG/2 ML VIAL IVPUSH (11:27)
== END 2024-10-02 13:07 | disposition home or self-care (01) ==
PROVIDERS: PCP Internal Medicine; Visit Provider Urology
PROC: 3E0K8GC Introduction of Other Therapeutic Substance into Genitourinary Tract, Via Natural or Artificial Opening Endoscopic (ICD-10-PCS; CPT 52287; principal; 2024-10-02 10:30)
DX: N32.81 Overactive bladder (principal); N32.89 Other specified disorders of bladder; Z87.440 Personal history of urinary (tract) infections; N20.0 Calculus of kidney; N39.46 Mixed incontinence; R15.9 Full incontinence of feces; N81.89 Other female genital prolapse; N81.10 Cystocele, unspecified; Z79.899 Other long term (current) drug therapy; Z88.5 Allergy status to narcotic agent; Z88.8 Allergy status to other drugs, medicaments and biological substances; Z98.890 Other specified postprocedural states
CPT/HCPCS: 52287; 87086; J0131; J0585; J1100; J1630; J1956; J2003; J2250; J2405; J2704; J3010

== ENCOUNTER → 2024-10-02 08:14 | Outpatient (BNV) | payer OTHER, SELFPAY | PROVIDERS: PCP Internal Medicine; Visit Provider Urology | DX: N32.81 Overactive bladder (principal) | CPT/HCPCS: 52287 ==

== ENCOUNTER 2024-10-19 10:00 | Outpatient (AMB) | payer OTHER, SELFPAY ==
--- NOTE | 2024-10-19 10:14 | AM.OFFVISNUR ---
Intake Visit Reasons: PVR (botox) Allergies metronidazole [Metrogel] Allergy (Intermediate, Verified 10/02/24 09:16) facial rash morphine [Morphine] Allergy (Intermediate, Verified 10/02/24 09:16) SEVERE VOMITING, nausea and vomiting hydromorphone [From Dilaudid] Adverse Reaction (Mild, Verified 10/02/24 09:16) makes pt feel ill Office Procedures Post Void Residual Post Residual Void Details: Patient presents to office for PVR s/p botox procedure. Patient reports feeling less OAB symptoms minus going to the bathroom frequently recently. Patient reporting she does not know if it is a UTI or just the cold. UA run- no indication of infection. Bladder scanned for 127mls. Patient to keep follow up with Dr. Charles as scheduled. Patient will call office with any questions or concerns, patient agreeable with plan at this time Post Void Residual (PVR): [id number] Void Residual by ultrasound Results AMB Urinalysis, Automated UA Leukoctes 0 Suhail/uL Last Edit by Martín Rashid LPN on 10/19/24 10:23 UA Nitrite Negative Last Edit by Martín Rashid LPN on 10/19/24 10:23 UA Urobilinogen 0.2 mg/dL Last Edit by Martín Rashid LPN on 10/19/24 10:23 UA Protein 15 mg/dL Last Edit by Martín Rashid LPN on 10/19/24 10:23 UA pH 6.5 Last Edit by Martín Rashid LPN on 10/19/24 10:23 UA Blood 0 Alejandro/uL Last Edit by Martín Rashid LPN on 10/19/24 10:23 UA Specific [place] 1.015 Last Edit by Martín Rashid LPN on 10/19/24 10:23 UA Ketone Negative Last Edit by Martín Rashid LPN on 10/19/24 10:23 UA Bilirubin 0 mg/dL Last Edit by Martín Rashid LPN on 10/19/24 10:23 UA Glucose 0 mg/dL Last Edit by Martín Rashid LPN on 10/19/24 10:23 Assessment & Plan Assessment & Plan Orders: Orders AMB Urinalysis Automated Today N32.81 - Overactive bladder, R32 - Unspecified urinary incontinence, R39.15 - Urgency of urination AMB Post Void Residual by ultrasound Today N32.81 - Overactive bladder, R32 - Unspecified urinary incontinence, R39.15 - Urgency of urination
== END 2024-10-19 10:34 | disposition home or self-care (01) ==
PROVIDERS: PCP Internal Medicine; Visit Provider Urology
DX: N32.81 Overactive bladder (principal); R32 Unspecified urinary incontinence; R39.15 Urgency of urination

== ENCOUNTER → 2024-10-19 10:00 | Outpatient (BNVA) | payer OTHER, SELFPAY | PROVIDERS: PCP Internal Medicine; Visit Provider Urology | DX: N32.81 Overactive bladder (principal); R39.15 Urgency of urination; R32 Unspecified urinary incontinence | CPT/HCPCS: 51798; 81003 ==

== ENCOUNTER 2024-11-13 10:30 | Outpatient (AMB) | payer OTHER, SELFPAY ==
--- NOTE | 2024-11-13 11:21 | MHC.OFFWIV ---
Intake Vital Signs 11/13/24 11:22 Weight 154 lb BP 120/80 Blood Pressure Location Lt brachial Position Sitting Pulse 107 H Pulse Source Pulse Oximeter Temp 100.1 F Temp Source Oral Pulse Oximetry (%) 96 Oxygen Delivery Method Room Air Intake Visit Reasons: EP-fever, cough, chest pain & pressure, headaches Intake Note: Patient here for head congestion, cough, chest tightness and fevers which started Tuesday. 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 Patient has taken [id number] cold and flu medication and presents febrile at this time. [facility] Medical History Mixed incontinence urge and stress Recurrent UTI Urge urinary incontinence Change in bowel habits Foreign body granuloma of skin Acne rosacea Right hip pain Leg numbness Obesity Mixed hyperlipidemia GERD (gastroesophageal reflux disease) Hypovitaminosis D Surgical History History of colostomy reversal History of abdominoplasty Perforation of colon History of total abdominal hysterectomy and bilateral salpingo-oophorectomy Family History Father Hypertension Cancer Mother Hypertension Diabetes Brother No problems noted. 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 Current occupational exposures/hazards: No Cognitive needs: No Hearing needs: No Vision needs: Yes Review of Systems Const All systems reviewed & are unremarkable except as noted in HPI and below Denies chills, Reports fatigue, Reports fever(s), Reports headache(s), Reports lethargy and Reports weakness Eyes Reports no additional complaints ENT Reports no additional complaints, Denies otalgia, Reports headache(s), Denies odynophagia and Reports sinus pressure Card Reports no additional complaints Resp Reports no additional complaints, Reports cough and Denies wheezing GI Reports no additional complaints and Denies odynophagia Reports no additional complaints Musc Reports no additional complaints Skin/Breast Reports system reviewed and no additional complaints, except as documented Neuro Reports no additional complaints, Reports headache(s) and Reports weakness Psych Reports no additional complaints Endo Reports no additional complaints and Reports fatigue Orlin/Lymph Reports no additional complaints Aller/Immun Reports no additional complaints and Denies wheezing Physical Exam Vital Signs: Last Vital Signs Temp 100.1 F 11/13/24 11:22 Pulse 107 H 11/13/24 11:22 BP 120/80 11/13/24 11:22 Pulse Ox 96 11/13/24 11:22 Oxygen Delivery Method Room Air 11/13/24 11:22 The patient is febrile and tachycardic. Const General: cooperative, comfortable, well developed, alert, awake, Physically active and ill appearing acutely Nutritional Appearance: average body habitus Orientation/consciousness: patient oriented x3 Limitations: no limitations HEENT Head: Yes normal to inspection and Yes normocephalic Ears: hearing grossly normal bilaterally, external ears normal, TM's normal bilaterally and EAC's normal General nose exam: Normal external nose present Face and sinus: Yes normal facial exam Mouth: Normal oral and palatal mucosa present and moist mucous membranes Throat: Yes posterior oropharynx normal and Yes postnasal drainage Eyes General: appearance normal, both eyes and all related structures Neck Lymphatic: no lymphadenopathy noted Resp Effort & Inspection: normal respiratory effort, able to speak in complete sentences and not tachypneic Auscultation: clear to auscultation bilaterally Cardio Rate: tachycardic Rhythm: regular rhythm Neuro General: patient oriented x3 Psych Appearance: grossly normal Mental Status: mental status grossly normal Insight: Good insight present (Psych) Judgement: Good judgement present (Psych) Assessment & Plan Assessment & Plan (1) Cough with fever: Code(s): R05.9 - Cough, unspecified; R50.9 - Fever, unspecified Plan: SARS panel is ordered and results are pending. Patient's lungs are clear to auscultation bilaterally without tachypnea or wheeze and therefore imaging is deferred at this time. Plan Ibuprofen or Tylenol as needed for fevers, Mucinex OTC for cough, increase fluids, hot tea with honey. Orders: Orders SARS-CoV2/FLU/RSV Today J06.9 - Acute upper respiratory infection, unspecified Coding Level of Care Code Est Pt Level 3 (58913) Diagnoses Cough with fever R05.9; R50.9 Time Spent (min) 20
[2024-11-13 11:22] VITALS: BP 120/80; PULSE 107; TEMP 37.8; O2SAT 96
== END 2024-11-13 11:41 | disposition home or self-care (01) ==
PROVIDERS: PCP Internal Medicine; Visit Provider Physician Assistant
DX: R05.9 Cough, unspecified (principal); R50.9 Fever, unspecified

== ENCOUNTER 2024-11-13 10:31 | Outpatient (REF) | payer OTHER, SELFPAY ==
[2024-11-13 15:00] LABS: Influenza A PCR POSITIVE (Negative); Influenza B PCR NEGATIVE (Negative); Resp Syncy Virus RNA Qual PCR NEGATIVE (Negative); SARS COV2 PCR INHOUSE NEGATIVE (Negative)
== END 2024-11-13 10:32 | disposition home or self-care (01) ==
LOC: HO.LNP 10:31
PROVIDERS: PCP Internal Medicine; Visit Provider Physician Assistant
DX: J06.9 Acute upper respiratory infection, unspecified (principal); R05.9 Cough, unspecified
CPT/HCPCS: 0241U

== ENCOUNTER 2024-11-30 14:39 | Outpatient (REF) | payer OTHER, SELFPAY ==
[2024-11-30 15:04] LABS: MANUAL DIFF FLAG NO
[2024-11-30 16:05] LABS: Basophils Absolute Auto 0.1 X10*3/uL (0.0-0.2); Basophils Percent Auto 0.7 % (0-2); Eosinophils Absolute Auto 0.1 X10*3/uL (0.0-0.4); Eosinophils Percent Auto 1.1 % (0-4); Hematocrit 39.5 % (37.0-47.0); Hemoglobin 12.4 g/dl (12.0-16.0); Imm Gran Abs Auto 0.04 X10*3/uL (0.00-0.03); Imm Gran Pct Auto 0.5 % (0.0-0.4); Lymphocytes Absolute Auto 2.4 X10*3/uL (1.2-4.9); Lymphocytes Percent Auto 32.7 % (20-40); Mean Corpuscular HGB Conc 31.4 g/dl (31.0-35.0); Mean Corpuscular Volume 86.1 fL (80.0-98.0); Mean Platelet Volume 9.9 fL (9.4-12.3); Monocytes Absolute Auto 0.8 X10*3/uL (0.1-1.2); Monocytes Percent Auto 10.7 % (2-11); Neutrophils Percent Auto 54.3 % (45-73); Platelet Count 309 X10*3/uL (160-400); Red Blood Count 4.59 X10*6/uL (4.20-5.50); Red Cell Distribution Width 13.2 % (11.0-16.0); White Blood Count 7.4 X10*3/uL (4.8-10.8)
[2024-11-30 16:38] LABS: Alanine Aminotransferase 17 U/L (0-31); Albumin Level 4.1 g/dL (3.5-5.0); Alkaline Phosphatase 85 U/L (39-117); Anion Gap 12 (12-20); Aspartate Amino Transferase 24 U/L (5-31); Bilirubin Total 0.4 mg/dL (0.0-1.0); Blood Urea Nitrogen 12 mg/dL (9-16); Calcium 9.4 mg/dL (8.4-10.2); Carbon Dioxide 28 mmol/L (22-29); Chloride 107 mmol/L (96-108); Estimated Glomerular Filt Rate > 60; Glucose Random 115 mg/dL (60-115); Potassium 3.5 mmol/L (3.3-5.1); Sodium 143 mmol/L (135-145); Total Protein 7.5 g/dL (6.5-8.0)
== END 2024-11-30 14:40 | disposition home or self-care (01) ==
LOC: HO.LAB 14:39
PROVIDERS: Absent Provider Internal Medicine; PCP Internal Medicine; Visit Provider Urology
DX: A04.5 Campylobacter enteritis (principal)
CPT/HCPCS: 36415; 80053; 85025

== ENCOUNTER 2024-12-01 08:22 | Outpatient (REF) | payer OTHER, SELFPAY ==
[2024-12-01 09:24] LABS: Appearance Urine Turbid; Color Urine Yellow; Glucose Urine UA Negative (Negative); Leukocyte Esterase Urine Large (3+) (Negative); Nitrite Urine Positive (Negative); UMIC TRIGGER UA YES; Urine Blood Small (1+) (Negative); Urine Ketones Negative (Negative); Urine Protein 30 (1+) mg/dL (Neg-Trace)
[2024-12-01 10:15] LABS: Bacteria Urine 4+ (None Seen); Calcium Oxalate Crystals Urine Present; Hyaline Casts Urine 0-2 /LPF (0-2); Squamous Epithelial Cell Urine 0-2 /HPF (0-2); WBC Urine >50 /HPF (0-5)
== END 2024-12-01 08:23 | disposition home or self-care (01) ==
LOC: HO.LNP 08:22
PROVIDERS: Visit Provider Urology
DX: J01.20 Acute ethmoidal sinusitis, unspecified (principal); N76.0 Acute vaginitis; B96.89 Other specified bacterial agents as the cause of diseases classified elsewhere; R30.0 Dysuria; R32 Unspecified urinary incontinence; R39.15 Urgency of urination; R82.90 Unspecified abnormal findings in urine; N39.0 Urinary tract infection, site not specified
CPT/HCPCS: 81001; 87086; 87088; 87186; 99212

== ENCOUNTER 2024-12-01 10:49 | Outpatient (AMB) | payer OTHER, SELFPAY ==
[2024-12-01 11:53] VITALS: BP 128/80; PULSE 95; RESP 15; TEMP 36.8; O2SAT 96
--- NOTE | 2024-12-01 11:53 | AM.OFFWIN_ITS ---
Intake Vital Signs 12/01/24 11:53 Weight 156 lb BP 128/80 Blood Pressure Location Rt brachial Position Sitting Respiration 15 Pulse 95 Pulse Source Pulse Oximeter Temp 98.2 F Temp Source Oral Pulse Oximetry (%) 96 Oxygen Delivery Method Room Air Intake Visit Reasons: EP-Sinus? Patient Tobacco Use Status: Never used Tobacco Allergies metronidazole [Metrogel] Allergy (Intermediate, Verified 12/01/24 12:21) facial rash morphine [Morphine] Allergy (Intermediate, Verified 12/01/24 12:21) SEVERE VOMITING, nausea and vomiting hydromorphone [From Dilaudid] Adverse Reaction (Mild, Verified 12/01/24 12:21) makes pt feel ill HPI EP-Sinus? HPI Details Diagnosed with influenza 3 weeks ago, completed Tamiflu and is now feeling persistent sinus pressure, postnasal drip, fullness to the ears. She has tried multiple [id number] remedies for the last few weeks and now reports she is not feeling any relief. No report of dizziness or vertigo, significant, nausea vomiting or diarrhea weakness, fever chills, otic discharge myalgias or malaise, chest pain or shortness of breath, other significant associated symptoms. [facility] Medical History Mixed incontinence urge and stress Recurrent UTI Urge urinary incontinence Change in bowel habits Foreign body granuloma of skin Acne rosacea Right hip pain Leg numbness Obesity Mixed hyperlipidemia GERD (gastroesophageal reflux disease) Hypovitaminosis D Surgical History History of colostomy reversal History of abdominoplasty Perforation of colon History of total abdominal hysterectomy and bilateral salpingo-oophorectomy Family History Father Hypertension Cancer Mother Hypertension Diabetes Brother No problems noted. 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 Current occupational exposures/hazards: No Cognitive needs: No Hearing needs: No Vision needs: Yes Review of Systems Const All systems reviewed & are unremarkable except as noted in HPI and below Physical Exam Vital Signs: Last Vital Signs Temp 98.2 F 12/01/24 11:53 Pulse 95 12/01/24 11:53 Resp 15 12/01/24 11:53 BP 128/80 12/01/24 11:53 Pulse Ox 96 12/01/24 11:53 Oxygen Delivery Method Room Air 12/01/24 11:53 Const General: cooperative, healthy appearing, comfortable, no acute distress, alert, awake, Physically active and well groomed; No anxious, diaphoretic, ill appearing, intoxicated appearing or poor hygiene Nutritional Appearance: average body habitus Orientation/consciousness: oriented to person Limitations: no limitations HEENT Head: Yes normal to inspection, Yes normocephalic and Yes atraumatic Ears: hearing grossly normal bilaterally, external ears normal, TM's normal bilaterally and EAC's normal General nose exam: Normal external nose present, Abnormal mucous membranes and turbinates present and Nasal discharge present Face and sinus: No ecchymosis, No erythema, No edema, No fluctuance and Yes sinus tenderness Mouth: Normal oral and palatal mucosa present, lip normal and tongue normal Throat: Yes posterior oropharynx normal, Yes uvula midline, No peritonsillar mass, No postnasal drainage, No uvular edema and No cobblestoning Eyes General: appearance normal, both eyes and all related structures Chest Chest palpation & inspection: normal palpation of entire chest wall Resp Effort & Inspection: normal respiratory effort, able to speak in complete sentences, no audible wheezes, no cough, no grunting, not labored, no nasal flaring, no retractions and symmetric chest movement Auscultation: clear to auscultation bilaterally, no crackles, no rales, no rhonchi, no wheezes, lung sounds not diminished and No rub present Cardio Palpation: normal PMI Rate: regular rate Rhythm: regular rhythm Heart sounds: S1 normal heart sound present and S2 normal heart sound present Skin Other: Good color, warm and dry Neuro General: oriented to person Psych Appearance: grossly normal Mental Status: mental status grossly normal Speech and movement: Normal speech and movement present Affect: normal affect Attitude: cooperative Thought process: Normal thought process present Insight: Good insight present (Psych) Judgement: Good judgement present (Psych) Assessment & Plan Assessment & Plan (1) Sinusitis: Code(s): J32.9 - Chronic sinusitis, unspecified Qualifiers: Sinusitis location: ethmoidal Chronicity: acute Recurrence: non- recurrent Qualified Code(s): J01.20 - Acute ethmoidal sinusitis, unspecified Plan: Patient is a 54-year-old female with persistent sinus pressure after a few weeks of viral syndrome. She was treated for influenza and acute symptoms are resolved, however she has persistent sinus pressure, ear pressure, postnasal drip and think it is appropriate at this point to trial an antibiotic and course of prednisone for sinusitis. She will follow up again if symptoms persist or worsen, and should go to emergency department with any worrisome symptoms. Medications: New benzonatate 200 mg PO BID-TID PRN 20 caps 0RF cough amoxicillin-pot clavulanate 875-125 mg 1 tab PO BID 14 tabs 0RF 7 days prednisone 40 mg (2 x 20 mg) PO DAILY 10 tabs 0RF 5 days Coding Level of Care Code Est Pt Level 4 (42130) Diagnoses Acute non-recurrent ethmoidal sinusitis J01.20 Sinusitis location: ethmoidal Chronicity: acute Recurrence: non-recurrent
== END 2024-12-01 13:45 | disposition home or self-care (01) ==
LOC: HO.HMCWIC 10:49
PROVIDERS: PCP Internal Medicine; Visit Provider Physician Assistant Medical
DX: J01.20 Acute ethmoidal sinusitis, unspecified (principal)

== ENCOUNTER 2024-12-10 11:40 | Outpatient (AMB) | payer OTHER, SELFPAY ==
--- NOTE | 2024-12-10 11:48 | MHC.OFFVIS ---
Vital Signs 12/10/24 11:52 Height 5 ft 2 in Weight 156 lb BMI 28.5 BP 127/65 Blood Pressure Location Lt brachial Position Sitting Pulse 96 Intake Visit Reasons: diverticulitis Intake Note: Patient follow up for diverticulitis and Colonoscopy results. Patient cc: acid reflex with burning sensation, abdominal discomfort with pain and bloating, nauseas on and off, swallowing difficulty on and off, between diarrhea and constipation come and go, also patient want an EGD to be done and needed refills for docusate sodium and Miralax. Classification And Treatment Director Required: No Accompanied by: Self / Same As Patient Allergies metronidazole [Metrogel] Allergy (Intermediate, Verified 12/10/24 11:47) facial rash morphine [Morphine] Allergy (Intermediate, Verified 12/10/24 11:47) SEVERE VOMITING, nausea and vomiting hydromorphone [From Dilaudid] Adverse Reaction (Mild, Verified 12/10/24 11:47) makes pt feel ill HPI HPI diverticulitis: Details: 53 yr old f here for f/u \ from index visit: she had 4 weeks of constipation she had to do manual disimpaction she feels a problem is in rectum she gives a good strong push but still has issues, was crying as well she noted some blood on wiping she did have LLQ pain, can be helped with passing stool she also has nausea for few weeks appetite has been fair weight up and down she had reflux and takes ppi which helps no dysphagia she does have overactive blaader and takes oxybutynin she is not taking narcotics she has beent aking nsaids reg for last several days for kidney stones not had colonoscopy. I then arranged colonoscopy 01/2018: morgan diverticular disease, hemerrhoids normal anal tone, no paradoxical anal contraction on push normal random bx labs were unremarkable Since colonoscopy her bowel were moving well, may too well she had post prandial urgency 15 mins after eating she also gets bloating, no abdominal pain no nausea or vomiting overall she had felt better, not required any laxatives she had d/c and pain around site of prior colostomy, given bactrim and had u with blind ending sinus seen she was referred to urolgoy for stim placement but she refuses this due to concerns raised by a co worker colonoscopy: 12/14/23: scattered diverticulosis, -severe in the sigmoid path--normal INTERIM: she has issues with bloating and gas she has burning and weird sensation on sswallowing occ has issues with constipation and incontinence she does not want stim device she takes miralax or colace for constipation she needs a letter for jury duty EXAM: GENERAL: The patient is well developed and nontoxic. VITAL SIGNS:see workflow HEENT: Nonicteric sclerae, PERRLA, EOMI. Oropharynx clear. Moist mucous membranes. Conjunctivae appear well perfused. No thyroid mass. CHEST: Chest wall is nontender. HEART: Regular rate and rhythm without murmurs. LUNGS: Clear to auscultation bilaterally. ABDOMEN: Soft, positive bowel sounds, non tender no organomegaly.no flank tenderness--no rigidity or guarding SKIN: No rash, no excessive bruising, petechiae, or purpura. NEUROLOGIC: Cranial nerves II-XII intact without motor/sensory deficit. a/P: 1/ Diverticulosis, severe, constipation-prob palying a role in her abn bowel habits 2/ bloating and gas, abn swallowing, may be realted to dysmotility or SIBO PLAN: 1/ advised on miralax BID, cont with stool softener, add probiotic and fiber, 2/ trial of rifaximin 3/ change PPI and see if helps 4/ lianlcotide for constipation prn 5/ EGD to reassess GI tract-upper 6/ letter for jury duty REPLACED BY [facility] Medical History Mixed incontinence urge and stress Recurrent UTI Urge urinary incontinence Change in bowel habits Foreign body granuloma of skin Acne rosacea Right hip pain Leg numbness Obesity Mixed hyperlipidemia GERD (gastroesophageal reflux disease) Hypovitaminosis D Surgical History History of colostomy reversal History of abdominoplasty Perforation of colon History of total abdominal hysterectomy and bilateral salpingo-oophorectomy Family History Father Hypertension Cancer Mother Hypertension Diabetes Brother No problems noted. 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 Current occupational exposures/hazards: No Cognitive needs: No Hearing needs: No Vision needs: Yes Physical Exam Vital Signs: Last Vital Signs Pulse 96 12/10/24 11:52 BP 127/65 12/10/24 11:52 BMI result Body Mass Index 28.5 Assessment & Plan Assessment & Plan (1) Chronic idiopathic constipation: Code(s): K59.04 - Chronic idiopathic constipation Category: Medical Plan: as above Medications: New rifaximin 550 mg PO TID 2 weeks 42 tabs 0RF linaclotide 72 mcg PO DAILY 30 caps 3RF lansoprazole 30 mg PO DAILY 90 caps 1RF Discontinued amoxicillin-pot clavulanate 875-125 mg Discontinued Reason: Doctor's Order 1 tab PO BID 7 days 14 tabs 0RF sulfamethoxazole-trimethoprim 800-160 mg (Bactrim DS) Discontinued Reason: Doctor's Order 1 tab PO BID 5 days 10 tabs 0RF Coding Level of Care Code Est Pt Level 4 (18553) Diagnoses Chronic idiopathic constipation K59.04
[2024-12-10 11:52] VITALS: BP 127/65; PULSE 96; BMI 28.5
== END 2024-12-10 12:35 | disposition home or self-care (01) ==
PROVIDERS: PCP Internal Medicine; Visit Provider Internal Medicine Gastroenterology
DX: K59.04 Chronic idiopathic constipation (principal)
CPT/HCPCS: 99214

== ENCOUNTER → 2024-12-10 11:40 | Outpatient (BNVA) | payer OTHER, SELFPAY | PROVIDERS: PCP Internal Medicine; Visit Provider Internal Medicine Gastroenterology ==

== ENCOUNTER 2025-01-02 13:43 | Outpatient (AMB) | payer OTHER, SELFPAY ==
[2025-01-02 13:47] VITALS: BP 132/80; PULSE 78; BMI 29.0
--- NOTE | 2025-01-02 13:47 | A.OFFVIS_ITS ---
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/[place] Allergies metronidazole [Metrogel] Allergy (Intermediate, Verified 12/10/24 11:47) facial rash morphine [Morphine] Allergy (Intermediate, Verified 12/10/24 11:47) SEVERE VOMITING, nausea and vomiting hydromorphone [From Dilaudid] Adverse Reaction (Mild, Verified 12/10/24 11:47) makes pt feel ill Medication List - Last Reconciled 01/02/25 by Torsten Ghosh MD diaper,brief,adult,disposable (Day and Night Brief,Medium) As directed docusate sodium 100 mg PO BID 30 days ibuprofen 800 mg PO Q8H PRN 30 days lansoprazole 30 mg PO DAILY leg brace (Knee Support Brace) As directed x 6 weeks linaclotide 72 mcg PO DAILY rifaximin 550 mg PO TID 2 weeks HPI Comments Details: Radha has been referred for evaluation regarding an abnormal EKG. Recent EKG had raised a question of anterior infarct and hence there is a concern. Patient herself denies any prior history of cardiac issues including coronary disease or myocardial infarction or cardiomyopathy or in fact any other cardiac concerns. She states that she is active with no limitations. 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 She was apparently told to have a cardiac murmur as well long time ago. Not been previously checked. [facility] Medical History Mixed incontinence urge and stress Recurrent UTI Urge urinary incontinence Change in bowel habits Foreign body granuloma of skin Acne rosacea Right hip pain Leg numbness Obesity Mixed hyperlipidemia GERD (gastroesophageal reflux disease) Hypovitaminosis D Surgical History History of colostomy reversal History of abdominoplasty Perforation of colon History of total abdominal hysterectomy and bilateral salpingo-oophorectomy Family History Father Hypertension Cancer Mother Hypertension Diabetes Brother No problems noted. 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 Current occupational exposures/hazards: No Cognitive needs: No Hearing needs: No Vision needs: Yes Review of Systems Const Denies weakness ENT Denies dizziness Card Denies chest pain, Denies chest pain with activity, Denies syncope, Denies rapid heart rate, Denies pedal edema, Denies edema, Denies leg edema, Denies lightheadedness, Denies palpitations, Denies dyspnea, Denies dyspnea on exertion and Denies orthopnea Resp Denies cough, Denies dyspnea and Denies dyspnea on exertion GI Denies hematochezia and Denies change in stool character Musc Denies abnormal gait, Denies muscle cramps, Denies muscle weakness, Denies numbness, Denies radiating pain into limb and Denies tingling Neuro Denies abnormal gait, Denies dizziness, Denies syncope, Denies numbness, Denies tingling and Denies weakness Endo Denies palpitations Physical Exam Vital Signs: Last Vital Signs Pulse 78 01/02/25 13:47 BP 132/80 01/02/25 13:47 BMI result Body Mass Index 29.0 Const General: comfortable and no acute distress Orientation/consciousness: patient oriented x3 HEENT Other: Unremarkable Head: Yes normal to inspection Neck Neck: Yes normal visual inspection Chest Chest palpation & inspection: normal inspection of the chest Resp Auscultation: clear to auscultation bilaterally Cardio Palpation: normal PMI Heart sounds: S1 normal heart sound present, S2 normal heart sound present, no gallops, Murmur heart sound present systolic II/ and at the right sternal border and no rubs GI Palpation (GI): Soft to palpation Back/Spine/Pelvis Other: unremarkable Skin General skin exam: no rashes or lesions noted Neuro General: patient oriented x3 Extrem General: Yes normal to inspection Psych Mental Status: mental status grossly normal Assessment & Plan Assessment & Plan (1) Abnormal EKG: Code(s): R94.31 - Abnormal electrocardiogram [ECG] [EKG] Category: Medical Plan: In the recent EKG, sinus tachycardia at 111/Min; cannot exclude old anterior infarct; nonspecific ST-T changes. Normal NE/corrected QT. prior to that, the anterior infarct type findings are not seen. Hence not clear if it is all from lead placement or not. In remote EKGs from 20 years ago, there is T inversions in the anterior leads. We will check an echocardiogram for cardiac function. May need a coronary CTA (vs stress test). (2) Cardiac murmur: Code(s): R01.1 - Cardiac murmur, unspecified Category: Medical Plan: Aortic sclerotic murmur on exam. We will get an echocardiogram. Orders: Orders CA echo transthoracic complete Today R01.1 - Cardiac murmur, unspecified, R94.31 - Abnormal electrocardiogram [ECG] [EKG] Coding Level of Care Code New Pt Level 3 (82659) Diagnoses Abnormal EKG R94.31 Cardiac murmur R01.1
== END 2025-01-02 14:26 | disposition home or self-care (01) ==
LOC: HO.HCS 13:43
PROVIDERS: PCP Internal Medicine; Visit Provider Internal Medicine
DX: R94.31 Abnormal electrocardiogram [ECG] [EKG] (principal); R01.1 Cardiac murmur, unspecified
CPT/HCPCS: 99213

== ENCOUNTER → 2025-01-02 13:43 | Outpatient (BNVA) | payer OTHER, SELFPAY | PROVIDERS: PCP Internal Medicine; Visit Provider Internal Medicine | DX: R94.31 Abnormal electrocardiogram [ECG] [EKG] (principal); R01.1 Cardiac murmur, unspecified | CPT/HCPCS: 99212 ==

== ENCOUNTER → 2025-01-04 10:34 | Outpatient (REF) | payer OTHER, SELFPAY ==
--- NOTE | 2025-01-04 10:36 | CA_ITS ---
Transthoracic Echocardiogram Patient (Last, First, Middle): Malathi Townsend C Gender: Female Date of : 1970 Age: 54 Procedure Date: 01/04/2025 Procedure Type: Transthoracic Echocardiogram Location: OP Height: 157.48 cm Weight: 71.67 kg BSA: 1.73 m2 Heart Rate: 80 bpm BP: 132 / 80 mmHg Commissary Production Supervisor: SB Referring MD: Torsten Ghosh MD Psych Therapist: Darius Pena MD Symptoms: R94.31 - Abnormal electrocardiogram [ECG] [EKG] Study Quality: Adequate ECG Rhythm: Sinus Conclusions: - 1. Normal LV ejection fraction of 60 65% with impaired relaxation filling pattern 2. Normal cardiac valvular Dopplers 3. Trivial pericardial effusion Findings Left Ventricle Normal left ventricular size, thickness, and systolic function. The visually estimated ejection fraction is between 60-65%. Spectral Doppler is indicative of an impaired relaxation filling pattern. E/E prime ratio is between 8 and 15 consistent with indeterminate filling pressures. Right Ventricle Normal right ventricular cavity size and systolic function. Atria Both atria are normal in size. There is no evidence of interatrial shunt. Aortic Valve The aortic valve structure and function is likely normal. There is no aortic valve stenosis. There is no aortic valve regurgitation. Mitral Valve Likely normal mitral valve structure and function. There is trace mitral valve regurgitation. There is no mitral valve stenosis. Pulmonic Valve The pulmonic valve is likely normal. Tricuspid Valve Likely normal tricuspid valve structure and function. Tricuspid regurgitation envelope is inadequate for calculation of right ventricular systolic pressure. Normal right atrial pressure. Great Vessels All visible segments of the aorta are normal in size. The pulmonary artery was not well visualized. There is no dilatation of the ascending aorta measuring 3.20 cm. Venous The inferior vena cava is normal in size and collapses greater than 50% with inspiration. Pericardium/Pleural There is a trivial pericardial effusion. Prior Study Comparison no previous study in the last 5 years for comparison Measurements 2D Linear Measurements IVSd: 1.07 0.6-0.9/0.6-1.0 cm LVIDd: 3.78 3.9-5.3/4.2-5.9 cm LVIDd Index: 2.18 2.4-3.2/2.2-3.1 cm/m2 LVIDs: 2.72 2.0-3.6 cm LVPWd: 1.14 0.7-1.1 cm LA Diam: 3.90 2.7-3.8/3.0-4.0 cm LAIDs Index: 2.25 1.5-2.3 cm/m2 LV Mass: 167.35 67-162/88-224 g LV Mass Index: 96.73 43-95/49-115 g/m2 LVOT Diam: 2.20 3.0+(-)1.3 cm 2D Systolic Function EF 4C: 61.60 >55% EF 2C: 58.10 >55% EF BiP: 59.60 >55% Mitral Valve MV Pk E: 0.63 MV PK A: 0.83 MV Decel Time: 212.00 E/A: 0.80 E'Lateral: 9.68 E'Medial: 4.90 E/E' Med: 12.80 E/E' Lat: 6.50 PHT: 62.00 MVA PHT: 3.55 Decel [place]: 2.95 Aortic Valve AoV Pk You: 1.61 AoV Pk Grad: 10.00 VIVEK: 2.31 LVOT LVOT Pk You: 0.91 LVOT Mn You: 0.63 LVOT VTI: 0.18 LVOT Pk Grad: 3.00 LVOT Mn Grad: 2.00 LVOT Diam: 2.20 LVOT Area: 3.80 Diastolic Function MV Pk E: 0.63 MV Pk A: 0.83 E/A: 0.80 E'Medial: 4.90 E/E' Med: 12.80 E' Laterial: 9.68 E/E' Lat: 6.50 Right Ventricle TAPSE (mm): 17.10 TVS' You: 10.00 Tricuspid Valve RA Press: 3.00 Great Vessels Aorta Sinus of Valsalva: 2.60 2.0-3.5 cm Ao Asc: 3.20 2.1-3.4 cm Ao Arch: 2.80 Ao Desc: 1.60 Pulmonary Valve PV Pk You: 1.09 Peak PV Grad: 5.00 Updated in Other Vendor System with Status of Final Darius Pena MD electronically signed on 01/05/2025 11:32:47 AM with status of Final
== END ==
LOC: HO.CARD 10:34
PROVIDERS: Visit Provider Internal Medicine
DX: R94.31 Abnormal electrocardiogram [ECG] [EKG] (principal); R01.1 Cardiac murmur, unspecified
CPT/HCPCS: 81003; 93306

== ENCOUNTER → 2025-01-04 10:36 | Outpatient (BNV) | payer OTHER, SELFPAY | PROVIDERS: Visit Provider Internal Medicine Cardiovascular Disease | DX: R94.31 Abnormal electrocardiogram [ECG] [EKG] (principal); I31.39 Other pericardial effusion (noninflammatory) | CPT/HCPCS: 93306 ==

== ENCOUNTER 2025-01-04 11:27 | Outpatient (AMB) | payer OTHER, SELFPAY ==
--- NOTE | 2025-01-04 10:43 | A.OFFVIS_ITS ---
Intake Visit Reasons: Botox- follow up Intake Note: Patient is present for Botox follow up Urology Medication:None Antibiotic Allergy:None Blood Thinner:None Merchandise Director Required: No Allergies metronidazole [Metrogel] Allergy (Intermediate, Verified 01/04/25 11:55) facial rash morphine [Morphine] Allergy (Intermediate, Verified 01/04/25 11:55) SEVERE VOMITING, nausea and vomiting hydromorphone [From Dilaudid] Adverse Reaction (Mild, Verified 01/04/25 11:55) makes pt feel ill HPI Comments Details: 01/04/25-- History of Present Illness The patient is a 54-year-old female presenting with overactive bladder. Since initiating management with bladder Botox injections, most recently on October 02, 2022, with 100 units, there has been substantial improvement. Initially, the patient reported requiring urgent urination and needing to use the bathroom every hour, accompanied by incontinence. After treatment, the interval between urination has improved to two to three hours, reducing incontinence frequency and the need for protective liners. Previously, she had continuous issues that impaired her daily activities, but the current management has significantly alleviated the problem. Urinary Symptoms Review - Prior to Botox treatment, urination frequency every one to two hours - Improved urination interval of two to three hours post-treatment - Nocturnal symptoms absent; patient does not wake more than once at night - Usage of a panty liner for precaution though much less frequent incontinence - No burning during urination - No current urgency or compelling need for frequent bathroom visits Results - Labs: Urinalysis - Leukocytes negative, Blood negative - No signs of urinary tract infection Discussion Notes Plan Patient Instructions - Continue to monitor urinary symptoms and report any changes. - Follow up for Botox injection in April; align with travel schedule. - Maintain usual protective measures as needed. - Seek immediate care if experience signs of a urinary tract infection. Patient was informed and verbally consented to the use of an ambient scribe for clinic note documentation during this visit. 07/26/24--Malathi is a 54-year-old female who has had recurrent UTIs and lower urinary tract symptoms of urgency. She also has complaints of intermittent episodes fecal incontinence. The patient is prescribed nitrofurantoin to use post intercourse. s/p botox 100 units on 04/24/24. She states she had improvement in the urgency symptoms. Plan will continue management of OAB and urgency LUTS with repeat botox bladder injection. 02/23/2024--Malathi is a 54-year-old female who has had recurrent UTIs and lower urinary tract symptoms of urgency. She also has complaints of intermittent episodes fecal incontinence. The patient is prescribed nitrofurantoin to use post intercourse. The patient had Botox bladder injection in July,. by [facility] urology. I discussed sacral neuromodulation previously due to her symptoms of urgency and fecal incontinence. The patient initially was interested in then declined. The patient states she feels the Botox was effective. She would like to continue with that therapy for urinary symptoms of urgency frequency. Urinalysis leukocytes 15 Suhail/uL, blood negative. Bladder scan PVR 37 mL. 11/24/23- Malathi is here for follow recurrent UTI's. She is afraid of trying the interstim. Plan--Nitrofurantoin post intercourse. FU 3 months 10/20/23--Malathi was present yesterday and had a pessary size 3 w/o support inserted for cystocele. She called today with complaints of pelvic pain. UA checked today is nitrite positive Exam- pessary in good position - no vaginal bleeding. The pessary was removed. Plan - Fosfomycin Pending scheding for Neuromodulation for LUTS of urgency and symptoms of fecal incontinence [facility] Medical History Mixed incontinence urge and stress Recurrent UTI Urge urinary incontinence Change in bowel habits Foreign body granuloma of skin Acne rosacea Right hip pain Leg numbness Obesity Mixed hyperlipidemia GERD (gastroesophageal reflux disease) Hypovitaminosis D Surgical History History of colostomy reversal History of abdominoplasty Perforation of colon History of total abdominal hysterectomy and bilateral salpingo-oophorectomy Family History Father Hypertension Cancer Mother Hypertension Diabetes Brother No problems noted. 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 Current occupational exposures/hazards: No Cognitive needs: No Hearing needs: No Vision needs: Yes Results AMB Urinalysis, Automated UA Leukoctes 0 Suhail/uL Last Edit by Chanda Corbett on 01/04/25 13:38 UA Nitrite Negative Last Edit by Chanda Corbett on 01/04/25 13:38 UA Urobilinogen 3.5 mg/dL Last Edit by Chanda Corbett on 01/04/25 13:38 UA Protein 1 mg/dL Last Edit by Chanda Corbett on 01/04/25 13:38 UA pH 6.0 Last Edit by Chanda Corbett on 01/04/25 13:38 UA Blood 0 Alejandro/uL Last Edit by Chanda Corbett on 01/04/25 13:38 UA Specific [place] 1.020 Last Edit by Chanda Corbett on 01/04/25 13:38 UA Ketone Negative Last Edit by Chanda Corbett on 01/04/25 13:38 UA Bilirubin 0 mg/dL Last Edit by Chanda Corbett on 01/04/25 13:38 UA Glucose 0 mg/dL Last Edit by Chanda Corbett on 01/04/25 13:38 Assessment & Plan Assessment & Plan Orders: Orders AMB Urinalysis Automated Today Z13.9 - Encounter for screening, unspecified Coding
== END 2025-01-04 12:37 | disposition home or self-care (01) ==
LOC: HO.HUSH 11:27
PROVIDERS: PCP Internal Medicine; Visit Provider Urology
DX: Z13.9 Encounter for screening, unspecified (principal)

== ENCOUNTER 2025-01-08 07:30 | Outpatient (AMB) | payer OTHER, SELFPAY ==
--- NOTE | 2025-01-08 07:39 | A.OFFPC_ITS ---
Vital Signs 01/08/25 07:45 Height 5 ft 2 in Weight 158 lb BMI 28.9 BP 126/82 Blood Pressure Location Lt brachial Position Sitting Intake Visit Reasons: pe Intake Note: Patient here for a physical exam Vice President Marketing & Development Required: Yes Vice President Marketing & Development Language: Plastic Surgery Assistant Name: Shasha Juarez MD Information Interpreted: non-clinical & clinical Accompanied by: Self / Same As Patient Allergies metronidazole [Metrogel] Allergy (Intermediate, Verified 01/08/25 07:55) facial rash morphine [Morphine] Allergy (Intermediate, Verified 01/08/25 07:55) SEVERE VOMITING, nausea and vomiting hydromorphone [From Dilaudid] Adverse Reaction (Mild, Verified 01/08/25 07:55) makes pt feel ill Medication List - Last Reconciled 01/08/25 by Shasha Juarez MD diaper,brief,adult,disposable (Day and Night Brief,Medium) As directed docusate sodium 100 mg PO BID 30 days ibuprofen 800 mg PO Q8H PRN 30 days lansoprazole 30 mg PO DAILY leg brace (Knee Support Brace) As directed x 6 weeks linaclotide 72 mcg PO DAILY rifaximin 550 mg PO TID 2 weeks Tobacco use date assessed: 01/08/25 Dental Screening Dental Screen Date: 01/08/25 Did you have a dental visit in the last 12 months?: Yes Did you have a dental problem in the last 6 months where you did not have access to dental care?: No Was dental information given to patient?: Patient has dentist HPI HPI Comments History of Present Illness Details The patient is a 54-year-old female presenting for her annual physical examination. A history of osteopenia was identified last year, and she currently manages it with calcium and vitamin D supplements. A densitometry performed last year revealed osteopenia, and the patient is aware that the next bone density evaluation is due in 2025. She has rosacea treated with steroid cream as needed. She reports experiencing intermittent pain on the right side of her abdomen, which sometimes extends to her waist and has been present for a significant duration. Ibuprofen provides temporary relief, and although a CT scan showed no abnormalities, she plans to discuss this condition with her video player mechanic, as it could be related to her past gastrointestinal issues. The patient's surgical history includes a hysterectomy with bilateral oophorectomy in 2012 and a perforated colon repair followed by reverse colostomy in 1993. She denies current symptoms such as chest pain, shortness of breath, fever, or cough but notes daily muscular pain in her arms, potentially related to her sleep posture. Preventative health measures include last year's completion of a mammogram and colonoscopy, with normal results. It is essential to note her allergies to metrogel, morphine, dilobid, and all narcotics, which induce vomiting and other adverse reactions. - Tetanus vaccine administered in 2016; next due in 2026 - Mammogram performed last year; another is due this year - Bone density test scheduled for 2025 f ollowing osteopenia diagnosis - Colonoscopy was completed last year normal results; next recommended in 2023 [facility] Medical History (Updated 01/08/25 @ 08:10 by Shasha Juarez MD) Mixed incontinence urge and stress Recurrent UTI Urge urinary incontinence Change in bowel habits Foreign body granuloma of skin Acne rosacea Right hip pain Leg numbness Obesity Mixed hyperlipidemia GERD (gastroesophageal reflux disease) Hypovitaminosis D Surgical History History of colostomy reversal History of abdominoplasty Perforation of colon History of total abdominal hysterectomy and bilateral salpingo-oophorectomy Family History Father Hypertension Cancer Mother Hypertension Diabetes Brother No problems noted. 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 1. Little interest or pleasure in doing things: not at all 2. Feeling down, depressed, or hopeless: not at all 3. Trouble falling or staying asleep, or sleeping too much: several days 4. Feeling tired or having little energy: not at all 5. Poor appetite or overeating: not at all 6. Feeling bad about yourself - or that you are a failure or have let yourself or your family down: not at all 7. Trouble concentrating on things, such as reading the newspaper or watching television: not at all 8. Moving or speaking so slowly that other people could have noticed. Or the opposite - being so fidgety or restless that you have been moving around a lot more than usual: not at all 9. Thoughts that you would be better off or of hurting yourself in some way: not at all Total score: 1 Depression Screening Interpretation: Negative Depression Screening Done: Yes 91979 - PHQ-9 Billing: Yes Source: Developed by Drs. Jhoan Humphries, Karla Garcia, Guicho Rodriges and colleagues, with an educational marla from [employer]. Thrive Questionnaire Date Thrive assessed: 01/01/25 I am a: Patient What is your living situation today?: I have a steady place to live Within the past 12 months, did the food you bought not last and you didn't have the money to get more?: Never true Within the past 12 months, did you worry whether your food would run out before you got money to buy more?: Never true Do you have trouble paying for medicines?: No Do you have trouble getting transportation to medical appointments?: No Do you have trouble paying your heating and electricity bill?: No Do you have trouble taking care of your child, family member or friend?: No Do you have trouble with day-to-day activities such as bathing, preparing meals, shopping, managing finances, etc.?: No Are you currently unemployed and looking for a job?: No Are you interested in more education?: No Please select the resources that you would like help with: None Currently or been in a relationship where the following occur: No concerns reported THRIVE Score: 0 AUDIT C Alcohol Use Questionnaire (AUDIT-C) 1. How often do you have a drink containing alcohol?: Monthly or less 2. How many drinks containing alcohol do you have on a typical day when you are drinking?: 1 or 2 3. How often do you have six or more drinks on one occasion?: Never Total Score: 1 Score Reviewed/Action Taken: No TYREE-7 AMB Questionnaire TYREE-7 Date TYREE - 7 assessed: 01/08/25 Feeling nervous, anxious, or on edge: 0 = Not at all Not being able to stop or control worryin = Not at all Worrying too much about different things: 0 = Not at all Trouble relaxin = Not at all Being so restless that it is hard to sit still: 0 = Not at all Becoming easily annoyed or irritable: 0 = Not at all Feeling afraid as if something awful might happen: 0 = Not at all Total TYREE-7 score (0-4 normal; 5-9 mild; 10-14 moderate; 15-21 severe): 0 Source: Developed by Drs. Jhoan Humphries, Karla Garcia, Guicho Rodriges and colleagues, with an educational marla from [employer]. TYREE-7 Assessment Billing TYREE-7 Assessment Tool: TYREE-7 Assessment 22077 Review of Systems Const All systems reviewed & are unremarkable except as noted in HPI and below Card Denies chest pain at rest, Denies chest pain with activity, Denies edema, Denies irregular heart rhythm, Denies claudication, Denies dyspnea, Denies dyspnea on exertion, Denies orthopnea, Denies paroxysmal nocturnal dyspnea and Denies slow heart rate Resp Denies cough, Denies dyspnea and Denies dyspnea on exertion GI Denies abdominal pain, Denies change in bowel habits, Denies excessive flatus, Denies nausea and Denies vomiting Denies urinary incontinence, Denies urinary hesitancy and Denies urinary urgency Neuro Denies lack of coordination Physical exam (Primary Care) Vital Signs: Last Vital Signs BP 126/82 01/08/25 07:45 BMI result Body Mass Index 28.9 Tobacco/Smoking Status: Tobacco use Status Tobacco use date assessed 01/08/25 01/08/25 07:48 Patient Tobacco Use Status Never used Tobacco 01/08/25 07:41 e-Cigarette/Vaping Use Never Used 01/08/25 07:41 PHQ-9: PHQ-9 Score PHQ-9: Total score 1 01/08/25 07:41 Depression Screening Interpretation: Negative Thrive Assessment: Date of Thrive Assessment Date Thrive assessed 01/01/25 01/08/25 07:41 Currently or been in a relationship where the following occur: No concerns reported [facility] Head: Yes normal to inspection, Yes normocephalic and Yes atraumatic Ears: external ears normal Eyes General: appearance normal, both eyes and all related structures Eyelids: Yes eyelids normal Conjunctivae: conjunctivae normal Neck Neck: Yes normal visual inspection and Yes supple Resp Effort & Inspection: normal respiratory effort Auscultation: clear to auscultation bilaterally Cardio Jugular venous distension: no JVD Rate: regular rate Rhythm: regular rhythm Heart sounds: S1 normal heart sound present and S2 normal heart sound present GI Inspection: Yes normal to inspection Palpation (GI): Soft to palpation and nontender Auscultation: normal bowel sounds Skin General skin exam: no rashes or lesions noted Neuro General: no focal motor deficits Extrem General: Yes full ROM Psych Appearance: grossly normal Coding Level of Care Code Est Pt Level 3 (49773) Est Pt Prev Care 40-64y(25947) Diagnoses Physical exam Z00.00 Rosacea L71.9 Osteopenia M85.80 Sleeping difficulty G47.9 Additional Codes PHQ-9 - 52591 - PHQ-9 Billing: Yes ([id number]) TYREE-7 Assessment Billing - TYREE-7 Assessment Tool: TYREE-7 Assessment 36704 ([id number]) Time Spent (min) 34 Assessment & Plan Assessment & Plan (1) Physical exam: Code(s): Z00.00 - Encounter for general adult medical examination without abnormal findings Category: Medical (2) Rosacea: Code(s): L71.9 - Rosacea, unspecified Category: Medical (3) Osteopenia: Code(s): M85.80 - Other specified disorders of bone density and structure, unspecified site Category: Medical (4) Sleeping difficulty: Code(s): G47.9 - Sleep disorder, unspecified Category: Medical Plan A mammogram is due this year. A colonoscopy yielded normal results last year, but further discussions with her video player mechanic are recommended considering her abdominal pain. Triamcinolone 0.1% cream will be prescribed for rosacea, and magnesium supplementation is suggested to address muscle tightness and alleviate constipation symptoms. Patient was informed and verbally consented to the use of an ambient scribe for clinic note documentation during this visit. I discussed with the patient the importance of consistent monitoring and management of osteopenia with calcium and vitamin D supplements, as well as the implications of the next bone density test. The necessity of mammograms and regular gastrointestinal discussions were emphasized given her symptoms and medical history. I explained the use of triamcinolone cream for her rosacea and advised on magnesium supplementation to help with muscle relaxation and constipation. The patient is aware of the correlation between her symptoms and the need for specialized consultations. Orders: Orders Vitamin D 25-OH Total Today E55.9 - Vitamin D deficiency, unspecified Lipid Panel Today Z00.00 - Encounter for general adult medical examination without abnormal findings Comprehensive [place]. Panel Fast Today Z00.00 - Encounter for general adult medical examination without abnormal findings Medications: New triamcinolone acetonide 0.1% 1 appl topical DAILY 2 weeks 15 grams 1RF L71.9 - Rosacea, unspecified calcium carbonate-vitamin D3 500 mg-10 mcg (400 unit) (Oyster Shell Calcium- Vitamin D3) 1 tab PO BID 90 days 180 tabs 1RF M85.80 - Other specified disorders of bone density and structure, unspecified site magnesium oxide 400 mg PO BEDTIME 90 days 90 tabs 1RF G47.9 - Sleep disorder, unspecified Patient Instructions: - Take calcium with vitamin D supplements as prescribed. - Schedule and complete your mammogram this year. - Follow up with your video player mechanic to discuss your abdominal pain. - Use triamcinolone cream for rosacea as directed. - Consider magnesium supplementation to aid with muscle relaxation and constipation. - Return to the clinic for any new symptoms or concerns.
[2025-01-08 07:45] VITALS: BP 126/82; BMI 28.9
== END 2025-01-08 08:10 | disposition home or self-care (01) ==
LOC: HO.HMCH 07:31
PROVIDERS: PCP Internal Medicine; Visit Provider Internal Medicine
DX: Z00.00 Encounter for general adult medical examination without abnormal findings (principal); L71.9 Rosacea, unspecified; M85.80 Other specified disorders of bone density and structure, unspecified site; G47.9 Sleep disorder, unspecified

== ENCOUNTER → 2025-01-08 07:30 | Outpatient (BNVA) | payer OTHER, SELFPAY | PROVIDERS: PCP Internal Medicine; Visit Provider Internal Medicine | DX: Z00.00 Encounter for general adult medical examination without abnormal findings (principal); L71.9 Rosacea, unspecified; M85.80 Other specified disorders of bone density and structure, unspecified site; G47.9 Sleep disorder, unspecified | CPT/HCPCS: 96127; 99212; 99396 ==

== ENCOUNTER 2025-01-12 10:11 | Outpatient (REF) | payer OTHER, SELFPAY ==
[2025-01-12 12:04] LABS: Alanine Aminotransferase 14 U/L (0-31); Albumin Level 4.2 g/dL (3.5-5.0); Alkaline Phosphatase 85 U/L (39-117); Anion Gap 8 (12-20); Aspartate Amino Transferase 23 U/L (5-31); Bilirubin Total 0.6 mg/dL (0.0-1.0); Blood Urea Nitrogen 12 mg/dL (9-16); Calcium 9.2 mg/dL (8.4-10.2); Carbon Dioxide 26 mmol/L (22-29); Chloride 110 mmol/L (96-108); Cholesterol 197 mg/dL (<200); Estimated Glomerular Filt Rate > 60; Glucose Fasting 95 mg/dL (60-99); HDL Cholesterol 39 mg/dL (>40); LDL Cholesterol Calculated 115 mg/dL (<100); Potassium 3.8 mmol/L (3.3-5.1); Sodium 140 mmol/L (135-145); Total Protein 6.9 g/dL (6.5-8.0); Triglycerides 217 mg/dL (<150)
[2025-01-12 12:21] LABS: Vitamin D 25-OH Total 40.4 ng/mL (>30)
== END 2025-01-12 10:12 | disposition home or self-care (01) ==
LOC: HO.LAB 10:11
PROVIDERS: PCP Internal Medicine; Visit Provider Internal Medicine
DX: Z00.00 Encounter for general adult medical examination without abnormal findings (principal); E55.9 Vitamin D deficiency, unspecified
CPT/HCPCS: 36415; 80053; 80061; 82306

== ENCOUNTER 2025-01-22 08:18 | Day surgery (SDC) | payer OTHER, SELFPAY ==
[2025-01-18 15:28] VITALS: BMI 28.5
[2025-01-22 08:52] VITALS: BP 136/79; PULSE 79; RESP 16; TEMP 36.8; O2SAT 96; BMI 28.2
--- NOTE | 2025-01-22 09:05 | MHC.SHP ---
Pre-Procedural Eval Section A - 24 Hr Update-Section A only Date of Service: 01/22/25 Section B - Complete if H&P > 30 days Chief Complaint: Dysphagia, unspecified Relevant Family History (Specify if Yes): No Relevant Social History: None Present Medications: see Short Stay Collaborative assessment Medical History: Significant History (Mixed incontinence urge and stress Recurrent UTI Urge urinary incontinence Change in bowel habits Foreign body granuloma of skin Acne rosacea Right hip pain Leg numbness Obesity Mixed hyperlipidemia GERD (gastroesophageal reflux disease) Hypovitaminosis D) History of Previous Operations: Relevant previous surgery/procedure and date(s) (History of colostomy reversal History of abdominoplasty Perforation of colon History of total abdominal hysterectomy and bilateral salpingo-oophorectomy) Allergies: Allergies Allergy/AdvReac Type Severity Reaction Status Date / Time metronidazole [Metrogel] Allergy Intermediate facial rash Verified 01/08/25 07:55 morphine [Morphine] Allergy Intermediate SEVERE Verified 01/08/25 07:55 VOMITING, nausea and vomiting hydromorphone [From Dilaudid] AdvReac Mild makes pt Verified 01/08/25 07:55 feel ill Review of Systems Sugical H&P ROS: Negative: Constitution, Cardiovascular, Respiratory, Neurological, Psychiatric, Hem-Onc, Allergic/Immunologic, Gastrointestinal, Genitourinary, Musculoskeletal, Integumentary, Endocrine and Eyes/Ears/Nose/Throat Exam Surgical H&P Exam: Normal: HEENT, Normal: Heart, Normal: Lungs, Normal: Extremities, Normal: Abdomen, Normal: Skin and Normal: Neurological Plan Diagnosis/Plan: Unchanged I have reviewed the history and physical and performed a pertinent physical examination on my patient. No changes have occurred unless specified. Time Spent With Patient Time: Total time managing care of this patient today ____ minutes.
--- NOTE | 2025-01-22 10:00 | P.CONAN_ITS ---
HPI - Anesthesia Eval Consult details Narrative: 54 yo female patient for EGD, balloon dilatation PMFSH Active Problems Active Problems: All Active Problems Sleeping difficulty (Acute) Osteopenia (Acute) Rosacea (Acute) Cardiac murmur (Acute) Abnormal EKG (Acute) Campylobacter diarrhea (Acute) Right leg pain (Acute) Varicose veins of right lower extremity with inflammation (Acute) OAB (overactive bladder) (Acute) Chronic idiopathic constipation (Acute) Venous insufficiency (Acute) Hypokalemia (Acute) Urinary urgency (Acute) Urinary incontinence (Acute) Acute UTI (Acute) Pelvic floor weakness (Acute) Female cystocele (Acute) Right knee pain (Acute) Bone spur of foot (Acute) Left foot pain (Acute) Foul smelling urine (Acute) Cystocele with rectocele (Acute) URI (upper respiratory infection) (Acute) Renal calculi (Acute) Umbilical hernia (Acute) Abdominal pain (Acute) MCL sprain of left knee (Acute) Physical exam (Acute) Old tear of meniscus of right knee (Acute) Osteoarthritis of right knee (Acute) Fecal incontinence (Acute) Grade 2 sprain of medial collateral ligament of left knee (Acute) Tear of medial meniscus of left knee (Acute) Locked knee (Acute) Yeast infection of the skin (Acute) Left knee pain (Acute) Strain of left knee (Acute) Abdominal wall sinus (Acute) Meralgia paraesthetica (Acute) Skin candidiasis (Acute) Mixed incontinence urge and stress (Acute) Recurrent UTI (Acute) Urge urinary incontinence (Acute) Change in bowel habits (Acute) Foreign body granuloma of skin (Acute) Acne rosacea (Acute) Right hip pain (Acute) Leg numbness (Acute) Obesity (Acute) Mixed hyperlipidemia (Acute) GERD (gastroesophageal reflux disease) (Acute) Hypovitaminosis D (Acute) Past Medical History Medical History Mixed incontinence urge and stress Recurrent UTI Urge urinary incontinence Change in bowel habits Foreign body granuloma of skin Acne rosacea Right hip pain Leg numbness Obesity Mixed hyperlipidemia GERD (gastroesophageal reflux disease) Hypovitaminosis D Family History Family History Father Hypertension Cancer Mother Hypertension Diabetes Brother No problems noted. Sister In good health Daughter In good health Family history of problems with anesthesia: No Surgical History Surgical History History of colostomy reversal History of abdominoplasty Perforation of colon History of total abdominal hysterectomy and bilateral salpingo-oophorectomy History of Problems with Anesthesia: No Social History Social History Household Members: Spouse, Family and Children Housing: House Are you a primary long term care social worker to a significant other at home: No Do you presently have visiting nurse or other home services: No Alcohol intake: current Alcohol intake frequency: holidays/special occasions only Patient Tobacco Use Status: Never used Tobacco e-Cigarette/Vaping Use: Never Used Second Hand Smoke Exposure: No Use of substances other than those prescribed or required for medical reasons: No Advance Directives: No Advance Directives Information Provided: Yes service: No Current occupational status: employed 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 Current occupational exposures/hazards: No Cognitive needs: No Hearing needs: No Vision needs: Yes Meds Allergies Allergy/AdvReac Type Severity Reaction Status Date / Time metronidazole [Metrogel] Allergy Intermediate facial rash Verified 01/08/25 07:55 morphine [Morphine] Allergy Intermediate SEVERE Verified 01/08/25 07:55 VOMITING, nausea and vomiting hydromorphone [From Dilaudid] AdvReac Mild makes pt Verified 01/08/25 07:55 feel ill Exam Height,Weight and Vital Signs: Height 5 ft 2 in Weight 69.853 kg Last Vital Signs Temp 98.3 F 01/22/25 08:52 Pulse 79 01/22/25 08:52 Resp 16 01/22/25 08:52 BP 136/79 01/22/25 08:52 Pulse Ox 96 01/22/25 08:52 O2 Del Method Room Air 01/22/25 08:52 Airway Mallampati Class: II TM Dist: >3cm Neck ROM: Full Loose/Missing/Broken Teeth: Yes (Missibng 1 molar. Denies broken or loose teeth) Heart: RRR Lungs: CTAB Assessment and Plan Assessment Anesthesia Assessment: Anesthesia Plan Discussed and Chart Reviewed Final Anesthetic Review Family History of Problems with Anesthesia: No History of Problems with Anesthesia: No NPO: Yes ASA Class: II Final Preanesthetic Review: No Changes in Pt Med Stat, Meds/Allgs Chart Reviewed, Consent Obtained/Reviewed and Anes Risks/Benef Reviewed Patient Risk: Intermediate Procedure Risk: Low Assessment/Block/Sedation in SS: Assess/Block/Sedation-SS Anesthetic Plan Anesthetic Plan: TIVA Disposition: Standard PACU
--- NOTE | 2025-01-22 10:24 | W.PM.OPN ---
Operative Note Operative Note Date of Service: 01/22/25 Narrative: Procedure Description: EGD Indication: dysphagia and epigastric pain Anesthesia: MAC FLEXIBLE TRANSORAL UPPER GASTROINTESTINAL ENDOSCOPY UPPER ENDOSCOPY Consent: Indications for the procedure and potential complications of bleeding, perforation, reaction to medications and missed diagnosis were discussed with the patient and informed consent was obtained. Instrument: Olympus GIF H 190 J mid size upper endoscope Monitoring: Vital signs and clinical assessment, continuous EKG monitoring, Pulse oximetry, Carbon Dioxide monitoring and blood pressure monitoring were done throughout the procedure. Procedure: The patient was placed in the left lateral decubitis position and pre-procedure medications were administered and a bite block was placed. The endoscope was inserted into the mouth and advanced under direct vision to the third part of duodenum. A careful inspection was made as the upper endoscope was withdrawn including a retroflexed examination of the proximal stomach; Findings and interventions are described below. Findings: Larynx:normal Esophagus: GE junction at 38 cm, diaphragm hiatus at 38 cm, midl erythema at GEJ, bx taken also from distal and proximal areas, balloon dilation done to 19 mm at UES and LES-no tear seen Stomach: patchy erythema . Biopsies were obtained. Grade 2 flap valve on retroflexed examination of the cardia. pylorus was dilated using a wire guided balloon technique to 20 mm, no tears seen Duodenum: patchy bulbar erythema, bx taken Intervention: Biopsies as noted above, balloon dilation Impression/Findings: gastritis duodenitis esophagitis PLAN: cont with PPI GERD precautions
[2025-01-22 10:30] VITALS: BP 113/71; PULSE 82; RESP 20; TEMP 37; O2SAT 96
[2025-01-22 10:45] VITALS: BP 121/74; PULSE 78; RESP 20; O2SAT 97
[2025-01-22] MEDS: ondansetron HCL 4 MG/2 ML VIAL IVPUSH (10:45)
[2025-01-22 11:00] VITALS: BP 137/81; PULSE 70; RESP 18; TEMP 37; O2SAT 98
== END 2025-01-22 11:56 | disposition home or self-care (01) ==
PROVIDERS: PCP Internal Medicine; Visit Provider Internal Medicine Gastroenterology
PROC: 0DJ08ZZ Inspection of Upper Intestinal Tract, Via Natural or Artificial Opening Endoscopic (ICD-10-PCS; CPT 43235; principal; 2025-01-22 11:00)
DX: R13.10 Dysphagia, unspecified (principal); R10.13 Epigastric pain; K29.50 Unspecified chronic gastritis without bleeding; K20.80 Other esophagitis without bleeding; K29.80 Duodenitis without bleeding; K21.9 Gastro-esophageal reflux disease without esophagitis; K44.9 Diaphragmatic hernia without obstruction or gangrene; N39.46 Mixed incontinence; E55.9 Vitamin D deficiency, unspecified; R20.0 Anesthesia of skin; L71.9 Rosacea, unspecified; R19.4 Change in bowel habit; Z79.1 Long term (current) use of non-steroidal anti-inflammatories (NSAID); Z79.899 Other long term (current) drug therapy; Z88.8 Allergy status to other drugs, medicaments and biological substances; Z98.890 Other specified postprocedural states
CPT/HCPCS: 43249; 43245; 43239; 88305; 88313; 88342; C1726; J2003; J2405; J2704

== ENCOUNTER → 2025-01-22 08:18 | Outpatient (BNV) | payer OTHER, SELFPAY | PROVIDERS: PCP Internal Medicine; Visit Provider Internal Medicine Gastroenterology | DX: R13.10 Dysphagia, unspecified (principal); K29.70 Gastritis, unspecified, without bleeding; K29.80 Duodenitis without bleeding; K20.90 Esophagitis, unspecified without bleeding | CPT/HCPCS: 43239; 43249 ==

== ENCOUNTER → 2025-02-18 10:54 | Outpatient (REF) | payer OTHER, SELFPAY ==
--- NOTE | 2025-02-18 10:56 | CA_ITS ---
Acquisition Time: 2025-02-18 11:28:55 Total Exercise Time: 00:05:45 Test Indications: ABN EKG Medications: SEE H&P Protocol: NATALIA Max HR: 151 BPM 90% of Pred: 166 BPM Max BP: 162/84 mmHG Max Work Load: 7.0 METS Exercise stress test with exercise 5 mins 45 secs of Natalia Protocol, achieving 90% MPHR, with reports of feeling fatigued and mild SOB, without any arrythmias, with normotensive response to exercise. Without EKG changes meeting criteria for ischemia. In recovery, breathing returned to baseline. Echo images obtained by tech at rest and post peak exercise. Definity contrast utilized. Test reviewed with Dr. Pena. Referred By: Torsten Ghosh Electronically Signed By: Shelton Alvarado
== END ==
LOC: HO.CARD 10:54
PROVIDERS: PCP Internal Medicine; Visit Provider Internal Medicine
DX: R94.31 Abnormal electrocardiogram [ECG] [EKG] (principal)
CPT/HCPCS: 93350; Q9957

== ENCOUNTER → 2025-02-18 10:56 | Outpatient (BNV) | payer OTHER, SELFPAY | PROVIDERS: PCP Internal Medicine | DX: I51.89 Other ill-defined heart diseases (principal); R06.02 Shortness of breath | CPT/HCPCS: 93016; 93018; 93350; 93352 ==

== ENCOUNTER 2025-03-20 13:03 | Outpatient (AMB) | payer OTHER, SELFPAY ==
--- NOTE | 2025-03-20 13:37 | MHC.OFFVIS ---
Vital Signs 03/20/25 13:38 Height 5 ft 2 in Weight 158 lb 11.725 oz BMI 29.0 BP 122/68 Blood Pressure Location Lt brachial Position Sitting Pulse 70 Pulse Source Pulse Oximeter Intake Visit Reasons: follow up stress test Allergies metronidazole [Metrogel] Allergy (Intermediate, Verified 01/08/25 07:55) facial rash morphine [Morphine] Allergy (Intermediate, Verified 01/08/25 07:55) SEVERE VOMITING, nausea and vomiting hydromorphone [From Dilaudid] Adverse Reaction (Mild, Verified 01/08/25 07:55) makes pt feel ill Medication List - Last Reconciled 03/20/25 by Shelton Alvarado NP calcium carbonate-vitamin D3 500 mg-10 mcg (400 unit) (Oyster Shell Calcium-Vitamin D3) 1 tab PO BID 90 days diaper,brief,adult,disposable (Day and Night Brief,Medium) As directed docusate sodium 100 mg PO BID 30 days ibuprofen 800 mg PO Q8H PRN 30 days lansoprazole 30 mg PO DAILY leg brace (Knee Support Brace) As directed x 6 weeks linaclotide 72 mcg PO DAILY magnesium oxide 400 mg PO BEDTIME 90 days rifaximin 550 mg PO TID 2 weeks triamcinolone acetonide 0.1% 1 appl topical DAILY 2 weeks HPI Comments Details: This is a 55-year-old female patient coming in for a follow-up visit. Patient was recently seen for an abnormal EKG and subsequently underwent an echocardiogram and a stress echo. Patient reports doing well overall and denies any cardiac symptoms including exertional chest pain, shortness of breath, palpitations, dizziness, orthopnea, PND, leg edema, presyncope, or syncope. [facility] Medical History Mixed incontinence urge and stress Recurrent UTI Urge urinary incontinence Change in bowel habits Foreign body granuloma of skin Acne rosacea Right hip pain Leg numbness Obesity Mixed hyperlipidemia GERD (gastroesophageal reflux disease) Hypovitaminosis D Surgical History History of colostomy reversal History of abdominoplasty Perforation of colon History of total abdominal hysterectomy and bilateral salpingo-oophorectomy Family History Father Hypertension Cancer Mother Hypertension Diabetes Brother No problems noted. 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 Current occupational exposures/hazards: No Cognitive needs: No Hearing needs: No Vision needs: Yes Review of Systems Const Denies weakness ENT Denies dizziness Card Denies chest pain, Denies chest pain with activity, Denies syncope, Denies rapid heart rate, Denies pedal edema, Denies edema, Denies leg edema, Denies lightheadedness, Denies palpitations, Denies dyspnea, Denies dyspnea on exertion and Denies orthopnea Resp Denies cough, Denies dyspnea and Denies dyspnea on exertion GI Denies hematochezia and Denies change in stool character Musc Denies abnormal gait, Denies muscle cramps, Denies muscle weakness, Denies numbness, Denies radiating pain into limb and Denies tingling Neuro Denies abnormal gait, Denies dizziness, Denies syncope, Denies numbness, Denies tingling and Denies weakness Endo Denies palpitations Physical Exam Vital Signs: Last Vital Signs Pulse 70 03/20/25 13:38 BP 122/68 03/20/25 13:38 BMI result Body Mass Index 29.0 Const General: cooperative, healthy appearing, comfortable and no acute distress Orientation/consciousness: patient oriented x3 HEENT Head: Yes normal to inspection Neck Neck: Yes normal visual inspection, Yes trachea midline and Yes supple Chest Chest palpation & inspection: normal inspection of the chest Resp Effort & Inspection: normal respiratory effort Auscultation: clear to auscultation bilaterally, no crackles, no rales, no rhonchi and no wheezes Cardio Jugular venous distension: no JVD Palpation: normal PMI Rate: regular rate Rhythm: regular rhythm Heart sounds: S1 normal heart sound present, S2 normal heart sound present, no click, no gallops, no murmurs and no rubs Peripheral pulses: Peripheral pulses 2+ throughout GI Inspection: Yes normal to inspection Palpation (GI): Soft to palpation Auscultation: normal bowel sounds Skin General skin exam: no rashes or lesions noted Neuro General: patient oriented x3 Extrem General: Yes normal to inspection, No no pedal edema and No calf tenderness Psych Appearance: grossly normal Mental Status: mental status grossly normal Speech and movement: Normal speech and movement present Assessment & Plan Assessment & Plan (1) Abnormal EKG: Code(s): R94.31 - Abnormal electrocardiogram [ECG] [EKG] Category: Medical (2) Pericardial effusion: Code(s): I31.39 - Other pericardial effusion (noninflammatory) Plan 09/07/2024-EKG showed sinus tachycardia with a question of anterior infarct and nonspecific STT wave abnormality. 01/04/2025-echo study showed a normal LV systolic function with an ejection fraction of 60-65% with impaired relaxation filling pattern and trivial pericardial perfusion. 02/18/2025-patient underwent a stress echo which was negative for ischemia, diastolic dysfunction, or pulmonary hypertension. We will repeat an echo in 1 year's time for the trivial pericardial effusion otherwise patient is stable and euvolemic. No further testing or treatment required at this time. Advised heart healthy diet, regular exercise, and management of vascular risk factors. Follow up in 1 year, sooner if needed. In the interim, patient will call the office with any concerns or change in symptoms. This note was generated using voice recognition software. While every effort has been made to ensure accuracy and proper fuels engineer, there may be occasional errors that could affect the content or meaning of the described symptoms. Orders: Orders CA echo transthoracic complete 1 Year R94.31 - Abnormal electrocardiogram [ECG] [EKG] Coding Level of Care Code Est Pt Level 3 (80194) Complex EM visit Add On G2211 Diagnoses Abnormal EKG R94.31 Pericardial effusion I31.39 Time Spent (min) 29 Comment Time spent in reviewing the chart, test results, assessment, counseling and documentation.
[2025-03-20 13:38] VITALS: BP 122/68; PULSE 70; BMI 29.0
== END 2025-03-20 14:00 | disposition home or self-care (01) ==
LOC: HO.HCS 13:04
PROVIDERS: PCP Internal Medicine
DX: R94.31 Abnormal electrocardiogram [ECG] [EKG] (principal); I31.39 Other pericardial effusion (noninflammatory)
CPT/HCPCS: 99213; G2211

== ENCOUNTER → 2025-03-20 13:03 | Outpatient (BNVA) | payer OTHER, SELFPAY | PROVIDERS: PCP Internal Medicine | DX: R94.31 Abnormal electrocardiogram [ECG] [EKG] (principal); I31.39 Other pericardial effusion (noninflammatory) | CPT/HCPCS: 99212 ==

== ENCOUNTER 2025-04-08 13:19 | Outpatient (AMB) | payer OTHER, SELFPAY ==
--- NOTE | 2025-04-08 13:19 | MHC.OFFVIS ---
Intake Visit Reasons: S/P EGD; Intake Note: Malathi presents as a telehealth today for results to her EGD - she states that she is having pains on her right side. All over and it comes and goes - constipation and diarrhea that fluctuates. Store Grocery Merchandiser Required: No Allergies metronidazole (Metrogel) Allergy (Intermediate, Verified 04/08/25 13:20) facial rash morphine (Morphine) Allergy (Intermediate, Verified 04/08/25 13:20) SEVERE VOMITING, nausea and vomiting hydromorphone (From Dilaudid) Adverse Reaction (Mild, Verified 04/08/25 13:20) makes pt feel ill HPI HPI S/P EGD; : Details: 55 yr old f called for f/u Doing well after EGD with diltn 12/31 no dysphagia still has fecal incontinence but much better with higher fiber intake, advised again on bladder stim, she will think about it she has noted intermittent on and off crampy RUQ abdo pain, no obvious triggers LFT nml A/P: 1/ RUQ pain 2/ faecal incontinence PLAN: / cont high fiber diet 2/ US RUQ--last CT was neg earlier this year 3/ EGD prn PFSH Medical History Mixed incontinence urge and stress Recurrent UTI Urge urinary incontinence Change in bowel habits Foreign body granuloma of skin Acne rosacea Right hip pain Leg numbness Obesity Mixed hyperlipidemia GERD (gastroesophageal reflux disease) Hypovitaminosis D Surgical History History of colostomy reversal History of abdominoplasty Perforation of colon History of total abdominal hysterectomy and bilateral salpingo-oophorectomy Family History Father Hypertension Cancer Mother Hypertension Diabetes Brother No problems noted. 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 Current occupational exposures/hazards: No Cognitive needs: No Hearing needs: No Vision needs: Yes Telehealth Telehealth Telehealth Platform: Telephone Location of provider rendering services: practice address Location of patient: address on file Patient Identification confirmed using: Name, : Yes Telehealth method: voice only Patient verbally consented to treatment: Yes Patient verbally consented to billing insurance company: Yes Patient informed of any privacy concerns related to visit: Yes Minutes spent on Phone/Video with Pt.: 5 Assessment & Plan Assessment & Plan (1) RUQ abdominal pain: Code(s): R10.11 - Right upper quadrant pain Category: Medical Plan: as above Orders: Orders US abdomen fish w elastography Today R10.11 - Right upper quadrant pain Coding Level of Care Code Tele Est Pt Level 3 (53955) Diagnoses RUQ abdominal pain R10.11
== END 2025-04-08 15:06 | disposition home or self-care (01) ==
LOC: HO.HGI 13:19
PROVIDERS: PCP Internal Medicine; Visit Provider Internal Medicine Gastroenterology
DX: R10.11 Right upper quadrant pain (principal)
CPT/HCPCS: 98013

== ENCOUNTER 2025-04-16 06:07 | Day surgery (SDC) | payer OTHER, SELFPAY ==
[2025-04-11 16:30] VITALS: BMI 29.0
--- NOTE | 2025-04-15 10:18 | HO.ANESPROP2 ---
Documented by User: Natali Richards NP 04/15/25 10:21 HPI - Anesthesia Eval Consult details Narrative: 55yo F for Cystoscopy Bladder Botox Injection s/p same 09/2024 with GA-LMA [id number] cardiac w/u for abnormal EKG OK except trivial pericardial effusion - last cardiac office visit 03/2025 with routine 1 year f/u PMFSH Active Problems Active Problems: All Active Problems RUQ abdominal pain (Acute) Sleeping difficulty (Acute) Osteopenia (Acute) Rosacea (Acute) Cardiac murmur (Acute) Abnormal EKG (Acute) Campylobacter diarrhea (Acute) Right leg pain (Acute) Varicose veins of right lower extremity with inflammation (Acute) OAB (overactive bladder) (Acute) Chronic idiopathic constipation (Acute) Venous insufficiency (Acute) Hypokalemia (Acute) Urinary urgency (Acute) Urinary incontinence (Acute) Acute UTI (Acute) Pelvic floor weakness (Acute) Female cystocele (Acute) Right knee pain (Acute) Bone spur of foot (Acute) Left foot pain (Acute) Foul smelling urine (Acute) Cystocele with rectocele (Acute) URI (upper respiratory infection) (Acute) Renal calculi (Acute) Umbilical hernia (Acute) Abdominal pain (Acute) MCL sprain of left knee (Acute) Physical exam (Acute) Old tear of meniscus of right knee (Acute) Osteoarthritis of right knee (Acute) Fecal incontinence (Acute) Grade 2 sprain of medial collateral ligament of left knee (Acute) Tear of medial meniscus of left knee (Acute) Locked knee (Acute) Yeast infection of the skin (Acute) Left knee pain (Acute) Strain of left knee (Acute) Abdominal wall sinus (Acute) Meralgia paraesthetica (Acute) Skin candidiasis (Acute) Mixed incontinence urge and stress (Acute) Recurrent UTI (Acute) Urge urinary incontinence (Acute) Change in bowel habits (Acute) Foreign body granuloma of skin (Acute) Acne rosacea (Acute) Right hip pain (Acute) Leg numbness (Acute) Obesity (Acute) Mixed hyperlipidemia (Acute) GERD (gastroesophageal reflux disease) (Acute) Hypovitaminosis D (Acute) Past Medical History Medical History Mixed incontinence urge and stress Recurrent UTI Urge urinary incontinence Change in bowel habits Foreign body granuloma of skin Acne rosacea Right hip pain Leg numbness Obesity Mixed hyperlipidemia GERD (gastroesophageal reflux disease) Hypovitaminosis D Family History Family History Father Hypertension Cancer Mother Hypertension Diabetes Brother No problems noted. Sister In good health Daughter In good health Family history of problems with anesthesia: No Surgical History Surgical History History of colostomy reversal History of abdominoplasty Perforation of colon History of total abdominal hysterectomy and bilateral salpingo-oophorectomy History of Problems with Anesthesia: No Social History Social History Household Members: Spouse, Family and Children Housing: House Are you a primary healthcare network pricing consultant to a significant other at home: No Do you presently have visiting nurse or other home services: No Alcohol intake: current Alcohol intake frequency: holidays/special occasions only Patient Tobacco Use Status: Never used Tobacco e-Cigarette/Vaping Use: Never Used Second Hand Smoke Exposure: No Use of substances other than those prescribed or required for medical reasons: No Have you been hit, kicked, punched, or otherwise hurt by someone within the past year? 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 Current occupational exposures/hazards: No Cognitive needs: No Hearing needs: No Vision needs: Yes Meds Allergies Allergy/AdvReac Type Severity Reaction Status Date / Time metronidazole (Metrogel) Allergy Intermediate facial rash Verified 04/08/25 13:20 morphine (Morphine) Allergy Intermediate SEVERE Verified 04/08/25 13:20 VOMITING, nausea and vomiting hydromorphone (From Dilaudid) AdvReac Mild makes pt Verified 04/08/25 13:20 feel ill Exam Height,Weight and Vital Signs: Height 5 ft 2 in Weight 71.999 kg Pertinent Lab Results Pertinent Lab Results: Laboratory Tests 11/30/24 01/12/25 15:01 10:34 WBC 7.4 Hgb 12.4 Hct 39.5 Plt Count 309 Sodium 140 Potassium 3.8 Chloride 110 H Carbon Dioxide 26 BUN 12 Creatinine 0.65 Narrative Narrative: 09/07/2024-EKG showed sinus tachycardia with a question of anterior infarct and nonspecific STT wave abnormality. 01/04/2025-echo study showed a normal LV systolic function with an ejection fraction of 60-65% with impaired relaxation filling pattern and trivial pericardial perfusion. 02/18/2025-patient underwent a stress echo which was negative for ischemia, diastolic dysfunction, or pulmonary hypertension. Assessment and Plan Assessment Anesthesia Assessment: Chart Reviewed Final Anesthetic Review Family History of Problems with Anesthesia: No History of Problems with Anesthesia: No Documented by User: Arron Salomon MD 04/16/25 07:51 PMFSH Past Medical History Medical History Mixed incontinence urge and stress Recurrent UTI Urge urinary incontinence Change in bowel habits Foreign body granuloma of skin Acne rosacea Right hip pain Leg numbness Obesity Mixed hyperlipidemia GERD (gastroesophageal reflux disease) Hypovitaminosis D Family History Family History Father Hypertension Cancer Mother Hypertension Diabetes Brother No problems noted. Sister In good health Daughter In good health Surgical History Surgical History History of colostomy reversal History of abdominoplasty Perforation of colon History of total abdominal hysterectomy and bilateral salpingo-oophorectomy Social History Social History Household Members: Spouse, Family and Children Housing: House Are you a primary healthcare network pricing consultant to a significant other at home: No Do you presently have visiting nurse or other home services: No Alcohol intake: current Alcohol intake frequency: holidays/special occasions only Patient Tobacco Use Status: Never used Tobacco e-Cigarette/Vaping Use: Never Used Second Hand Smoke Exposure: No Use of substances other than those prescribed or required for medical reasons: No Have you been hit, kicked, punched, or otherwise hurt by someone within the past year? 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 Current occupational exposures/hazards: No Cognitive needs: No Hearing needs: No Vision needs: Yes Meds Allergies Allergy/AdvReac Type Severity Reaction Status Date / Time metronidazole (Metrogel) Allergy Intermediate facial rash Verified 04/08/25 13:20 morphine (Morphine) Allergy Intermediate SEVERE Verified 04/08/25 13:20 VOMITING, nausea and vomiting hydromorphone (From Dilaudid) AdvReac Mild makes pt Verified 04/08/25 13:20 feel ill Exam Airway Mallampati Class: I TM Dist: >3cm Neck ROM: Full Loose/Missing/Broken Teeth: No Heart: ok Lungs: ok Assessment and Plan Assessment Anesthesia Assessment: Anesthesia Plan Discussed Final Anesthetic Review NPO: Yes ASA Class: II Final Preanesthetic Review: No Changes in Pt Med Stat, Meds/Allgs Chart Reviewed, Consent Obtained/Reviewed and Anes Risks/Benef Reviewed Patient Risk: Low Procedure Risk: Low Anesthetic Plan Anesthetic Plan: GA and Agree w/ Assess. and Plan Disposition: Standard PACU
[2025-04-16] VITALS (8 sets, daily range): BP systolic 95–142; BP diastolic 46–67; PULSE 70–91; RESP 16–18; TEMP 36.2–36.6; O2SAT 93–100; BMI 29.3
[2025-04-16] MEDS: Lactated Ringers 1,000 ML 100 ML IVCONT (06:56)
--- NOTE | 2025-04-16 07:17 | P.OP_ITS ---
Operative Note Operative Note Date of Service: 04/16/25 Narrative: PREOP DIAGNOSIS: OAB POSTOP DIAGNOSIS:OAB PROCEDURE: CYSTOSCOPY, BLADDER BOTOX INJECTION 100 UNITS SURGEON: Leandra Lake MD ANESTHESIA: General Details of procedure: The patient was brought into the operating room placed on the OR table in supine position. Antibiotics confirmed. General anesthesia was administered. The patient was repositioned into lithotomy position, prepped and draped in the usual sterile fashion. Time-out was done per protocol. A 22 fr cystoscope was placed transurethrally into the bladder. Urine was sent for culture. The right and left ureteral orifices were visualized. There were moderate trabeculations noted. There were no suspicious bladder lesions seen. The Botox 100 units was mixed with 10 cc of normal saline and transurethral in jections were placed into the posterior wall of the bladder. 0.5cc placed at each injection site. Injections were placed in a grid 5 across and 4 longitudinally. Injections were placed from the inferior to superior position. 2% lidocaine urojet was passed transurethrally into the bladder. The patient was brought out of anesthesia and taken to recovery in stable condition. Complications: None EBL: minimal (<5 mL) Drains: none
--- NOTE | 2025-04-16 07:17 | MHC.SHP ---
Pre-Procedural Eval Section A - 24 Hr Update-Section A only Date of Service: 04/16/25 The patient is an INPATIENT: No The patient has been examined within 24 hours of the surgical procedure. The History & Physical has been completed within 30 days and I have reviewed it.: Yes Section B - Complete if H&P > 30 days Chief Complaint: Overactive bladder Allergies: Allergies Allergy/AdvReac Type Severity Reaction Status Date / Time metronidazole (Metrogel) Allergy Intermediate facial rash Verified 04/08/25 13:20 morphine (Morphine) Allergy Intermediate SEVERE Verified 04/08/25 13:20 VOMITING, nausea and vomiting hydromorphone (From Dilaudid) AdvReac Mild makes pt Verified 04/08/25 13:20 feel ill Plan Diagnosis/Plan: Unchanged I have reviewed the history and physical and performed a pertinent physical examination on my patient. No changes have occurred unless specified. Cystoscopy Botox bladder injection 100 units. I have discussed risks to include hematuria, UTI, urinary retention, need to repeat procedure for sustained efficacy. Time Spent With Patient Time: Total time managing care of this patient today ____ minutes.
== END 2025-04-16 09:36 | disposition home or self-care (01) ==
PROVIDERS: PCP Internal Medicine; Visit Provider Urology
PROC: 3E0K8GC Introduction of Other Therapeutic Substance into Genitourinary Tract, Via Natural or Artificial Opening Endoscopic (ICD-10-PCS; CPT 52287; principal; 2025-04-16 07:30)
DX: N32.81 Overactive bladder (principal); N39.46 Mixed incontinence; N39.0 Urinary tract infection, site not specified; N20.0 Calculus of kidney; N81.89 Other female genital prolapse; R15.9 Full incontinence of feces; E78.2 Mixed hyperlipidemia; E55.9 Vitamin D deficiency, unspecified; Z98.890 Other specified postprocedural states
CPT/HCPCS: 52287; 87086; J0585; J0690; J1630; J2003; J2405; J2704; J3010

== ENCOUNTER → 2025-04-16 06:07 | Outpatient (BNV) | payer OTHER, SELFPAY | PROVIDERS: PCP Internal Medicine; Visit Provider Urology | DX: N32.81 Overactive bladder (principal) | CPT/HCPCS: 52287 ==

== ENCOUNTER 2025-04-29 13:19 | Outpatient (AMB) | payer OTHER, SELFPAY ==
--- OUTSIDE RECORDS SUMMARY | 2017-03-23 09:30 | XMS_ITS | Continuity of Care Document ---
Author Organization Padmini [facility] Address [address] [place] [address] Care Team Providers Care Perennial House Manager Name Role Phone Kev Garrett MD Unavailable [...] Diagnoses Date Provider Providers Copied on Encounter [facility], [address], [place], [place], [id number] , [facility] [place] No Information 7 Gerry Angulo. [address] [place] [address], [address], . [phone] OFFICE/OUTPA TIENT VISIT, [facility], [address], [place], [place], [address] , [facility] [place] UC B/P recheck (chief complaint) headache (chief complaint) Hypertension, Unspecified 5 No Information [facility], [address], [place], [place], [id number] , [facility] [place] UC high B/P (chief complaint) CoughHypertension, Unspecified 5 No Information OFFICE/OUTPA TIENT VISIT, [facility], [address], [place], [place], [id number] , [facility] [place] UC cough (chief complaint) chest pain (chief complaint) Atypical chest painAnxietyBody Mass Index 31.0-31.9, adult 5 No Information OFFICE/OUTPA TIENT VISIT, [facility], [address], [place], [place], [id number] , [facility] [place] UC cough (chief complaint) Cough 5 Susana Cano. [address] [place] [address], [address], . tel:[phone] [facility], [address], [place], [id number] , [facility] [place] No Information 5 No Information OFFICE/OUTPA TIENT VISIT, [facility], [address], [id number] , [facility] [place] establish care (chief complaint) Hypertension, UnspecifiedMixed dyslipidemiaAllerg ic rhinitisPost-nasal drip 5 No Information [facility], [address], [place], [place], [id number] , [facility] [place] No Information 4 No Information OFFICE/OUTPA TIENT VISIT, EST [facility], [address], [place], [place], [id number] , [facility] [place] UC Follow up on lab results (chief complaint) Encounter to discuss test resultsHypokalemia Hypertension, UnspecifiedMixed dyslipidemia 4 No Information [facility], [address], [place], [place], [address] , [facility] [place] No Information 4 No Information PREV VISIT, EST, AGE 40-64 [facility], [address], [place], [place], [id number] , [facility] [place] Physical/P ap Smear (chief complaint) refills (chief complaint) Routine general medical examination at a [facility] caHypertension, UnspecifiedAdult BMI 30.0-30.9 kg/sq mScreening for breast cancerScreening for malignant neoplasm of cervixRight upper quadrant painRoutine Medical Exam 4 No Information OFFICE/OUTPA TIENT VISIT, [facility], [address], [place], [place], [id number] , [facility] [place] chest pain and HTN (chief complaint) Hypertension, UnspecifiedObesity Atypical chest painGERD (gastroesophageal reflux disease) 2 No Information [facility], [address], [place], [place], [id number] , [facility] [place] No Information 2 No Information OFFICE/OUTPA TIENT VISIT, [facility], [address], [place], [place], [id number] , [facility] [place] physical exam (chief complaint) Routine general medical examination at a [facility] hospitalObes ityScreening for malignant neoplasm of cervixVaginal candidiasisRoutine Medical Exam 2 No Information Family History Family Member Type Diagnosis Age At Onset No Information Payers Payer name Insurance type Covered republican ID Authoriza tion(s) [facility] [id number] Social History Type Description Quantity Date Captured [...] X-RAY ordered Future Order: Lab Order Basic Vt tabolic Panel (1999), Collected on: , Sent [...] month.Consider rferral to therapist submitted for depression/anxiety. UKRAINIAN SPEAKING THERAPIST RECOMMENDED. Related to Anxiety Chest [...]
--- NOTE | 2025-04-29 13:36 | AM.OFFVISNUR ---
Intake Visit Reasons: PVR (Botox) Allergies metronidazole (Metrogel) Allergy (Intermediate, Verified 04/08/25 13:20) facial rash morphine (Morphine) Allergy (Intermediate, Verified 04/08/25 13:20) SEVERE VOMITING, nausea and vomiting hydromorphone (From Dilaudid) Adverse Reaction (Mild, Verified 04/08/25 13:20) makes pt feel ill Office Procedures Post Void Residual Post Residual Void Details: Patient presents to the office today for a PVR check s/p bladder botox. States that she still is voiding frequently at times, but feels like she may have a UTI because she did not correctly take her abx that was prescribed to her after the procedure. States she took it for a couple days then stopped it for 4 then started it back up. Patient voided on arrival and provided a urine sample. Urine dipped and was (-) nitrites (-) WBC. PVR scan was 153ml. Educated her to notify us if her frequency worsens or does not improved. Advised she has mild retention, but nothing concerning yet. Patient to follow up with Dr. Charles and call if it worsens. Post Void Residual (PVR): [id number] Void Residual by ultrasound Assessment & Plan Assessment & Plan Orders: Orders AMB Urinalysis Automated Today Z13.9 - Encounter for screening, unspecified AMB Post Void Residual by ultrasound Today N32.81 - Overactive bladder, R39.15 - Urgency of urination Coding CPT Codes Post Residual Void - PVR CPT Code: 29527-Tbox Void Residual by ultrasound ([id number])
--- OUTSIDE RECORDS SUMMARY | 2025-04-29 14:03 | XMS_ITS | Encounter Summary ---
Author Organization [facility] Address [address] [place] [address] Phone Care Team Providers Care Physician Recruiter Name Role Phone Shasha Lott MD Primary Care Provid er Reason for Referral * Physical Therapy (Routine) - Closed Specialty Diagnoses / Procedures Referred By eBnji pace Referred To Contact Physical Therapy Diagnoses Encounter for rehabilitation System, Provider Not In, [facility] [id number] [place] [address] Phone: tel: Referral ID Status Reason Start Date Expiration Date Visits Re quested Visits Authorized [id number] Closed 03/09/2018 10/09/2018 12 12 Encounter Details Date Type Department Care Team (Latest Contact Info) Description 03/03/2018 Transcribe Orders [facility] [address] [place] [address] Lobo Donald MD Encounter for rehabilitation (Primary Dx) Social History Tobacco Use Types Packs/Day Years Used Date Smoking Tobacco: Never Assessed Comments Unknown Sex and Gender Information Value Date Recorded Sex Assigned at Not on file Legal Sex Female 9:34 PM EDT Gender Identity Not on file Sexual Orientation Not on file documented as of this encounter Plan of Treatment Not on file documented as of this encounter Procedures Procedure Name Priority Date/Time Associated Diagnosis Comments AMB REFERRAL TO [facility] PHYSICAL THERAPY Routine 03/09/2018 1:13 PM EDT Encounter for rehabilitation documented in this encounter Results * Ambulatory referral to [facility] Physical Therapy (03/09/2018 1:13 PM EDT) us Provider Not In System PhD AMB [facility] REFERRALS Fin al Result documented in this encounter Visit Diagnoses Diagnosis Encounter for rehabilitation- Primary documented in this encounter Care Teams Physician Recruiter Relationship Specialty Start Date End Date Shasha Lott MD [address] [place] [address] PCP - General Internal Medicine 03/03/18 documented as of this encounter Additional Source Comments The information contained in this document represents components of the legal health record. It is not the complete legal health record.[facility]
== END 2025-04-29 13:44 | disposition home or self-care (01) ==
LOC: HO.HUSH 13:20
PROVIDERS: PCP Internal Medicine; Visit Provider Urology
DX: Z13.9 Encounter for screening, unspecified (principal)

== ENCOUNTER → 2025-04-29 13:19 | Outpatient (BNVA) | payer OTHER, SELFPAY | PROVIDERS: PCP Internal Medicine; Visit Provider Urology | DX: N32.81 Overactive bladder (principal); R39.15 Urgency of urination | CPT/HCPCS: 51798; 81003 ==

== ENCOUNTER 2025-05-09 14:18 | Outpatient (AMB) | payer OTHER, SELFPAY ==
--- OUTSIDE RECORDS SUMMARY | 2017-03-23 09:30 | XMS_ITS | Continuity of Care Document ---
Author Organization Padmini [facility] Address [address] [place] [address] Care Team Providers Care Rod Bending Machine Operator Name Role Phone Kev Garrett MD Unavailable [...] Diagnoses Date Provider Providers Copied on Encounter [facility], [address], [place], [place], [id number] , [facility] [place] No Information 7 Gerry Angulo. [address] [place] [address], [address], . [phone] OFFICE/OUTPA TIENT VISIT, [facility], [address], [place], [place], [address] , [facility] [place] [facility] B/P recheck (chief complaint) headache (chief complaint) Hypertension, Unspecified 5 No Information [facility], [address], [place], [place], [address] , [facility] [place] UC high B/P (chief complaint) CoughHypertension, Unspecified 5 No Information OFFICE/OUTPA TIENT VISIT, [facility], [address], [place], [place], [address] , [facility] [place] UC cough (chief complaint) chest pain (chief complaint) Atypical chest painAnxietyBody Mass Index 31.0-31.9, adult 5 No Information OFFICE/OUTPA TIENT VISIT, [facility], [address], [place], [place], [address] , [facility] [place] UC cough (chief complaint) Cough 5 Susana Cano. [address] [place] [address], [address], . tel:[phone] [facility], [address], [place], [address] , [facility] No Information 5 No Information OFFICE/OUTPA TIENT VISIT, [facility], [address], [id number] , [facility] [place] establish care (chief complaint) Hypertension, UnspecifiedMixed dyslipidemiaAllerg ic rhinitisPost-nasal drip 5 No Information [facility], [address], [place], [place], [address] , [facility] [place] No Information 4 No Information OFFICE/OUTPA TIENT VISIT, EST [facility], [address], [place], [place], [address] , [facility] [facility] Follow up on lab results (chief complaint) Encounter to discuss test resultsHypokalemia Hypertension, UnspecifiedMixed dyslipidemia 4 No Information [facility], [address], [place], [place], [address] , [facility] [place] No Information 4 No Information PREV VISIT, EST, AGE 40-64 [facility], [address], [place], [place], [address] , [facility] [place] Physical/P ap Smear (chief complaint) refills (chief complaint) Routine general medical [facility] at a [facility] caHypertension, UnspecifiedAdult BMI 30.0-30.9 kg/sq mScreening for breast cancerScreening for malignant neoplasm of cervixRight upper quadrant painRoutine Medical Exam 4 No Information OFFICE/OUTPA TIENT VISIT, [facility], [address], [place], [place], [id number] , [facility] [place] chest pain and HTN (chief complaint) Hypertension, UnspecifiedObesity Atypical chest painGERD (gastroesophageal reflux disease) 2 No Information [facility], [address], [place], [place], [address] , [facility] [place] No Information 2 No Information OFFICE/OUTPA TIENT VISIT, [facility], [address], [place], [place], [address] , [facility] [place] physical exam (chief complaint) Routine general medical examination at a [facility]pertcorewell [facility] hospitalObes ityScreening for malignant neoplasm of cervixVaginal candidiasisRoutine Medical Exam 2 No Information Family History Family Member Type Diagnosis Age At Onset No Information Payers Payer name Insurance type Covered republican ID Authoriza tion(s) [facility] [id number] Social History Type Description Quantity Date Captured Comments Sex Female Smoking Status No Information Chief Complaint And Reason For Visit No Information Reason For Referral Reason For Referral No Information Plan Of Treatment Date Type Action Status Goal Tobacco cessation counseling completed Referral Ordered: CHEST X-RAY 2 VIEWS ordered Referral Ordered: CHEST X-RAY ordered Referral Ordered: X-RAY EXAM OF SHOULDER ordered Future Order: Lab Order Basic Ne tabolic Panel (1999), Collected on: , Sent on: Sent History Of Present Illness Encounter Date Complaint History Of Prese nt Illness headache Onset: 1 Week. L ocations affected include entire head. Additional information: face feels warm. B/P recheck high B/P The symptoms beg an 1 day ago. cough Associated sympt oms include nasal congestion. chest pain The patient pres ents with a complaint of chest pain. The symptoms began 2 days ago. The patient describes the pain as sharp and aching. The symptoms are aggravated by anxiety. cough Onset: 5 Months. The severity of [...] daily.Plenty of fluids. Related to Allergic rhinitis Recheck lipid panel; continue medication regimen; Follow a low fat, low cholesterol diet. Avoid saturated fats. Related to Mixed dyslipidemia Controlled BP; hany nue medication regimen; low salt diet. Related to Hypertension, Unspecified Uncontrolled BP; sti ll not at optimal [...] with usual PCP. Related to Hypertension, Unspecified Rx provided; take as prescribed.Medication instructions were provided to the patient.Follow up with PCP in one month.Consider rferral to therapist submitted for depression/anxiety. DANISH SPEAKING THERAPIST RECOMMENDED. Related to Anxiety Chest xray ordered; prelim shows no acute disease process; final report is pending.OTC Claritin daily.The patient was advised to return to UC if symptoms worsen or do not improve. Related to Atypical chest pain Assessments Type Assessment Date No Information Patient Care Teams Name Effective Dates (start - stop) Status Members No Information
--- NOTE | 2025-05-09 14:21 | MHC.PC.OV ---
Vital Signs 05/09/25 14:23 Height 5 ft 2 in Weight 160 lb 6 oz BMI 29.3 BP 118/70 Blood Pressure Location Lt brachial Position Sitting Pulse 83 Pulse Source Pulse Oximeter Temp 98.7 F Temp Source Temporal Artery Scan Oxygen Delivery Method Room Air Oxygen Flow Rate 97 Intake Visit Reasons: hip pain Investigative Research Specialist Required: No Accompanied by: Self / Same As Patient Allergies metronidazole (Metrogel) Allergy (Intermediate, Verified 05/09/25 14:39) facial rash morphine (Morphine) Allergy (Intermediate, Verified 05/09/25 14:39) SEVERE VOMITING, nausea and vomiting hydromorphone (From Dilaudid) Adverse Reaction (Mild, Verified 05/09/25 14:39) makes pt feel ill Medication List - Last Reconciled 05/09/25 by Jina Mistry PA-C calcium carbonate-vitamin D3 500 mg-10 mcg (400 unit) (Oyster Shell Calcium-Vitamin D3) 1 tab PO BID 90 days ciprofloxacin HCl (Cipro) 500 mg PO BID 5 days diaper,brief,adult,disposable (Day and Night Brief,Medium) As directed docusate sodium 100 mg PO BID 30 days ibuprofen 800 mg PO Q8H PRN 30 days lansoprazole 30 mg PO DAILY leg brace (Knee Support Brace) As directed x 6 weeks linaclotide 72 mcg PO DAILY magnesium oxide 400 mg PO BEDTIME 90 days phenazopyridine (Pyridium) 200 mg PO .B.i.d. rifaximin 550 mg PO TID 2 weeks triamcinolone acetonide 0.1% 1 appl topical DAILY 2 weeks Tobacco use date assessed: 05/09/25 Dental Screening Dental Screen Date: 05/09/25 Did you have a dental visit in the last 12 months?: Yes Did you have a dental problem in the last 6 months where you did not have access to dental care?: No Was dental information given to patient?: Patient has dentist HPI hip pain HPI Details 55-year-old female with past medical history of GERD, hyperlipidemia, obesity, urge incontinence, maintenance insufficiency last seen 01/[address] Berg coming in for acute problem. The right hip pain began approximately two months ago and has been worsening. The pain is aggravated by lying on the affected side and is persistent. The patient experienced similar hip pain a few years ago, which was alleviated with injections. Ibuprofen 800 mg provides temporary relief for the pain. No recent falls or new activities have been reported. Osteopenia has been diagnosed but is not considered the cause of the hip pain. COUNTS INCLUDE 234 BEDS AT THE [facility] Medical History PONV (postoperative nausea and vomiting) Mixed incontinence urge and stress Recurrent UTI Urge urinary incontinence Change in bowel habits Foreign body granuloma of skin Acne rosacea Right hip pain Leg numbness Obesity Mixed hyperlipidemia GERD (gastroesophageal reflux disease) Hypovitaminosis D Surgical History History of colostomy reversal History of abdominoplasty Perforation of colon History of total abdominal hysterectomy and bilateral salpingo-oophorectomy Family History Father Hypertension Cancer Mother Hypertension Diabetes Brother No problems noted. 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 Current occupational exposures/hazards: No Cognitive needs: No Hearing needs: No Vision needs: Yes Questionnaire Thrive Questionnaire Date Thrive assessed: 01/01/25 I am a: Patient What is your living situation today?: I have a steady place to live Within the past 12 months, did the food you bought not last and you didn't have the money to get more?: Never true Within the past 12 months, did you worry whether your food would run out before you got money to buy more?: Never true Do you have trouble paying for medicines?: No Do you have trouble getting transportation to medical appointments?: No Do you have trouble paying your heating and electricity bill?: No Do you have trouble taking care of your child, family member or friend?: No Do you have trouble with day-to-day activities such as bathing, preparing meals, shopping, managing finances, etc.?: No Are you currently unemployed and looking for a job?: No Are you interested in more education?: No Please select the resources that you would like help with: None Currently or been in a relationship where the following occur: No concerns reported THRIVE Score: 0 TYREE-7 AMB Questionnaire TYREE-7 Date TYREE - 7 assessed: 01/08/25 Source: Developed by Drs. Jhoan Humphries, Karla Garcia, Guicho Rodriges and colleagues, with an educational marla from [employer]. Review of Systems Const Denies fever(s) Eyes Reports no additional complaints Card Denies chest pain and Denies dyspnea Resp Denies dyspnea Musc Details: Nonradiating right hip pain without numbness or tingling Denies abnormal gait Skin/Breast Reports system reviewed and no additional complaints, except as documented Neuro Denies abnormal gait Psych Reports no additional complaints Physical exam (Primary Care) Vital Signs: Last Vital Signs Temp 98.7 F 05/09/25 14:23 Pulse 83 05/09/25 14:23 BP 118/70 05/09/25 14:23 Oxygen Delivery Method Room Air 05/09/25 14:23 Oxygen Flow Rate 97 05/09/25 14:23 BMI result Body Mass Index 29.3 Tobacco/Smoking Status: Tobacco use Status Tobacco use date assessed 05/09/25 05/09/25 14:29 Patient Tobacco Use Status Never used Tobacco 05/09/25 14:29 e-Cigarette/Vaping Use Never Used 05/09/25 14:29 Thrive Assessment: Date of Thrive Assessment Date Thrive assessed 01/01/25 05/09/25 14:29 Currently or been in a relationship where the following occur: No concerns reported Const General: cooperative, healthy appearing, comfortable and no acute distress Orientation/consciousness: patient oriented x3 HENMT Head: Yes normocephalic Ears: hearing grossly normal bilaterally General nose exam: Normal external nose present Eyes General: appearance normal, both eyes and all related structures Conjunctivae: conjunctivae normal Neck Neck: Yes full ROM and Yes no lymphadenopathy Resp Effort & Inspection: normal respiratory effort Cardio Rate: regular rate Back/Spine/Pelvis Other: No tenderness to palpation over the lumbar spine. Tenderness palpation over the lateral aspect of the right hip and over the right thigh and quad Skin General skin exam: no rashes or lesions noted Neuro General: patient oriented x3 Gait exam (Neuro): Normal gait present Extrem Other: Intact strength and sensation in bilateral lower extremities General: Yes normal to inspection, Yes full ROM and No edema Psych Affect: normal affect Attitude: cooperative Insight: Good insight present (Psych) Judgement: Good judgement present (Psych) Coding Level of Care Code Est Pt Level 3 (63856) Diagnoses Right hip pain M25.551 Assessment & Plan Assessment & Plan (1) Right hip pain: Code(s): M25.551 - Pain in right hip Category: Medical Plan: The management plan involves conducting a hip x-ray to exclude arthritis or other conditions causing the right hip pain. A muscle relaxer is prescribed for nighttime to help with pain and improve sleep. The patient should continue using ibuprofen and heating pads for pain and inflammation control. Physical therapy and heating pads are recommended for managing possible bursitis symptoms. Referral to orthopedics for hip injections will be considered if symptoms do not improve. Plan This note was constructed using voice recognition software. While every effort has been made to ensure accuracy and postdoctoral research fellow, still areas may have been included sometimes these areas may affect the content or meeting of the given symptoms. Total time spent caring for the patient today was 20 minutes. This includes time spent before the visit reviewing the chart, time spent during the visit, and time spent after the visit and documentation. Patient was informed and verbally consented to the use of an ambient scribe for clinic note documentation during this visit. Orders: Orders PT Evaluation and Treatment Today M25.551 - Pain in right hip XR hip RT w PEL1V Today M25.551 - Pain in right hip Medications: New cyclobenzaprine 5 mg PO BEDTIME 30 tabs 0RF Refilled ibuprofen 800 mg PO Q8H PRN 90 tabs 1RF pain 30 days
[2025-05-09 14:23] VITALS: BP 118/70; PULSE 83; TEMP 37.1; BMI 29.3
--- OUTSIDE RECORDS SUMMARY | 2025-05-09 14:30 | XMS_ITS | Encounter Summary ---
Author Organization [facility] Address [address] [place] [address] Phone Care Team Providers Care Copy Center Operator Name Role Phone Shasha Lott MD Primary Care Provid er Reason for Referral * Physical Therapy (Routine) - Closed Specialty Diagnoses / Procedures Referred By Benji pace Referred To Contact Physical Therapy Diagnoses Encounter for rehabilitation System, Provider Not In, [facility] [id number] [place] [address] Phone: tel: Referral ID Status Reason Start Date Expiration Date Visits Re quested Visits Authorized [id number] Closed 03/09/2018 10/09/2018 12 12 Encounter Details Date Type Department Care Team (Latest Contact Info) Description 03/03/2018 Transcribe Orders [facility] [address] [place] [address] Lobo Donald MD [address] [place] [address] [address] Encounter for rehabilitation (Primary Dx) Social History [...] Date/Time Associated Diagnosis Comments AMB REFERRAL TO [facility] PHYSICAL THERAPY Routine 03/09/2018 1:13 PM EDT Encounter for rehabilitation documented in this encounter Results * Ambulatory referral to [facility] Physical Therapy (03/09/2018 1:13 PM EDT) us Provider Not In System PhD AMB [facility] REFERRALS Fin al Result documented in this encounter Visit Diagnoses Diagnosis Encounter for rehabilitation- Primary documented in this encounter Care Teams Copy Center Operator Relationship Specialty Start Date End Date Shasha Lott MD [address] [place] [address] PCP - General Internal Medicine 03/03/18 documented as of this encounter Additional Source Comments The information contained in this document represents components of the legal health record. It is not the complete legal health record.[facility]
== END 2025-05-09 15:06 | disposition home or self-care (01) ==
LOC: HO.HMCH 14:19
PROVIDERS: PCP Internal Medicine
DX: M25.551 Pain in right hip (principal)

== ENCOUNTER → 2025-05-09 14:18 | Outpatient (BNVA) | payer OTHER, SELFPAY | PROVIDERS: PCP Internal Medicine | DX: M25.551 Pain in right hip (principal); K21.9 Gastro-esophageal reflux disease without esophagitis; E78.5 Hyperlipidemia, unspecified; N39.41 Urge incontinence | CPT/HCPCS: 99212 ==

== ENCOUNTER 2025-06-12 08:55 | Outpatient (REF) | payer OTHER, SELFPAY ==
--- OUTSIDE RECORDS SUMMARY | 2017-03-23 09:30 | XMS_ITS | Continuity of Care Document ---
Author Organization Padmini [facility]car[facility] Address [address] [place] [address] Care Team Providers Care Reconsignment Clerk Name Role Phone Kev Garrett MD Unavailable [...] Diagnoses Date Provider Providers Copied on Encounter [facility], [address], [place], [place], [id number] , [facility] [place] No Information 7 Gerry Angulo. [address] [place] [address], [address], . [phone] OFFICE/OUTPA TIENT VISIT, [facility], [address], [place], [place], [id number] , [facility] UC B/P recheck (chief complaint) headache (chief complaint) Hypertension, Unspecified 5 No Information [facility], [address], [place], [place], [id number] , [facility] UC high B/P (chief complaint) CoughHypertension, Unspecified 5 No Information OFFICE/OUTPA TIENT VISIT, [facility], [address], [place], [place], [id number] , [facility] [place] UC cough (chief complaint) chest pain (chief complaint) Atypical chest painAnxietyBody Mass Index 31.0-31.9, adult 5 No Information OFFICE/OUTPA TIENT VISIT, [facility], [address], [place], [place], [id number] , [facility] [place] UC cough (chief complaint) Cough 5 Susana Cano. [address] [place] [address], [address], . tel:[phone] [facility], [address], [place], [id number] , [facility] [place] No Information 5 No Information OFFICE/OUTPA TIENT VISIT, [facility], [address], [place], [id number] , [facility] [place] establish care (chief complaint) Hypertension, UnspecifiedMixed dyslipidemiaAllerg ic rhinitisPost-nasal drip 5 No Information [facility], [address], [place], [place], [id number] , [facility] No Information 4 No Information OFFICE/OUTPA TIENT VISIT, EST [facility], [address], [place], [place], [id number] , [facility] UC Follow up on lab results (chief complaint) Encounter to discuss test resultsHypokalemia Hypertension, UnspecifiedMixed dyslipidemia 4 No Information [facility], [address], [place], [place], [id number] , [facility] No Information 4 No Information PREV VISIT, EST, AGE 40-64 [facility], [address], [place], [place], [id number] , [facility] Physical/P ap Smear (chief complaint) refills (chief complaint) [facility] caHypertension, UnspecifiedAdult BMI 30.0-30.9 kg/sq mScreening for breast cancerScreening for malignant neoplasm of cervixRight upper quadrant painRoutine Medical Exam 4 No Information OFFICE/OUTPA TIENT VISIT, [facility], [address], [place], [place], [id number] , [facility] chest pain and HTN (chief complaint) Hypertension, UnspecifiedObesity Atypical chest painGERD (gastroesophageal reflux disease) 2 No Information [facility], [address], [place], [place], [address] , [facility] No Information 2 No Information OFFICE/OUTPA TIENT VISIT, [facility], [address], [place], [place], [id number] , [facility] physical exam (chief complaint) [facility] ityScreening for malignant neoplasm of cervixVaginal candidiasisRoutine Medical Exam 2 No Information Family History Family Member Type Diagnosis Age At Onset No Information Payers Payer name Insurance type Covered republican ID Authoriza tion(s) [facility] [id number] Social History Type Description Quantity Date Captured [...] X-RAY ordered Future Order: Lab Order Basic Dc tabolic Panel (1999), Collected on: , Sent [...] month.Consider rferral to therapist submitted for depression/anxiety. CENTRAL AFRICAN SPEAKING THERAPIST RECOMMENDED. Related to Anxiety Assessments Type Assessment Date No Information Patient Care Teams Name Effective Dates (start - stop) Status Members No Information
--- NOTE | ~2025-06-12 | US_ITS ---
EXAMINATION: US ABDOMEN LIMITED WITH LIVER ELASTOGRAPHY CLINICAL INFORMATION: JOSEPH, Right upper quadrant pain COMPARISON: September 07, 2024 CT TECHNIQUE: Real-time imaging of the abdominal viscera. Noninvasive ultrasound liver fibrosis assessment is performed using Werner ElastPQ point quantification shear wave elastography (pSWE) with a 5 MHz transducer. Multiple elastography samples are obtained. FINDINGS: PANCREAS: The visualized pancreatic head and body are normal in appearance. The remainder of the pancreas is obscured from visualization by the overlying bowel gas. LIVER: The liver demonstrates normal size, contour and hyperechogenicity. No focal lesion or intrahepatic biliary duct dilatation. The right lobe measures 15 cm in length. The left lobe measures 8 cm in length. The main portal vein is patent with a normal direction of flow and a continuously forward venous waveform. Shear wave elastography provides a median stiffness of 1.0 m/s (reference: normal median stiffness is 0.81 - 1.22 m/s). The IQR/median stiffness to assess sampling precision is 0.14 (reference: optimal IQR/median stiffness is under 0.3). GALLBLADDER: The gallbladder is physiologically distended without evidence of stones, sludge, polyps, wall thickening or pericholecystic fluid. COMMON BILE DUCT: Normal in caliber measuring 0.4 cm in diameter. RIGHT KIDNEY: No hydronephrosis. There is an echogenic focus in the upper pole measuring 8 x 6 x 9 mm and a second measuring 4 x 4 x 3 mm consistent with nonobstructing stones. The kidney measures 10 cm in maximum dimension. FREE FLUID: None seen. US/US abdomen fish w elastography IMPRESSION: Hyperechogenicity of the liver suggest underlying hepatic steatosis or other chronic liver disease. Elastography: Median value measured 1.0 which is consistent with a normal study. Nonobstructing stones are demonstrated in the upper pole of the right kidney. The largest measured 8 x 6 x 9 mm. Electronically signed by: Anthony Farrell MD 06/12/2025 10:13 AM EDT
--- NOTE | ~2025-06-12 | XR_ITS ---
EXAMINATION: XR HIP, RIGHT CLINICAL INFORMATION: M25.551 - Pain in right hip COMPARISON: None available. TECHNIQUE: Two views of the right hip. FINDINGS: Joint space of the right hip is preserved. Minute marginal osteophyte is noted in the lateral femoral head and possibly lateral acetabular roof. Surgical clips project in the left upper pelvis. XR/XR hip RT w PEL1V IMPRESSION: Unremarkable right hip aside from minute marginal osteophytes. Electronically signed by: Anthony Farrell MD 06/12/2025 10:14 AM EDT
--- OUTSIDE RECORDS SUMMARY | 2025-06-12 09:31 | XMS_ITS | Clinical Summary ---
Author Organization [facility] Address [address] [facility] [address] [place] [address] Phone Care Team Providers Care Director Of Learning Name Role Phone Shasha Lott MD Primary Care Provid er Medications No known medications Social History Tobacco Use Types Packs/Day Years Used Date Smoking Tobacco: Never Assessed Education Answer Date Recorded Are you interested in more education? Not on vinny e 02/04/2023 Are you concerned about learning? Not on file 02/04/2023 No 02/04/2023 No 02/04/2023 Digital Access Answer Date Recorded No 03/05/2023 No 03/05/2023 No 03/05/2023 Reliable internet access at home? Not on file 03/05/2023 Device with a working camera? Not on file Comments Unknown Sex and Gender Information Value Date Recorded Sex Assigned at Not on file Legal Sex Female 9:34 PM EDT Gender Identity Not on file Sexual Orientation Not on file Plan of Treatment Health Maintenance Due Date Last Done Comments LIPID PANEL 1971 DEPRESSION SCREENING 1983 SMOKING Hx and SMOKELESS TOB ACCO SCREENING 02/01/1984 HEPATITIS C SCREENING 1989 HIV ONE-TIME SCREENING (18-6 5 YEARS) 1989 PAP SMEAR 02/01/1992 MAMMOGRAM 2011 COLOGUARD 02/01/2016 COLONOSCOPY 02/01/2016 COLORECTAL CANCER SCREENING 02/01/2016 FIT TEST 02/01/2016 FOBT 02/01/2016 SIGMOIDOSCOPY 02/01/2016 VIRTUAL COLONOSCOPY 02/01/2016 PNEUMOCOCCAL VACCINES (50+ y ears) (1 of 1 - PCV) 2021 ZOSTER VACCINES (1 of 2) 2021 INFLUENZA VACCINE (#1) 2025 COVID-19 VACCINE (2 2024-2 6 season) 2025 12/30/2020 Adult Td,Tdap Booster 05/10/2027 05/10/2017 HEPATITIS A VACCINES Aged Out No long er eligible based on patient's age to complete this topic HIB VACCINES Aged Out No longer eligi ble based on patient's age to complete this topic MENINGOCOCCAL VACCINES (ACWY) Aged Out No longer eligible based on patient's age to complete this topic MENINGOCOCCAL VACCINES (B) Aged Out N o longer eligible based on patient's age to complete this topic Medical Devices Not on file Insurance [employer] DIRECT [employer] [place] [address] [address] [place] [address] [place] [address] [employer] DIRECT [employer] [place] [place] [address] [employer] DIRECT Care Teams Director Of Learning Relationship Specialty Start Date End Date Shasha Lott MD [address] [place] [address] PCP - General Internal Medicine 03/03/18 Additional Source Comments The information contained in this document represents components of the legal health record. It is not the complete legal health record.[facility]
--- OUTSIDE RECORDS SUMMARY | 2025-06-12 09:31 | XMS_ITS | Encounter Summary ---
Author Organization [facility] Address [address] [place] [address] Phone Care Team Providers Care Charge Account Authorizer Name Role Phone Shasha Lott MD Primary Care Provid er Reason for Referral * Physical Therapy (Routine) - Closed Specialty Diagnoses / Procedures Referred By Benji pace Referred To Contact Physical Therapy Diagnoses Encounter for rehabilitation System, Provider Not In, PhD [phone] [place] [address] Phone: tel: Referral ID Status Reason Start Date Expiration Date Visits Re quested Visits Authorized [id number] Closed 03/09/2018 10/09/2018 12 12 Encounter Details Date Type Department Care Team (Latest Contact Info) Description 03/03/2018 Transcribe Orders [facility] Rehabilitation Services [address] [place] [address] Lobo Donald MD [address] [place] [address] [address] Encounter for rehabilitation (Primary Dx) Social History [...] Date/Time Associated Diagnosis Comments AMB REFERRAL TO [facility] PHYSICAL THERAPY Routine 03/09/2018 1:13 PM EDT Encounter for rehabilitation documented in this encounter Results * Ambulatory referral to [facility] Physical Therapy (03/09/2018 1:13 PM EDT) us Provider Not In System PhD AMB [facility] REFERRALS Fin al Result documented in this encounter Visit Diagnoses Diagnosis Encounter for rehabilitation- Primary documented in this encounter Care Teams Charge Account Authorizer Relationship Specialty Start Date End Date Shasha Lott MD [address] [place] [address] PCP - General Internal Medicine 03/03/18 documented as of this encounter Additional Source Comments The information contained in this document represents components of the legal health record. It is not the complete legal health record.[facility]
== END 2025-06-12 08:56 | disposition home or self-care (01) ==
LOC: HO.US 08:55
PROVIDERS: PCP Internal Medicine; Visit Provider Internal Medicine Gastroenterology
DX: R10.11 Right upper quadrant pain (principal); M25.551 Pain in right hip; K75.81 Nonalcoholic steatohepatitis (NASH)
CPT/HCPCS: 73502; 76705; 76981

== ENCOUNTER → 2025-06-12 08:58 | Outpatient (BNV) | payer OTHER, SELFPAY | PROVIDERS: PCP Internal Medicine; Visit Provider Radiology Diagnostic Radiology | DX: K75.81 Nonalcoholic steatohepatitis (NASH) (principal); M25.551 Pain in right hip | CPT/HCPCS: 73502; 76705 ==

== ENCOUNTER 2025-06-13 09:03 | Outpatient (AMB) | payer OTHER, SELFPAY ==
--- OUTSIDE RECORDS SUMMARY | 2017-03-23 09:30 | XMS_ITS | Continuity of Care Document ---
Author Organization [facility] Address [address] [place] [address] Care Team Providers Care Photovoltaic Technician Name Role Phone Kev Garrett MD Unavailable [...] Diagnoses Date Provider Providers Copied on Encounter [facility], [address], [place], [place], [id number] , [facility] [place] No Information 7 Gerry Angulo. [address] [place] [address], [address], . [phone] OFFICE/OUTPA TIENT VISIT, [facility], [address], [place], [place], [address] , [facility] [place] UC B/P recheck (chief complaint) headache (chief complaint) Hypertension, Unspecified 5 No Information [facility], [address], [place], [place], [id number] , [facility] [place] UC high B/P (chief complaint) CoughHypertension, Unspecified 5 No Information OFFICE/OUTPA TIENT VISIT, [facility], [address], [place], [place], [address] , [facility] [place] UC cough (chief complaint) chest pain (chief complaint) Atypical chest painAnxietyBody Mass Index 31.0-31.9, adult 5 No Information OFFICE/OUTPA TIENT VISIT, [facility], [address], [place], [place], [address] , [facility] [place] UC cough (chief complaint) Cough 5 Susana Cano. [address] [place] [address], [address], . tel:[phone] [facility], [address], [place], [address] , [facility] [place] No Information 5 No Information OFFICE/OUTPA TIENT VISIT, [facility], [address], [place], [address] , [facility] [place] establish care (chief complaint) Hypertension, UnspecifiedMixed dyslipidemiaAllerg ic rhinitisPost-nasal drip 5 No Information [facility], [address], [place], [place], [address] , [facility] [place] No Information 4 No Information OFFICE/OUTPA TIENT VISIT, EST [facility], [address], [place], [place], [address] , [facility] [place] UC Follow up on lab results (chief complaint) Encounter to discuss test resultsHypokalemia Hypertension, UnspecifiedMixed dyslipidemia 4 No Information [facility], [address], [place], [place], [id number] , [facility] [place] No Information 4 No Information PREV VISIT, EST, AGE 40-64 [facility], [address], [place], [place], [id number] , [facility] [place] Physical/P ap Smear (chief complaint) refills (chief complaint) [facility] caHypertension, UnspecifiedAdult BMI 30.0-30.9 kg/sq mScreening for breast cancerScreening for malignant neoplasm of cervixRight upper quadrant painRoutine Medical Exam 4 No Information OFFICE/OUTPA TIENT VISIT, [facility], [address], [place], [place], [id number] , [facility] [place] chest pain and HTN (chief complaint) Hypertension, UnspecifiedObesity Atypical chest painGERD (gastroesophageal reflux disease) 2 No Information [facility], [address], [place], [place], [address] , [facility] [place] No Information 2 No Information OFFICE/OUTPA TIENT VISIT, [facility], [address], [place], [place], [id number] , [facility] [place] physical exam (chief complaint) Routine general medical examination at a [facility]ypertascension standish hospitalObes ityScreening for malignant neoplasm of cervixVaginal candidiasisRoutine Medical Exam 2 No Information Family History Family Member Type Diagnosis Age At Onset No Information Payers Payer name Insurance type Covered libertarian ID Authoriza tion(s) [facility] [id number] Social History Type Description Quantity Date Captured [...] SHOULDER ordered Future Order: Lab Order Basic Wy tabolic Panel (1999), Collected on: , Sent [...] month.Consider rferral to therapist submitted for depression/anxiety. PORTUGUESE SPEAKING THERAPIST RECOMMENDED. Related to Anxiety Assessments Type Assessment Date No Information Patient Care Teams Name Effective Dates (start - stop) Status Members No Information
--- NOTE | 2025-06-13 09:06 | A.OFFPC_ITS ---
Vital Signs 06/13/25 09:07 Height 5 ft 2 in Weight 157 lb 8 oz BMI 28.8 BP 120/60 Blood Pressure Location Lt brachial Position Sitting Pulse 84 Pulse Source Pulse Oximeter Temp 97.3 F Temp Source Temporal Artery Scan Pulse Oximetry (%) 96 Oxygen Delivery Method Room Air Intake Visit Reasons: 6 month follow up Intake Note: Patient is here to follow up on OA, HLD, GERD. Administrative Fellow Required: No Conformal Pad Former: Not Required per policy Accompanied by: Self / Same As Patient Allergies metronidazole (Metrogel) Allergy (Intermediate, Verified 06/13/25 09:24) facial rash morphine (Morphine) Allergy (Intermediate, Verified 06/13/25 09:24) SEVERE VOMITING, nausea and vomiting hydromorphone (From Dilaudid) Adverse Reaction (Mild, Verified 06/13/25 09:24) makes pt feel ill Medication List - Last Reconciled 06/13/25 by Shasha Juarez MD calcium carbonate-vitamin D3 500 mg-10 mcg (400 unit) (Oyster Shell Calcium- Vitamin D3) 1 tab PO BID 90 days cyclobenzaprine 5 mg PO BEDTIME diaper,brief,adult,disposable (Day and Night Brief,Medium) As directed docusate sodium 100 mg PO BID 30 days ibuprofen 800 mg PO Q8H PRN 30 days lansoprazole 30 mg PO DAILY leg brace (Knee Support Brace) As directed x 6 weeks linaclotide 72 mcg PO DAILY magnesium oxide 400 mg PO BEDTIME 90 days Tobacco use date assessed: 06/13/25 Dental Screening Dental Screen Date: 05/09/25 HPI HPI Comments History of Present Illness Details The patient is a 55-year-old female presenting with hip pain, shoulder pain, and heel pain. The patient reports a history of hip pain, which has been severe and persistent. She has received three cortisone injections in the hip, but the pain remains debilitating. An appointment with orthopedics is scheduled for further ev aluation. 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 Physical therapy has been recommended to manage the shoulder pain. The patient experiences heel pain in both feet, more pronounced in the left heel. She has been referred to a granulator operator for further assessment and management. The patient has a history of constipation, managed with docusate and linaclotide. She also uses magnesium as a supplement. The patient has nonobstructive kidney stones, with two small stones identified in the right kidney. Vitamin B6 has been suggested to help prevent further stone formation. The patient has been diagnosed with osteopenia, for which she takes calcium and vitamin D supplements. [facility] Medical History (Updated 06/13/25 @ 09:36 by Shasha Juarez MD) PONV (postoperative nausea and vomiting) Mixed incontinence urge and stress Recurrent UTI Urge urinary incontinence Change in bowel habits Foreign body granuloma of skin Acne rosacea Right hip pain Leg numbness Obesity Mixed hyperlipidemia GERD (gastroesophageal reflux disease) Hypovitaminosis D Surgical History History of colostomy reversal History of abdominoplasty Perforation of colon History of total abdominal hysterectomy and bilateral salpingo-oophorectomy Family History Father Hypertension Cancer Mother Hypertension Diabetes Brother No problems noted. 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 Current occupational exposures/hazards: No Cognitive needs: No Hearing needs: No Vision needs: Yes Questionnaire Thrive Questionnaire Date Thrive assessed: 01/01/25 I am a: Patient What is your living situation today?: I have a steady place to live Within the past 12 months, did the food you bought not last and you didn't have the money to get more?: Never true Within the past 12 months, did you worry whether your food would run out before you got money to buy more?: Never true Do you have trouble paying for medicines?: No Do you have trouble getting transportation to medical appointments?: No Do you have trouble paying your heating and electricity bill?: No Do you have trouble taking care of your child, family member or friend?: No Do you have trouble with day-to-day activities such as bathing, preparing meals, shopping, managing finances, etc.?: No Are you currently unemployed and looking for a job?: No Are you interested in more education?: No Please select the resources that you would like help with: None Currently or been in a relationship where the following occur: No concerns reported THRIVE Score: 0 TYREE-7 AMB Questionnaire TYREE-7 Date TYREE - 7 assessed: 01/08/25 Source: Developed by Drs. Jhoan Humphries, Karla Garcia, Guicho Rodriges and colleagues, with an educational marla from [employer]. Review of Systems Const All systems reviewed & are unremarkable except as noted in HPI and below Card Denies chest pain at rest, Denies chest pain with activity, Denies edema, Denies irregular heart rhythm, Denies claudication, Denies dyspnea, Denies dyspnea on exertion, Denies orthopnea, Denies paroxysmal nocturnal dyspnea and Denies slow heart rate Resp Denies cough, Denies dyspnea and Denies dyspnea on exertion Neuro Denies lack of coordination Physical exam (Primary Care) Vital Signs: Last Vital Signs Temp 97.3 F 06/13/25 09:07 Pulse 84 06/13/25 09:07 BP 120/60 06/13/25 09:07 Pulse Ox 96 06/13/25 09:07 Oxygen Delivery Method Room Air 06/13/25 09:07 BMI result Body Mass Index 28.8 Tobacco/Smoking Status: Tobacco use Status Tobacco use date assessed 06/13/25 06/13/25 09:14 Patient Tobacco Use Status Never used Tobacco 06/13/25 09:14 e-Cigarette/Vaping Use Never Used 06/13/25 09:14 Thrive Assessment: Date of Thrive Assessment Date Thrive assessed 01/01/25 06/13/25 09:14 Currently or been in a relationship where the following occur: No concerns reported Resp Effort & Inspection: normal respiratory effort Auscultation: clear to auscultation bilaterally Cardio Jugular venous distension: no JVD Rate: regular rate Rhythm: regular rhythm Heart sounds: S1 normal heart sound present and S2 normal heart sound present Extrem General: Yes full ROM Coding Level of Care Code Est Pt Level 4 (47293) Complex EM visit Add On G2211 Diagnoses Osteopenia M85.80 Chronic idiopathic constipation K59.04 Renal calculi N20.0 OAB (overactive bladder) N32.81 Left foot pain M79.672 Right foot pain M79.671 Right shoulder pain M25.511 Time Spent (min) 23 Assessment & Plan Assessment & Plan (1) Osteopenia: Code(s): M85.80 - Other specified disorders of bone density and structure, unspecified site Category: Medical (2) Chronic idiopathic constipation: Code(s): K59.04 - Chronic idiopathic constipation Category: Medical (3) Renal calculi: Code(s): N20.0 - Calculus of kidney Category: Medical (4) OAB (overactive bladder): Code(s): N32.81 - Overactive bladder Category: Medical (5) Left foot pain: Code(s): M79.672 - Pain in left foot Category: Medical (6) Right foot pain: Code(s): M79.671 - Pain in right foot Category: Medical (7) Right shoulder pain: Code(s): M25.511 - Pain in right shoulder Category: Medical Plan Plan Patient was informed and verbally consented to the use of an ambient scribe for clinic note documentation during this visit. 1. Pain in right hip M25.551 The patient is experiencing severe hip pain, for which she has received three cortisone injections with limited relief. An orthopedic consultation is scheduled to explore further management options. 2. 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 Physical therapy has been recommended to alleviate symptoms. 3. Pain in unspecified foot M79.673 The patient experiences heel pain, more pronounced in the left heel. She has been referred to a granulator operator for further evaluation and management. 4. Slow transit constipation K59.01 The patient manages constipation with docusate and linaclotide, and supplements with magnesium. 5. Calculus of kidney N20.0 The patient has nonobstructive kidney stones, with two small stones identified in the right kidney. Vitamin B6 supplementation has been suggested to prevent further stone formation. 6. Other specified disorders of bone density and structure, unspecified site M85.80 The patient has been diagnosed with osteopenia and is taking calcium and vitamin D supplements as part of her management plan. Orders: Orders PT Evaluation and Treatment Today M25.511 - Pain in right shoulder XR shoulder RT min 2V Today M25.511 - Pain in right shoulder XR foot RT 2V Today M79.671 - Pain in right foot XR foot LT 2V Today M79.672 - Pain in left foot Referrals Podiatry Referral M79.671 - Pain in right foot, M79.672 - Pain in left foot Medications: New pyridoxine (vitamin B6) 50 mg PO DAILY 90 tabs 1RF 90 days N20.0 - Calculus of kidney
[2025-06-13 09:07] VITALS: BP 120/60; PULSE 84; TEMP 36.3; O2SAT 96; BMI 28.8
--- OUTSIDE RECORDS SUMMARY | 2025-06-13 09:34 | XMS_ITS | Encounter Summary ---
Author Organization [facility] Address [address] [place] [phone] Phone Care Team Providers Care Medical Device Sales Consultant Name Role Phone Shasha Lott MD Primary Care Provid er Reason for Referral * Physical Therapy (Routine) - Closed Specialty Diagnoses / Procedures Referred By Benji pace Referred To Contact Physical Therapy Diagnoses Encounter for rehabilitation System, Provider Not In, [facility] [id number] [place] [address] Phone: tel: Referral ID Status Reason Start Date Expiration Date Visits Re quested Visits Authorized [id number] Closed 03/09/2018 10/09/2018 12 12 Encounter Details Date Type Department Care Team (Latest Contact Info) Description 03/03/2018 Transcribe Orders [facility] Rehabilitation Services [address] [place] [address] Lobo Donald MD [address] [place] [address] [address] Encounter for rehabilitation (Primary Dx) Social History [...] Date/Time Associated Diagnosis Comments AMB REFERRAL TO [facility] PHYSICAL THERAPY Routine 03/09/2018 1:13 PM EDT Encounter for rehabilitation documented in this encounter Results * Ambulatory referral to [facility] Physical Therapy (03/09/2018 1:13 PM EDT) us Provider Not In System PhD AMB [facility] REFERRALS Fin al Result documented in this encounter Visit Diagnoses Diagnosis Encounter for rehabilitation- Primary documented in this encounter Care Teams Medical Device Sales Consultant Relationship Specialty Start Date End Date Shasha Lott MD [address] [place] [address] PCP - General Internal Medicine 03/03/18 documented as of this encounter Additional Source Comments The information contained in this document represents components of the legal health record. It is not the complete legal health record.[facility]
--- OUTSIDE RECORDS SUMMARY | 2025-06-13 09:35 | XMS_ITS | Clinical Summary ---
Author Organization [facility] Address [address] [facility] [address] [place] [address] Phone Care Team Providers Care Entry Level Mechanical Engineer Name Role Phone Shasha Lott MD Primary [...] topic Medical Devices Not on file Insurance * Guarantor: David Townsend Account Type Relation to Patient Date of Phone Billing Address Personal/Family Self [address] [place] [address] [employer] * Guarantor: David Townsend Account Type Relation to Patient Date of Phone Billing Address Personal/Family Self [address] [place] [address] [place] [address] [place] [address] [place] [address] [employer] * Guarantor: David Townsend Account Type Relation to Patient Date of Phone Billing Address Personal/Family Self [address] [place] [address] [employer] * Guarantor: David Townsend Account Type Relation to Patient Date of Phone Billing Address Personal/Family Self [address] [place] [address] [place] [address] [employer] * Guarantor: David Townsend Account Type Relation to Patient Date of Phone Billing Address Personal/Family Self [address] [place] [address] [employer] Care Teams Entry Level Mechanical Engineer Relationship Specialty Start Date End Date Shasha Lott MD [address] [place] [address] PCP - General Internal Medicine 03/03/18 Additional Source Comments The information contained in this document represents components of the legal health record. It is not the complete legal health record.[facility]
== END 2025-06-13 09:55 | disposition home or self-care (01) ==
LOC: HO.HMCH 09:03
PROVIDERS: PCP Internal Medicine; Visit Provider Internal Medicine
DX: M85.80 Other specified disorders of bone density and structure, unspecified site (principal); K59.04 Chronic idiopathic constipation; N20.0 Calculus of kidney; N32.81 Overactive bladder; M79.672 Pain in left foot; M79.671 Pain in right foot; M25.511 Pain in right shoulder

== ENCOUNTER → 2025-06-13 09:03 | Outpatient (BNVA) | payer OTHER, SELFPAY | PROVIDERS: PCP Internal Medicine; Visit Provider Internal Medicine | DX: K21.9 Gastro-esophageal reflux disease without esophagitis (principal); E78.5 Hyperlipidemia, unspecified; M79.672 Pain in left foot; M79.671 Pain in right foot; N20.0 Calculus of kidney; M85.80 Other specified disorders of bone density and structure, unspecified site; K59.04 Chronic idiopathic constipation; K59.01 Slow transit constipation; N32.81 Overactive bladder; M25.511 Pain in right shoulder | CPT/HCPCS: 99212 ==

== ENCOUNTER 2025-06-17 08:59 | Outpatient (REF) | payer OTHER, SELFPAY ==
--- NOTE | ~2025-06-17 | XR_ITS ---
EXAMINATION: XR SHOULDER, RIGHT CLINICAL INFORMATION: M25.511 - Pain in right shoulder COMPARISON: None available. TECHNIQUE: AP external rotation, Grashey, scapular Y, and axillary views of the right shoulder. FINDINGS: The bones and soft tissues are normal. No fracture. Glenohumeral and acromioclavicular alignment is anatomic with normal joint space. No abnormal soft tissue calcifications. XR/XR shoulder RT min 2V IMPRESSION: Unremarkable right shoulder Electronically signed by: Anthony Farrell MD 06/17/2025 09:51 AM EDT
--- NOTE | ~2025-06-17 | XR_ITS ---
Exam: XR FOOT 3 OR MORE VIEWS BILATERAL, bilateral hand x-rays TECHNIQUE: AP, lateral, and oblique views lower extremity, bilateral feet INDICATION: M79.672 - Pain in left foot COMPARISON: None available. FINDINGS: RIGHT FOOT: No fractures are evident. Joint spaces are preserved. There are no osteophytes. There are small calcaneal enthesophytes. LEFT FOOT: No fractures are evident. Joint spaces are preserved. There are no osteophytes. There are small calcaneal enthesophytes. XR/XR Foot [place] 3V IMPRESSION: Small calcaneal enthesophytes are present bilaterally which is a nonspecific finding. Correlate for symptoms. Electronically signed by: Anthony Farrell MD 06/17/2025 09:53 AM EDT
--- OUTSIDE RECORDS SUMMARY | 2025-06-17 10:12 | XMS_ITS | Encounter Summary ---
Author Organization [facility] Address [address] [place] [address] Phone Care Team Providers Care Buffing Wheel Former Automatic Name Role Phone Shasha Lott MD Primary Care Provid er Reason for Referral * Physical Therapy (Routine) - Closed Specialty Diagnoses / Procedures Referred By Benji pace Referred To Contact Physical Therapy Diagnoses Encounter for rehabilitation System, Provider Not In, [facility] [id number] [place] [address] Phone: tel: Referral ID Status Reason Start Date Expiration Date Visits Re quested Visits Authorized [id number] Closed 03/09/2018 10/09/2018 12 12 Encounter Details Date Type Department Care Team (Latest Contact Info) Description 03/03/2018 Transcribe Orders [facility] Rehabilitation Services [address] [place] [address] Lobo Donald MD [address] [place] [address] [address] Encounter for rehabilitation (Primary Dx) Social History [...] Date/Time Associated Diagnosis Comments AMB REFERRAL TO [facility] PHYSICAL THERAPY Routine 03/09/2018 1:13 PM EDT Encounter for rehabilitation documented in this encounter Results * Ambulatory referral to [facility] Physical Therapy (03/09/2018 1:13 PM EDT) us Provider Not In System PhD AMB [facility] REFERRALS Fin al Result documented in this encounter Visit Diagnoses Diagnosis Encounter for rehabilitation- Primary documented in this encounter Care Teams Buffing Wheel Former Automatic Relationship Specialty Start Date End Date Shasha Lott MD [address] [place] [address] PCP - General Internal Medicine 03/03/18 documented as of this encounter Additional Source Comments The information contained in this document represents components of the legal health record. It is not the complete legal health record.[facility]
== END 2025-06-17 09:00 | disposition home or self-care (01) ==
LOC: HO.XRAY 08:59
PROVIDERS: PCP Internal Medicine; Visit Provider Internal Medicine
DX: M25.511 Pain in right shoulder (principal); M79.672 Pain in left foot
CPT/HCPCS: 73030; 73630

== ENCOUNTER → 2025-06-17 09:04 | Outpatient (BNV) | payer OTHER, SELFPAY | PROVIDERS: PCP Internal Medicine; Visit Provider Radiology Diagnostic Radiology | DX: M25.511 Pain in right shoulder (principal); M77.30 Calcaneal spur, unspecified foot | CPT/HCPCS: 73030; 73630 ==

== ENCOUNTER 2025-07-02 09:13 | Outpatient (AMB) | payer OTHER, SELFPAY ==
--- OUTSIDE RECORDS SUMMARY | 2017-03-23 09:30 | XMS_ITS | Continuity of Care Document ---
Author Organization Padmini [facility] Address [address] [place] [address] Care Team Providers Care Care Information Associate Name Role Phone Kev Garrett MD Unavailable [...] Diagnoses Date Provider Providers Copied on Encounter [facility], [address], [place], [place], [id number] , [facility] [place] No Information 7 Gerry Angulo. [address] [place] [address], [address], . [phone] OFFICE/OUTPA TIENT VISIT, [facility], [address], [place], [place], [id number] , [facility] [place] UC B/P recheck (chief complaint) headache (chief complaint) Hypertension, Unspecified 5 No Information [facility], [address], [place], [place], [id number] , [facility] [place] UC high B/P (chief complaint) CoughHypertension, Unspecified 5 No Information OFFICE/OUTPA TIENT VISIT, [facility], [address], [place], [place], [id number] , [facility] [place] UC cough (chief complaint) chest pain (chief complaint) Atypical chest painAnxietyBody Mass Index 31.0-31.9, adult 5 No Information OFFICE/OUTPA TIENT VISIT, [facility], [address], [place], [place], [id number] , [facility] [place] UC cough (chief complaint) Cough 5 Susana Cano. [address] [place] [address], [address], . tel:[phone] [facility], [address], [place], [id number] , [facility] [place] No Information 5 No Information OFFICE/OUTPA TIENT VISIT, [facility], [address], [place], [id number] , [facility] [place] establish care (chief complaint) Hypertension, UnspecifiedMixed dyslipidemiaAllerg ic rhinitisPost-nasal drip 5 No Information [facility], [address], [place], [place], [id number] , [facility] [place] No Information 4 No Information OFFICE/OUTPA TIENT VISIT, EST [facility], [address], [place], [place], [address] , [facility] [place] Follow up on lab results (chief complaint) Encounter to discuss test resultsHypokalemia Hypertension, UnspecifiedMixed dyslipidemia 4 No Information [facility], [address], [place], [place], [address] , [facility] [place] No Information 4 No Information PREV VISIT, EST, AGE 40-64 [facility], [address], [place], [place], [id number] , [facility] [place] Physical/P ap Smear (chief complaint) refills (chief complaint) [facility] caHypertension, UnspecifiedAdult BMI 30.0-30.9 kg/sq mScreening for breast cancerScreening for malignant neoplasm of cervixRight upper quadrant painRoutine Medical Exam 4 No Information OFFICE/OUTPA TIENT VISIT, [facility], [address], [place], [place], [id number] , [facility] [place] chest pain and HTN (chief complaint) Hypertension, UnspecifiedObesity Atypical chest painGERD (gastroesophageal reflux disease) 2 No Information [facility], [address], [place], [place], [address] , [facility] [place] No Information 2 No Information OFFICE/OUTPA TIENT VISIT, [facility], [address], [place], [place], [id number] , [facility] [place] physical exam (chief complaint) Routine general [facility] hospitalObes ityScreening for malignant neoplasm of cervixVaginal candidiasisRoutine Medical Exam 2 No Information Family History Family Member Type Diagnosis Age At Onset No Information Payers Payer name Insurance type Covered libertarian ID Authoriza tion(s) [facility] [id number] Social History Type Description Quantity Date Captured [...] SHOULDER ordered Future Order: Lab Order Basic In tabolic Panel (1999), Collected on: , Sent [...] month.Consider rferral to therapist submitted for depression/anxiety. BURMESE SPEAKING THERAPIST RECOMMENDED. Related to Anxiety Assessments Type Assessment Date No Information Patient Care Teams Name Effective Dates (start - stop) Status Members No Information
[2025-07-02 09:22] VITALS: BMI 28.5
--- NOTE | 2025-07-02 09:22 | MHC.OFFVIS ---
Vital Signs 07/02/25 09:22 Height 5 ft 2 in Weight 156 lb BMI 28.5 Intake Visit Reasons: Bilateral foot pain Intake Note: Malathi is a 55 year old female who presents today as a new patient for an evaluation of her bilateral foot pain. She mentions pain has been going on for about 2 months and since may the pain has increased. Pain is located on the plantar aspect of her feet and finds that the left foot is worse. she has taken Ibuprofen and tried bengay for the pain and she finds no relief for her symptoms. Patient has also purchased shoes with memory foam and it has helped her slightly. Patient states she has history of left foot cortisone injections. she also believes she may have a spur on her left foot Allergies metronidazole (Metrogel) Allergy (Intermediate, Verified 07/02/25 09:23) facial rash morphine (Morphine) Allergy (Intermediate, Verified 07/02/25 09:23) SEVERE VOMITING, nausea and vomiting hydromorphone (From Dilaudid) Adverse Reaction (Mild, Verified 07/02/25 09:23) makes pt feel ill Medication List - Last Reconciled 07/02/25 by Vickie Camargo DPM calcium carbonate-vitamin D3 500 mg-10 mcg (400 unit) (Oyster Shell Calcium-Vitamin D3) 1 tab PO BID 90 days cyclobenzaprine 5 mg PO BEDTIME diaper,brief,adult,disposable (Day and Night Brief,Medium) As directed docusate sodium 100 mg PO BID 30 days ibuprofen 800 mg PO Q8H PRN 30 days lansoprazole 30 mg PO DAILY leg brace (Knee Support Brace) As directed x 6 weeks linaclotide 72 mcg PO DAILY magnesium oxide 400 mg PO BEDTIME 90 days methylprednisolone (Medrol (Yao)) PO PER PKG DIR pyridoxine (vitamin B6) 50 mg PO DAILY 90 days HPI Comments Details: The patient is a 55-year-old female with a past medical history as seen below presenting with severe bilateral foot pain, particularly in the heels, which is exacerbated by walking. The pain has been persistent and severe enough to cause limping and toe walking, affecting both feet but more pronounced on the left side. Patient states the pain radiates to the posterior aspect of the heels to the area of the Achilles insertion point bilaterally. The patient has a history of plantar fasciitis, previously managed with injections and x-rays, which provided temporary relief. 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 Patient states she avoids barefoot walking. She denies any inciting injuries. She denies any other pedal concerns. She denies any current nausea, vomiting, fever, or chills. [facility] Medical History (Updated 07/02/25 @ 10:28 by Vickie Camargo DPM) Pain in both feet Calcaneal spur of both feet Other enthesopathy of right foot and ankle Other enthesopathy of left foot and ankle Plantar fasciitis, bilateral PONV (postoperative nausea and vomiting) Mixed incontinence urge and stress Recurrent UTI Urge urinary incontinence Change in bowel habits Foreign body granuloma of skin Acne rosacea Right hip pain Leg numbness Obesity Mixed hyperlipidemia GERD (gastroesophageal reflux disease) Hypovitaminosis D Surgical History History of colostomy reversal History of abdominoplasty Perforation of colon History of total abdominal hysterectomy and bilateral salpingo-oophorectomy Family History Father Hypertension Cancer Mother Hypertension Diabetes Brother No problems noted. 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 Denies pain in the ball of the foot. Physical Exam Vital Signs: BMI result Body Mass Index 28.5 Extrem Other: Bilateral lower extremity focused physical exam: Derm: No open lesions abrasions or wounds noted. Skin turgor supple and within normal limits. No clinical signs of infection. Toenails X 10 within normal limits. Vascular: DP/PT pulses palpable. Capillary refill time less than 3 seconds. Temperature gradient warm to warm. Pedal hair absent. No varicosities noted. Neuro: Protective sensation is grossly intact. MSK: Pain on palpation to bilateral heels worse to the left. Pain on palpation to the medial and lateral calcaneal tubercles worse the medial calcaneal tubercles. Positive windlass mechanism bilaterally. Pain on palpation to the posterior aspects of the heels bilaterally at the insertion point of the Achilles. Mildly antalgic gait Unassisted. Range of motion of the forefoot and ankle within normal limits. MMT 5/5. Ankle/foot/toe images:  1. 2. 3. 4. Results Reviewed Results Reviewed: Podiatry read of Bilateral foot x-rays (06/17/2025): Minimal joint space narrowing noted to the left 2nd MPJ. Bilateral calcaneal spurs noted plantarly and posteriorly, worse to the left. No acute fractures or dislocations noted. Bilateral foot x-rays (06/17/2025): FINDINGS: RIGHT FOOT: No fractures are evident. Joint spaces are preserved. There are no osteophytes. There are small calcaneal enthesophytes. LEFT FOOT: No fractures are evident. Joint spaces are preserved. There are no osteophytes. There are small calcaneal enthesophytes. IMPRESSION: Small calcaneal enthesophytes are present bilaterally which is a nonspecific finding. Correlate for symptoms. Assessment & Plan Assessment & Plan (1) Plantar fasciitis, bilateral: Code(s): M72.2 - Plantar fascial fibromatosis Category: Medical (2) Other enthesopathy of left foot and ankle: Code(s): M77.52 - Other enthesopathy of left foot and ankle Category: Medical (3) Other enthesopathy of right foot and ankle: Code(s): M77.51 - Other enthesopathy of right foot and ankle Category: Medical (4) Calcaneal spur of both feet: Code(s): M77.31 - Calcaneal spur, right foot; M77.32 - Calcaneal spur, left foot Category: Medical (5) Pain in both feet: Code(s): M79.671 - Pain in right foot; M79.672 - Pain in left foot Category: Medical Plan Patient was informed and verbally consented to the use of an ambient scribe for clinic note documentation during this visit. I discussed with the patient the diagnosis of plantar fasciitis and the presence of bone spurs as seen on the x-ray. We reviewed conservative and surgical treatment options, including stretching exercises and the use of Medrol Dosepak to manage inflammation. Recommend conservative treatment at this time. I emphasized the importance of supportive footwear and outlined the plan for follow-up in two weeks, with potential use of night splints if pain persists. 1. Plantar Fasciitis - Prescribed Medrol Dosepak to reduce inflammation and pain. - Advised on stretching exercises to improve plantar fascia flexibility (provided patient with plantar fascial exercise form). - Recommend continued use of supportive footwear to prevent exacerbation of symptoms. Patient is to return to the office in 2 weeks for re-evaluation of symptoms. If pain worsens or persists we will consider night splint, physical therapy, and/or injection. Medications: New methylprednisolone (Medrol (Yao)) PO PER PKG DIR 21 ea 0RF Plantar Fasciitis M72.2 - Plantar fascial fibromatosis Coding Level of Care Code New Pt Level 4 (75859) Diagnoses Plantar fasciitis, bilateral M72.2 Other enthesopathy of left foot and ankle M77.52 Other enthesopathy of right foot and ankle M77.51 Calcaneal spur of both feet M77.31; M77.32 Pain in both feet M79.671; M79.672 Time Spent (min) 54
--- OUTSIDE RECORDS SUMMARY | 2025-07-02 10:47 | XMS_ITS | Clinical Summary ---
Author Organization [facility] Address [address] [place] [address] Phone Care Team Providers Care Bridge Opener Name Role Phone Shasha Lott MD Primary [...] on file Insurance [employer] DIRECT [employer] [place] [address] [place] [address] [place] [address] [employer] DIRECT [employer] [place] [address] [employer] DIRECT Care Teams Bridge Opener Relationship Specialty Start Date End Date Shasha Lott MD [address] [place] [address] PCP - General Internal Medicine 03/03/18 Additional Source Comments The information contained in this document represents components of the legal health record. It is not the complete legal health record.[facility]
--- OUTSIDE RECORDS SUMMARY | 2025-07-02 10:47 | XMS_ITS | Encounter Summary ---
Author Organization [facility] Address [address] [place] [phone] Phone Care Team Providers Care Master Coastal Waters Name Role Phone Shasha Lott MD Primary Care Provid er Reason for Referral * Physical Therapy (Routine) - Closed Specialty Diagnoses / Procedures Referred By Benji pace Referred To Contact Physical Therapy Diagnoses Encounter for rehabilitation System, Provider Not In, [facility] [id number] [place] [address] Phone: tel: Referral ID Status Reason Start Date Expiration Date Visits Re quested Visits Authorized [id number] Closed 03/09/2018 10/09/2018 12 12 Encounter Details Date Type Department Care Team (Latest Contact Info) Description 03/03/2018 Transcribe Orders [facility] [address] [place] [address] Lobo Donald MD [address] [place] [address] [address] Encounter for rehabilitation (Primary Dx) Social History [...] Date/Time Associated Diagnosis Comments AMB REFERRAL TO [facility] PHYSICAL THERAPY Routine 03/09/2018 1:13 PM EDT Encounter for rehabilitation documented in this encounter Results * Ambulatory referral to [facility] Physical Therapy (03/09/2018 1:13 PM EDT) us Provider Not In System PhD AMB [facility] REFERRALS Fin al Result documented in this encounter Visit Diagnoses Diagnosis Encounter for rehabilitation- Primary documented in this encounter Care Teams Master Coastal Waters Relationship Specialty Start Date End Date Shasha Lott MD [address] [place] [address] PCP - General Internal Medicine 03/03/18 documented as of this encounter Additional Source Comments The information contained in this document represents components of the legal health record. It is not the complete legal health record.[facility]
== END 2025-07-02 09:48 | disposition home or self-care (01) ==
LOC: HO.HPODS 09:14
PROVIDERS: PCP Internal Medicine; Visit Provider Student in an Organized Health Care Education/Training Program
DX: M72.2 Plantar fascial fibromatosis (principal); M77.52 Other enthesopathy of left foot and ankle; M77.51 Other enthesopathy of right foot and ankle; M77.31 Calcaneal spur, right foot; M77.32 Calcaneal spur, left foot; M79.671 Pain in right foot; M79.672 Pain in left foot
CPT/HCPCS: 99204

== ENCOUNTER → 2025-07-02 09:13 | Outpatient (BNVA) | payer OTHER, SELFPAY | PROVIDERS: PCP Internal Medicine; Visit Provider Student in an Organized Health Care Education/Training Program | DX: M72.2 Plantar fascial fibromatosis (principal); M77.52 Other enthesopathy of left foot and ankle; M77.51 Other enthesopathy of right foot and ankle; M77.31 Calcaneal spur, right foot; M77.32 Calcaneal spur, left foot; M79.671 Pain in right foot; M79.672 Pain in left foot | CPT/HCPCS: 99202 ==

== ENCOUNTER 2025-07-08 09:23 | Outpatient (REF) | payer OTHER, SELFPAY ==
--- OUTSIDE RECORDS SUMMARY | 2017-03-23 09:30 | XMS_ITS | Continuity of Care Document ---
Author Organization [facility] Address [address] [place] [address] Care Team Providers Care Linux Unix System Administrator Name Role Phone Kev Garrett MD Unavailable Unavailable Allergies, Adverse Reactions, Alerts Substance Reaction Status Criticality No Known Allergies Active No Inform ation Procedures Procedure Date OFFICE/OUTPATIENT VISIT, EST Most recent systolic blood pressure less than 130 Diast bp <80 mm hg CHEST X-RAY 2 VIEWS OFFICE/OUTPATIENT VISIT, EST BODY MASS INDEX, DOCUMENTED Most recent systolic blood pressure less than 130 Diast bp <80 mm hg OFFICE/OUTPATIENT VISIT, EST BODY MASS INDEX, DOCUMENTED Most recent systolic blood pressure less than 130 Diast bp <80 mm hg ROUTINE VENIPUNCTURE OFFICE/OUTPATIENT VISIT, EST Most recent systolic blood pressure less than 130 Diast bp <80 mm hg ROUTINE VENIPUNCTURE OFFICE/OUTPATIENT VISIT, EST CHEM 8 ROUTINE VENIPUNCTURE URINALYSIS NONAUTO W/O SCOPE PREV VISIT, EST, AGE 40-64 OFFICE/OUTPATIENT VISIT, EST X-RAY EXAM OF SHOULDER CHEST X-RAY ROUTINE VENIPUNCTURE ROUTINE VENIPUNCTURE URINALYSIS NONAUTO W/O SCOPE OFFICE/OUTPATIENT VISIT, NEW Advance Directives Directive Yes / No Effective Date File Name No Information Encounters Encounter Description Practice Location Reason(s) For Visit Diagnoses Date Provider Providers Copied on Encounter [facility], [address], [place], [place], [id number] , [facility] [place] No Information 7 Gerry Angulo. [address] [place] [address], [address], . [phone] OFFICE/OUTPA TIENT VISIT, [facility], [address], [place], [place], [id number] , [facility] [place] UC B/P recheck (chief complaint) headache (chief complaint) Hypertension, Unspecified 5 No Information [facility], [address], [place], [place], [id number] , [facility] [place] UC high B/P (chief complaint) CoughHypertension, Unspecified 5 No Information OFFICE/OUTPA TIENT VISIT, [facility], [address], [place], [place], [id number] , [facility] [place] UC cough (chief complaint) chest pain (chief complaint) Atypical chest painAnxietyBody Mass Index 31.0-31.9, adult 5 No Information OFFICE/OUTPA TIENT VISIT, [facility], [address], [place], [place], [id number] , [facility] [place] UC cough (chief complaint) Cough 5 Susana Cano. [address] [place] [address], [address], . tel:[phone] [facility], [address], [place], [id number] , [facility] [place] No Information 5 No Information OFFICE/OUTPA TIENT VISIT, [facility], [address], [place], [id number] , [facility] [place] establish care (chief complaint) Hypertension, UnspecifiedMixed dyslipidemiaAllerg ic rhinitisPost-nasal drip 5 No Information [facility], [address], [place], [place], [id number] , [facility] [place] No Information 4 No Information OFFICE/OUTPA TIENT VISIT, EST [facility], [address], [place], [place], [id number] , [facility] [place] [facility] Follow up on lab results (chief complaint) Encounter to discuss test resultsHypokalemia Hypertension, UnspecifiedMixed dyslipidemia 4 No Information [facility], [address], [place], [place], [address] , [facility] [place] No Information 4 No Information PREV VISIT, EST, AGE 40-64 [facility], [address], [place], [place], [id number] , [facility] [place] Physical/P ap Smear (chief complaint) refills (chief complaint) [facility] caHypertension, UnspecifiedAdult BMI 30.0-30.9 kg/sq mScreening for breast cancerScreening for malignant neoplasm of cervixRight upper quadrant painRoutine Medical Exam 4 No Information OFFICE/OUTPA TIENT VISIT, [facility], [address], [place], [place], [id number] , [facility] [place] chest pain and HTN (chief complaint) Hypertension, UnspecifiedObesity Atypical chest painGERD (gastroesophageal reflux disease) 2 No Information [facility], [address], [place], [place], [id number] , [facility] [place] No Information 2 No Information OFFICE/OUTPA TIENT VISIT, [facility], [address], [place], [place], [id number] , [facility] [place] physical exam (chief complaint) [facility]Ob[facility] ityScreening for malignant neoplasm of cervixVaginal candidiasisRoutine Medical Exam 2 No Information Family History Family Member Type Diagnosis Age At Onset No Information Payers Payer name Insurance type Covered libertarian ID Authoriza tion(s) [facility] [id number] Social History Type Description Quantity Date Captured Comments Sex Female Smoking Status No Information Chief Complaint And Reason For Visit No Information Reason For Referral Reason For Referral No Information Plan Of Treatment Date Type Action Status Goal Tobacco cessation counseling completed Referral Ordered: CHEST X-RAY 2 VIEWS ordered Referral Ordered: X-RAY EXAM OF SHOULDER ordered Referral Ordered: CHEST X-RAY ordered Future Order: Lab Order Basic Nv tabolic Panel (1999), Collected on: , Sent on: Sent History Of Present Illness Encounter Date Complaint History Of Prese nt Illness B/P recheck headache Onset: 1 Week. L ocations affected include entire head. Additional information: face feels warm. high B/P The symptoms beg an 1 day ago. chest pain The patient pres ents with a complaint of chest pain. The symptoms began 2 days ago. The patient describes the pain as sharp and aching. The symptoms are aggravated by anxiety. cough Associated sympt oms include nasal congestion. cough Onset: 5 Months. The severity of the problem is mild. The problem has not changed. Symptoms are not associated with history of asthma, recent cold, sick family member and smoker. Associated symptoms include cough (dry), facial pain, headache, nasal congestion, pharyngitis, postnasal drainage (clear) and rhinitis. Associated symptoms additional comments: sorethroat. Pertinent negatives include chills/rigors, dyspnea, fever, hemoptysis, myalgia, otalgia, rash, sinus pressure, sputum or wheezing. Additional information: no acid reflux, nonsmoker but second hand, no h/o asthm, dry cough, no new meds. establish care Patient here for f/u. Functional Status Date Functional Assessmen t No Information Instructions Date Instruction Additional Infor mation Rx provided; take as indicated Medication instructions were provided to the patient. Related to Post-nasal drip Allergy panel oirder ed; results pendingOTC: Annelise,, take daily.Plenty of fluids. Related to Allergic rhinitis Controlled BP; hany nue medication regimen; low salt diet. Related to Hypertension, Unspecified Recheck lipid panel; continue medication regimen; Follow a low fat, low cholesterol diet. Avoid saturated fats. Related to Mixed dyslipidemia Uncontrolled BP; sti ll not at optimal target range; increase Losartan 25 mg 2 tabs BID (50mg total/dose); low salt diet.Return for BP check on Tuesday. Related to Hypertension, Unspecified Likely persistent co ugh r/t to MIKAYLA-I side effect.DC lisinopril; start losartan, take as prescribed. Related to Cough Uncontrolled BP; rev iewed medication regimen; stop MIKAYLA-I, start ARB, losartan 25mg; 1st dose given in UC. Follow a low salt diet. RTC for BP check as nurse visit.F/u with usual PCP. Related to Hypertension, Unspecified Chest xray ordered; prelim shows no acute disease process; final report is pending.OTC Claritin daily.The patient was advised to return to UC if symptoms worsen or do not improve. Related to Atypical chest pain Rx provided; take as prescribed.Medication instructions were provided to the patient.Follow up with PCP in one month.Consider rferral to therapist submitted for depression/anxiety. GREENLANDIC SPEAKING THERAPIST RECOMMENDED. Related to Anxiety Assessments Type Assessment Date No Information Patient Care Teams Name Effective Dates (start - stop) Status Members No Information
--- OUTSIDE RECORDS SUMMARY | 2025-07-08 10:07 | XMS_ITS | Clinical Summary ---
Author Organization [facility] Address [address] [place] [address] Phone Care Team Providers Care Junior Software Engineer Name Role Phone Shasha Lott MD [...] on file Insurance [employer] DIRECT [place] [address] [place] [address] [place] [address] [place] [address] [place] [address] [place] [address] [employer] DIRECT [employer] [place] [address] [place] [address] [employer] DIRECT Care Teams Junior Software Engineer Relationship Specialty Start Date End Date Shahsa Lott MD [address] [place] [address] PCP - General Internal Medicine 03/03/18 Additional Source Comments The information contained in this document represents components of the legal health record. It is not the complete legal health record.[facility]
--- OUTSIDE RECORDS SUMMARY | 2025-07-08 10:07 | XMS_ITS | Encounter Summary ---
Author Organization [facility] Address [address] [place] [phone] Phone Care Team Providers Care Martial Arts Instructor Name Role Phone Shasha Lott MD Primary Care Provid er Reason for Referral * Physical Therapy (Routine) - Closed Specialty Diagnoses / Procedures Referred By Benji pace Referred To Contact Physical Therapy Diagnoses Encounter for rehabilitation System, Provider Not In, [facility] [id number] [place] [address] Phone: tel: Referral ID Status Reason Start Date Expiration Date Visits Re quested Visits Authorized [id number] Closed 03/09/2018 10/09/2018 12 12 Encounter Details Date Type Department Care Team (Latest Contact Info) Description 03/03/2018 Transcribe Orders [facility] [address] [place] [address] Lobo Donald MD [address] [place] [address] [address] Encounter for rehabilitation (Primary Dx) Social History [...] Date/Time Associated Diagnosis Comments AMB REFERRAL TO [facility] PHYSICAL THERAPY Routine 03/09/2018 1:13 PM EDT Encounter for rehabilitation documented in this encounter Results * Ambulatory referral to [facility] Physical Therapy (03/09/2018 1:13 PM EDT) us Provider Not In System PhD AMB [facility] REFERRALS Fin al Result documented in this encounter Visit Diagnoses Diagnosis Encounter for rehabilitation- Primary documented in this encounter Care Teams Martial Arts Instructor Relationship Specialty Start Date End Date Shasha Lott MD [address] [place] [address] PCP - General Internal Medicine 03/03/18 documented as of this encounter Additional Source Comments The information contained in this document represents components of the legal health record. It is not the complete legal health record.[facility]
[2025-07-08 11:51] LABS: Appearance Urine Clear; Glucose Urine UA Negative (Negative); PH 6.0 (5.0-9.0); Specific Gravity - Urine 1.020 (1.005-1.025); UMIC TRIGGER UA YES
== END 2025-07-08 09:24 | disposition home or self-care (01) ==
LOC: HO.LAB 09:23
PROVIDERS: PCP Internal Medicine; Visit Provider Urology
DX: N32.81 Overactive bladder (principal); N39.41 Urge incontinence
CPT/HCPCS: 81001; 87086; 87088; 87186

== ENCOUNTER 2025-07-18 09:06 | Outpatient (AMB) | payer OTHER, SELFPAY ==
--- NOTE | 2025-07-18 09:57 | MHC.OFFVIS ---
Intake Visit Reasons: OAB/Botox follow up Intake Note: Patient is present for OAB/Botox follow up Urology Medication:Vitamin B6 Antibiotic Allergy:None Blood Thinner:None PVR:0ml Laboratory Coordinator Required: No Allergies metronidazole (Metrogel) Allergy (Intermediate, Verified 07/18/25 09:59) facial rash morphine (Morphine) Allergy (Intermediate, Verified 07/18/25 09:59) SEVERE VOMITING, nausea and vomiting hydromorphone (From Dilaudid) Adverse Reaction (Mild, Verified 07/18/25 09:59) makes pt feel ill Medication List - Last Reconciled 07/18/25 by Leandra Lake MD calcium carbonate-vitamin D3 500 mg-10 mcg (400 unit) (Oyster Shell Calcium-Vitamin D3) 1 tab PO BID 90 days cyclobenzaprine 5 mg PO BEDTIME diaper,brief,adult,disposable (Day and Night Brief,Medium) As directed docusate sodium 100 mg PO BID 30 days estradiol (Vagifem) 10 mcg vaginal 2XW ibuprofen 800 mg PO Q8H PRN 30 days lansoprazole 30 mg PO DAILY leg brace (Knee Support Brace) As directed x 6 weeks linaclotide 72 mcg PO DAILY magnesium oxide 400 mg PO BEDTIME 90 days methylprednisolone (Medrol (Yao)) PO PER PKG DIR nitrofurantoin monohyd/m-cryst 100 mg (Macrobid) 100 mg orally Take 2 tabs after sexual activity as directed by ; must administer with a meal/food pyridoxine (vitamin B6) 50 mg PO DAILY 90 days HPI Comments Details: 07/18/25--Malathi is a 65-year-old female monitor for overactive bladder symptoms she is status post Botox 100 units on 04/16/2025 she is here for her 3 month follow-up. The patient also has a history of kidney stones. History of Present Illness The patient is a 55-year-old female presenting for a follow-up on overactive bladder symptoms and management of urinary tract infections. The patient has been monitored for overactive bladder symptoms and received Botox 100 units on April 16, 2025, as part of her treatment plan. She reports good control of her urinary symptoms since the procedure, with a recent urinalysis showing no signs of infection. The patient experienced a urinary tract infection, confirmed by a urine culture on July 08, 2025, which was positive for Enterococcus sensitive to nitrofurantoin and ampicillin. She completed a course of antibiotics, and her symptoms have resolved. The patient has a history of kidney stones, which is relevant to her current urological care. She inquired about post-coital antibiotic prophylaxis to prevent recurrent urinary tract infections, as she noticed a pattern of infections following intercourse. The patient previously used nitrofurantoin for this purpose and expressed a desire to continue with this regimen. Results - Urine culture on 07/08/25: Positive for Enterococcus, sensitive to nitrofurantoin and ampicillin - Recent urinalysis: Leukocytes negative blood negative. -KIDNEYS AND URETERS: 09/02/25--Multiple left renal cortical scars. Subcentimeter benign bilateral simple renal cysts for which no further dedicated follow-up imaging is indicated. 0.7 cm or less, nonobstructing, bilateral renal collecting system stones. Plan 1. Overactive Bladder - Continue monitoring symptoms and repeat Botox treatment in three months. 2. Urinary Tract Infection - Prescribe nitrofurantoin for post-coital prophylaxis to prevent recurrent infections. Vagifem biweekly 3. Kidney Stones - Monitor for any symptoms suggestive of stone recurrence. Monitor kidneys. Cont Vit B6 01/04/25--History of Present Illness The patient is a 54-year-old female presenting with overactive bladder. Since initiating management with bladder Botox injections, most recently on October 02, 2024, with 100 units, there has been substantial improvement. Initially, the patient reported requiring urgent urination and needing to use the bathroom every hour, accompanied by incontinence. After treatment, the interval between urination has improved to two to three hours, reducing incontinence frequency and the need for protective liners. Previously, she had continuous issues that impaired her daily activities, but the current management has significantly alleviated the problem. Plan repeat Botox 100 units for continued efficacy of urinary symptoms. Urinary Symptoms Review - Prior to Botox treatment, urination frequency every hour - Improved urination interval of two to three hours post-treatment - Nocturnal symptoms absent; patient does not wake more than once at night - Usage of a panty liner for precaution though much less frequent incontinence - No burning during urination - No current urgency or compelling need for frequent bathroom visits Results - Labs: Urinalysis - Leukocytes negative, Blood negative - No signs of urinary tract infection 07/26/24--Malathi is a 54-year-old female who has had recurrent UTIs and lower urinary tract symptoms of urgency. She also has complaints of intermittent episodes fecal incontinence. The patient is prescribed nitrofurantoin to use post intercourse. s/p botox 100 units on 04/24/24. She states she had improvement in the urgency symptoms. Plan will continue management of OAB and urgency LUTS with repeat botox bladder injection. 02/23/2024--Malathi is a 54-year-old female who has had recurrent UTIs and lower urinary tract symptoms of urgency. She also has complaints of intermittent episodes fecal incontinence. The patient is prescribed nitrofurantoin to use post intercourse. The patient had Botox bladder injection in July,. by [facility]. I discussed sacral neuromodulation previously due to her symptoms of urgency and fecal incontinence. The patient initially was interested in then declined. The patient states she feels the Botox was effective. She would like to continue with that therapy for urinary symptoms of urgency frequency. Urinalysis leukocytes 15 Suhail/uL, blood negative. Bladder scan PVR 37 mL. 11/24/23- Malathi is here for follow recurrent UTI's. She is afraid of trying the interstim. Plan--Nitrofurantoin post intercourse. FU 3 months 10/20/23--Malathi was present yesterday and had a pessary size 3 w/o support inserted for cystocele. She called today with complaints of pelvic pain. UA checked today is nitrite positive Exam- pessary in good position - no vaginal bleeding. The pessary was removed. Plan - Fosfomycin Pending scheding for Neuromodulation for LUTS of urgency and symptoms of fecal incontinence [facility] Medical History Pain in both feet Calcaneal spur of both feet Other enthesopathy of right foot and ankle Other enthesopathy of left foot and ankle Plantar fasciitis, bilateral PONV (postoperative nausea and vomiting) Mixed incontinence urge and stress Recurrent UTI Urge urinary incontinence Change in bowel habits Foreign body granuloma of skin Acne rosacea Right hip pain Leg numbness Obesity Mixed hyperlipidemia GERD (gastroesophageal reflux disease) Hypovitaminosis D Surgical History History of colostomy reversal History of abdominoplasty Perforation of colon History of total abdominal hysterectomy and bilateral salpingo-oophorectomy Family History Father Hypertension Cancer Mother Hypertension Diabetes Brother No problems noted. 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 Current occupational exposures/hazards: No Cognitive needs: No Hearing needs: No Vision needs: Yes Review of Systems Const All systems reviewed & are unremarkable except as noted in HPI and below Reports no additional complaints Eyes Reports no additional complaints ENT Reports no additional complaints Card Reports no additional complaints Resp Reports no additional complaints GI Reports no additional complaints Reports as per HPI Musc Reports no additional complaints Skin/Breast Reports system reviewed and no additional complaints, except as documented Neuro Reports no additional complaints Psych Reports no additional complaints Endo Reports no additional complaints Orlin/Lymph Reports no additional complaints Aller/Immun Reports no additional complaints Results Reviewed Results Reviewed: Collected: 07/08/25 Status: COMP Req#: [id number] Received: 07/08/25 Source: [facility] Sp Desc: Clean Cat Subm Dr: Leandra Lake MD Ordered: Urine Culture Procedure Result Verified Urine Culture Final 07/10/25 Organism 1 Enterococcus faecalis Quant > 100,000 cfu/mL E faecalis M.I.C. RX --------- --- Ampicillin <=2 S Levofloxacin >=8 R Nitrofurantoin <=16 S Tetracycline >=16 R Vancomycin 1 S 09/07/24---EXAMINATION: CT ABDOMEN AND PELVIS WITH CONTRAST CLINICAL INFORMATION: Right lower quadrant pain. History of diverticulitis, ilda. COMPARISON: CT scans dating between November 01, 2023 and November 28, 2012. More remote prior studies are not currently available. TECHNIQUE: Multidetector volumetric images were obtained from the superior aspect of the liver through the pubic symphysis following administration 85 mL of Omnipaque 350 intravenous contrast. Sagittal and coronal reformatted images were obtained on the technologist's workstation. Oral contrast: No This CT examination was performed using dose optimization techniques as appropriate, variously including the following: *Automated exposure control *Adjustment of mA and/or kV according to patient size (this includes techniques or standardized protocols for targeted exams where dose is matched to indication/reason for exam; i.e. extremities or head) *Use of iterative reconstruction technique DLP: 629 mGy-cm FINDINGS: LUNG BASES: The lung bases appear clear, with no evidence of inflammation or nodules. LIVER, GALLBLADDER, AND BILIARY TREE: The liver appears unremarkable in size, shape, and attenuation. No focal hepatic lesion or biliary ductal dilatation is appreciated. Unremarkable appearance of the gallbladder. PANCREAS: Unremarkable SPLEEN: Unremarkable ADRENAL GLANDS: Unremarkable KIDNEYS AND URETERS: Multiple left renal cortical scars. Subcentimeter benign bilateral simple renal cysts for which no further dedicated follow-up imaging is indicated. 0.7 cm or less, nonobstructing, bilateral renal collecting system stones. No evidence of hydronephrosis or hydroureter on either side. BLADDER: Unremarkable GASTROINTESTINAL TRACT: Colonic diverticulosis without evidence of diverticulitis. Normal-appearing distal ileum and vermiform appendix. ABDOMINAL WALL: Postsurgical changes of the lower anterior abdominal wall. No significant hernia is appreciated. LYMPH NODES: No evidence of adenopathy by size criteria. VASCULAR: Unremarkable PELVIC VISCERA: Status post hysterectomy. OSSEOUS STRUCTURES: Unremarkable IMPRESSION: No acute finding. Assessment & Plan Assessment & Plan (1) Pelvic floor weakness: Code(s): N81.89 - Other female genital prolapse Category: Medical (2) Fecal incontinence: Code(s): R15.9 - Full incontinence of feces Category: Medical (3) Renal calculi: Code(s): N20.0 - Calculus of kidney Category: Medical (4) OAB (overactive bladder): Code(s): N32.81 - Overactive bladder Category: Medical (5) Recurrent UTI: Code(s): N39.0 - Urinary tract infection, site not specified Category: Social Hx (6) Vaginal atrophy: Code(s): N95.2 - Postmenopausal atrophic vaginitis Category: Medical Plan Plan 1. Overactive Bladder - Continue monitoring symptoms and repeat Botox treatment in three months. 2. Urinary Tract Infection. Fecal incontinence likely contributes - Prescribe nitrofurantoin for post-coital prophylaxis to prevent recurrent infections. Vagifem biweekly 3. Kidney Stones - Monitor for any symptoms suggestive of stone recurrence. Monitor kidneys. Cont Vit B6 Medications: New estradiol (Vagifem) Apply Mon Thurs vaginally at bedtime 10 mcg vaginal 2XW 24 tabs 3RF nitrofurantoin monohyd/m-cryst 100 mg (Macrobid) 100 mg orally Take 2 tabs after sexual activity as directed by MD; must administer with a meal/food 45 caps 2RF Patient Instructions: The patient had an opportunity to ask questions regarding treatment plan. The patient expressed understanding and agreement with the above treatment plan. The patient is aware they should contact our office by phone for worsening of their current condition or the appearance of new symptoms. Compliance is encouraged with any medications and followup testing that is ordered. It is a privilege to be allowed the opportunity to participate in the urologic care of your patient. If you have any questions or concerns regarding treatment for the above conditions please do not hesitate to contact me. The office telephone contact is [phone]. This note is constructed in part using voice recognition software. While every effort has been made to ensure accuracy forest fire fighters dispatcher errors may have been included. Yours sincerely, Leandra Lake MD Scribe Plan - Not visible on output: Patient was informed and verbally consented to the use of an ambient scribe for clinic note documentation during this visit. Coding Level of Care Code Est Pt Level 4 (80729) Complex EM visit Add On G2211 Diagnoses Pelvic floor weakness N81.89 Fecal incontinence R15.9 Renal calculi N20.0 OAB (overactive bladder) N32.81 Recurrent UTI N39.0 Vaginal atrophy N95.2
== END 2025-07-18 10:14 | disposition home or self-care (01) ==
LOC: HO.HUSH 09:06
PROVIDERS: PCP Internal Medicine; Visit Provider Urology
DX: N81.89 Other female genital prolapse (principal); R15.9 Full incontinence of feces; N20.0 Calculus of kidney; N32.81 Overactive bladder; N39.0 Urinary tract infection, site not specified; N95.2 Postmenopausal atrophic vaginitis; Z13.9 Encounter for screening, unspecified
CPT/HCPCS: 99214

== ENCOUNTER → 2025-07-18 09:06 | Outpatient (BNVA) | payer OTHER, SELFPAY | PROVIDERS: PCP Internal Medicine; Visit Provider Urology | DX: N81.89 Other female genital prolapse (principal); R15.9 Full incontinence of feces; N32.81 Overactive bladder; N39.0 Urinary tract infection, site not specified; N95.2 Postmenopausal atrophic vaginitis; N15.9 Renal tubulo-interstitial disease, unspecified | CPT/HCPCS: 51798; 81003; 99212 ==

== ENCOUNTER 2025-07-19 09:04 | Outpatient (AMB) | payer OTHER, SELFPAY ==
--- OUTSIDE RECORDS SUMMARY | 2017-03-23 09:30 | XMS_ITS | Continuity of Care Document ---
Author Organization [facility] Address [address] [place] [address] Care Team Providers Care Supervisor Soakers Name Role Phone Kev Garrett MD Unavailable [...] Diagnoses Date Provider Providers Copied on Encounter [facility], [address], [place], [place], [id number] , [facility] [place] No Information 7 Gerry Angulo. [address] [place] [address], [address], . [phone] OFFICE/OUTPA TIENT VISIT, [facility], [address], [place], [place], [id number] , [facility] [place] UC B/P recheck (chief complaint) headache (chief complaint) Hypertension, Unspecified 5 No Information [facility], [address], [place], [place], [address] , [facility] [place] UC high B/P (chief complaint) CoughHypertension, Unspecified 5 No Information OFFICE/OUTPA TIENT VISIT, [facility], [address], [place], [place], [address] , [facility] [place] UC cough (chief complaint) chest pain (chief complaint) Atypical chest painAnxietyBody Mass Index 31.0-31.9, adult 5 No Information OFFICE/OUTPA TIENT VISIT, [facility], [address], [place], [place], [address] , [facility] [place] UC cough (chief complaint) Cough 5 Susana Cano. [address] [place] [address], [address], . tel:[phone] [facility], [address], [place], [address] , [facility] [place] No Information 5 No Information OFFICE/OUTPA TIENT VISIT, [facility], [address], [place], [id number] , [facility] [place] establish care (chief complaint) Hypertension, UnspecifiedMixed dyslipidemiaAllerg ic rhinitisPost-nasal drip 5 No Information [facility], [address], [place], [place], [id number] , [facility] [place] No Information 4 No Information OFFICE/OUTPA TIENT VISIT, EST [facility], [address], [place], [place], [address] , [facility] [place] [facility] Follow up on lab results (chief complaint) Encounter to discuss test resultsHypokalemia Hypertension, UnspecifiedMixed dyslipidemia 4 No Information [facility], [address], [place], [place], [id number] , [facility] [place] No Information 4 No Information PREV VISIT, EST, AGE 40-64 [facility], [address], [place], [place], [address] , [facility] [place] Physical/P ap Smear (chief complaint) refills (chief complaint) Routine [facility] at a [facility] caHypertension, UnspecifiedAdult BMI 30.0-30.9 kg/sq mScreening for breast cancerScreening for malignant neoplasm of cervixRight upper quadrant painRoutine Medical Exam 4 No Information OFFICE/OUTPA TIENT VISIT, [facility], [address], [place], [place], [id number] , [facility] [place] chest pain and HTN (chief complaint) Hypertension, UnspecifiedObesity Atypical chest painGERD (gastroesophageal reflux disease) 2 No Information [facility], [address], [place], [place], [id number] , [facility] [place] No Information 2 No Information OFFICE/OUTPA TIENT VISIT, [facility], [address], [place], [place], [address] , [facility] [place] physical exam (chief complaint) Routine [facility] livoniaObes ityScreening for malignant neoplasm of cervixVaginal candidiasisRoutine Medical Exam 2 No Information Family History Family Member Type Diagnosis Age At Onset No Information Payers Payer name Insurance type Covered constitution party ID Authoriza tion(s) [facility] [id number] Social History Type Description Quantity Date Captured [...] X-RAY ordered Future Order: Lab Order Basic Fl tabolic Panel (1999), Collected on: , Sent [...] month.Consider rferral to therapist submitted for depression/anxiety. PARAGUAYAN SPEAKING THERAPIST RECOMMENDED. Related to Anxiety Assessments Type Assessment Date No Information Patient Care Teams Name Effective Dates (start - stop) Status Members No Information
--- NOTE | 2025-07-19 09:11 | A.OFFVIS_ITS ---
Vital Signs 07/19/25 09:12 Height 5 ft 2 in Weight 156 lb BMI 28.5 Intake Visit Reasons: 2 wks fu Bilateral foot pain Intake Note: Malathi is a 55 year old female who presents today for a follow up on her bilateral calcaneal spur. Pt was seen on 07/02/25 where she was prescribed Medrol dose pack and advised on stretching exercises to perform. Pt reports she had completed the medication and she has been preforming the stretching exercises and she found slight relief however the pain would return. She mentions the pain has improved on the side of her feet however on her heel of the foot it persist to be painful. Allergies metronidazole (Metrogel) Allergy (Intermediate, Verified 07/19/25 09:14) facial rash morphine (Morphine) Allergy (Intermediate, Verified 07/19/25 09:14) SEVERE VOMITING, nausea and vomiting hydromorphone (From Dilaudid) Adverse Reaction (Mild, Verified 07/19/25 09:14) makes pt feel ill Medication List - Last Reconciled 07/19/25 by Vickie Camargo DPM calcium carbonate-vitamin D3 500 mg-10 mcg (400 unit) (Oyster Shell Calcium- Vitamin D3) 1 tab PO BID 90 days cyclobenzaprine 5 mg PO BEDTIME diaper,brief,adult,disposable (Day and Night Brief,Medium) As directed docusate sodium 100 mg PO BID 30 days estradiol (Vagifem) 10 mcg vaginal 2XW ibuprofen 800 mg PO Q8H PRN 30 days Held on 07/19/25. Instructions: Patient will be starting meloxicam lansoprazole 30 mg PO DAILY leg brace (Knee Support Brace) As directed x 6 weeks linaclotide 72 mcg PO DAILY magnesium oxide 400 mg PO BEDTIME 90 days meloxicam 7.5 mg PO DAILY methylprednisolone (Medrol (Yao)) PO PER PKG DIR nitrofurantoin monohyd/m-cryst 100 mg (Macrobid) 100 mg orally Take 2 tabs after sexual activity as directed by MD; must administer with a meal/food pyridoxine (vitamin B6) 50 mg PO DAILY 90 days HPI Comments Details: The patient is a 55-year-old female presenting for follow-up of B/L plantar fasciitis, worse to the left foot. The condition primarily affects the heels. Patient states the Medrol Dose Yao which relieved her symptoms, but states once she finished the course the pain returned. She states she has been compliant with the strestching exercises with mild relief. The pain is localized to the plantar aspect of the heels and worsens with walking, causing the patient to walk on her toes to alleviate discomfort. She has attempted non-pharmacological interventions, including stretching exercises and using a frozen water bottle for relief and has tried various OTC inserts with mild relief. Despite these efforts, the pain persists, prompting consideration of further interventions. She denies any other pedal concerns. She denies any current nausea, vomiting, fever, or chills. [facility] Medical History Pain in both feet Calcaneal spur of both feet Other enthesopathy of right foot and ankle Other enthesopathy of left foot and ankle Plantar fasciitis, bilateral PONV (postoperative nausea and vomiting) Mixed incontinence urge and stress Recurrent UTI Urge urinary incontinence Change in bowel habits Foreign body granuloma of skin Acne rosacea Right hip pain Leg numbness Obesity Mixed hyperlipidemia GERD (gastroesophageal reflux disease) Hypovitaminosis D Surgical History History of colostomy reversal History of abdominoplasty Perforation of colon History of total abdominal hysterectomy and bilateral salpingo-oophorectomy Family History Father Hypertension Cancer Mother Hypertension Diabetes Brother No problems noted. 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 Denies pain in the ball of the foot. Physical Exam Vital Signs: BMI result Body Mass Index 28.5 Extrem Other: Bilateral lower extremity focused physical exam: Derm: No open lesions abrasions or wounds noted. Skin turgor supple and within normal limits. No clinical signs of infection. Toenails X 10 within normal limits. Vascular: DP/PT pulses palpable. Capillary refill time less than 3 seconds. Temperature gradient warm to warm. Pedal hair absent. No varicosities noted. Neuro: Protective sensation is grossly intact. MSK: Severe Pain on palpation to bilateral heels worse to the left in the central aspect of the calcaneus. No Pain on palpation to the medial and lateral calcaneal tubercles. Positive windlass mechanism bilaterally. No Pain on palpation to the posterior aspects of the heels bilaterally at the insertion point of the Achilles. Mildly antalgic gait Unassisted. Range of motion of the forefoot and ankle within normal limits. MMT 5/5. Results Reviewed Results Reviewed: Podiatry read of Bilateral foot x-rays (06/17/2025): Minimal joint space narrowing noted to the left 2nd MPJ. Bilateral calcaneal spurs noted plantarly and posteriorly, worse to the left. No acute fractures or dislocations noted. Bilateral foot x-rays (06/17/2025): FINDINGS: RIGHT FOOT: No fractures are evident. Joint spaces are preserved. There are no osteophytes. There are small calcaneal enthesophytes. LEFT FOOT: No fractures are evident. Joint spaces are preserved. There are no osteophytes. There are small calcaneal enthesophytes. IMPRESSION: Small calcaneal enthesophytes are present bilaterally which is a nonspecific finding. Correlate for symptoms. Assessment & Plan Assessment & Plan (1) Other enthesopathy of left foot and ankle: Code(s): M77.52 - Other enthesopathy of left foot and ankle Category: Medical (2) Other enthesopathy of right foot and ankle: Code(s): M77.51 - Other enthesopathy of right foot and ankle Category: Medical (3) Plantar fasciitis, bilateral: Code(s): M72.2 - Plantar fascial fibromatosis Category: Medical (4) Pain in both feet: Code(s): M79.671 - Pain in right foot; M79.672 - Pain in left foot Category: Medical (5) Calcaneal spur of both feet: Code(s): M77.31 - Calcaneal spur, right foot; M77.32 - Calcaneal spur, left foot Category: Medical Plan Patient was informed and verbally consented to the use of an ambient scribe for clinic note documentation during this visit. I discussed with the patient the management of her plantar fasciitis, including the use of meloxicam for pain relief and the application of a night splint to stretch the plantar fascia during sleep. We also talked about continuing stretching exercises and using a frozen water bottle for relief. I explained that if the pain persists, we might consider physical therapy and possibly an injection as the next steps. - Prescribed meloxicam for pain management. Advised patient to not take Ibuprofen and Meloxicam at the same time. - Recommend the use of a night splint to stretch the plantar fascia during sleep. Provided patient with night splints. - Advise continuation of stretching exercises and use of a frozen water bottle for symptomatic relief. - Consider physical therapy and/or injection if pain persists, to further stretch the plantar fascia. - Recommend continued use of supportive footwear to prevent exacerbation of symptoms. - Avoid barefoot walking and continue use of OTC inserts. Patient is to return to the office in 3 weeks for re-evaluation of symptoms. Medications: New meloxicam 7.5 mg PO DAILY 30 tabs 0RF Plantar Fasciitis M72.2 - Plantar fascial fibromatosis, M77.31 - Calcaneal spur, right foot, M77.32 - Calcaneal spur, left foot, M77.51 - Other enthesopathy of right foot and ankle, M77.52 - Other enthesopathy of left foot and ankle, M79.671 - Pain in right foot, M79.672 - Pain in left foot On Hold ibuprofen Hold Comment: Patient will be starting meloxicam 800 mg PO Q8H 30 days PRN 90 tabs 1RF pain Coding Level of Care Code Est Pt Level 4 (66614) Diagnoses Other enthesopathy of left foot and ankle M77.52 Other enthesopathy of right foot and ankle M77.51 Plantar fasciitis, bilateral M72.2 Pain in both feet M79.671; M79.672 Calcaneal spur of both feet M77.31; M77.32 Time Spent (min) 45
[2025-07-19 09:12] VITALS: BMI 28.5
--- OUTSIDE RECORDS SUMMARY | 2025-07-19 09:31 | XMS_ITS | Encounter Summary ---
Author Organization [facility] Address [address] [place] [phone] Phone Care Team Providers Care Information Systems Security Officer Name Role Phone Sahsha Lott MD Primary Care Provid er Reason for Referral * Physical Therapy (Routine) - Closed Specialty Diagnoses / Procedures Referred By Benji pace Referred To Contact Physical Therapy Diagnoses Encounter for rehabilitation System, Provider Not In, [facility] [id number] [place] [address] Phone: tel: Referral ID Status Reason Start Date Expiration Date Visits Re quested Visits Authorized [id number] Closed 03/09/2018 10/09/2018 12 12 Encounter Details Date Type Department Care Team (Latest Contact Info) Description 03/03/2018 Transcribe Orders [facility] Rehabilitation Services [address] [place] [address] Lobo Donald MD [address] [place] [address] [address] Encounter for rehabilitation (Primary Dx) Social History [...] Date/Time Associated Diagnosis Comments AMB REFERRAL TO [facility] PHYSICAL THERAPY Routine 03/09/2018 1:13 PM EDT Encounter for rehabilitation documented in this encounter Results * Ambulatory referral to [facility] Physical Therapy (03/09/2018 1:13 PM EDT) us Provider Not In System PhD AMB [facility] REFERRALS Fin al Result documented in this encounter Visit Diagnoses Diagnosis Encounter for rehabilitation- Primary documented in this encounter Care Teams Information Systems Security Officer Relationship Specialty Start Date End Date Shasha Lott MD [address] [place] [address] PCP - General Internal Medicine 03/03/18 documented as of this encounter Additional Source Comments The information contained in this document represents components of the legal health record. It is not the complete legal health record.[facility]
--- OUTSIDE RECORDS SUMMARY | 2025-07-19 09:31 | XMS_ITS | Clinical Summary ---
Author Organization [facility] Address [address] [facility] [address] [place] [phone] Phone Care Team Providers Care Sand Operator Name Role Phone Shasha Lott MD [...] INFLUENZA VACCINE (#1) 2025 COVID-19 VACCINE (2 - 2024-2 6 season) 2025 12/30/2020 Adult Td,Tdap Booster 05/10/2027 05/10/2017 RSV VACCINE (1 - 1-dose 75+ series) 2046 HEPATITIS A VACCINES Aged Out No long [...] topic Medical Devices Not on file Insurance [employer] [facility] CONNECTORCARE DIRECT [employer] [facility] CONNECTORCARE DIRECT [employer] DIRECT [employer] DIRECT [employer] [place] [address] [place] [address] [employer] DIRECT [employer] [address] [place] [address] CONNECTOR[employer] DIRECT [facility] DIRECT Care Teams Sand Operator Relationship Specialty Start Date End Date Shasha Lott MD [address] [place], [place] [phone] PCP - General Internal Medicine 03/03/18 Additional Source Comments The information contained in this document represents components of the legal health record. It is not the complete legal health record.[facility]
== END 2025-07-19 09:21 | disposition home or self-care (01) ==
LOC: HO.HPODS 09:05
PROVIDERS: PCP Internal Medicine; Visit Provider Student in an Organized Health Care Education/Training Program
DX: M77.52 Other enthesopathy of left foot and ankle (principal); M77.51 Other enthesopathy of right foot and ankle; M72.2 Plantar fascial fibromatosis; M79.671 Pain in right foot; M79.672 Pain in left foot; M77.31 Calcaneal spur, right foot; M77.32 Calcaneal spur, left foot
CPT/HCPCS: 99214

== ENCOUNTER → 2025-07-19 09:04 | Outpatient (BNVA) | payer OTHER, SELFPAY | PROVIDERS: PCP Internal Medicine; Visit Provider Student in an Organized Health Care Education/Training Program | DX: M72.2 Plantar fascial fibromatosis (principal); M77.52 Other enthesopathy of left foot and ankle; M77.51 Other enthesopathy of right foot and ankle; M79.671 Pain in right foot; M79.672 Pain in left foot; M77.31 Calcaneal spur, right foot | CPT/HCPCS: 99212 ==

== ENCOUNTER 2025-07-30 08:50 | Outpatient (REF) | payer OTHER, SELFPAY ==
--- OUTSIDE RECORDS SUMMARY | 2025-07-30 09:17 | XMS_ITS | Clinical Summary ---
Author Organization [facility] Address [address] [facility] [address] [place] [address] Phone Care Team Providers Care Guide Delegate Name Role Phone Shasha Lott MD Primary [...] topic Medical Devices Not on file Insurance [employer] [facility] CONNECTORCARE [facility] Address: [address] [phone] [employer] [facility] CONNECTORCARE DIRECT CONNE[employer] DIRECT CONNE[employer] DIRECT [employer] [place] [address] [address] CONNECTORC[employer] DIRECT [facility] [address] [address] CONNECTORCARE DIRECT [facility] DIRECT Care Teams Guide Delegate Relationship Specialty Start Date End Date Shasha Lott MD [address] [place], [place] [phone] PCP - General Internal Medicine 03/03/18 Additional Source Comments The information contained in this document represents components of the legal health record. It is not the complete legal health record.[facility]
--- OUTSIDE RECORDS SUMMARY | 2025-07-30 09:18 | XMS_ITS | Encounter Summary ---
Author Organization [facility] Address [address] [place] [address] Phone Care Team Providers Care Lens Finisher Name Role Phone Shasha Lott MD Primary Care Provid er Reason for Referral * Physical Therapy (Routine) - Closed Specialty Diagnoses / Procedures Referred By Benji pace Referred To Contact Physical Therapy Diagnoses Encounter for rehabilitation System, Provider Not In, [facility] [id number] [place] [address] Phone: tel: Referral ID Status Reason Start Date Expiration Date Visits Re quested Visits Authorized [id number] Closed 03/09/2018 10/09/2018 12 12 Encounter Details Date Type Department Care Team (Latest Contact Info) Description 03/03/2018 Transcribe Orders [facility] Rehabilitation Services [address] [place] [address] Lobo Donald MD [address] [place] [address] [address] Encounter for rehabilitation (Primary Dx) Social History [...] Date/Time Associated Diagnosis Comments AMB REFERRAL TO [facility] PHYSICAL THERAPY Routine 03/09/2018 1:13 PM EDT Encounter for rehabilitation documented in this encounter Results * Ambulatory referral to [facility] Physical Therapy (03/09/2018 1:13 PM EDT) us Provider Not In System PhD AMB [facility] REFERRALS Fin al Result documented in this encounter Visit Diagnoses Diagnosis Encounter for rehabilitation- Primary documented in this encounter Care Teams Lens Finisher Relationship Specialty Start Date End Date Shasha Ltot MD [address] [place] [address] PCP - General Internal Medicine 03/03/18 documented as of this encounter Additional Source Comments The information contained in this document represents components of the legal health record. It is not the complete legal health record.[facility]
== END 2025-07-30 08:51 | disposition home or self-care (01) ==
LOC: HO.MAMMO 08:50
PROVIDERS: PCP Internal Medicine; Visit Provider Internal Medicine
DX: Z12.31 Encounter for screening mammogram for malignant neoplasm of breast (principal)
CPT/HCPCS: 77063; 77067

== ENCOUNTER → 2025-07-30 09:00 | Outpatient (BNV) | payer OTHER, SELFPAY | PROVIDERS: PCP Internal Medicine; Visit Provider Internal Medicine | DX: Z12.31 Encounter for screening mammogram for malignant neoplasm of breast (principal) | CPT/HCPCS: 77063; 77067 ==

== ENCOUNTER 2025-08-08 11:32 | Outpatient (AMB) | payer OTHER, SELFPAY ==
--- NOTE | 2025-08-08 11:46 | A.OFFVIS_ITS ---
Vital Signs 08/08/25 11:47 Height 5 ft 2 in Weight 156 lb BMI 28.5 Intake Visit Reasons: plantar fasciitis Intake Note: Malathi is a 55 year old female who presents to the office today for a 3 week follow up for plantar fasciitis. At last visit patient was given night splints to stretch the plantar fascia during sleep and was prescribed Meloxicam for pain. Pt states she has not improved since her last visit and she is not interested in cortisone injections or PT. Allergies metronidazole (Metrogel) Allergy (Intermediate, Verified 08/08/25 11:49) facial rash morphine (Morphine) Allergy (Intermediate, Verified 08/08/25 11:49) SEVERE VOMITING, nausea and vomiting hydromorphone (From Dilaudid) Adverse Reaction (Mild, Verified 08/08/25 11:49) makes pt feel ill HPI Comments Details: The patient is a 55-year-old female presenting for follow-up of B/L plantar fasc iitis, worse to the left foot. 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 She has been using a night splint and performing exercises, which provide temporary relief in the morning, but the pain intensifies throughout the day. The patient has tried various interventions including changing footwear to memory foam shoes and using orthotics, but these have not alleviated the pain. She has declined physical therapy and states she would like to continue with at home exercises. The patient has a history of receiving cortisone injections in other areas of her body, which have provided relief for up to two years.She denies any other pedal concerns. She denies any new pedal injuries. [facility] Medical History Pain in both feet Calcaneal spur of both feet Other enthesopathy of right foot and ankle Other enthesopathy of left foot and ankle Plantar fasciitis, bilateral PONV (postoperative nausea and vomiting) Mixed incontinence urge and stress Recurrent UTI Urge urinary incontinence Change in bowel habits Foreign body granuloma of skin Acne rosacea Right hip pain Leg numbness Obesity Mixed hyperlipidemia GERD (gastroesophageal reflux disease) Hypovitaminosis D Surgical History History of colostomy reversal History of abdominoplasty Perforation of colon History of total abdominal hysterectomy and bilateral salpingo-oophorectomy Family History Father Hypertension Cancer Mother Hypertension Diabetes Brother No problems noted. 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 Physical Exam Vital Signs: BMI result Body Mass Index 28.5 Extrem Other: Bilateral lower extremity focused physical exam: Derm: No open lesions abrasions or wounds noted. Skin turgor supple and within normal limits. No ecchymosis or discoloration noted. No clinical signs of infection. Toenails X 10 within normal limits. Vascular: DP/PT pulses palpable. Capillary refill time less than 3 seconds. Temperature gradient warm to warm. Pedal hair absent. No varicosities noted. Neuro: Protective sensation is grossly intact. MSK: Severe Pain on palpation to bilateral heels worse to the left foot in the central aspect of the calcaneus. No Pain on palpation to the medial and lateral calcaneal tubercles. Positive windlass mechanism bilaterally. No Pain on palpation to the posterior aspects of the heels bilaterally at the insertion point of the Achilles. Mildly antalgic gait Unassisted. Range of motion of the forefoot and ankle within normal limits. MMT 5/5. Office Procedures AMB Flexor Tendon/Plantar POD Tendon Injection Details of AMB Procedure: Procedure: Left foot cortisone injection: Marked the most painful spot identified by the patient to the left heel. Cleansed the affected area with an alcohol swab in the area. Next injected an mix of 1.5 cc of lidocaine plain, 1 cc of dexamethasone, and 0.5 cc of triamcinolone in the area of the previously marked area with no incidents. A band-aid was applied to the area. Provided patient with after care instructions. Tendon Injection POD1: - Plantar Fascia Injection All charges added?: Procedure code (CPT) selection complete Office Meds triamcinolone acetonide 40 mg/mL suspension for injection Performing Provider: Vickie Camargo DPM Performing Location: [facility] Administered by: Vickie Camargo DPM on 08/11/25 14:20 Dose Route Admin Location Dispensed Lot Number Expiration Date [facility] Field Irrigation Worker 20 mg Tendon Sheath Inj. 1 mL [id number] [employer] Total Dispensed Waste 1 mL 50 % dexamethasone sodium phosphate 4 mg/mL injection solution Performing Provider: Vickie Camargo DPM Performing Location: [facility] Administered by: Vickie Camargo DPM on 08/11/25 14:20 Dose Route Admin Location Dispensed Lot Number Expiration Date [facility] Field Irrigation Worker 4 mg Tendon Sheath Inj. 1 mL [id number] [employer] Total Dispensed Waste 1 mL 0 % lidocaine HCl 10 mg/mL (1 %) injection solution Performing Provider: Vickie Camargo DPM Performing Location: [facility] Administered by: Vickie Camargo DPM on 08/11/25 14:20 Dose Route Admin Location Dispensed Lot Number Expiration Date [facility] Field Irrigation Worker 1.5 mL subcut 1.5 mL [id number] [employer] Total Dispensed Waste 1.5 mL 0 % Results Reviewed Results Reviewed: Podiatry read of Bilateral foot x-rays (06/17/2025): Minimal joint space narrowing noted to the left 2nd MPJ. Bilateral calcaneal spurs noted plantarly and posteriorly, worse to the left. No acute fractures or dislocations noted. Bilateral foot x-rays (06/17/2025): FINDINGS: RIGHT FOOT: No fractures are evident. Joint spaces are preserved. There are no osteophytes. There are small calcaneal enthesophytes. LEFT FOOT: No fractures are evident. Joint spaces are preserved. There are no osteophytes. There are small calcaneal enthesophytes. IMPRESSION: Small calcaneal enthesophytes are present bilaterally which is a nonspecific finding. Correlate for symptoms. Assessment & Plan Assessment & Plan (1) Other enthesopathy of left foot and ankle: Code(s): M77.52 - Other enthesopathy of left foot and ankle Category: Medical (2) Other enthesopathy of right foot and ankle: Code(s): M77.51 - Other enthesopathy of right foot and ankle Category: Medical (3) Plantar fasciitis, bilateral: Code(s): M72.2 - Plantar fascial fibromatosis Category: Medical (4) Pain in both feet: Code(s): M79.671 - Pain in right foot; M79.672 - Pain in left foot Category: Medical (5) Calcaneal spur of both feet: Code(s): M77.31 - Calcaneal spur, right foot; M77.32 - Calcaneal spur, left foot Category: Medical Plan Patient was informed and verbally consented to the use of an ambient scribe for clinic note documentation during this visit. I discussed with the patient the management options for plantar fasciitis, including the risks and benefits of cortisone injections and surgery. I explained that cortisone injections should be limited to one every four months to prevent weakening of the ligaments and tendons. We also discussed the potential need for surgery if conservative measures, including the use of night splints and exercises, injections, and PT do not provide sufficient relief. - Administered a cortisone injection to the left heel with no incidents. - Advised patient to continue with at home stretching exercises and the use of the night splint. - Recommended starting PT, but patient refused at this time. - May take Tylenol or Ibuprofen prn for pain. - Recommend continued use of supportive footwear to prevent exacerbation of symptoms. - Avoid barefoot walking and continue use of OTC inserts. Patient is to return to the office in 2 weeks for re-evaluation of symptoms. Will recommend PT at next visit. Orders: Orders AMB Flexor Tendon / Plantar Fascia Injection 08/08/25 M72.2 - Plantar fascial fibromatosis, M77.31 - Calcaneal spur, right foot, M77.32 - Calcaneal spur, left foot, M77.51 - Other enthesopathy of right foot and ankle, M77.52 - Other enthesopathy of left foot and ankle, M79.671 - Pain in right foot, M79.672 - Pain in left foot Coding Level of Care Code Est Pt Level 4 (64853) Diagnoses Other enthesopathy of left foot and ankle M77.52 Other enthesopathy of right foot and ankle M77.51 Plantar fasciitis, bilateral M72.2 Pain in both feet M79.671; M79.672 Calcaneal spur of both feet M77.31; M77.32 CPT Codes Tendon Injection - Tendon Injection POD1: - Plantar Fascia Injection ([id number]) Time Spent (min) 45 Comment 15 mins for procedure
[2025-08-08 11:47] VITALS: BMI 28.5
--- OUTSIDE RECORDS SUMMARY | 2025-08-08 14:31 | XMS_ITS | Encounter Summary ---
Author Organization [facility] Address [address] [place] [address] Phone Care Team Providers Care Poultry Husbandry Teacher Name Role Phone Shasha Lott MD Primary Care Provid er Reason for Referral * Physical Therapy (Routine) - Closed Specialty Diagnoses / Procedures Referred By Benji pace Referred To Contact Physical Therapy Diagnoses Encounter for rehabilitation System, Provider Not In, [facility] [id number] [place] [address] Phone: tel: Referral ID Status Reason Start Date Expiration Date Visits Re quested Visits Authorized [id number] Closed 03/09/2018 10/09/2018 12 12 Encounter Details Date Type Department Care Team (Latest Contact Info) Description 03/03/2018 Transcribe Orders [facility] Rehabilitation Services [address] [place] [address] Lobo Donald MD [address] [place] [address] [address] Encounter for rehabilitation (Primary Dx) Social History [...] Date/Time Associated Diagnosis Comments AMB REFERRAL TO [facility] PHYSICAL THERAPY Routine 03/09/2018 1:13 PM EDT Encounter for rehabilitation documented in this encounter Results * Ambulatory referral to [facility] Physical Therapy (03/09/2018 1:13 PM EDT) us Provider Not In System PhD AMB [facility] REFERRALS Fin al Result documented in this encounter Visit Diagnoses Diagnosis Encounter for rehabilitation- Primary documented in this encounter Care Teams Poultry Husbandry Teacher Relationship Specialty Start Date End Date Shasha Lott MD [address] [place] [address] PCP - General Internal Medicine 03/03/18 documented as of this encounter Additional Source Comments The information contained in this document represents components of the legal health record. It is not the complete legal health record.[facility]
--- OUTSIDE RECORDS SUMMARY | 2025-08-08 14:31 | XMS_ITS | Clinical Summary ---
Author Organization [facility] Address [address] [facility] [address] [place] [address] Phone Care Team Providers Care Cost Estimator Name Role Phone Shasha Lott MD Primary [...] topic Medical Devices Not on file Insurance [employer] [facility] CONNE[employer]CARE DIRECT [employer] [facility] [employer] DIRECT [employer] DIRECT [employer] DIRECT [employer] [place] [address] [place] [address] [employer] DIRECT [employer] [address] [address] [place] [address] CONNECTORCARE DIRECT [facility] DIRECT Care Teams Cost Estimator Relationship Specialty Start Date End Date Shasha Lott MD [address] [place], [place] [phone] PCP - General Internal Medicine 03/03/18 Additional Source Comments The information contained in this document represents components of the legal health record. It is not the complete legal health record.[facility]
== END 2025-08-08 12:12 | disposition home or self-care (01) ==
LOC: HO.HPODS 11:33
PROVIDERS: PCP Internal Medicine; Visit Provider Student in an Organized Health Care Education/Training Program
DX: M72.2 Plantar fascial fibromatosis (principal); M77.52 Other enthesopathy of left foot and ankle; M77.51 Other enthesopathy of right foot and ankle; M79.671 Pain in right foot; M79.672 Pain in left foot; M77.31 Calcaneal spur, right foot; M77.32 Calcaneal spur, left foot
CPT/HCPCS: 20550; 99214

== ENCOUNTER → 2025-08-08 11:32 | Outpatient (BNVA) | payer OTHER, SELFPAY | PROVIDERS: PCP Internal Medicine; Visit Provider Student in an Organized Health Care Education/Training Program | DX: M72.2 Plantar fascial fibromatosis (principal); M77.52 Other enthesopathy of left foot and ankle; M77.51 Other enthesopathy of right foot and ankle; M79.671 Pain in right foot; M79.672 Pain in left foot; M77.31 Calcaneal spur, right foot; M77.32 Calcaneal spur, left foot | CPT/HCPCS: 20550; 99212; J1100; J2003; J3301 ==

== ENCOUNTER 2025-08-26 10:13 | Outpatient (AMB) | payer OTHER, SELFPAY ==
[2025-08-26 10:33] VITALS: BMI 28.5
--- NOTE | 2025-08-26 10:33 | MHC.OFFVIS ---
Vital Signs 08/26/25 10:33 Height 5 ft 2 in Weight 156 lb BMI 28.5 Intake Visit Reasons: plan for right foot coristone injection / f/u left Intake Note: Malathi is a 55 year old female who presents today for a follow up on her bilateral calcaneal spur. At her last visit a cortisone injection was administered of the left heel. Patient was advised to continue at home stretching exercises, utilizing the night splint, and she can take Tylenol and Ibuprofen as needed for pain management. Patient reports she has seen slight improvement since getting the injection however she notes a pin and needles sensation to the back of her left heel. She mentions her right foot pain has worsened and her heel experiences a shock sensation Allergies metronidazole (Metrogel) Allergy (Intermediate, Verified 08/08/25 11:49) facial rash morphine (Morphine) Allergy (Intermediate, Verified 08/08/25 11:49) SEVERE VOMITING, nausea and vomiting hydromorphone (From Dilaudid) Adverse Reaction (Mild, Verified 08/08/25 11:49) makes pt feel ill HPI Comments Details: The patient is a 55-year-old female presenting for follow-up of bilateral plantar fasciitis. Patient states she has noticed slight improvement to the left foot after the last cortisone injection. Patient states now she is experiencing worse pain to the right foot and would like an injection at this time. Patient states she experiences pins and needles to the left foot in the area of the posterior aspect of the heel. The right foot pain is associated with swelling and a sensation of instability, particularly when walking. The patient reports feeling as though she might fall due to the instability. The most painful area is the medial and central aspect of the heel. Patient states she is only able to wear shoes with an open back. She denies any new pedal injuries. She denies any other pedal concerns. [facility] Medical History Pain in both feet Calcaneal spur of both feet Other enthesopathy of right foot and ankle Other enthesopathy of left foot and ankle Plantar fasciitis, bilateral PONV (postoperative nausea and vomiting) Mixed incontinence urge and stress Recurrent UTI Urge urinary incontinence Change in bowel habits Foreign body granuloma of skin Acne rosacea Right hip pain Leg numbness Obesity Mixed hyperlipidemia GERD (gastroesophageal reflux disease) Hypovitaminosis D Surgical History History of colostomy reversal History of abdominoplasty Perforation of colon History of total abdominal hysterectomy and bilateral salpingo-oophorectomy Family History Father Hypertension Cancer Mother Hypertension Diabetes Brother No problems noted. 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 Physical Exam Vital Signs: BMI result Body Mass Index 28.5 Extrem Other: Bilateral lower extremity focused physical exam: Derm: No open lesions abrasions or wounds noted. Skin turgor supple and within normal limits. No ecchymosis or discoloration noted. No clinical signs of infection. Toenails X 10 within normal limits. Vascular: DP/PT pulses palpable. Capillary refill time less than 3 seconds. Temperature gradient warm to warm. Pedal hair absent. No varicosities noted. Neuro: Protective sensation is grossly intact. MSK: Severe Pain on palpation to the right heel to the medial and central aspect of the calcaneus. Reduced pain noted to the left heel in comparison to the last visit. Positive windlass mechanism bilaterally. Mild discomfort on palpation to the posterior aspects of the heels bilaterally at the insertion point of the Achilles. Mildly antalgic gait Unassisted. Range of motion of the forefoot and ankle within normal limits. MMT 5/5. No crepitus or fluctuance noted. Office Procedures AMB Flexor Tendon/Plantar POD Tendon Injection Details of AMB Procedure: Procedure: Right foot cortisone injection: Marked the most painful spot identified by the patient to the right heel. Cleansed the affected area with an alcohol swab in the area. Next injected an mix of 1.5 cc of lidocaine plain, 1 cc of dexamethasone, and 0.5 cc of triamcinolone in the area of the previously marked area with no incidents. A band-aid was applied to the area. Provided patient with after care instructions. Tendon Injection POD1: - Plantar Fascia Injection All charges added?: Procedure code (CPT) selection complete Office Meds triamcinolone acetonide 40 mg/mL suspension for injection Performing Provider: Vickie Camargo DPM Performing Location: [facility] Administered by: Vickie Camargo DPM on 08/26/25 17:13 Dose Route Admin Location Dispensed Lot Number Expiration Date [facility] Technology [employer] 20 mg Tendon Sheath Inj. 1 mL [id number] [employer] Total Dispensed Waste 1 mL 50 % dexamethasone sodium phosphate 4 mg/mL injection solution Performing Provider: Vickie Camargo DPM Performing Location: [facility] Administered by: Vickie Camargo DPM on 08/26/25 17:13 Dose Route Admin Location Dispensed Lot Number Expiration Date [facility] [employer] 4 mg Tendon Sheath Inj. 1 mL [id number] [facility] Total Dispensed Waste 1 mL 0 % lidocaine HCl 10 mg/mL (1 %) injection solution Performing Provider: Vickie Camargo DPM Performing Location: [facility] Administered by: Vickie Camargo DPM on 08/26/25 17:13 Dose Route Admin Location Dispensed Lot Number Expiration Date [facility] [employer] 1.5 mL subcut 1.5 mL [id number] Total Dispensed Waste 1.5 mL 0 % Comments: Used Xylocaine 1% Results Reviewed Results Reviewed: Podiatry read of Bilateral foot x-rays (06/17/2025): Minimal joint space narrowing noted to the left 2nd MPJ. Bilateral calcaneal spurs noted plantarly and posteriorly, worse to the left. No acute fractures or dislocations noted. Bilateral foot x-rays (06/17/2025): FINDINGS: RIGHT FOOT: No fractures are evident. Joint spaces are preserved. There are no osteophytes. There are small calcaneal enthesophytes. LEFT FOOT: No fractures are evident. Joint spaces are preserved. There are no osteophytes. There are small calcaneal enthesophytes. IMPRESSION: Small calcaneal enthesophytes are present bilaterally which is a nonspecific finding. Correlate for symptoms. Assessment & Plan Assessment & Plan (1) Plantar fasciitis, bilateral: Code(s): M72.2 - Plantar fascial fibromatosis Category: Medical (2) Other enthesopathy of left foot and ankle: Code(s): M77.52 - Other enthesopathy of left foot and ankle Category: Medical (3) Other enthesopathy of right foot and ankle: Code(s): M77.51 - Other enthesopathy of right foot and ankle Category: Medical (4) Pain in both feet: Code(s): M79.671 - Pain in right foot; M79.672 - Pain in left foot Category: Medical (5) Calcaneal spur of both feet: Code(s): M77.31 - Calcaneal spur, right foot; M77.32 - Calcaneal spur, left foot Category: Medical Plan Patient was informed and verbally consented to the use of an ambient scribe for clinic note documentation during this visit. I discussed with the patient the plan to initiate physical therapy for both feet to help alleviate pain and improve mobility. We also talked about the temporary use of Crocs at work to reduce discomfort - provided patient with a work note. Patient opts for a cortisone injection to the right foot. I advised a follow-up appointment in six weeks to evaluate the effectiveness of the therapy and make any necessary adjustments. - Initiate physical therapy for both feet to address pain and improve function. Provided a PT referral. - Provide a note for the patient to wear Crocs at work to alleviate discomfort. - Administered a cortisone injection to the right heel with no incidents. - Advised patient to continue with at home stretching exercises and the use of the night splint. - May take Tylenol or Ibuprofen prn for pain. - Recommend continued use of supportive footwear to prevent exacerbation of symptoms. - Avoid barefoot walking and continue use of OTC inserts. RTC in 6 weeks. Orders: Orders AMB Flexor Tendon / Plantar Fascia Injection Today M72.2 - Plantar fascial fibromatosis, M77.51 - Other enthesopathy of right foot and ankle, M77.52 - Other enthesopathy of left foot and ankle, M79.671 - Pain in right foot, M79.672 - Pain in left foot PT Evaluation and Treatment Today M72.2 - Plantar fascial fibromatosis, M77.51 - Other enthesopathy of right foot and ankle, M77.52 - Other enthesopathy of left foot and ankle, M79.671 - Pain in right foot, M79.672 - Pain in left foot Medications: Discontinued methylprednisolone (Medrol (Yao)) Discontinued Reason: Patient Completed Course PO PER PKG DIR 21 ea 0RF Plantar Fasciitis M72.2 - Plantar fascial fibromatosis Coding Level of Care Code Est Pt Level 4 (56060) Diagnoses Plantar fasciitis, bilateral M72.2 Other enthesopathy of left foot and ankle M77.52 Other enthesopathy of right foot and ankle M77.51 Pain in both feet M79.671; M79.672 Calcaneal spur of both feet M77.31; M77.32 CPT Codes Tendon Injection - Tendon Injection POD1: - Plantar Fascia Injection ([id number]) Time Spent (min) 36 Comment 5 mins for procedure
== END 2025-08-26 10:57 | disposition home or self-care (01) ==
LOC: HO.HPODS 10:14
PROVIDERS: PCP Internal Medicine; Visit Provider Student in an Organized Health Care Education/Training Program
DX: M72.2 Plantar fascial fibromatosis (principal); M77.52 Other enthesopathy of left foot and ankle; M77.51 Other enthesopathy of right foot and ankle; M79.671 Pain in right foot; M79.672 Pain in left foot; M77.31 Calcaneal spur, right foot; M77.32 Calcaneal spur, left foot
CPT/HCPCS: 20550; 99214

== ENCOUNTER → 2025-08-26 10:13 | Outpatient (BNVA) | payer OTHER, SELFPAY | PROVIDERS: PCP Internal Medicine; Visit Provider Student in an Organized Health Care Education/Training Program | DX: M72.2 Plantar fascial fibromatosis (principal); M77.52 Other enthesopathy of left foot and ankle; M77.51 Other enthesopathy of right foot and ankle; M79.671 Pain in right foot; M79.672 Pain in left foot; M77.31 Calcaneal spur, right foot; M77.32 Calcaneal spur, left foot | CPT/HCPCS: 20550; 99212; J1100; J2003; J3301 ==

== ENCOUNTER 2025-09-16 13:14 | Outpatient (AMB) | payer OTHER, SELFPAY ==
[2025-09-16 13:18] VITALS: BP 134/74; PULSE 86; BMI 28.6
--- NOTE | 2025-09-16 13:18 | MHC.OFFVIS ---
Vital Signs 09/16/25 13:18 Height 5 ft 2 in Weight 156 lb 8.451 oz BMI 28.6 BP 134/74 Blood Pressure Location Lt brachial Position Sitting Pulse 86 Intake Visit Reasons: 4 mo f/u Intake Note: Malathi presents in the office as a 4 month follow up. CC: She states that she has pains still in LRQ and she is not sure what else is there and not sure how the results to the ultrasound. Sometimes it is stronger than other and sometimes it will gradually come on - still having diarrhea and still having it with incontinence. Specimen Processor Required: No Allergies metronidazole (Metrogel) Allergy (Intermediate, Verified 09/16/25 13:22) facial rash morphine (Morphine) Allergy (Intermediate, Verified 09/16/25 13:22) SEVERE VOMITING, nausea and vomiting hydromorphone (From Dilaudid) Adverse Reaction (Mild, Verified 09/16/25 13:22) makes pt feel ill HPI HPI 4 mo f/u: Details: 55 yr old f being seen for f/u RECAP: she was doing well after EGD with diltn 12/31 no dysphagia still has fecal incontinence but much better with higher fiber intake, advised again on bladder stim, but she was undecided US: 07/04 she had US, no sludge or stones in GB she had few stones noted in right kidney INTERIM: she still has pain but now more RLQ and to the side she has noted intermittent on and off crampy RUQ abdo pain, no obvious triggers she still had incontiencen but does not want stim device, few times a day LFT nml EXAM: GENERAL: The patient is well developed and nontoxic. VITAL SIGNS:see workflow HEENT: Nonicteric sclerae, PERRLA, EOMI. Oropharynx clear. Moist mucous membranes. Conjunctivae appear well perfused. No thyroid mass. CHEST: Chest wall is nontender. HEART: Regular rate and rhythm without murmurs. LUNGS: Clear to auscultation bilaterally. ABDOMEN: Soft, positive bowel sounds, nontender, no organomegaly.no flank tenderness--point tenderness worse with head lift SKIN: No rash, no excessive bruising, petechiae, or purpura. NEUROLOGIC: Cranial nerves II-XII intact without motor/sensory deficit. Psych: normal affect A/P: 1/ myofascial pain suspected --small kidney stones, but I dont think this is causing her pain 2/ faecal incontinence PLAN: /1 cont high fiber diet 2/ re discussed spinal stim, more open to thinking about it at least the trial 3/ refer pain management for trigger point injection [facility] Medical History Pain in both feet Calcaneal spur of both feet Other enthesopathy of right foot and ankle Other enthesopathy of left foot and ankle Plantar fasciitis, bilateral PONV (postoperative nausea and vomiting) Mixed incontinence urge and stress Recurrent UTI Urge urinary incontinence Change in bowel habits Foreign body granuloma of skin Acne rosacea Right hip pain Leg numbness Obesity Mixed hyperlipidemia GERD (gastroesophageal reflux disease) Hypovitaminosis D Surgical History History of colostomy reversal History of abdominoplasty Perforation of colon History of total abdominal hysterectomy and bilateral salpingo-oophorectomy Family History Father Hypertension Cancer Mother Hypertension Diabetes Brother No problems noted. 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
--- OUTSIDE RECORDS SUMMARY | 2025-09-16 21:55 | XMS_ITS | Encounter Summary ---
Author Organization [facility] Address [address] [place] [phone] Phone Care Team Providers Care Integrated Logistics Support Manager Name Role Phone Shasha Lott MD Primary Care Provid er Reason for Referral * Physical Therapy (Routine) - Closed Specialty Diagnoses / Procedures Referred By Benji pace Referred To Contact Physical Therapy Diagnoses Encounter for rehabilitation System, Provider Not In, [facility] [phone] [place] [address] Phone: tel: Referral ID Status Reason Start Date Expiration Date Visits Re quested Visits Authorized [id number] Closed 03/09/2018 10/09/2018 12 12 Encounter Details Date Type Department Care Team (Latest Contact Info) Description 03/03/2018 Transcribe Orders [facility] [address] [place] [address] Lobo Donald MD [address] [place] [address] [address] Encounter for rehabilitation (Primary Dx) Social History [...] Diagnosis Comments AMB REFERRAL TO [facility] PHYSICAL THERAPY Routine 03/09/2018 1:13 PM EDT Encounter for rehabilitation documented in this encounter Results * Ambulatory referral to [facility] Physical Therapy (03/09/2018 1:13 PM EDT) us Provider Not In System PhD AMB [facility] REFERRALS Fin al Result documented in this encounter Visit Diagnoses Diagnosis Encounter for rehabilitation- Primary documented in this encounter Care Teams Integrated Logistics Support Manager Relationship Specialty Start Date End Date Shasha Lott MD [address] [place] [address] PCP - General Internal Medicine 03/03/18 documented as of this encounter Additional Source Comments The information contained in this document represents components of the legal health record. It is not the complete legal health record.[facility]
--- OUTSIDE RECORDS SUMMARY | 2025-09-16 21:55 | XMS_ITS | Clinical Summary ---
Author Organization [facility] Address [address] [facility] [address] [place] [address] Phone Care Team Providers Care Vault Service Mechanic Name Role Phone Shasha Lott MD Primary [...] topic Medical Devices Not on file Insurance [facility] CONNECTORCARE DIRECT [employer] [facility] CONNECTORCARE DIRECT [employer] DIRECT [employer] DIRECT [employer] [place] [address] [place] [address] [employer]CTORCARE DIRECT [facility] [place] [address] [place] [address] CONNECTORCARE DIRECT [facility] DIRECT Care Teams Vault Service Mechanic Relationship Specialty Start Date End Date Shasha Lott MD [address] [place], [place] [phone] PCP - General Internal Medicine 03/03/18 Additional Source Comments The information contained in this document represents components of the legal health record. It is not the complete legal health record.[facility]
== END 2025-09-16 14:30 | disposition home or self-care (01) ==
LOC: HO.HGI 13:15
PROVIDERS: PCP Internal Medicine; Visit Provider Internal Medicine Gastroenterology
DX: M79.18 Myalgia, other site (principal)
CPT/HCPCS: 99213

== ENCOUNTER → 2025-09-16 13:14 | Outpatient (BNVA) | payer OTHER, SELFPAY | PROVIDERS: PCP Internal Medicine; Visit Provider Internal Medicine Gastroenterology | DX: M79.18 Myalgia, other site (principal) | CPT/HCPCS: 99212 ==

== ENCOUNTER 2025-09-24 10:51 | Day surgery (SDC) | payer OTHER, SELFPAY ==
--- OUTSIDE RECORDS SUMMARY | 2025-08-29 16:17 | XMS_ITS | Encounter Summary ---
Author Organization [facility] Address [address] [place] [address] [place] [address] Phone Care Team Providers Care Machine Straw Hat Presser Name Role Phone Shasha Lott MD Primary Care Provid er Reason for Referral * Physical Therapy (Routine) - Closed Specialty Diagnoses / Procedures Referred By Benji pace Referred To Contact Physical Therapy Diagnoses Encounter for rehabilitation System, Provider Not In, [facility] [id number] [place] [address] Phone: tel: Referral ID Status Reason Start Date Expiration Date Visits Re quested Visits Authorized [id number] Closed 03/09/2018 10/09/2018 12 12 Encounter Details Date Type Department Care Team (Latest Contact Info) Description 03/03/2018 Transcribe Orders [facility] [address] [place] [address] Lobo Donald MD [address] [place] [address] [address] Encounter for rehabilitation (Primary Dx) Social History [...] Date/Time Associated Diagnosis Comments AMB REFERRAL TO [facility] PHYSICAL THERAPY Routine 03/09/2018 1:13 PM EDT Encounter for rehabilitation documented in this encounter Results * Ambulatory referral to [facility] Physical Therapy (03/09/2018 1:13 PM EDT) us Provider Not In System PhD AMB [facility] REFERRALS Fin al Result documented in this encounter Visit Diagnoses Diagnosis Encounter for rehabilitation- Primary documented in this encounter Care Teams Machine Straw Hat Presser Relationship Specialty Start Date End Date Shasha Lott MD [address] [place] [address] PCP - General Internal Medicine 03/03/18 documented as of this encounter Additional Source Comments The information contained in this document represents components of the legal health record. It is not the complete legal health record.[facility]
--- OUTSIDE RECORDS SUMMARY | 2025-08-29 16:17 | XMS_ITS | Clinical Summary ---
Author Organization [facility] Address [address] [facility] [address] [place] [address] Phone Care Team Providers Care Systems Integration Engineer Name Role Phone Shasha Lott MD [...] topic Medical Devices Not on file Insurance [facility] DIRECT [facility] Address: [address] [address] [facility] CONNE[employer]ARE DIRECT [employer] DIRECT [employer] DIRECT [employer] [place] [address] CONNE[employer] DIRECT [employer] [address] [place] [address] CONNECTORCARE DIRECT [facility] DIRECT Care Teams Systems Integration Engineer Relationship Specialty Start Date End Date Shasha Lott MD [address] [place], [place] [phone] PCP - General Internal Medicine 03/03/18 Additional Source Comments The information contained in this document represents components of the legal health record. It is not the complete legal health record.[facility]
[2025-09-20 07:47] VITALS: BMI 28.7
--- NOTE | 2025-09-20 09:09 | P.CONAN_ITS ---
Documented by User: Natali Richards NP 09/20/25 09:12 HPI - Anesthesia Eval Consult details Narrative: 55yo F for Cystoscopy Bladder Botox Injection s/p same 04/2025 with GA-LMA 3 [id number] cardiac w/u for abnormal EKG OK except trivial pericardial effusion - last cardiac office visit 03/2025 with routine 1 year f/u PMFSH Active Problems Active Problems: All Active Problems Myofascial pain (Acute) Vaginal atrophy (Acute) Pain in both feet (Acute) Calcaneal spur of both feet (Acute) Other enthesopathy of right foot and ankle (Acute) Other enthesopathy of left foot and ankle (Acute) Plantar fasciitis, bilateral (Acute) Right foot pain (Acute) Left foot pain (Acute) Right shoulder pain (Acute) RUQ abdominal pain (Acute) Sleeping difficulty (Acute) Osteopenia (Acute) Rosacea (Acute) Cardiac murmur (Acute) Abnormal EKG (Acute) Campylobacter diarrhea (Acute) Right leg pain (Acute) Varicose veins of right lower extremity with inflammation (Acute) OAB (overactive bladder) (Acute) Chronic idiopathic constipation (Acute) Venous insufficiency (Acute) Hypokalemia (Acute) Urinary urgency (Acute) Urinary incontinence (Acute) Acute UTI (Acute) Pelvic floor weakness (Acute) Female cystocele (Acute) Right knee pain (Acute) Bone spur of foot (Acute) Left foot pain (Acute) Foul smelling urine (Acute) Cystocele with rectocele (Acute) URI (upper respiratory infection) (Acute) Renal calculi (Acute) Umbilical hernia (Acute) Abdominal pain (Acute) MCL sprain of left knee (Acute) Physical exam (Acute) Old tear of meniscus of right knee (Acute) Osteoarthritis of right knee (Acute) Fecal incontinence (Acute) Grade 2 sprain of medial collateral ligament of left knee (Acute) Tear of medial meniscus of left knee (Acute) Locked knee (Acute) Yeast infection of the skin (Acute) Left knee pain (Acute) Strain of left knee (Acute) Abdominal wall sinus (Acute) Meralgia paraesthetica (Acute) Skin candidiasis (Acute) Mixed incontinence urge and stress (Acute) Recurrent UTI (Acute) Urge urinary incontinence (Acute) Change in bowel habits (Acute) Foreign body granuloma of skin (Acute) Acne rosacea (Acute) Right hip pain (Acute) Leg numbness (Acute) Obesity (Acute) Mixed hyperlipidemia (Acute) GERD (gastroesophageal reflux disease) (Acute) Hypovitaminosis D (Acute) Past Medical History Medical History Pain in both feet Calcaneal spur of both feet Other enthesopathy of right foot and ankle Other enthesopathy of left foot and ankle Plantar fasciitis, bilateral PONV (postoperative nausea and vomiting) Mixed incontinence urge and stress Recurrent UTI Urge urinary incontinence Change in bowel habits Foreign body granuloma of skin Acne rosacea Right hip pain Leg numbness Obesity Mixed hyperlipidemia GERD (gastroesophageal reflux disease) Hypovitaminosis D Family History Family History Father Hypertension Cancer Mother Hypertension Diabetes Brother No problems noted. Sister In good health Daughter In good health Family history of problems with anesthesia: No Surgical History Surgical History History of colostomy reversal History of abdominoplasty Perforation of colon History of total abdominal hysterectomy and bilateral salpingo-oophorectomy History of Problems with Anesthesia: No Social History Social History Household Members: Spouse, Family and Children Housing: House Are you a primary director of patient care to a significant other at home: No Do you presently have visiting nurse or other home services: No Alcohol intake: current Alcohol intake frequency: does not drink Patient Tobacco Use Status: Never used Tobacco e-Cigarette/Vaping Use: Never Used Second Hand Smoke Exposure: No Use of substances other than those prescribed or required for medical reasons: No Have you been hit, kicked, punched, or otherwise hurt by someone within the past year? 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 Current occupational exposures/hazards: No Cognitive needs: No Hearing needs: No Vision needs: Yes Meds Allergies Allergy/AdvReac Type Severity Reaction Status Date / Time metronidazole (Metrogel) Allergy Intermediate facial rash Verified 09/16/25 13:22 morphine (Morphine) Allergy Intermediate SEVERE Verified 09/16/25 13:22 VOMITING, nausea and vomiting hydromorphone (From Dilaudid) AdvReac Mild makes pt Verified 09/16/25 13:22 feel ill Home Medications ?Medication ?Instructions ?Recorded ?Confirmed ?Last Taken ?Type magnesium oxide 400 mg (241.3 mg 400 mg PO BEDTIME 06/0309/20/25 Unknown History magnesium) tablet Exam Height,Weight and Vital Signs: Height 5 ft 2 in Weight 71.214 kg Narrative Narrative: 09/07/2024-EKG showed sinus tachycardia with a question of anterior infarct and nonspecific STT wave abnormality. 01/04/2025-echo study showed a normal LV systolic function with an ejection fraction of 60-65% with impaired relaxation filling pattern and trivial pericardial perfusion. 02/18/2025-patient underwent a stress echo which was negative for ischemia, diastolic dysfunction, or pulmonary hypertension. Assessment and Plan Assessment Anesthesia Assessment: Chart Reviewed Final Anesthetic Review Family History of Problems with Anesthesia: No History of Problems with Anesthesia: No Documented by User: Mary Carrillo MD 09/24/25 12:56 PMFSH Past Medical History Medical History Pain in both feet Calcaneal spur of both feet Other enthesopathy of right foot and ankle Other enthesopathy of left foot and ankle Plantar fasciitis, bilateral PONV (postoperative nausea and vomiting) Mixed incontinence urge and stress Recurrent UTI Urge urinary incontinence Change in bowel habits Foreign body granuloma of skin Acne rosacea Right hip pain Leg numbness Obesity Mixed hyperlipidemia GERD (gastroesophageal reflux disease) Hypovitaminosis D Family History Family History Father Hypertension Cancer Mother Hypertension Diabetes Brother No problems noted. Sister In good health Daughter In good health Surgical History Surgical History History of colostomy reversal History of abdominoplasty Perforation of colon History of total abdominal hysterectomy and bilateral salpingo-oophorectomy Social History Social History Household Members: Spouse, Family and Children Housing: House Are you a primary director of patient care to a significant other at home: No Do you presently have visiting nurse or other home services: No Alcohol intake: current Alcohol intake frequency: does not drink Patient Tobacco Use Status: Never used Tobacco e-Cigarette/Vaping Use: Never Used Second Hand Smoke Exposure: No Use of substances other than those prescribed or required for medical reasons: No Have you been hit, kicked, punched, or otherwise hurt by someone within the past year? 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 Current occupational exposures/hazards: No Cognitive needs: No Hearing needs: No Vision needs: Yes Meds Allergies Allergy/AdvReac Type Severity Reaction Status Date / Time metronidazole (Metrogel) Allergy Intermediate facial rash Verified 09/16/25 13:22 morphine (Morphine) Allergy Intermediate SEVERE Verified 09/16/25 13:22 VOMITING, nausea and vomiting hydromorphone (From Dilaudid) AdvReac Mild makes pt Verified 09/16/25 13:22 feel ill Home Medications ?Medication ?Instructions ?Recorded ?Confirmed ?Last Taken ?Type magnesium oxide 400 mg (241.3 mg 400 mg PO BEDTIME 06/0309/20/25 Unknown History magnesium) tablet Exam Airway Mallampati Class: II TM Dist: >3cm Neck ROM: Full Heart: rrr Lungs: cta Assessment and Plan Assessment Anesthesia Assessment: Anesthesia Plan Discussed Final Anesthetic Review NPO: Yes ASA Class: II Final Preanesthetic Review: No Changes in Pt Med Stat, Meds/Allgs Chart Reviewed, Consent Obtained/Reviewed and Anes Risks/Benef Reviewed Patient Risk: Intermediate Procedure Risk: Low Anesthetic Plan Anesthetic Plan: GA and Agree w/ Assess. and Plan
[2025-09-24] VITALS (7 sets, daily range): BP systolic 104–140; BP diastolic 44–76; PULSE 70–80; RESP 16; TEMP 36.1–36.8; O2SAT 96–100; BMI 29.1
[2025-09-24] MEDS: Lactated Ringers 1,000 ML 100 ML IVCONT (11:17)
--- NOTE | 2025-09-24 13:11 | MHC.SHP ---
Pre-Procedural Eval Section A - 24 Hr Update-Section A only Date of Service: 09/24/25 The patient is an INPATIENT: No The patient has been examined within 24 hours of the surgical procedure. The History & Physical has been completed within 30 days and I have reviewed it.: Yes Section B - Complete if H&P > 30 days Chief Complaint: Overactive bladder Allergies: Allergies Allergy/AdvReac Type Severity Reaction Status Date / Time metronidazole (Metrogel) Allergy Intermediate facial rash Verified 09/16/25 13:22 morphine (Morphine) Allergy Intermediate SEVERE Verified 09/16/25 13:22 VOMITING, nausea and vomiting hydromorphone (From Dilaudid) AdvReac Mild makes pt Verified 09/16/25 13:22 feel ill Plan Diagnosis/Plan: Unchanged I have reviewed the history and physical and performed a pertinent physical examination on my patient. No changes have occurred unless specified. Cystoscopy Bladder Botox injection 100 units. Time Spent With Patient Time: Total time managing care of this patient today ____ minutes.
--- NOTE | 2025-09-24 13:12 | W.PM.OPN ---
Operative Note Operative Note Date of Service: 09/24/25 Narrative: PREOP DIAGNOSIS: OAB POSTOP DIAGNOSIS: OAB PROCEDURE: CYSTOSCOPY, BLADDER BOTOX INJECTION 100 UNITS SURGEON: Leandra Lake MD ANESTHESIA: General Details of procedure: The patient was brought into the operating room placed on the OR table in supine position. Ancef 2 gm IV. Gentamycin 160 mg IV. General anesthesia was administered. The patient was repositioned into lithotomy position, prepped and draped in the usual sterile fashion. Time-out was done per protocol. A 22 fr cystoscope was placed transurethrally into the bladder. Urine was sent for culture. The right and left ureteral orifices were visualized. There were mild trabeculations noted. Mild erythematous changes noted. There were no suspicious bladder lesions seen. Trigone in dependent position due to cystocele. The Botox 100 units was mixed with 10 cc of normal saline and injected transurethrally 1/2 cc to 1 cc per injection into the posterior bladder wall. The cystoscope was removed. 2% lidocaine urojet was passed transurethrally into the bladder. The patient was brought out of anesthesia and taken to recovery in stable condition. Complications: None EBL: minimal (<5 mL) Drains: none
== END 2025-09-24 15:25 | disposition home or self-care (01) ==
PROVIDERS: PCP Internal Medicine; Visit Provider Urology
PROC: 3E0K8GC Introduction of Other Therapeutic Substance into Genitourinary Tract, Via Natural or Artificial Opening Endoscopic (ICD-10-PCS; CPT 52287; principal; 2025-09-24 12:30)
DX: N32.81 Overactive bladder (principal); N32.89 Other specified disorders of bladder; N39.0 Urinary tract infection, site not specified; Z87.442 Personal history of urinary calculi; E78.2 Mixed hyperlipidemia; E55.9 Vitamin D deficiency, unspecified; Z79.1 Long term (current) use of non-steroidal anti-inflammatories (NSAID); Z79.899 Other long term (current) drug therapy; Z88.5 Allergy status to narcotic agent; Z88.8 Allergy status to other drugs, medicaments and biological substances; Z98.890 Other specified postprocedural states
CPT/HCPCS: 52287; 87086; 87088; 87186; J0131; J0585; J0690; J1100; J1580; J2003; J2405; J2704; J2765; J3010

== ENCOUNTER → 2025-09-24 10:51 | Outpatient (BNV) | payer OTHER, SELFPAY | PROVIDERS: PCP Internal Medicine; Visit Provider Urology | DX: N32.81 Overactive bladder (principal) | CPT/HCPCS: 52287 ==

== ENCOUNTER 2025-10-04 13:27 | Outpatient (REF) | payer OTHER, SELFPAY | END 2025-10-04 13:28 | disposition home or self-care (01) | LOC: HO.LAB 13:27 | PROVIDERS: PCP Internal Medicine; Visit Provider Urology | DX: N32.81 Overactive bladder (principal); N39.0 Urinary tract infection, site not specified | CPT/HCPCS: 51798; 81003; 87086 ==

== ENCOUNTER 2025-10-04 13:27 | Outpatient (AMB) | payer OTHER, SELFPAY ==
--- OUTSIDE RECORDS SUMMARY | 2025-10-04 13:30 | XMS_ITS | Clinical Summary ---
Author Organization [facility] Address [address] [place] [phone] Phone Care Team Providers Care Stable Cleaner Name Role Phone Shasha Lott MD Primary [...] topic Medical Devices Not on file Insurance [employer] [facility]CTOR[facility] DIRECT [facility] [place]: [address] [phone] [employer] [facility] CONNECTORCARE DIRECT CONNECTORCARE DIRECT CONNECTOR[employer]ARE DIRECT CONNECTOR[employer]ARE [place] [address] CONNECTORCARE DIRECT [employer] [place] [address] [address] CONNECTORCARE DIRECT [facility] Care Teams Stable Cleaner Relationship Specialty Start Date End Date Shasha Lott MD [address] [place], [place] [id number] PCP - General Internal Medicine 03/03/18 Additional Source Comments The information contained in this document represents components of the legal health record. It is not the complete legal health record.[facility]
--- OUTSIDE RECORDS SUMMARY | 2025-10-04 13:30 | XMS_ITS | Encounter Summary ---
Author Organization [facility] Address [address] [place] [id number] Phone Care Team Providers Care Bell Staff Name Role Phone Shasha Lott MD Primary Care Provid er Reason for Referral * Physical Therapy (Routine) - Closed Specialty Diagnoses / Procedures Referred By Benji pace Referred To Contact Physical Therapy Diagnoses Encounter for rehabilitation System, Provider Not In, PhD [id number] [place] [address] Phone: tel: Referral ID Status Reason Start Date Expiration Date Visits Re quested Visits Authorized [id number] Closed 03/09/2018 10/09/2018 12 12 Encounter Details Date Type Department Care Team (Latest Contact Info) Description 03/03/2018 Transcribe Orders [facility] [address] [place] [address] [place] [address] Lobo Donald MD [address] [place] [address] Dr Martin [address] [place] [id number] Encounter for rehabilitation (Primary Dx) Social History [...] Date/Time Associated Diagnosis Comments AMB REFERRAL TO [facility] PHYSICAL THERAPY Routine 03/09/2018 1:13 PM EDT Encounter for rehabilitation documented in this encounter Results * Ambulatory referral to [facility] Physical Therapy (03/09/2018 1:13 PM EDT) us Provider Not In System PhD AMB [facility] REFERRALS Fin al Result documented in this encounter Visit Diagnoses Diagnosis Encounter for rehabilitation- Primary documented in this encounter Care Teams Bell Staff Relationship Specialty Start Date End Date Shasha Lott MD [address] [place] [address] PCP - General Internal Medicine 03/03/18 documented as of this encounter Additional Source Comments The information contained in this document represents components of the legal health record. It is not the complete legal health record.[facility]
--- NOTE | 2025-10-04 13:35 | AM.OFFVISNUR ---
Intake Visit Reasons: PVR Allergies metronidazole (Metrogel) Allergy (Intermediate, Verified 09/16/25 13:22) facial rash morphine (Morphine) Allergy (Intermediate, Verified 09/16/25 13:22) SEVERE VOMITING, nausea and vomiting hydromorphone (From Dilaudid) Adverse Reaction (Mild, Verified 09/16/25 13:22) makes pt feel ill Office Procedures Post Void Residual Post Residual Void Details: Patient presents to office for PVR after calling to report that she feels she is not urinating enough and has pain in her lower right side. Bladder scanned for 136mls. Reviewed with Dr. Charles as patient was not able to give urine sample. Straight catheter 14fr used to obtain urine sample, UA reviewed with Dr. Charles. Will send urien for culture. Have patient increase fluids and send flomax 0.4mg daily for 2 weeks, order US. Orders placed and medication sent. Patient is aware of plan and is agreeable. Will call office if she has any questions or concerns Post Void Residual (PVR): [id number] Void Residual by ultrasound Results AMB Urinalysis, Automated UA Leukoctes 0 Suhail/uL Last Edit by Martní Rashid LPN on 10/04/25 13:55 UA Nitrite Negative Last Edit by Martín Rashid LPN on 10/04/25 13:55 UA Urobilinogen 0.2 mg/dL Last Edit by Martín Rashid LPN on 10/04/25 13:55 UA Protein 15 mg/dL Last Edit by Martín Rashid LPN on 10/04/25 13:55 UA pH 6.0 Last Edit by Martín Rashid LPN on 10/04/25 13:55 UA Blood 200 Alejandro/uL Last Edit by Martín Rsahid LPN on 10/04/25 13:55 UA Specific [place] 1.025 Last Edit by Martín Rashid LPN on 10/04/25 13:55 UA Ketone Negative Last Edit by Martín Rashid LPN on 10/04/25 13:55 UA Bilirubin 0 mg/dL Last Edit by Martín Rashid LPN on 10/04/25 13:55 UA Glucose 0 mg/dL Last Edit by Martín Rashid LPN on 10/04/25 13:55 Assessment & Plan Assessment & Plan Orders: Orders AMB Post Void Residual by ultrasound Today N32.81 - Overactive bladder, N39.46 - Mixed incontinence US retroperitoneal comp Today N32.81 - Overactive bladder, N39.0 - Urinary tract infection, site not specified AMB Urinalysis Automated Today N32.81 - Overactive bladder, N39.46 - Mixed incontinence Urine Culture Today N32.81 - Overactive bladder, N39.0 - Urinary tract infection, site not specified Medications: New tamsulosin 0.4 mg PO BEDTIME 14 days 14 caps 0RF tamsulosin 0.4 mg PO BEDTIME 14 caps 0RF 14 days Coding CPT Codes Post Residual Void - PVR CPT Code: 55260-[id number] Void Residual by ultrasound ([id number])
== END 2025-10-04 15:42 | disposition home or self-care (01) ==
LOC: HO.HUSH 13:27
PROVIDERS: PCP Internal Medicine; Visit Provider Urology
DX: N32.81 Overactive bladder (principal); N39.46 Mixed incontinence